=== PATIENT | female | born 1960 | race Two or more races ===

== ENCOUNTER 2022-06-08 13:08 | Inpatient (IN) | payer OTHER, SELFPAY ==
--- NOTE | 2022-06-08 | ECG_ITS ---
Test Reason : dyspenia Blood Pressure : / mmHG Vent. Rate : 079 BPM Atrial Rate : 079 BPM P-R Int : 144 ms QRS Dur : 074 ms QT Int : 404 ms P-R-T Axes : 034 009 037 degrees QTc Int : 463 ms Normal sinus rhythm Nonspecific ST and T wave abnormality Abnormal ECG When compared with ECG of 12-SEP-2019 09:20, Criteria for Septal infarct are no longer Present Referred By: Chava Leggett Electronically Signed By:CHAITANYA PORTILLO
--- NOTE | ~2022-06-08 | XR_ITS ---
EXAMINATION: XR CHEST CLINICAL INFORMATION: Cough, wheezing, rule out pneumonia COMPARISON: X-ray 09/12/2019 TECHNIQUE: Frontal view of the chest was obtained. FINDINGS: Cardiac and mediastinal silhouette is within normal limits. There is patchy opacities in the left lower lung,, concerning for infiltrate, new from previous. No effusion, edema or pneumothorax. XR/XR chest 1V IMPRESSION: Left basilar opacities raising concern for infiltrate/pneumonia. Findings new from previous. Recommendation is for a follow-up chest series to be obtained following treatment and/or resolution of symptoms to assure resolution of this appearance.
--- NOTE | ~2022-06-08 | CT_ITS ---
EXAMINATION: CT CHEST WITHOUT CONTRAST CLINICAL INFORMATION: Evaluate for pneumonia COMPARISON: Chest x-ray earlier this afternoon TECHNIQUE: Multidetector volumetric CT imaging of the chest was done. Axial MIP volume rendering provided. Sagittal and coronal reformatted images were obtained. This CT examination was performed using dose optimization techniques as appropriate, variously including the following: *Automated exposure control *Adjustment of mA and/or kV according to patient size (this includes techniques or standardized protocols for targeted exams where dose is matched to indication/reason for exam; i.e. extremities or head) *Use of iterative reconstruction technique DLP: 301 mGy-cm FINDINGS: The heart is normal in size. Coronary artery calcifications are present. There is no pericardial effusion. Normal caliber thoracic aorta. No gross mediastinal or hilar lymphadenopathy. No pathologically enlarged axillary lymph nodes. Central airways are patent. Lungs are well aerated. There is some mild lingular atelectasis. No lobar consolidation or pleural effusion. 2 mm pulmonary nodule of the left upper lobe (image 166/516, series 5). Small calcified granuloma of the right middle lobe. Visualized portions of the upper abdomen are grossly unremarkable. No acute osseous abnormality. CT/CT chest wo IV con IMPRESSION: -Well aerated lungs without lobar consolidation, pleural effusion or pneumothorax. -2 mm left upper lobe pulmonary nodule. According to the UPDATED 2017 Fleischner Society recommendations, the advised follow-up imaging for solid nodules < 6 mm is: LOW RISK PATIENT: No routine follow-up. HIGH RISK PATIENT: Optional CT at 12 months. Fleischner guidelines were followed.
[2022-06-08 14:29] VITALS: BP 195/102; PULSE 93; RESP 24; TEMP 36.2; O2SAT 94; BMI 31.1
--- NOTE | 2022-06-08 15:14 | ED_ITS ---
HPI - SOB/Dyspnea General Chief Complaint: Dyspnea Stated Complaint: diff breathing Time Seen by Provider: 06/08/22 15:01 Source: patient Mode of arrival: ambulatory Limitations: no limitations History of Present Illness HPI Narrative: 62-year-old female who presents emergency department evaluation of 3 days. Mery ent states that over the past 3 days she has had progressively worse shortness of breath. She states that the shortness of breath comes on at rest and is worse with exertion. States that she has also developed pleuritic chest she points to her left chest when asked to localize the. Pain is a sharp pain which is only present when she takes a deep breath in. The pain is 5/10 its worst. She states that last night her shortness of breath got worse and she got more short of breath this morning therefore she came to the emergency department for evaluation. She denied fever chills. She states she did have rhinorrhea and a sore throat of the past 2 days. States she has a cough which is nonproductive. She denied nausea or vomiting. She states that 1 week prior she did have diarrhea. She has noted urinary frequency she states whenever she coughs she urinates. She denied dysuria. The patient has not been vaccinated for COVID-19. She did take a home COVID 19 test which was negative. Patient states that her doctor was concerned that she might be developing COPD but she has never had a diagnosis of COPD. She had similar presentation approximately 2 year prior, she was hospitalized but does not remember how she was treated her or her diagnosis. MD elicited complaint: shortness of breath Pertinent past history: COPD (Suspected by her PCP) Onset (ago): day(s) (3) Timing: constant Severity: moderate Exacerbating factors: exertion, movement and coughing Relieving factors: nothing Known history of: COPD Associated symptoms: chest pain (Left-sided pleuritic pain, 5/10), pain with inspiration and cough (Nonproductive) Treatment prior to arrival: none Related Data Allergies Allergy/AdvReac Type Severity Reaction Status Date / Time bee pollen [BEE STINGS] Allergy Unknown SWELLING - Verified 10/06/20 07:48 BLOTCHES Review of Systems Review of Systems: Yes all other systems are reviewed and are negative PMFSH Past Medical History PMFSH Narrative: Past medical history: COPD suspected by her PCP but not diagnosed. Past surgical history: Bilateral tubal ligation. Social history: The patient smok es 09/27 pack of cigarettes per day times 35 years. She quit 1 month prior. She denies alcohol use. She states she does use intranasal heroin but has not used for 1 year. She is in a methadone clinic. Surgical History (Updated 10/06/20 @ 07:48 by LEX Norman) History of tubal ligation Family History Family History (Updated 10/06/20 @ 07:49 by LEX Norman) Father Stroke Hypertension Diabetes Heart problem Mother Diabetes Brother Diabetes Sister In good health Social History Social History Advance Directives: No Advance Directives Information Provided: No Physical Exam Vital Signs: Vital Signs: Last Vital Signs Temp 97.1 F 06/08/22 14:29 Pulse 81 06/08/22 16:27 Resp 18 06/08/22 16:27 BP 195/102 H 06/08/22 14:29 Pulse Ox 94 06/08/22 14:29 O2 Del Method 06/08/22 14:29 BMI result Body Mass Index 31.1 Const: Other: Awake, alert, female patient, she has audible wheezing, she is using accessory muscles to breathe, she answers all questions appropriately in full sentences. HEENT: Head: Yes normal to inspection, Yes normocephalic and Yes atraumatic Ears: external ears normal General nose exam: Normal external nose present Face and sinus: Yes normal facial exam Mouth: Normal oral and palatal mucosa present Throat: Yes posterior oropharynx normal Eyes: General: appearance normal, both eyes and all related structures Pupils: Equal, round and reactive pupils present Neck: Neck: Yes normal visual inspection, Yes no lymphadenopathy, Yes trachea midline and Yes supple Chest: Chest palpation & inspection: normal inspection of the chest and tenderness (Moderate left chest wall tenderness) Resp: Effort & Inspection: able to speak in complete sentences, audible wheezes and tachypneic Auscultation: rhonchi (Diffuse) and wheezes (Diffuse) Cardio: Rate: regular rate Rhythm: regular rhythm Heart sounds: S1 normal heart sound present, S2 normal heart sound present and no murmurs GI: Inspection: Yes normal to inspection Palpation (GI): Soft to palpation, nontender and no guarding Auscultation: normal bowel sounds : General: Yes no CVA tenderness Back/Spine/Pelvis: Back: no CVA tenderness Skin: General skin exam: no rashes or lesions noted Neuro: Cranial nerves: Yes CN's II-XII intact bilaterally and Yes Equal, round and reactive pupils present Cognition (Neuro): normal cognition Motor exam (neuro): 5/5 motor strength present throughout Extrem: General: Yes normal to inspection Psych: Appearance: grossly normal Speech and movement: Normal speech and movement present Affect: normal affect Attitude: cooperative Thought process: Normal thought process present Thought content: Normal thought content present Course Course Course Narrative: 62-year-old female who presents emergency department for evaluation of 3 days of shortness of breath, wheezing, nonproductive cough, sore throat, rhinorrhea and pleuritic chest pain. Patient is not vaccinated for COVID-19 but she did have a negative home COVID-19 test prior to coming to the emergency department. Vital signs revealed an elevated blood pressure of 195/102 and an elevated respiratory rate of 24. O2 saturation was 94% on room air. Physical examination did reveal left-sided chest wall tenderness which reproduces her pleuritic pain. She also has diffuse wheezing and rhonchi. I ordered CBC, CMP, lactate, troponin, PT/INR, PTT, D-dimer, blood cultures x2 and an EKG. Patient will be tested for COVID-19. Her wheezing and rhonchi will be treated with an albuterol inhaler, 6 puffs via spacer. 1619: Laboratory evaluation: CBC and CMP were unremarkable. COVID-19 was negative. High sensitive troponin I was below detectable limits. Patient only got minimal relief her shortness of breath but her chest pain did improve with the above treatment. Patient was ordered to get albuterol nebulizer 5 mg. 1655: Radiology evaluation: Radiologist reading is below:. IMPRESSION: Left basilar opacities raising concern for infiltrate/pneumonia. Findings new from previous. Recommendation is for a follow-up chest series to be obtained following treatment and/or resolution of symptoms to assure resolution of this appearance. Dictated By:Cody Brenner MD Patient was ordered to get ceftriaxone 1 g IV and azithromycin 5 mg IV. I will discuss admission with the covering hospitalist. MDM - SOB/Dyspnea Lab Data Result diagrams: 06/08/22 15:20 06/08/22 15:20 Labs: Lab Results 06/08/22 06/08/22 06/08/22 Range/Units 15:20 15:20 15:20 WBC 5.2 (4.8-10.8) X10*3/uL RBC 4.85 (4.20-5.50) X10*6/uL Hgb 14.6 (12.0-16.0) g/dl Hct 44.0 (37.0-47.0) % MCV 90.7 (80.0-98.0) fL MCH 30.1 (27.0-33.0) pg MCHC 33.2 (31.0-35.0) g/dl RDW 13.2 (11.0-16.0) % Plt Count 223 (160-400) X10*3/uL MPV 10.1 (9.4-12.3) fL Immature Gran % (Auto) 0.2 (0.0-0.4) % Neut % (Auto) 69.3 (45-73) % Lymph % (Auto) 19.7 L (20-40) % [place] % (Auto) 7.5 (2-11) % Eos % (Auto) 2.7 (0-4) % Baso % (Auto) 0.6 (0-2) % Lymph # (Auto) 1.0 L (1.2-4.9) X10*3/uL [place] # (Auto) 0.4 (0.1-1.2) X10*3/uL Eos # (Auto) 0.1 (0.0-0.4) X10*3/uL Baso # (Auto) 0.0 (0.0-0.2) X10*3/uL Abs Immat Gran (auto) 0.01 (0.00-0.03) X10*3/uL Absolute Neuts (auto) 3.6 (2.0-8.3) x10*3/uL Absolute Nucleated RBC 0.000 (0.0-0.012) X10*3/uL Nucleated RBC % (auto) 0.0 (0.0-0.2) /100WBC PT (10.0-13.1) SEC INR (0.9-1.1) APTT (26.0-36.4) SEC Sodium 139 (135-145) mmol/L Potassium 4.0 (3.3-5.1) mmol/L Chloride 101 (96-108) mmol/L Carbon Dioxide 28 (22-29) mmol/L Anion Gap 14 (12-20) BUN 14 (9-16) mg/dL Creatinine 0.75 (0.5-1.4) mg/dL Estim Creat Clear Calc 68.2 Estimated GFR > 60 Random Glucose 90 (60-115) mg/dL Lactic Acid (0.5-2.0) mmol/L Calcium 9.4 (8.4-10.2) mg/dL Total Bilirubin 0.3 (0.0-1.0) mg/dL AST 23 (5-31) U/L ALT 20 (0-31) U/L Alkaline Phosphatase 123 H (39-117) U/L Troponin I High Sens < 3.5 (<3.5-17.0) ng/L Total Protein 8.2 H (6.5-8.0) g/dL Albumin 4.6 (3.5-5.0) g/dL Lipase 4 L (8-78) U/L COVID-19 (PITA) (Negative) COVID-19 Clin Com 06/08/22 06/08/22 06/08/22 Range/Units 15:20 15:20 15:20 WBC (4.8-10.8) X10*3/uL RBC (4.20-5.50) X10*6/uL Hgb (12.0-16.0) g/dl Hct (37.0-47.0) % MCV (80.0-98.0) fL MCH (27.0-33.0) pg MCHC (31.0-35.0) g/dl RDW (11.0-16.0) % Plt Count (160-400) X10*3/uL MPV (9.4-12.3) fL Immature Gran % (Auto) (0.0-0.4) % Neut % (Auto) (45-73) % Lymph % (Auto) (20-40) % [place] % (Auto) (2-11) % Eos % (Auto) (0-4) % Baso % (Auto) (0-2) % Lymph # (Auto) (1.2-4.9) X10*3/uL [place] # (Auto) (0.1-1.2) X10*3/uL Eos # (Auto) (0.0-0.4) X10*3/uL Baso # (Auto) (0.0-0.2) X10*3/uL Abs Immat Gran (auto) (0.00-0.03) X10*3/uL Absolute Neuts (auto) (2.0-8.3) x10*3/uL Absolute Nucleated RBC (0.0-0.012) X10*3/uL Nucleated RBC % (auto) (0.0-0.2) /100WBC PT 11.3 (10.0-13.1) SEC INR 1.0 (0.9-1.1) APTT 28.2 (26.0-36.4) SEC Sodium (135-145) mmol/L Potassium (3.3-5.1) mmol/L Chloride (96-108) mmol/L Carbon Dioxide (22-29) mmol/L Anion Gap (12-20) BUN (9-16) mg/dL Creatinine (0.5-1.4) mg/dL Estim Creat Clear Calc Estimated GFR Random Glucose (60-115) mg/dL Lactic Acid 1.2 (0.5-2.0) mmol/L Calcium (8.4-10.2) mg/dL Total Bilirubin (0.0-1.0) mg/dL AST (5-31) U/L ALT (0-31) U/L Alkaline Phosphatase (39-117) U/L Troponin I High Sens (<3.5-17.0) ng/L Total Protein (6.5-8.0) g/dL Albumin (3.5-5.0) g/dL Lipase (8-78) U/L COVID-19 (PITA) Negative (Negative) COVID-19 Clin Com See Note ECG Data Attestation: I personally reviewed and interpreted this ECG as follows: Interpretation: Fourteen 50: Normal sinus rhythm rate of 79, normal [place] interval, QRS duration QTC interval, no ST segment elevation, no ST segment depression, no PACs, no PVCs, no significant T-wave abnormalities, there is artifact in the recording. Discharge Plan Discharge Clinical Impression: Acute exacerbation of chronic obstructive pulmonary disease Pneumonia Qualifiers: Pneumonia type: due to unspecified organism Laterality: left Lung location: lower lobe of lung Qualified Code(s): J18.9 - Pneumonia, unspecified organism
[2022-06-08 15:25] VITALS: PULSE 99; RESP 18; O2SAT 93
[2022-06-08 15:25] LABS: MANUAL DIFF FLAG NO
[2022-06-08] MEDS: Albuterol Sulfate 90 MCG 8 GM INHALER 6 PUFF INHALE (15:25)
[2022-06-08 15:27] LABS: Basophils Percent Auto 0.6 % (0-2); Eosinophils Absolute Auto 0.1 X10*3/uL (0.0-0.4); Eosinophils Percent Auto 2.7 % (0-4); Hemoglobin 14.6 g/dl (12.0-16.0); Imm Gran Abs Auto 0.01 X10*3/uL (0.00-0.03); Imm Gran Pct Auto 0.2 % (0.0-0.4); Lymphocytes Percent Auto 19.7 % (20-40); Mean Corpuscular HGB Conc 33.2 g/dl (31.0-35.0); Mean Corpuscular Hemoglobin 30.1 pg (27.0-33.0); Mean Corpuscular Volume 90.7 fL (80.0-98.0); Mean Platelet Volume 10.1 fL (9.4-12.3); Monocytes Absolute Auto 0.4 X10*3/uL (0.1-1.2); Monocytes Percent Auto 7.5 % (2-11); Neutrophils Absolute Auto 3.6 x10*3/uL (2.0-8.3); Neutrophils Percent Auto 69.3 % (45-73); Platelet Count 223 X10*3/uL (160-400); Red Blood Count 4.85 X10*6/uL (4.20-5.50); Red Cell Distribution Width 13.2 % (11.0-16.0); White Blood Count 5.2 X10*3/uL (4.8-10.8)
[2022-06-08] MEDS: methylPREDNISolone Sod Succ 125 MG/2 ML VIAL IVPUSH (15:28)
[2022-06-08] MEDS: Ketorolac Tromethamine 15 MG/ML VIAL IVPUSH (15:28)
[2022-06-08 15:33] LABS: Prothrombin Time 11.3 SEC (10.0-13.1)
[2022-06-08 15:35] LABS: Partial Thromboplastin Time 28.2 SEC (26.0-36.4)
[2022-06-08 15:42] LABS: COVID-19 Test Negative (Negative); IDNOW Serial# 16C4AD1C
[2022-06-08 15:47] LABS: Lactic Acid 1.2 mmol/L (0.5-2.0)
[2022-06-08 15:51] LABS: Alanine Aminotransferase 20 U/L (0-31); Albumin Level 4.6 g/dL (3.5-5.0); Alkaline Phosphatase 123 U/L (39-117); Anion Gap 14 (12-20); Aspartate Amino Transferase 23 U/L (5-31); Bilirubin Total 0.3 mg/dL (0.0-1.0); Blood Urea Nitrogen 14 mg/dL (9-16); Calcium 9.4 mg/dL (8.4-10.2); Carbon Dioxide 28 mmol/L (22-29); Chloride 101 mmol/L (96-108); Creatinine Clr Calc Pharmacy 68.2; Estimated Glomerular Filt Rate > 60; Glucose Random 90 mg/dL (60-115); Lipase 4 U/L (8-78); Sodium 139 mmol/L (135-145); Total Protein 8.2 g/dL (6.5-8.0)
[2022-06-08 15:54] LABS: Troponin-I High Sensitivity < 3.5 ng/L (<3.5-17.0)
[2022-06-08 16:27] VITALS: PULSE 81; RESP 18; O2SAT 95
[2022-06-08] MEDS: Albuterol Sulfate (0.083%) 2.5 MG/3 ML VIAL.NEB 5 MG INHALE (16:27)
[2022-06-08] MEDS: cefTRIAXone sodium 1 GM in 0.9 % Sodium Chloride 50 ML IV (17:05)
[2022-06-08] MEDS: Azithromycin 500 MG in 0.9 % Sodium Chloride 250 ML 125 MG IV (17:23)
--- NOTE | 2022-06-08 17:23 | P.HPHOSP_ITS ---
History of Present Illness Date of Service: 06/08/22 Attending physician on admission: Moise Milian Chief Complaint: Shortness of breath 62-year-old woman presented to the ER with complaints of 3 days of worsening shortness of breath at rest and worse with exertion. She also developed pleu ritic chest pain that is sharp in nature especially when taking in a deep breath. She denied fever, chills, nausea, vomiting, diarrhea. She did report recent cold-like symptoms including sore throat over the last 2 days with nonproductive cough. She is non vaccination status. Chest x-ray showing possible infiltrate, no sepsis, no fever leukocytosis noted. Patient given a dose of albuterol, Toradol, ceftriaxone, azithromycin, Solu-Medrol. She will be admitted for further management and treatment acute community-acquired pneumonia. Review of Systems Review of Systems: Denies any recent fever chills or decrease in appetite respiratory see HPI cardiovascular denies chest pain gastrointestinal denies any dysphagia abdominal pain nausea vomiting or diarrhea genitourinary denies any dysuria frequency or hematuria musculoskeletal denies any joint pain or swelling neuropsych denies any weakness or seizures all other systems reviewed are negative FORMERLY [facility], [facility] Family History (Updated 10/06/20 @ 07:49 by Fernanda Matthew Jose) Father Stroke Hypertension Diabetes Heart problem Mother Diabetes Brother Diabetes Sister In good health Surgical History History of tubal ligation Social History (Updated 06/08/22 @ 17:28 by Marielos Moreno NP) Alcohol intake: never Patient Tobacco Use Status: Former Tobacco user Tobacco use type: Cigarette Cigarette Packs Per Day: 10 Use of substances other than those prescribed or required for medical reasons: No Substance Use Type: Heroin Substance Use Type Other:: Last use intranasal heroin 1 year ago, on methadone Advance Directives: No Advance Directives Information Provided: No Meds Allergies Allergy/AdvReac Type Severity Reaction Status Date / Time bee pollen [BEE STINGS] Allergy Unknown SWELLING - Verified 10/06/20 07:48 BLOTCHES Active Medications: Current Medications Azithromycin 500 mg/ Sodium (Chloride) 250 mls @ 125 mls/hr IV ONCE STA Stop: 06/08/22 18:50 Home Medications Medication Instructions Recorded Confirmed Last Taken Type ibuprofen 600 mg tablet 600 mg PO Q6H PRN Pain 0906/08/22 06/08/22 History methadone 10 mg/5 mL oral solution 85 mg PO DAILY 06/08/22 06/08/22 06/08/22 History Physical Exam Vital Signs and Narrative: Vital Signs: Last Vital Signs Temp 97.1 F 06/08/22 14:29 Pulse 81 06/08/22 16:27 Resp 18 06/08/22 16:27 BP 195/102 H 06/08/22 14:29 Pulse Ox 94 06/08/22 14:29 O2 Del Method 06/08/22 14:29 BMI result Body Mass Index 31.1 Appearing in no acute distress head is normocephalic atraumatic eyes pupils are PERRLA sclera is anicteric mouth throat mucous membranes are intact and moist neck is supple no lymphadenopathy, no JVD noted lung sounds expiratory wheezing heart regular rate rhythm, clear S1, S2 positive bowel sounds, abdomen is soft, nontender neuro patient is alert x3, no focal deficits Results Labs CBC and Chem 7: 06/09/22 05:59 06/09/22 05:59 Labs: Laboratory Results - last 24 hr 06/08/22 06/08/22 06/08/22 15:20 15:20 15:20 MCV 90.7 MCH 30.1 MCHC 33.2 RDW 13.2 Plt Count 223 MPV 10.1 Immature Gran % (Auto) 0.2 Neut % (Auto) 69.3 Lymph % (Auto) 19.7 L [place] % (Auto) 7.5 Eos % (Auto) 2.7 Baso % (Auto) 0.6 Lymph # (Auto) 1.0 L [place] # (Auto) 0.4 Eos # (Auto) 0.1 Baso # (Auto) 0.0 Abs Immat Gran (auto) 0.01 Absolute Neuts (auto) 3.6 Absolute Nucleated RBC 0.000 Nucleated RBC % (auto) 0.0 PT INR APTT Anion Gap 14 Estim Creat Clear Calc 68.2 Estimated GFR > 60 Random Glucose 90 Lactic Acid 1.2 Calcium 9.4 Total Bilirubin 0.3 AST 23 ALT 20 Alkaline Phosphatase 123 H Total Protein 8.2 H Albumin 4.6 Lipase 4 L COVID-19 (PITA) COVID-19 Clin Com 06/08/22 06/08/22 15:20 15:20 MCV MCH MCHC RDW Plt Count MPV Immature Gran % (Auto) Neut % (Auto) Lymph % (Auto) [place] % (Auto) Eos % (Auto) Baso % (Auto) Lymph # (Auto) [place] # (Auto) Eos # (Auto) Baso # (Auto) Abs Immat Gran (auto) Absolute Neuts (auto) Absolute Nucleated RBC Nucleated RBC % (auto) PT 11.3 INR 1.0 APTT 28.2 Anion Gap Estim Creat Clear Calc Estimated GFR Random Glucose Lactic Acid Calcium Total Bilirubin AST ALT Alkaline Phosphatase Total Protein Albumin Lipase COVID-19 (PITA) Negative COVID-19 Clin Com See Note Imaging Radiologist's Impressions: Impressions Chest X-Ray 06/08/22 15:27 IMPRESSION: Left basilar opacities raising concern for infiltrate/pneumonia. Findings new from previous. Recommendation is for a follow-up chest series to be obtained following treatment and/or resolution of symptoms to assure resolution of this appearance. Assessment and Plan (1) Pneumonia: Qualifiers: Laterality: left Lung location: lower lobe of lung Pneumonia type: due to unspecified organism Qualified Code(s): J18.9 - Pneumonia, unspecified organism Status: Acute (2) Acute exacerbation of chronic obstructive pulmonary disease: Status: Acute Plan 62-year-old woman admitted with acute community-acquired pneumonia and possible COPD/bronchitis with no formal diagnosis Sepsis secondary to Acute community-acquired pneumonia unknown type Tachycardia, tachypnea, normal lactic acid IV fluids Continue Rocephin and azithromycin Supplemental oxygen as needed Check chest CT for better lung images Possible bronchitis/COPD Would be new diagnosis Consult pulmonology IV Solu-Medrol Schedule DuoNebs History of heroin abuse Denies use in over 1 year On methadone, needs to be verified to continue while patient is admitted DVT prophylaxis with Lovenox attending Dr. Milian Full code Patient likely requires 2 midnights for treatment of acute community-acquired pneumonia requiring IV antibiotics, supplemental oxygen and steroids. Quality Stroke Does the patient have a stroke diagnosis?: No VTE Prior VTE?: No VTE Risk Level:: Medical - moderate - high VTE Device Contraindication: Treatment Not Indicated VTE Drug Contraindication: N/A - Med Ordered
[2022-06-08 17:37] VITALS: BP 138/79; PULSE 105; RESP 22; O2SAT 96
--- NOTE | 2022-06-08 17:38 | PC.NURSE ---
Pt remains I/E wheezing s/p breathing tx and albuterol inhaler. Placed on 2lpm, RA sat 92%, sat on 2lpm up to 96%. Mild SOB with rest. Reports headache at this time. Abx infusing as ordered
--- NOTE | 2022-06-08 18:09 | PHA.MEDREC ---
Pharmacy Consult ? Medication Reconciliation Pharmacy has completed the medication reconciliation.
[2022-06-08] MEDS: 0.9 % Sodium Chloride 1,000 ML 100 ML IVCONT (19:04)
[2022-06-08] MEDS: methylPREDNISolone Sod Succ 40 MG/ML VIAL IVPUSH (19:08)
[2022-06-08] MEDS: Enoxaparin Sodium 40 MG/0.4 ML SYRINGE SUBCUT (19:08)
[2022-06-08 19:35] VITALS: PULSE 95; RESP 18; O2SAT 95
[2022-06-08] MEDS: Albuterol/Iprat 2.5/0.5MG 3 ML AMPUL.NEB INHALE (19:35)
[2022-06-08 20:14] VITALS: BP 121/71; PULSE 96; RESP 20; O2SAT 94
--- NOTE | 2022-06-08 21:23 | PC.NURSE ---
pt continues to have i/e wheezing, pt reports improvement w yamila, urine sample obtained, pt O2 sat @ 94 on 4L, previously on 2L but O2 dropping into high 80s while sleeping.
[2022-06-08 21:52] LABS: Appearance Urine Clear; Color Urine Dark Yellow; Glucose Urine UA 100 mg/dL (Negative); Leukocyte Esterase Urine Trace (Negative); Nitrite Urine Positive (Negative); PH 5.5 (5.0-9.0); Specific Gravity - Urine 1.025 (1.005-1.025); UMIC TRIGGER UACC YES; Urine Blood Negative (Negative); Urine Ketones 15 mg/dL (Negative); Urine Protein 30 (1+) mg/dL (Neg-Trace)
[2022-06-08 22:19] LABS: Bacteria Urine 3+ (None Seen); Hyaline Casts Urine 0-2 /LPF (0-2); RBC Urine 0-2 /HPF (0-2); UACC Culture Trigger YES; WBC Urine 0-5 /HPF (0-5)
--- NOTE | 2022-06-08 22:47 | PC.NURSE ---
Attempted to verify pt methadone dosage, unable to reach anyone at [facility], charge nurse notified and following up with staff at [facility]. Clinic on [address] [place] [address], phone number: .
[2022-06-08 23:58] LABS: D Dimer High Sensitivity < 150 NG/ML
[2022-06-09] VITALS (8 sets, daily range): BP systolic 125–157; BP diastolic 61–92; PULSE 71–87; RESP 15–18; TEMP 36.7; O2SAT 94–97
[2022-06-09] MEDS: methylPREDNISolone Sod Succ 40 MG/ML VIAL IVPUSH ×3 (03:00→18:12)
--- NOTE | 2022-06-09 04:52 | PC.NURSE ---
Assumed care of pt. at 2300. Pt. sleeping in bed on 4L O2. Audible wheezes can be heard intermittently. Pt. has IVF NS running at 100mL/hour. Administration will be delayed of next bag scheduled for 345 as the current bag is still infusing. O2 levels consistent throughout the night, tapered down to 2L O2. Good effect. O2 sats remain above 96.
[2022-06-09] MEDS: 0.9 % Sodium Chloride 1,000 ML 100 ML IVCONT (05:31)
--- NOTE | 2022-06-09 06:06 | PC.NURSE ---
Pt. awake, alert and oriented, requesting to use the commode. Pt. urinated in commode and back in bed. Increased wheezing noted with movement.
--- NOTE | 2022-06-09 06:18 | PC.NURSE ---
Pt. continues to have signicant bilateral wheezing on expiration. MD notified.
[2022-06-09 06:24] LABS: Hematocrit 38.9 % (37.0-47.0); Imm Gran Abs Auto 0.02 X10*3/uL (0.00-0.03); Imm Gran Pct Auto 0.4 % (0.0-0.4); Lymphocytes Absolute Auto 0.7 X10*3/uL (1.2-4.9); Lymphocytes Percent Auto 12.4 % (20-40); MANUAL DIFF FLAG SCAN; Mean Corpuscular HGB Conc 33.4 g/dl (31.0-35.0); Mean Corpuscular Hemoglobin 30.3 pg (27.0-33.0); Mean Corpuscular Volume 90.7 fL (80.0-98.0); Mean Platelet Volume 10.3 fL (9.4-12.3); Monocytes Absolute Auto 0.1 X10*3/uL (0.1-1.2); Monocytes Percent Auto 1.4 % (2-11); Neutrophils Absolute Auto 4.8 x10*3/uL (2.0-8.3); Neutrophils Percent Auto 85.8 % (45-73); Platelet Count 211 X10*3/uL (160-400); Red Blood Count 4.29 X10*6/uL (4.20-5.50); Red Cell Distribution Width 13.2 % (11.0-16.0); SCAN SMEAR FLAG 1; White Blood Count 5.6 X10*3/uL (4.8-10.8)
[2022-06-09 06:30] LABS: B Type Natriuretic Peptide 50 pg/mL (<100)
[2022-06-09 06:31] LABS: Anion Gap 14 (12-20); Blood Urea Nitrogen 18 mg/dL (9-16); Calcium 8.5 mg/dL (8.4-10.2); Carbon Dioxide 23 mmol/L (22-29); Chloride 105 mmol/L (96-108); Creatinine Clr Calc Pharmacy 78.6; Estimated Glomerular Filt Rate > 60; Glucose Random 136 mg/dL (60-115); Potassium 4.1 mmol/L (3.3-5.1); Sodium 138 mmol/L (135-145)
[2022-06-09] MEDS: Albuterol/Iprat 2.5/0.5MG 3 ML AMPUL.NEB INHALE (06:39)
[2022-06-09 07:22] LABS: SLIDE REVIEW VERIFIED
--- NOTE | 2022-06-09 08:09 | PHA.MEDREC ---
Pharmacy Consult ? Medication Reconciliation Pharmacy has completed the medication reconciliation.
--- NOTE | 2022-06-09 09:08 | P.PNIM_ITS ---
Subjective Subjective Date of Service: 06/09/22 Review of Systems Follow-up Community-acquired pneumonia/COPD exacerbation Still with some wheezing but feels better Denies chest pain, nausea, vomiting, diarrhea Physical Exam Vital Signs: Vital Signs: Last Vital Signs Temp 98.0 F 06/09/22 00:10 Pulse 86 06/09/22 07:07 Resp 17 06/09/22 07:07 BP 145/67 H 06/09/22 07:07 Pulse Ox 94 06/09/22 07:07 O2 Del Method 06/09/22 07:07 O2 Flow Rate 2 06/09/22 07:07 BMI result Body Mass Index 31.1 Appearing in no acute distress lung sounds expiratory wheezing heart regular rate rhythm, clear S1, S2 positive bowel sounds, abdomen is soft, nontender neuro patient is alert x3, no focal deficits Objective Data Active Medications Acetaminophen (Acetaminophen 325 Mg Tablet) 650 mg PO Q6H PRN PRN Reason: Pain, Mild (Pain Scale 1-3) Albuterol Sulfate (Albuterol Sulfate (0.083%) 2.5 Mg/3 Ml Vial.Neb) 2.5 mg INHALE RQ4H WHILE AWAKE [facility] Last Admin: 06/09/22 08:22 Dose: Not Given Documented By: ROMI Non-Admin Reason: Duplicate Order Albuterol/Ipratropium (Albuterol/Iprat 2.5/0.5mg 3 Ml Ampul.Neb) 3 ml INHALE RQ4H PRN PRN Reason: Shortness of Breath/Wheezing Last Admin: 06/09/22 06:39 Dose: 3 ml Documented By: ANNELIESE Enoxaparin Sodium (Enoxaparin Sodium 40 Mg/0.4 Ml Syringe) 40 mg SUBCUT Q24H [facility] Last Admin: 06/08/22 19:08 Dose: 40 mg Documented By: LETICIA Azithromycin 500 mg/ Sodium (Chloride) 250 mls @ 125 mls/hr IV Q24H [facility] Ceftriaxone Sodium 1 gm/ (Sodium Chloride) 50 mls @ 100 mls/hr IV Q24H [facility] Methylprednisolone Sodium Succinate (Methylprednisolone Sod Succ 40 Mg/Ml Vial) 40 mg IVPUSH Q8H [facility] Last Admin: 06/09/22 03:00 Dose: 40 mg Documented By: AUBREY Ondansetron HCl (Ondansetron Hcl 4 Mg/2 Ml Vial) 4 mg IVPUSH Q8H PRN PRN Reason: Nausea and Vomiting Pharmacy Consult (Consult Rx Perform Med Rec) 1 each MISCELLANE ONCE PRN PRN Reason: Consult order Sodium Chloride (0.9 % Sodium Chloride Flush 3 Ml Syringe) 3 ml IVFLUSH QSHIFT [facility] Last Admin: 06/09/22 07:50 Dose: Not Given Documented By: MAUDE Non-Admin Reason: IV Running Labs CBC & Chem 7: 06/09/22 05:59 06/09/22 05:59 Labs: Laboratory Results - last 24 hr 06/08/22 06/08/22 06/08/22 15:20 15:20 15:20 MCV 90.7 MCH 30.1 MCHC 33.2 RDW 13.2 Plt Count 223 MPV 10.1 Immature Gran % (Auto) 0.2 Neut % (Auto) 69.3 Lymph % (Auto) 19.7 L Harris % (Auto) 7.5 Eos % (Auto) 2.7 Baso % (Auto) 0.6 Lymph # (Auto) 1.0 L Harris # (Auto) 0.4 Eos # (Auto) 0.1 Baso # (Auto) 0.0 Abs Immat Gran (auto) 0.01 Absolute Neuts (auto) 3.6 Absolute Nucleated RBC 0.000 Nucleated RBC % (auto) 0.0 Smear Tech's Comments PT INR APTT D-Dimer High Sensitivty Anion Gap 14 Estim Creat Clear Calc 68.2 Estimated GFR > 60 Random Glucose 90 Lactic Acid 1.2 Calcium 9.4 Total Bilirubin 0.3 AST 23 ALT 20 Alkaline Phosphatase 123 H B-Natriuretic Peptide Total Protein 8.2 H Albumin 4.6 Lipase 4 L Urine Color Urine Appearance Urine pH Ur Specific Warren Urine Protein Urine Glucose (UA) Urine Ketones Urine Blood Urine Nitrite Ur Leukocyte Esterase Urine RBC Urine WBC Ur Squamous Epith Cells Urine Bacteria Hyaline Casts COVID-19 ([facility]ITA) COVID-19 Clin Com 06/08/22 06/08/22 06/08/22 15:20 15:20 21:22 MCV MCH MCHC RDW Plt Count MPV Immature Gran % (Auto) Neut % (Auto) Lymph % (Auto) Harris % (Auto) Eos % (Auto) Baso % (Auto) Lymph # (Auto) Harris # (Auto) Eos # (Auto) Baso # (Auto) Abs Immat Gran (auto) Absolute Neuts (auto) Absolute Nucleated RBC Nucleated RBC % (auto) Smear Tech's Comments PT 11.3 INR 1.0 APTT 28.2 D-Dimer High Sensitivty < 150 Anion Gap Estim Creat Clear Calc Estimated GFR Random Glucose Lactic Acid Calcium Total Bilirubin AST ALT Alkaline Phosphatase B-Natriuretic Peptide Total Protein Albumin Lipase Urine Color Dark Yellow Urine Appearance Clear Urine pH 5.5 Ur Specific Warren 1.025 Urine Protein 30 (1+) H Urine Glucose (UA) 100 H Urine Ketones 15 Urine Blood Negative Urine Nitrite Positive H Ur Leukocyte Esterase Trace H Urine RBC 0-2 Urine WBC 0-5 Ur Squamous Epith Cells 3-5 Urine Bacteria 3+ Hyaline Casts 0-2 COVID-19 (PITA) Negative COVID-19 Clin Com See Note 06/09/22 06/09/22 06/09/22 05:59 05:59 05:59 MCV 90.7 MCH 30.3 MCHC 33.4 RDW 13.2 Plt Count 211 MPV 10.3 Immature Gran % (Auto) 0.4 Neut % (Auto) 85.8 H Lymph % (Auto) 12.4 L Harris % (Auto) 1.4 L Eos % (Auto) 0.0 Baso % (Auto) 0.0 Lymph # (Auto) 0.7 L Harris # (Auto) 0.1 Eos # (Auto) 0.0 Baso # (Auto) 0.0 Abs Immat Gran (auto) 0.02 Absolute Neuts (auto) 4.8 Absolute Nucleated RBC 0.000 Nucleated RBC % (auto) 0.0 Smear Tech's Comments VERIFIED PT INR APTT D-Dimer High Sensitivty Anion Gap 14 Estim Creat Clear Calc 78.6 Estimated GFR > 60 Random Glucose 136 H Lactic Acid Calcium 8.5 D Total Bilirubin AST ALT Alkaline Phosphatase B-Natriuretic Peptide 50 Total Protein Albumin Lipase Urine Color Urine Appearance Urine pH Ur Specific Warren Urine Protein Urine Glucose (UA) Urine Ketones Urine Blood Urine Nitrite Ur Leukocyte Esterase Urine RBC Urine WBC Ur Squamous Epith Cells Urine Bacteria Hyaline Casts COVID-19 (PITA) COVID-19 Clin Com Assessment and Plan (1) Acute exacerbation of chronic obstructive pulmonary disease: Status: Acute Plan 62-year-old woman admitted with acute community-acquired pneumonia and possible COPD/bronchitis with no formal diagnosis Sepsis secondary to Acute community-acquired pneumonia unknown type. Sepsis resolved Tachycardia, tachypnea, normal lactic acid IV fluids stopped Continue Rocephin and azithromycin Supplemental oxygen as needed Check chest CT showing well aerated lungs without lobar consolidation, pleural effusion or pneumothorax Possible bronchitis/COPD Would be new diagnosis Pulmonology consultation pending Continue Solu-Medrol IV Schedule DuoNebs History of heroin abuse Denies use in over 1 year On methadone, needs to be verified to continue while patient is admitted DVT prophylaxis with Lovenox attending Dr. Dunbar Full code Patient requires continued hospitalization for treatment of acute community- acquired pneumonia requiring IV antibiotics, supplemental oxygen and steroids. Quality Stroke Does the patient have a stroke diagnosis?: No VTE Prior VTE?: No VTE Risk Level:: Medical - moderate - high VTE Device Contraindication: Treatment Not Indicated VTE Drug Contraindication: N/A - Med Ordered
--- NOTE | 2022-06-09 10:13 | MHC.CM.PN ---
PT ADMITTED WITH RSV CM ATTEMPTED TO CONTACT PT VIA T/C TO THE NUMBER ON FILE [phone] PTS NUMBER IS OUT OF SERVICE [employer]PER COMPLETED USING EMR PT LIVES WITH HER SISTER AND IS INDEPENDENT WITH CARE PT HAS NO DME OR HOME SERVICES AND WORKS PT DOES NOT HAVE A HCP ON FILE AND DECLINED TO COMPLETE ONE DURING HER LAST ADMISSION PCP: INNA SHAY CURRENT DC PLAN IS HOME WITH NO SERVICES PT WILL LIKELY NEED THE C SHUTTLE ARRANGED FOR TRANSPORT
[2022-06-09] MEDS: Albuterol Sulfate (0.083%) 2.5 MG/3 ML VIAL.NEB INHALE ×3 (10:41→20:01)
--- NOTE | 2022-06-09 10:41 | PC.NURSE ---
Called to susy methadone. Pharmacy made aware
--- NOTE | 2022-06-09 10:51 | HE.PHANOTE ---
Received verification form for methadone 85mg once daily
--- NOTE | 2022-06-09 11:03 | P.CONPL_ITS ---
History of Present Illness History of Present Illness Consult date: 06/09/22 Reason for consult: dyspnea, cough, COPD and hypoxemia Chief complaint: Sepsis secondary to community-acquired pneumonia Narrative: This patient was seen by me this morning for pulmonary consultation. 62-year-old woman presented to the ER with complaints of 3 days of worsening shortness of breath at rest and worse with exertion.? Also complains of mild chest discomfort on taking deep breath. ?She denies fever, chills, nausea, vomiting, diarrhea.? She reports recent cold- like symptoms including sore throat over the last 2 days with nonproductive cough.? She is non vaccination status.? She does not have leukocytosis and also no sepsis, Patient given a dose of albuterol, Toradol, ceftriaxone, azithromycin, Solu-Medrol.? COVID test is negative. Viral panel positive for RSV infection. Past medical history, not remarkable, for chronic lung disease. She is on methadone 85 mg daily probably for chronic opioid use disorder . Patient gives history of smoking 1 pack of cigarettes a day and quit about 2-3 months ago. Review of Systems Review of Systems: Yes all other systems are reviewed and are negative Constitutional: Constitutional: Reports no additional constitutional complaints Eyes: Eyes: Reports no additional eye complaints ENT: Reports system reviewed and no additional complaints, except as documented Cardiovascular: Cardiovascular: Reports no additional cardiovascular complaints Respiratory: Respiratory: Reports as per HPI Gastrointestinal: Gastrointestinal: Denies diarrhea, Denies nausea and Denies vomiting Genitourinary: Genitourinary: Reports no additional female genitourinary complaints Musculoskeletal: Musculoskeletal: Reports back pain and Reports myalgias Integumentary/Breasts: Skin/Breast: Reports system reviewed and no additional complaints, except as docu Neurologic: Reports system reviewed and no additional complaints, except as documented Psychiatric: Psychiatric: Reports no additional psychiatric complaints [facility] Past Medical History Medical History Bronchitis Family History Family History Father Stroke Hypertension Diabetes Heart problem Mother Diabetes Brother Diabetes Sister In good health Surgical History Surgical History History of tubal ligation Social History Social History Alcohol intake: never Patient Tobacco Use Status: Former Tobacco user Tobacco use type: Cigarette Cigarette Packs Per Day: 10 Use of substances other than those prescribed or required for medical reasons: No Substance Use Type: Heroin Substance Use Type Other:: Last use intranasal heroin 1 year ago, on methadone Advance Directives: No Advance Directives Information Provided: No service: No Current occupational status: employed Meds Allergies Allergy/AdvReac Type Severity Reaction Status Date / Time bee pollen [BEE STINGS] Allergy Unknown SWELLING - Verified 10/06/20 07:48 BLOTCHES Active Medications: Current Medications Acetaminophen (Acetaminophen 325 Mg Tablet) 650 mg PO Q6H PRN PRN Reason: Pain, Mild (Pain Scale 1-3) Albuterol Sulfate (Albuterol Sulfate (0.083%) 2.5 Mg/3 Ml Vial.Neb) 2.5 mg INHALE RQ4H WHILE AWAKE REPLACED [facility] Last Admin: 06/09/22 10:41 Dose: 2.5 mg Albuterol/Ipratropium (Albuterol/Iprat 2.5/0.5mg 3 Ml Ampul.Neb) 3 ml INHALE RQ 4H PRN PRN Reason: Shortness of Breath/Wheezing Last Admin: 06/09/22 06:39 Dose: 3 ml Enoxaparin Sodium (Enoxaparin Sodium 40 Mg/0.4 Ml Syringe) 40 mg SUBCUT Q24H REPLACED [facility] Last Admin: 06/08/22 19:08 Dose: 40 mg Azithromycin 500 mg/ Sodium (Chloride) 250 mls @ 125 mls/hr IV Q24H REPLACED BY [facility] Ceftriaxone Sodium 1 gm/ (Sodium Chloride) 50 mls @ 100 mls/hr IV Q24H REPLACED BY [facility] Methadone HCl (Methadone Hcl 20 Mg/2 Ml Oral.Conc) 85 mg PO DAILY REPLACED BY [facility] Methylprednisolone Sodium Succinate (Methylprednisolone Sod Succ 40 Mg/Ml Vial) 40 mg IVPUSH Q8H REPLACED BY [facility] Last Admin: 06/09/22 10:01 Dose: 40 mg Ondansetron HCl (Ondansetron Hcl 4 Mg/2 Ml Vial) 4 mg IVPUSH Q8H PRN PRN Reason: Nausea and Vomiting Pharmacy Consult (Consult Rx Perform Med Rec) 1 each MISCELLANE ONCE PRN PRN Reason: Consult order Sodium Chloride (0.9 % Sodium Chloride Flush 3 Ml Syringe) 3 ml IVFLUSH QSHIFT [facility] Last Admin: 06/09/22 07:50 Dose: Not Given Home Medications Medication Instructions Recorded Confirmed Last Taken Type ibuprofen 600 mg tablet 600 mg PO Q6H PRN Pain 06/08/22 06/08/22 06/08/22 History methadone 10 mg/5 mL oral solution 85 mg PO DAILY 06/08/22 06/08/22 06/08/22 History Physical Exam Vital Signs: Vital Signs: Last Vital Signs Temp 98.0 F 06/09/22 00:10 Pulse 87 06/09/22 10:44 Resp 18 06/09/22 10:44 BP 145/67 H 06/09/22 07:07 Pulse Ox 94 06/09/22 07:07 O2 Del Method 06/09/22 07:07 O2 Flow Rate 2 06/09/22 07:07 BMI result Body Mass Index 31.1 Const: General: comfortable, no acute distress, alert and awake Orientation/consciousness: patient oriented x3 HEENT: Head: Yes normal to inspection General nose exam: No nasal polyps present and No nasal discharge present Face and sinus: Yes sinuses nontender Mouth: oropharynx normal Throat: Yes posterior oropharynx normal Eyes: General: appearance normal, both eyes and all related structures Neck: Neck: Yes normal visual inspection, Yes no lymphadenopathy, Yes trachea midline and Yes no JVD Thyroid: Thyroid normal Chest: Chest palpation & inspection: normal inspection of the chest, normal palpation of entire chest wall and no tenderness Resp: Other: Percussion note resonant, she has equal breath sounds on both sides which are slightly diminished. She does have scattered rhonchi and faint wheezes on both sides. Cardio: Palpation: normal PMI Rate: regular rate Rhythm: regular rhythm Heart sounds: no gallops and no murmurs Peripheral pulses: Peripheral pulses 2+ throughout GI: Palpation (GI): Soft to palpation, nontender, No hepatosplenomegaly pr esent and no masses Auscultation: normal bowel sounds Back/Spine/Pelvis: Thoracic/Lumbar Spine: thoracic and lumbar spine normal to inspection Skin: General skin exam: no rashes or lesions noted Neuro: General: patient oriented x3 and no focal motor deficits Cranial nerves: Yes CN's II-XII intact bilaterally Extrem: General: Yes normal to inspection, Yes no clubbing, cyanosis or edema and Yes no calf tenderness Psych: Appearance: grossly normal Speech and movement: Normal speech and movement present Results Laboratory Findings CBC and BMP: 06/09/22 05:59 06/09/22 05:59 ABG, PT/INR, D-dimer: PT/INR, D-dimer PT 11.3 SEC (10.0-13.1) 06/08/22 15:20 INR 1.0 (0.9-1.1) 06/08/22 15:20 Abnormal lab findings: Abnormal Labs 06/08/22 06/08/22 06/08/22 15:20 15:20 21:22 Neut % (Auto) Lymph % (Auto) 19.7 L [place] % (Auto) Lymph # (Auto) 1.0 L BUN Random Glucose Alkaline Phosphatase 123 H Total Protein 8.2 H Lipase 4 L Urine Protein 30 (1+) H Urine Glucose (UA) 100 H Urine Nitrite Positive H Ur Leukocyte Esterase Trace H 06/09/22 06/09/22 05:59 05:59 Neut % (Auto) 85.8 H Lymph % (Auto) 12.4 L [place] % (Auto) 1.4 L Lymph # (Auto) 0.7 L BUN 18 H Random Glucose 136 H Alkaline Phosphatase Total Protein Lipase Urine Protein Urine Glucose (UA) Urine Nitrite Ur Leukocyte Esterase Diagnostic Findings Chest x-ray: report reviewed and image reviewed CT scan - chest: report reviewed and image reviewed Assessment and Plan (1) Acute exacerbation of chronic obstructive pulmonary disease: Status: Acute (2) Bronchitis: Status: Acute Plan This patient with the history of smoking in the past does have chronic obs tructive pulmonary disease, at least clinically. At present she has acute exacerbation of chronic obstructive pulmonary disease secondary to acute bronchitis. Acute viral bronchitis. Recc. She should be treated with a short course of steroids, IV Solu-Medrol 40 mg q.8 hours for 1 or 2 days until she is improved. Than prednisone 40 mg daily for 5 days. Treat with a course of Z-Arthur. Oxygen supplementation as needed to keep O2 sat above 90%. DuoNeb updrafts Q -6 hours while awake and p.r.n.. On discharge she should be evaluated for home oxygen usage. Also on discharge she will probably need a long-acting bronchodilator. She should be followed as outpatient by the Pulmonary office, and would need a pulmonary function test to establish the diagnosis of COPD, Procedures Date of Service Date of Service: 06/09/22
[2022-06-09] MEDS: methADONE HCl 20 MG/2 ML ORAL.CONC 85 MG PO (11:35)
[2022-06-09] MEDS: cefTRIAXone sodium 1 GM in 0.9 % Sodium Chloride 50 ML IV (17:03)
[2022-06-09] MEDS: 0.9 % Sodium Chloride Flush 3 ML SYRINGE IVFLUSH (17:06)
[2022-06-09] MEDS: Enoxaparin Sodium 40 MG/0.4 ML SYRINGE SUBCUT (18:11)
[2022-06-09] MEDS: Azithromycin 500 MG in 0.9 % Sodium Chloride 250 ML 125 MG IV (18:12)
[2022-06-10] VITALS (7 sets, daily range): BP systolic 136–167; BP diastolic 71–88; PULSE 66–83; RESP 14–20; TEMP 36.3–36.6; O2SAT 93–97
[2022-06-10] MEDS: 0.9 % Sodium Chloride Flush 3 ML SYRINGE IVFLUSH ×3 (01:03→16:49)
[2022-06-10] MEDS: methylPREDNISolone Sod Succ 40 MG/ML VIAL IVPUSH ×2 (01:03→10:32)
[2022-06-10] MEDS: Acetaminophen 325 MG TABLET 650 MG PO ×2 (01:04→18:19)
[2022-06-10] MEDS: Albuterol Sulfate (0.083%) 2.5 MG/3 ML VIAL.NEB INHALE (08:09)
[2022-06-10] MEDS: methADONE HCl 20 MG/2 ML ORAL.CONC 85 MG PO (08:47)
--- NOTE | 2022-06-10 09:11 | PC.NURSE ---
report given to ANCA Jon. Transporter notified. pt aware of plan.
--- NOTE | 2022-06-10 14:28 | P.PNIM_ITS ---
Subjective Subjective Date of Service: 06/10/22 Interval History: seen and examined this morning follow up for COPD exacerbation Having persistent dry cough, shortness of breath Review of Systems Review of Systems: Yes all other systems are reviewed and are negative Constitutional Constitutional: Denies chills and Denies fever(s) Cardiovascular Cardiovascular: Denies chest pain, Denies palpitations and Reports dyspnea Respiratory Respiratory: Reports cough and Reports dyspnea Gastrointestinal Gastrointestinal: Denies abdominal pain, Denies nausea and Denies vomiting Endocrine Endocrine: Denies palpitations Physical Exam Vital Signs: Vital Signs: Last Vital Signs Temp 97.7 F 06/10/22 10:48 Pulse 69 06/10/22 10:48 Resp 14 06/10/22 10:48 BP 144/77 H 06/10/22 10:48 Pulse Ox 94 06/10/22 10:48 O2 Del Method 06/10/22 10:48 O2 Flow Rate 2.0 06/10/22 10:48 BMI result Body Mass Index 31.1 Const: General: cooperative, alert and awake Nutritional Appearance: overweight Orientation/consciousness: patient oriented x3 Resp: Other: bilateral wheezing Effort & Inspection: normal respiratory effort and able to speak in complete sentences Cardio: Rate: regular rate Heart sounds: S1 normal heart sound present and S2 normal heart sound present GI: Inspection: No distended Palpation (GI): Soft to palpation and nontender Neuro: General: patient oriented x3 and CN's II-XI intact bilaterally Extrem: General: Yes no pedal edema Objective Data Active Medications Acetaminophen (Acetaminophen 325 Mg Tablet) 650 mg PO Q6H PRN PRN Reason: Pain, Mild (Pain Scale 1-3) Last Admin: 06/10/22 01:04 Dose: 650 mg Documented By: BAYRON Albuterol Sulfate (Albuterol Sulfate (0.083%) 2.5 Mg/3 Ml Vial.Neb) 2.5 mg INHALE RQ4H WHILE AWAKE [facility] Last Admin: 06/10/22 11:28 Dose: Not Given Documented By: ROMI Non-Admin Reason: pt unavail at this time Albuterol/Ipratropium (Albuterol/Iprat 2.5/0.5mg 3 Ml Ampul.Neb) 3 ml INHALE RQ4H PRN PRN Reason: Shortness of Breath/Wheezing Last Admin: 06/09/22 06:39 Dose: 3 ml Documented By: ANNELIESE Enoxaparin Sodium (Enoxaparin Sodium 40 Mg/0.4 Ml Syringe) 40 mg SUBCUT Q24H [facility] Last Admin: 06/09/22 18:11 Dose: 40 mg Documented By: MAUDE Azithromycin 500 mg/ Sodium (Chloride) 250 mls @ 125 mls/hr IV Q24H [facility] Last Infusion: 06/09/22 21:15 Dose: 0 mls/hr Documented By: BLAISE Ceftriaxone Sodium 1 gm/ (Sodium Chloride) 50 mls @ 100 mls/hr IV Q24H [facility] Last Infusion: 06/09/22 18:12 Dose: 0 mls/hr Documented By: MAUDE Methadone HCl (Methadone Hcl 20 Mg/2 Ml Oral.Conc) 85 mg PO DAILY [facility] Last Admin: 06/10/22 08:47 Dose: 85 mg Documented By: ANSON Methylprednisolone Sodium Succinate (Methylprednisolone Sod Succ 40 Mg/Ml Vial) 40 mg IVPUSH Q8H [facility] Last Admin: 06/10/22 10:32 Dose: 40 mg Documented By: RENA Ondansetron HCl (Ondansetron Hcl 4 Mg/2 Ml Vial) 4 mg IVPUSH Q8H PRN PRN Reason: Nausea and Vomiting Pharmacy Consult (Consult Rx Perform Med Rec) 1 each MISCELLANE ONCE PRN PRN Reason: Consult order Sodium Chloride (0.9 % Sodium Chloride Flush 3 Ml Syringe) 3 ml IVFLUSH QSHIFT [facility] Last Admin: 06/10/22 08:40 Dose: 3 ml Documented By: ANSON Labs CBC & Chem 7: 06/09/22 05:59 06/09/22 05:59 Microbiology Microbiology Results: Microbiology 06/08/22 Unknown Urine Culture - Final Urine clean catch - Urine tripathi top 06/08/22 15:20 Blood Culture - Preliminary Blood - Venous No growth after 24 hours. 06/08/22 15:33 Blood Culture - Preliminary Blood - Venous No growth after 24 hours. Assessment and Plan (1) Bronchitis: Status: Acute (2) Acute exacerbation of chronic obstructive pulmonary disease: Status: Acute Plan 62-year-old woman admitted with acute community-acquired pneumonia and possible COPD/bronchitis with no formal diagnosis Acute respiratory failure with hypoxia Documented to be in the mid 80s in the emergency department Currently in the low 90s on 2 L of supplemental oxygen Secondary to underlying bronchitis and probable undiagnosed COPD -wean oxygen as tolerated Sepsis secondary to acute bronchitis and COPD exacerbation. slow to respond, still with wheezing, and with hypoxia and dyspnea Tachycardia, tachypnea, normal lactic acid- tachycardia, tachypnea resolved no previous diagnosis of COPD Seen by pulmonology - agrees with probable diagnosis of COPD; recommend home O2 eval prior to discharge. Discharge with long-acting bronchodilator. Will need outpatient pulmonary follow-up and formal PFTs -continue IV Solu-Medrol -continue Scheduled & DuoNebs OUD continue home dose of methadone DVT prophylaxis with Lovenox attending Dr. Dunbar Full code Requires ongoing inpatient hospitalization secondary to need for IV antibiotics, IV steroids, scheduled breathing treatments and supplemental oxygen for ongoing hypoxia Quality Stroke Does the patient have a stroke diagnosis?: No VTE Prior VTE?: No VTE Risk Level:: Medical - moderate - high VTE Device Contraindication: Treatment Not Indicated VTE Drug Contraindication: N/A - Med Ordered
[2022-06-10] MEDS: Albuterol/Iprat 2.5/0.5MG 3 ML AMPUL.NEB INHALE ×2 (15:24→19:22)
[2022-06-10] MEDS: cefTRIAXone sodium 1 GM in 0.9 % Sodium Chloride 50 ML IV (16:49)
[2022-06-10] MEDS: Azithromycin 500 MG in 0.9 % Sodium Chloride 250 ML 125 MG IV (17:28)
[2022-06-10] MEDS: methylPREDNISolone Sod Succ 40 MG/ML VIAL 60 MG IVPUSH (17:28)
[2022-06-10] MEDS: Enoxaparin Sodium 40 MG/0.4 ML SYRINGE SUBCUT (17:28)
[2022-06-10] MEDS: Benzonatate 100 MG CAPSULE PO (21:32)
[2022-06-10] MEDS: Docusate Sodium 100 MG CAPSULE PO (21:32)
[2022-06-11] VITALS (10 sets, daily range): BP systolic 141–168; BP diastolic 70–88; PULSE 70–93; RESP 16–22; TEMP 36.2–37.1; O2SAT 93–96
[2022-06-11] MEDS: 0.9 % Sodium Chloride Flush 3 ML SYRINGE IVFLUSH ×4 (00:21→20:02)
[2022-06-11] MEDS: methylPREDNISolone Sod Succ 40 MG/ML VIAL 60 MG IVPUSH ×3 (02:17→17:15)
[2022-06-11] MEDS: Albuterol/Iprat 2.5/0.5MG 3 ML AMPUL.NEB INHALE ×4 (08:34→19:58)
[2022-06-11] MEDS: Docusate Sodium 100 MG CAPSULE PO ×2 (09:15→20:01)
[2022-06-11] MEDS: methADONE HCl 20 MG/2 ML ORAL.CONC 85 MG PO (09:16)
--- NOTE | 2022-06-11 09:58 | ECG_ITS ---
Test Reason : chest pain Blood Pressure : / mmHG Vent. Rate : 088 BPM Atrial Rate : 088 BPM P-R Int : 134 ms QRS Dur : 078 ms QT Int : 372 ms P-R-T Axes : 046 011 041 degrees QTc Int : 450 ms Normal sinus rhythm Low voltage QRS Borderline ECG When compared with ECG of 08-JUN-2022 14:50, Nonspecific ST and T wave abnormality is no longer Present Referred By: Jojo Ortega Electronically Signed By:CHAITANYA PORTILLO
--- NOTE | 2022-06-11 12:30 | MHC.CM.PN ---
PER MD ROUNDS, PT NOT YET MEDICALLY CLEARED TO DC DC PLAN REMAINS HOME WITH NO SERVICES PT REPORTS HER NIECE WILL TRANSPORT
--- NOTE | 2022-06-11 12:57 | P.PNIM_ITS ---
Subjective Subjective Date of Service: 06/11/22 Interval History: seen and examined this morning follow up for copd exacerbation/bronchitis still with persistent dyspnea, cough. No fever, no chills, no chest pain, no palpitations having left side chest pain with cough, reproducible on exam Review of Systems Review of Systems: Yes all other systems are reviewed and are negative Constitutional Constitutional: Denies chills and Denies fever(s) Cardiovascular Cardiovascular: Denies chest pain, Denies palpitations and Reports dyspnea Respiratory Respiratory: Reports cough, Reports pain with cough and Reports dyspnea Endocrine Endocrine: Denies palpitations Physical Exam Vital Signs: Vital Signs: Last Vital Signs Temp 98.0 F 06/11/22 11:35 Pulse 86 06/11/22 11:43 Resp 18 06/11/22 11:43 BP 168/79 H 06/11/22 11:35 Pulse Ox 93 06/11/22 11:35 O2 Del Method 06/11/22 11:35 O2 Flow Rate 2 06/11/22 11:35 BMI result Body Mass Index 31.1 Const: General: cooperative, alert and awake Nutritional Appearance: overweight Orientation/consciousness: patient oriented x3 Chest: Other: left side anterior chest wall tenderness to palpation Resp: Other: bilateral wheezing - improved aeration Effort & Inspection: normal respiratory effort, able to speak in complete sentences and no use of accessory muscles Cardio: Rate: regular rate Heart sounds: S1 normal heart sound present and S2 normal heart sound present GI: Inspection: No distended Palpation (GI): Soft to palpation and nontender Neuro: General: patient oriented x3 and CN's II-XI intact bilaterally Extrem: General: Yes no pedal edema Objective Data Active Medications Acetaminophen (Acetaminophen 325 Mg Tablet) 650 mg PO Q6H PRN PRN Reason: Pain, Mild (Pain Scale 1-3) Last Admin: 06/10/22 18:19 Dose: 650 mg Documented By: LOYDA Albuterol/Ipratropium (Albuterol/Iprat 2.5/0.5mg 3 Ml Ampul.Neb) 3 ml INHALE RQ4H PRN PRN Reason: Shortness of Breath/Wheezing Last Admin: 06/09/22 06:39 Dose: 3 ml Documented By: ANNELIESE Albuterol/Ipratropium (Albuterol/Iprat 2.5/0.5mg 3 Ml Ampul.Neb) 3 ml INHALE RQ4H WHILE AWAKE [facility] Last Admin: 06/11/22 11:42 Dose: 3 ml Documented By: BRESNE Benzonatate (Benzonatate 100 Mg Capsule) 100 mg PO TID PRN PRN Reason: Cough Last Admin: 06/10/22 21:32 Dose: 100 mg Documented By: FABRIZIO Docusate Sodium (Docusate Sodium 100 Mg Capsule) 100 mg PO BID [facility] Last Admin: 06/11/22 09:15 Dose: 100 mg Documented By: BOOKER Enoxaparin Sodium (Enoxaparin Sodium 40 Mg/0.4 Ml Syringe) 40 mg SUBCUT Q24H [facility] Last Admin: 06/10/22 17:28 Dose: 40 mg Documented By: LOYDA Azithromycin 500 mg/ Sodium (Chloride) 250 mls @ 125 mls/hr IV Q24H [facility] Last Infusion: 06/10/22 20:51 Dose: 0 mls/hr Documented By: FABRIZIO Ceftriaxone Sodium 1 gm/ (Sodium Chloride) 50 mls @ 100 mls/hr IV Q24H [facility] Last Infusion: 06/10/22 17:34 Dose: 0 mls/hr Documented By: LOYDA Methadone HCl (Methadone Hcl 20 Mg/2 Ml Oral.Conc) 85 mg PO DAILY [facility] Last Admin: 06/11/22 09:16 Dose: 85 mg Documented By: BOOKER Methylprednisolone Sodium Succinate (Methylprednisolone Sod Succ 40 Mg/Ml Vial) 60 mg IVPUSH Q8H [facility] Last Admin: 06/11/22 09:21 Dose: 60 mg Documented By: BOOKER Ondansetron HCl (Ondansetron Hcl 4 Mg/2 Ml Vial) 4 mg IVPUSH Q8H PRN PRN Reason: Nausea and Vomiting Pharmacy Consult (Consult Rx Perform Med Rec) 1 each MISCELLANE ONCE PRN PRN Reason: Consult order Sodium Chloride (0.9 % Sodium Chloride Flush 3 Ml Syringe) 3 ml IVFLUSH QSHIFT [facility] Last Admin: 06/11/22 09:16 Dose: 3 ml Documented By: BOOKER Labs CBC & Chem 7: 06/09/22 05:59 06/09/22 05:59 Microbiology Microbiology Results: Microbiology 06/08/22 15:20 Blood Culture - Preliminary Blood - Venous No growth after 48 hours. 06/08/22 15:33 Blood Culture - Preliminary Blood - Venous No growth after 48 hours. 06/08/22 Unknown Urine Culture - Final Urine clean catch - Urine tripathi top Assessment and Plan (1) Bronchitis: Status: Acute (2) Acute exacerbation of chronic obstructive pulmonary disease: Status: Acute Plan 62-year-old woman admitted with acute community-acquired pneumonia and possible COPD/bronchitis with no formal diagnosis Acute respiratory failure with hypoxia Documented to be in the mid 80s in the emergency department Currently in the low 90s on 2 L of supplemental oxygen Secondary to underlying bronchitis and probable undiagnosed COPD -wean oxygen as tolerated Sepsis secondary to acute bronchitis and COPD exacerbation. slow to respond, still with wheezing, and with hypoxia and dyspnea Tachycardia, tachypnea, normal lactic acid- tachycardia, tachypnea resolved Chest CT with no evidence of pneumonia no previous diagnosis of COPD Seen by pulmonology - agrees with probable diagnosis of COPD; recommend home O2 eval prior to discharge. Discharge with long-acting bronchodilator. Will need outpatient pulmonary follow-up and formal PFTs -continue IV Solu-Medrol -continue Scheduled & DuoNebs -small pulmonary nodule - outpatient follow up -RPP pending OUD continue home dose of methadone DVT prophylaxis with Lovenox attending Dr. Galvez Full code Requires ongoing inpatient hospitalization secondary to need for IV antibiotics, IV steroids, scheduled breathing treatments and supplemental oxygen for ongoing hypoxia Quality Stroke Does the patient have a stroke diagnosis?: No VTE Prior VTE?: No VTE Risk Level:: Medical - moderate - high VTE Device Contraindication: Treatment Not Indicated VTE Drug Contraindication: N/A - Med Ordered
[2022-06-11 14:44] LABS: Adenovirus PCR Not Detected (Not Detect.); Bordetella parapertussis PCR Not Detected (Not Detect.); Bordetella pertussis PCR Not Detected (Not Detect.); Chlamydia pneumoniae PCR Not Detected (Not Detect.); Coronavirus 229E PCR Not Detected (Not Detect.); Coronavirus HKU1 PCR Not Detected (Not Detect.); Coronavirus NL63 PCR Not Detected (Not Detect.); RSV PCR Not Detected (Not Detect.)
[2022-06-11 14:45] LABS: Coronavirus OC43 PCR Not Detected (Not Detect.); Human metapneumovirus PCR Not Detected (Not Detect.); Influenza A PCR Not Detected (Not Detect.); Influenza B PCR Not Detected (Not Detect.); Mycoplasma pneumoniae PCR Not Detected (Not Detect.); Parainfluenza 1 PCR Not Detected (Not Detect.); Parainfluenza 2 PCR Not Detected (Not Detect.); Parainfluenza 3 PCR Not Detected (Not Detect.); Parainfluenza 4 PCR Detected (Not Detect.); Rhino/Enterovirus PCR Not Detected (Not Detect.); SARS-CoV-2 PCR Not Detected (Not Detect.)
[2022-06-11] MEDS: Enoxaparin Sodium 40 MG/0.4 ML SYRINGE SUBCUT (17:13)
[2022-06-11] MEDS: cefTRIAXone sodium 1 GM in 0.9 % Sodium Chloride 50 ML IV (17:14)
[2022-06-11] MEDS: Azithromycin 500 MG in 0.9 % Sodium Chloride 250 ML 125 MG IV (17:55)
[2022-06-11] MEDS: Butalb/Acetamin/Caff 50/325/40 TABLET 1 TAB PO (17:55)
[2022-06-12] VITALS (9 sets, daily range): BP systolic 139–172; BP diastolic 68–84; PULSE 78–110; RESP 16–20; TEMP 36.4–37.2; O2SAT 92–98
[2022-06-12] MEDS: methylPREDNISolone Sod Succ 40 MG/ML VIAL 60 MG IVPUSH ×3 (01:02→18:13)
[2022-06-12] MEDS: methADONE HCl 20 MG/2 ML ORAL.CONC 85 MG PO (07:59)
[2022-06-12] MEDS: Docusate Sodium 100 MG CAPSULE PO ×2 (08:01→21:00)
[2022-06-12] MEDS: 0.9 % Sodium Chloride Flush 3 ML SYRINGE IVFLUSH ×3 (08:02→21:00)
[2022-06-12] MEDS: Albuterol/Iprat 2.5/0.5MG 3 ML AMPUL.NEB INHALE ×4 (08:06→20:28)
--- NOTE | 2022-06-12 11:01 | P.PNIM_ITS ---
Subjective Subjective Date of Service: 06/12/22 Interval History: follow up for copd exacerbation/bronchitis still with persistent dyspnea, cough. No fever, no chills, no chest pain, no pa lpitations having left side chest pain with cough, reproducible on exam Review of Systems Review of Systems: Yes all other systems are reviewed and are negative Constitutional Constitutional: Denies chills and Denies fever(s) Cardiovascular Cardiovascular: Denies chest pain, Denies palpitations and Reports dyspnea Respiratory Respiratory: Reports cough, Reports pain with cough and Reports dyspnea Endocrine Endocrine: Denies palpitations Physical Exam Vital Signs: Vital Signs: Last Vital Signs Temp 98.6 F 06/12/22 07:44 Pulse 98 06/12/22 08:08 Resp 20 06/12/22 08:08 BP 172/79 H 06/12/22 07:44 Pulse Ox 93 06/12/22 07:44 O2 Del Method 06/12/22 07:44 O2 Flow Rate 2 06/12/22 07:44 BMI result Body Mass Index 31.1 Appearing in no acute distress lung sounds exp wheezing heart regular rate rhythm, clear S1, S2 positive bowel sounds, abdomen is soft, nontender neuro patient is alert x3, no focal deficits Objective Data Active Medications Acetaminophen (Acetaminophen 325 Mg Tablet) 650 mg PO Q6H PRN PRN Reason: Pain, Mild (Pain Scale 1-3) Last Admin: 06/10/22 18:19 Dose: 650 mg Documented By: LOYDA Albuterol/Ipratropium (Albuterol/Iprat 2.5/0.5mg 3 Ml Ampul.Neb) 3 ml INHALE RQ4H PRN PRN Reason: Shortness of Breath/Wheezing Last Admin: 06/09/22 06:39 Dose: 3 ml Documented By: ANNELIESE Albuterol/Ipratropium (Albuterol/Iprat 2.5/0.5mg 3 Ml Ampul.Neb) 3 ml INHALE RQ4H WHILE AWAKE [facility] Last Admin: 06/12/22 08:06 Dose: 3 ml Documented By: BETTE Benzonatate (Benzonatate 100 Mg Capsule) 100 mg PO TID PRN PRN Reason: Cough Last Admin: 06/10/22 21:32 Dose: 100 mg Documented By: FABRIZIO Docusate Sodium (Docusate Sodium 100 Mg Capsule) 100 mg PO BID [facility] Last Admin: 06/12/22 08:01 Dose: 100 mg Documented By: STACI Enoxaparin Sodium (Enoxaparin Sodium 40 Mg/0.4 Ml Syringe) 40 mg SUBCUT Q24H [facility] Last Admin: 06/11/22 17:13 Dose: 40 mg Documented By: BOOKER Guaifenesin/Codeine Phosphate (Guaifen/Codeine Sf 200/20/10ml 10 Ml Liquid) 5 ml PO Q6H PRN PRN Reason: Cough Azithromycin 500 mg/ Sodium (Chloride) 250 mls @ 125 mls/hr IV Q24H [facility] Last Infusion: 06/11/22 20:05 Dose: 0 mls/hr Documented By: CAROLYN Ceftriaxone Sodium 1 gm/ (Sodium Chloride) 50 mls @ 100 mls/hr IV Q24H [facility] Last Infusion: 06/11/22 18:04 Dose: 0 mls/hr Documented By: BOOKER Methadone HCl (Methadone Hcl 20 Mg/2 Ml Oral.Conc) 85 mg PO DAILY [facility] Last Admin: 06/12/22 07:59 Dose: 85 mg Documented By: STACI Methylprednisolone Sodium Succinate (Methylprednisolone Sod Succ 40 Mg/Ml Vial) 60 mg IVPUSH Q8H [facility] Last Admin: 06/12/22 09:51 Dose: 60 mg Documented By: STACI Ondansetron HCl (Ondansetron Hcl 4 Mg/2 Ml Vial) 4 mg IVPUSH Q8H PRN PRN Reason: Nausea and Vomiting Pharmacy Consult (Consult Rx Perform Med Rec) 1 each MISCELLANE ONCE PRN PRN Reason: Consult order Sodium Chloride (0.9 % Sodium Chloride Flush 3 Ml Syringe) 3 ml IVFLUSH QSHIFT [facility] Last Admin: 06/12/22 08:02 Dose: 3 ml Documented By: STACI Labs CBC & Chem 7: 06/09/22 05:59 06/09/22 05:59 Labs: Laboratory Results - last 24 hr 06/11/22 12:53 Respiratory Panel Rawls See Note Adenovirus (Rapid PCR) Not Detected B.pert (TEM-PCR) Not Detected B.parapertussis DNA PCR Not Detected C. pneumoniae DNA (PCR) Not Detected Coronavirus OC43 (PCR) Not Detected Coronavirus HKU1 (PCR) Not Detected Coronavirus 229E (PCR) Not Detected Coronavirus NL63 (PCR) Not Detected Human Metapneumovir PCR Not Detected Influenza A (RT-PCR) Not Detected Influenza B (RT-PCR) Not Detected M. pneumoniae (PCR) Not Detected Parainfluenza 1 (PCR) Not Detected Parainfluenza 2 (PCR) Not Detected Parainfluenza 3 (PCR) Not Detected Parainfluenza 4 (PCR) Detected A RSV (PCR) Not Detected Entero/Rhino (PCR) Not Detected SARS-CoV-2 RNA (RT-PCR) Not Detected Assessment and Plan (1) Bronchitis: Status: Acute (2) Acute exacerbation of chronic obstructive pulmonary disease: Status: Acute Plan 62-year-old woman admitted with acute community-acquired pneumonia and possible COPD/bronchitis with no formal diagnosis Acute respiratory failure with hypoxia Currently in the low 90s on 2 L of supplemental oxygen Secondary to underlying bronchitis and probable COPD wean oxygen as tolerated Sepsis secondary to acute bronchitis and COPD exacerbation. slow to respond, still with wheezing, and with hypoxia and dyspnea Tachycardia, tachypnea, normal lactic acid- tachycardia, tachypnea resolved Chest CT with no evidence of pneumonia no previous diagnosis of COPD Seen by pulmonology - agrees with probable diagnosis of COPD; recommend home O2 eval prior to discharge. Discharge with long-acting bronchodilator. Will need outpatient pulmonary follow-up and formal PFTs continue IV Solu-Medrol continue Scheduled & DuoNebs small pulmonary nodule - outpatient follow up RPP with parainfluenza Hx of substance abuse continue home dose of methadone DVT prophylaxis with Lovenox attending Dr. Jack Full code Requires ongoing inpatient hospitalization secondary to need for IV antibiotics, IV steroids, scheduled breathing treatments and supplemental oxygen for ongoing hypoxia Quality Stroke Does the patient have a stroke diagnosis?: No VTE Prior VTE?: No VTE Risk Level:: Medical - moderate - high VTE Device Contraindication: Treatment Not Indicated VTE Drug Contraindication: N/A - Med Ordered
[2022-06-12] MEDS: cefTRIAXone sodium 1 GM in 0.9 % Sodium Chloride 50 ML IV (17:01)
[2022-06-12] MEDS: Azithromycin 500 MG in 0.9 % Sodium Chloride 250 ML 120 MG IV (17:28)
[2022-06-12] MEDS: Enoxaparin Sodium 40 MG/0.4 ML SYRINGE SUBCUT (18:13)
[2022-06-13] VITALS (11 sets, daily range): BP systolic 142–177; BP diastolic 70–88; PULSE 74–126; RESP 15–20; TEMP 36.1–37.1; O2SAT 94–100
[2022-06-13] MEDS: methylPREDNISolone Sod Succ 40 MG/ML VIAL 60 MG IVPUSH ×2 (01:49→09:02)
[2022-06-13 08:17] LABS: Anion Gap 15 (12-20); Blood Urea Nitrogen 27 mg/dL (9-16); Carbon Dioxide 28 mmol/L (22-29); Chloride 103 mmol/L (96-108); Estimated Glomerular Filt Rate > 60; Glucose Random 128 mg/dL (60-115); Potassium 4.8 mmol/L (3.3-5.1); Sodium 141 mmol/L (135-145)
[2022-06-13] MEDS: Albuterol/Iprat 2.5/0.5MG 3 ML AMPUL.NEB INHALE ×4 (08:17→20:54)
[2022-06-13] MEDS: 0.9 % Sodium Chloride Flush 3 ML SYRINGE IVFLUSH ×3 (09:01→22:13)
[2022-06-13] MEDS: Docusate Sodium 100 MG CAPSULE PO ×2 (09:01→22:13)
[2022-06-13] MEDS: guaiFENesin LA 600 MG TAB.ER.12H 1200 MG PO ×2 (09:02→22:12)
[2022-06-13] MEDS: methADONE HCl 20 MG/2 ML ORAL.CONC 85 MG PO (09:04)
--- NOTE | 2022-06-13 11:46 | HO.PM.IMPN ---
Subjective Subjective Date of Service: 06/13/22 Interval History: follow up for copd exacerbation/bronchitis still with dry cough. No fever, no chills, no chest pain, no palpitations feeling better Review of Systems Review of Systems: Yes all other systems are reviewed and are negative Constitutional Constitutional: Denies chills and Denies fever(s) Cardiovascular Cardiovascular: Denies chest pain, Denies palpitations and Reports dyspnea Respiratory Respiratory: Reports cough, Reports pain with cough and Reports dyspnea Endocrine Endocrine: Denies palpitations Physical Exam Vital Signs: Vital Signs: Last Vital Signs Temp 98.1 F 06/13/22 11:15 Pulse 126 H 06/13/22 11:35 Resp 20 06/13/22 11:35 BP 177/88 H 06/13/22 08:00 Pulse Ox 95 06/13/22 11:15 O2 Del Method 06/13/22 11:15 O2 Flow Rate 2 06/13/22 11:15 BMI result Body Mass Index 31.1 Appearing in no acute distress lung sounds mild exp wheezing heart regular rate rhythm, clear S1, S2 positive bowel sounds, abdomen is soft, nontender neuro patient is alert x3, no focal deficits Objective Data Active Medications Acetaminophen (Acetaminophen 325 Mg Tablet) 650 mg PO Q6H PRN PRN Reason: Pain, Mild (Pain Scale 1-3) Last Admin: 06/10/22 18:19 Dose: 650 mg Documented By: LOYDA Albuterol/Ipratropium (Albuterol/Iprat 2.5/0.5mg 3 Ml Ampul.Neb) 3 ml INHALE RQ4H PRN PRN Reason: Shortness of Breath/Wheezing Last Admin: 06/09/22 06:39 Dose: 3 ml Documented By: ANNELIESE Albuterol/Ipratropium (Albuterol/Iprat 2.5/0.5mg 3 Ml Ampul.Neb) 3 ml INHALE RQ4H WHILE AWAKE [facility] Last Admin: 06/13/22 11:34 Dose: 3 ml Documented By: BETTE Benzonatate (Benzonatate 100 Mg Capsule) 100 mg PO TID PRN PRN Reason: Cough Last Admin: 06/10/22 21:32 Dose: 100 mg Documented By: FABRIZIO Docusate Sodium (Docusate Sodium 100 Mg Capsule) 100 mg PO BID [facility] Last Admin: 06/13/22 09:01 Dose: 100 mg Documented By: STACI Enoxaparin Sodium (Enoxaparin Sodium 40 Mg/0.4 Ml Syringe) 40 mg SUBCUT Q24H [facility] Last Admin: 06/12/22 18:13 Dose: 40 mg Documented By: STACI Guaifenesin (Guaifenesin La 600 Mg Tab.Er.12h) 1,200 mg PO BID [facility] Last Admin: 06/13/22 09:02 Dose: 1,200 mg Documented By: STACI Guaifenesin/Codeine Phosphate (Guaifen/Codeine Sf 200/20/10ml 10 Ml Liquid) 5 ml PO Q6H PRN PRN Reason: Cough Azithromycin 500 mg/ Sodium (Chloride) 250 mls @ 125 mls/hr IV Q24H [facility] Last Infusion: 06/12/22 20:01 Dose: 0 mls/hr Documented By: CAROLYN Ceftriaxone Sodium 1 gm/ (Sodium Chloride) 50 mls @ 100 mls/hr IV Q24H [facility] Last Infusion: 06/12/22 17:33 Dose: 0 mls/hr Documented By: STACI Methadone HCl (Methadone Hcl 20 Mg/2 Ml Oral.Conc) 85 mg PO DAILY [facility] Last Admin: 06/13/22 09:04 Dose: 85 mg Documented By: STACI Methylprednisolone Sodium Succinate (Methylprednisolone Sod Succ 40 Mg/Ml Vial) 60 mg IVPUSH Q8H [facility] Last Admin: 06/13/22 09:02 Dose: 60 mg Documented By: STACI Ondansetron HCl (Ondansetron Hcl 4 Mg/2 Ml Vial) 4 mg IVPUSH Q8H PRN PRN Reason: Nausea and Vomiting Pharmacy Consult (Consult Rx Perform Med Rec) 1 each MISCELLANE ONCE PRN PRN Reason: Consult order Sodium Chloride (0.9 % Sodium Chloride Flush 3 Ml Syringe) 3 ml IVFLUSH QSHIFT [facility] Last Admin: 06/13/22 09:01 Dose: 3 ml Documented By: STACI Labs CBC & Chem 7: 06/09/22 05:59 06/13/22 06:10 Labs: Laboratory Results - last 24 hr 09/18/22 06:10 Anion Gap 15 Estim Creat Clear Calc 72.0 Estimated GFR > 60 Random Glucose 128 H Calcium 9.0 Assessment and Plan (1) Bronchitis: Status: Acute (2) Acute exacerbation of chronic obstructive pulmonary disease: Status: Acute Plan 62-year-old woman admitted with acute community-acquired pneumonia and possible COPD/bronchitis with no formal diagnosis Acute respiratory failure with hypoxia. Resolved Secondary to underlying bronchitis and probable COPD wean oxygen down Sepsis secondary to acute bronchitis and COPD exacerbation. slow to respond, still with wheezing but improved Chest CT with no evidence of pneumonia no previous diagnosis of COPD Seen by pulmonology - agrees with probable diagnosis of COPD; recommend home O2 eval prior to discharge. Discharge with long-acting bronchodilator. Will need outpatient pulmonary follow-up and formal PFTs continue IV Solu-Medrol, change to prednione tomorrow continue Scheduled & DuoNebs small pulmonary nodule - outpatient follow up RPP with parainfluenza Hx of substance abuse continue home dose of methadone DVT prophylaxis with Lovenox attending Dr. Jack Full code Requires ongoing inpatient hospitalization secondary to need for IV antibiotics, IV steroids, scheduled breathing treatments and supplemental oxygen for ongoing hypoxia Quality Stroke Does the patient have a stroke diagnosis?: No VTE Prior VTE?: No VTE Risk Level:: Medical - moderate - high VTE Device Contraindication: Treatment Not Indicated VTE Drug Contraindication: N/A - Med Ordered
--- NOTE | 2022-06-13 12:03 | MHC.CM.PN ---
PATIENT NOT MEDICALLY STABLE FOR DISCHARGE. PLAN WILL BE FOR HOME O2 EVAL PRIOR TO DISCHARGE
[2022-06-13] MEDS: cefTRIAXone sodium 1 GM in 0.9 % Sodium Chloride 50 ML IV (16:30)
[2022-06-13] MEDS: Azithromycin 500 MG in 0.9 % Sodium Chloride 250 ML 120 MG IV (16:52)
[2022-06-13] MEDS: Butalb/Acetamin/Caff 50/325/40 TABLET 1 TAB PO (17:50)
[2022-06-13] MEDS: Enoxaparin Sodium 40 MG/0.4 ML SYRINGE SUBCUT (17:51)
[2022-06-13] MEDS: Benzonatate 100 MG CAPSULE PO (22:12)
[2022-06-13] MEDS: methylPREDNISolone Sod Succ 40 MG/ML VIAL IVPUSH (22:13)
[2022-06-13] MEDS: Melatonin 3 MG TABLET PO (22:14)
[2022-06-13] MEDS: diphenhydrAMINE HCL 25 MG TABLET PO (23:57)
[2022-06-14 07:45] VITALS: PULSE 75; RESP 16; O2SAT 97
[2022-06-14] MEDS: Albuterol/Iprat 2.5/0.5MG 3 ML AMPUL.NEB INHALE ×2 (07:45→12:00)
[2022-06-14] MEDS: guaiFENesin LA 600 MG TAB.ER.12H 1200 MG PO (07:59)
[2022-06-14 08:00] VITALS: BP 156/89; PULSE 82; RESP 16; TEMP 36.4; O2SAT 96
[2022-06-14] MEDS: methADONE HCl 20 MG/2 ML ORAL.CONC 85 MG PO (08:00)
[2022-06-14] MEDS: Docusate Sodium 100 MG CAPSULE PO (08:00)
[2022-06-14] MEDS: predniSONE 20 MG TABLET 40 MG PO (08:00)
[2022-06-14] MEDS: 0.9 % Sodium Chloride Flush 3 ML SYRINGE IVFLUSH (08:07)
--- NOTE | 2022-06-14 09:19 | PM.DS ---
DS: Providers Provider Date of Service: 06/14/22 Date of admission: 06/08/22 17:39 Primary care physician: Vitor Cox MD Consults: 06/08/22 17:39 Consult to Pulmonology Routine Consulting Provider: Elver Arredondo Reason for consultation: ? COPD Has provider been notified: No Attending physician on discharge: Charly Dunbar Discharging clinician: Marielos Moreno DS: Diagnosis Discharge Diagnosis (1) Bronchitis: Status: Acute (2) Acute exacerbation of chronic obstructive pulmonary disease: Status: Acute DS: Summary Hospital Course Hospital Course: 62-year-old woman presented to the ER with complaints of 3 days of worsening shortness of breath at rest and worse with exertion.? She also developed pleuritic chest pain that is sharp in nature especially when taking in a deep breath.? She denied fever, chills, nausea, vomiting, diarrhea.? She did report recent cold-like symptoms including sore throat over the last 2 days with nonproductive cough.? She is non vaccination status.? Chest x-ray showing possible infiltrate, no sepsis, no fever leukocytosis noted.? Patient given a dose of albuterol, Toradol, ceftriaxone, azithromycin, Solu-Medrol.? She will be admitted for further management and treatment acute community-acquired pneumonia. Acute respiratory failure with hypoxia. Resolved Secondary to underlying bronchitis and probable COPD Oxygen wean down Sepsis secondary to acute bronchitis and COPD exacerbation. slow to respond with continuous wheezing but improved significantly Chest CT with no evidence of pneumonia no previous diagnosis of COPD Seen by pulmonology - agrees with probable diagnosis of COPD Will need outpatient pulmonary follow-up and formal PFTs Treated with IV Solu-Medrol and scheduled DuoNebs transition to prednisone taper small pulmonary nodule - outpatient follow up with outreach team member RPP with parainfluenza Hx of substance abuse continue methadone Time Spent with Patient Time attestation: Total time spent providing and/or coordinating discharge services: Discharge coordination time: Greater than 30 minutes Quality: Safe Use of Opioids Does Pt have an Active Cancer Diagnosis on the Problem List?: No Quality: Stroke Does the patient have a stroke diagnosis?: No Physical Exam Vital Signs: Vital Signs: Last Vital Signs Temp 97.5 F 06/14/22 08:00 Pulse 82 06/14/22 08:00 Resp 16 06/14/22 08:00 BP 156/89 H 06/14/22 08:00 Pulse Ox 96 06/14/22 08:00 O2 Del Method 06/14/22 08:00 O2 Flow Rate 2.0 06/14/22 08:00 BMI result Body Mass Index 31.1 Appearing in no acute distress head is normocephalic atraumatic eyes pupils are PERRLA sclera is anicteric mouth throat mucous membranes are intact and moist neck is supple no lymphadenopathy, no JVD noted lung sounds are clear to auscultation heart regular rate rhythm, clear S1, S2 positive bowel sounds, abdomen is soft, nontender neuro patient is alert x3, no focal deficits Discharge Plan Discharge Anticipated Discharge Date/Time: 06/14/22 09:12 Patient Disposition: Home, Self-Care Discharge Diagnosis: COPD exacerbation Bronchitis Parainfluenza Referrals: Vitor Cox MD [Primary Care Provider] - 1 Week Elver Arredondo MD [Physician] - 1 Week Discharge Medications: New guaifenesin [Mucinex] 600 mg Tablet Extended Release 12hr 1,200 mg PO BID Qty: 16 0RF prednisone 10 mg tablet See Taper PO DAILY Qty: 30 0RF Taper: Prednisone 40 mg daily for 3 Days and 0 Hour 30 mg daily for 3 Days and 0 Hour 20 mg daily for 3 Days and 0 Hour 10 mg daily for 3 Days and 0 Hour fluticasone propion-salmeterol [Advair Diskus] 100-50 mcg/dose blister with device 1 inh inhalation BID Qty: 60 0RF Continued methadone 10 mg/5 mL Solution 85 mg PO DAILY ibuprofen 600 mg Tablet 600 mg PO Q6H PRN (Reason: Pain) Discharge Orders: Discharge Order (Routine); Ordered 06/14/22 Ordered By: Marielos Moreno Diet: Advance to usual diet Activity on Discharge: As tolerated Stand Alone Forms: Patient Portal Discharge page Care Plan Goals: Complete resolution of symptoms Health Concerns: Follow-up with outreach team member Take all medications as prescribed you completed 6 days of antibiotics Take prednisone taper as prescribed Your been started on a long-acting bronchodilator for COPD, take as prescribed Plan of Treatment: COPD exacerbation Bronchitis Parainfluenza Assessment: See discharge summary
[2022-06-14 11:46] VITALS: BP 183/85; PULSE 79; RESP 17; TEMP 36.4; O2SAT 92
[2022-06-14 12:06] VITALS: PULSE 104; PULSE 93; O2SAT 94
[2022-06-14 12:08] VITALS: PULSE 93; RESP 18; O2SAT 94
--- NOTE | 2022-06-14 12:42 | MHC.CM.PN ---
PT TO DC HOME TODAY WITH NO SERVICES FAMILY TO TRANSPORT
== END 2022-06-14 14:45 | disposition home or self-care (01) | DRG 720 ==
LOC: HO.ED 16:57 → HO.EDOVER 17:44 → HO.S3 06-10 08:10
PROVIDERS: Emergency Medicine; Physician Assistant Medical; Admitting Provider Nurse Practitioner Acute Care; Emergency Provider Emergency Medicine Emergency Medical Services; PCP Internal Medicine; Visit Provider Nurse Practitioner Acute Care
DX: A41.89 Other specified sepsis (principal); J96.01 Acute respiratory failure with hypoxia; J44.0 Chronic obstructive pulmonary disease with (acute) lower respiratory infection; J44.1 Chronic obstructive pulmonary disease with (acute) exacerbation; F11.20 Opioid dependence, uncomplicated; J20.4 Acute bronchitis due to parainfluenza virus; Z20.822 Contact with and (suspected) exposure to COVID-19; Z28.310 Unvaccinated for COVID-19; Z98.51 Tubal ligation status; Z79.51 Long term (current) use of inhaled steroids; Z87.891 Personal history of nicotine dependence; Z91.030 Bee allergy status; Z79.899 Other long term (current) drug therapy
CPT/HCPCS: 36415; 71045; 71250; 80048; 80053; 81001; 81003; 83605; 83690; 83880; 84484; 85025; 85379; 85610; 85730; 87040; 87086; 87633; 87635; 93005; 94640; 96365; 96375; 99285; J0456; J0696; J1650; J1885; J2920; J2930; Q0163

== ENCOUNTER → 2022-06-30 14:19 | Outpatient (BNVA) | payer OTHER, SELFPAY | PROVIDERS: PCP Internal Medicine; Visit Provider Internal Medicine | DX: J44.9 Chronic obstructive pulmonary disease, unspecified (principal); F17.200 Nicotine dependence, unspecified, uncomplicated; Z71.6 Tobacco abuse counseling | CPT/HCPCS: 99212 ==

== ENCOUNTER → 2022-08-10 13:28 | Outpatient (BNVA) | payer OTHER, SELFPAY | PROVIDERS: PCP Internal Medicine; Visit Provider Internal Medicine | DX: J44.9 Chronic obstructive pulmonary disease, unspecified (principal); F17.210 Nicotine dependence, cigarettes, uncomplicated | CPT/HCPCS: 99212 ==

== ENCOUNTER 2022-08-30 14:49 | Outpatient (REF) | payer OTHER, SELFPAY ==
--- NOTE | 2022-08-30 17:30 | PFT_ITS ---
Forced vital capacity 79%, FEV1 81%, FEV1/FVC ratio is 80. [id number] 71% and MVV 92%. Post bronchodilator therapy, there is no significant change. Total lung capacity 93% and residual volume 103%. Diffusion capacity 90%. CONCLUSION: Normal pulmonary function test except for possible borderline small airway obstructive disorder. There is positive response to bronchodilator therapy. Clinical correlation is recommended. MD GENNA Alvarez/HARMEET / [id number]
== END 2022-08-30 14:50 | disposition home or self-care (01) ==
LOC: HO.RESP 14:49
PROVIDERS: PCP Internal Medicine; Visit Provider Internal Medicine
DX: J44.9 Chronic obstructive pulmonary disease, unspecified (principal); F17.200 Nicotine dependence, unspecified, uncomplicated
CPT/HCPCS: 94060; 94727; 94729

== ENCOUNTER 2022-09-08 13:54 | Outpatient (REF) | payer OTHER, SELFPAY ==
[2022-09-08 17:56] LABS: Urine Cytology See Pathology rpt
== END 2022-09-08 13:55 | disposition home or self-care (01) ==
LOC: HO.LAB 13:54
PROVIDERS: PCP Internal Medicine; Visit Provider Nurse Practitioner Family
DX: R31.29 Other microscopic hematuria (principal); R32 Unspecified urinary incontinence
CPT/HCPCS: 51798; 88112; 99202

== ENCOUNTER 2022-10-18 08:13 | Outpatient (REF) | payer OTHER, SELFPAY ==
--- NOTE | ~2022-10-18 | CT_ITS ---
EXAMINATION: CT ABDOMEN AND PELVIS WITHOUT AND WITH CONTRAST CLINICAL INFORMATION: Microscopic hematuria COMPARISON: CT chest 06/08/2022 TECHNIQUE: Multidetector volumetric imaging was performed of the abdomen and pelvis before and after the IV administration of 85 mL of Omnipaque 350 intravenous contrast. Sagittal and coronal reformatted images were obtained on the technologist's workstation. This CT examination was performed using dose optimization techniques as appropriate, variously including the following: *Automated exposure control *Adjustment of mA and/or kV according to patient size (this includes techniques or standardized protocols for targeted exams where dose is matched to indication/reason for exam; i.e. extremities or head) *Use of iterative reconstruction technique DLP: 866 mGy-cm FINDINGS: LUNG BASES: The visualized lung bases are unremarkable. Lingular and right middle lobe atelectasis is present. LIVER, GALLBLADDER, AND BILIARY TREE: The liver is normal in size, shape, and attenuation. Two benign simple 1 cm hepatic cysts are noted in the right lobe of the liver (9:95). Two other 3 mm densities seen, statistically cysts (9:81). No worrisome solid focal hepatic lesion or biliary ductal dilatation is present. The gallbladder is unremarkable with no evidence of radiopaque gallstones, gallbladder wall thickening, or obvious pericholecystic inflammatory changes. PANCREAS: Unremarkable SPLEEN: Unremarkable ADRENAL GLANDS: Unremarkable KIDNEYS AND URETERS: The kidneys are normal in size, shape, and attenuation. The right kidney measures 10.7 cm in length and the left 10.8 cm. No hydronephrosis, hydroureter, or calculi seen. No renal masses are seen. The collecting systems are exceptionally well seen and appear normal without opacification of the ureters throughout their course. No filling defects are seen in the pelvicalyceal systems. No perinephric stranding. BLADDER: Unremarkable GASTROINTESTINAL TRACT: The small and large bowel are unremarkable. The appendix is unremarkable. ABDOMINAL WALL: No significant hernia is appreciated. LYMPH NODES: No retroperitoneal lymphadenopathy. VASCULAR: Calcific atherosclerotic plaque present in the aorta and iliofemoral vessels without aneurysm. PELVIC VISCERA: Unremarkable OSSEOUS STRUCTURES: Mild degenerative changes are present in the lumbar spine with disc space narrowing. No bony destructive lesions. CT/CT abdomen pelvis wo/w IV con IMPRESSION: 1. A cause for the patient's hematuria has not been found. Please note that this study is is good as a high quality CT urogram and there is no need to obtain a CT urogram for workup of this patient's hematuria. 2. Incidental note made of benign hepatic cysts and mild degenerative changes in the spine. Fleischner guidelines were followed.
[2022-10-20 08:22] LABS: Creatinine POC 0.7 mg/dL (0.5-1.4); GFR POC > 60
== END 2022-10-18 08:14 | disposition home or self-care (01) ==
LOC: HO.CT 08:13
PROVIDERS: PCP Internal Medicine; Visit Provider Nurse Practitioner Family
DX: R31.29 Other microscopic hematuria (principal)
CPT/HCPCS: 74178; 82565

== ENCOUNTER 2022-10-29 07:59 | Outpatient (REF) | payer OTHER, SELFPAY ==
[2022-10-29 08:08] LABS: MANUAL DIFF FLAG NO
[2022-10-29 08:24] LABS: Basophils Absolute Auto 0.1 X10*3/uL (0.0-0.2); Basophils Percent Auto 0.8 % (0-2); Eosinophils Absolute Auto 0.2 X10*3/uL (0.0-0.4); Eosinophils Percent Auto 2.5 % (0-4); Hematocrit 42.3 % (37.0-47.0); Hemoglobin 13.9 g/dl (12.0-16.0); Imm Gran Abs Auto 0.03 X10*3/uL (0.00-0.03); Imm Gran Pct Auto 0.4 % (0.0-0.4); Lymphocytes Absolute Auto 1.6 X10*3/uL (1.2-4.9); Lymphocytes Percent Auto 22.6 % (20-40); Mean Corpuscular HGB Conc 32.9 g/dl (31.0-35.0); Mean Corpuscular Hemoglobin 29.6 pg (27.0-33.0); Mean Corpuscular Volume 90.2 fL (80.0-98.0); Mean Platelet Volume 10.2 fL (9.4-12.3); Monocytes Absolute Auto 0.5 X10*3/uL (0.1-1.2); Monocytes Percent Auto 7.3 % (2-11); Neutrophils Absolute Auto 4.7 x10*3/uL (2.0-8.3); Neutrophils Percent Auto 66.4 % (45-73); Platelet Count 310 X10*3/uL (160-400); Red Blood Count 4.69 X10*6/uL (4.20-5.50); Red Cell Distribution Width 13.1 % (11.0-16.0); White Blood Count 7.1 X10*3/uL (4.8-10.8)
[2022-10-29 08:56] LABS: Alanine Aminotransferase 12 U/L (0-31); Alkaline Phosphatase 96 U/L (39-117); Anion Gap 11 (12-20); Aspartate Amino Transferase 16 U/L (5-31); Bilirubin Total 0.3 mg/dL (0.0-1.0); Blood Urea Nitrogen 20 mg/dL (9-16); Calcium 9.2 mg/dL (8.4-10.2); Carbon Dioxide 26 mmol/L (22-29); Chloride 107 mmol/L (96-108); Cholesterol 165 mg/dL; Estimated Glomerular Filt Rate > 60; Glucose Fasting 97 mg/dL (60-99); HDL Cholesterol 24 mg/dL; LDL Cholesterol Calculated 103 mg/dl; Potassium 4.1 mmol/L (3.3-5.1); Sodium 140 mmol/L (135-145); Total Protein 7.2 g/dL (6.5-8.0); Triglycerides 193 mg/dL
[2022-10-29 09:11] LABS: Vitamin D 25-OH Total 5.2 ng/mL (>30)
[2022-10-29 09:34] LABS: Appearance Urine Cloudy; Color Urine Yellow; Glucose Urine UA Negative (Negative); Leukocyte Esterase Urine Large (3+) (Negative); Nitrite Urine Positive (Negative); PH 6.5 (5.0-9.0); Specific Gravity - Urine 1.015 (1.005-1.025); UMIC TRIGGER UACC YES; Urine Blood Trace (Negative); Urine Ketones Negative (Negative); Urine Protein Negative (Neg-Trace)
[2022-10-29 09:40] LABS: Bacteria Urine 4+ (None Seen); Hyaline Casts Urine 0-2 /LPF (0-2); RBC Urine 0-2 /HPF (0-2); UACC Culture Trigger YES; WBC Urine >50 /HPF (0-5)
== END 2022-10-29 08:00 | disposition home or self-care (01) ==
LOC: HO.LAB 07:59
PROVIDERS: PCP Internal Medicine; Visit Provider Internal Medicine
DX: Z00.00 Encounter for general adult medical examination without abnormal findings (principal); E78.00 Pure hypercholesterolemia, unspecified; E55.9 Vitamin D deficiency, unspecified; R30.0 Dysuria; I10 Essential (primary) hypertension
CPT/HCPCS: 36415; 80053; 80061; 81001; 82306; 84443; 85025; 87086; 87088; 87186

== ENCOUNTER → 2022-11-24 14:44 | Outpatient (BNVA) | payer OTHER, SELFPAY | PROVIDERS: PCP Internal Medicine; Visit Provider Internal Medicine | DX: J44.9 Chronic obstructive pulmonary disease, unspecified (principal); F17.210 Nicotine dependence, cigarettes, uncomplicated; Z80.1 Family history of malignant neoplasm of trachea, bronchus and lung; Z79.891 Long term (current) use of opiate analgesic; Z79.899 Other long term (current) drug therapy | CPT/HCPCS: 99212 ==

== ENCOUNTER 2022-12-03 09:58 | Outpatient (REF) | payer OTHER, SELFPAY ==
--- NOTE | ~2022-12-03 | MM_ITS ---
EXAMINATION: MM SCREENING DIGITAL BREAST TOMOSYNTHESIS, BILATERAL CLINICAL INFORMATION: Screening. Asymptomatic. Age 62. No known family history breast cancer. The lifetime risk of breast cancer based on the Tyrer-Cuzick Model is 6%. COMPARISON: None (current study represents new baseline exam). TECHNIQUE: Digital breast tomosynthesis is performed in both the craniocaudal and mediolateral oblique views along with computer-aided detection (CAD). Synthesized 2D images are generated from the tomosynthesis. Additional left MLO view is provided. FINDINGS: There are scattered areas of fibroglandular density (ACR BI-RADS breast composition Category b). There are no significant masses, abnormal calcifications, or other abnormalities. Breast tissue composition borders on predominantly fatty. The axilla and skin contours are unremarkable. MM/MM tomosynthesis screening BI IMPRESSION: No mammographic evidence of malignancy. ASSESSMENT: BI-RADS 1: Negative RECOMMENDATION: Routine annual mammography screening. This patient's information was entered into a reminder system with a target due date for their next mammogram.
--- NOTE | ~2022-12-03 | MM_ITS ---
EXAMINATION: BONE DENSITOMETRY CLINICAL INDICATION: Screening. COMPARISON: Baseline BD dated 03/16/2019. TECHNIQUE: Using a VHT DXA System (software version: 13.1) manufactured by [employer], dual-energy x-ray absorptiometry was performed of the lumbar spine and left hip. The images are of good technical quality. Summary results are attached. FINDINGS: AP SPINE L1-L3 (excluding L4): The data of L1-L4 has been changed to exclude the L4 vertebral body, because degenerative change at this level may cause overestimation of lumbar spine density. Current: BMD 0.997 g/cm2, Z-score -0.1, T-score -1.4, osteopenia, 7.7% decrease from baseline (<5% change is not significant). Baseline: BMD 1.080 g/cm2. LEFT FEMUR, NECK: Current: BMD 0.789 g/cm2, Z-score -0.5, T-score -1.8, osteopenia. Baseline: BMD 0.813 g/cm2. LEFT FEMUR, TOTAL: Current: BMD 0.885 g/cm2, Z-score 0.1, T-score -1.0, normal, 1.9% decrease from baseline (<5% change is not significant). Baseline: BMD 0.902 g/cm2. IDENTIFIED RISK FACTORS: Early menopause, secondary osteoporosis, tobacco use (current smoker). HISTORY OF FRACTURE: None listed. MEDICATIONS: Vitamin D. MM/XR DEXA axial skeleton IMPRESSION: 1. DIAGNOSIS: Osteopenia based on the lowest T-score value of -1.8 in the femoral neck applying World Health Organization criteria. 2. 10-YEAR FRACTURE RISK PREDICTION, FRAX: Major osteoporotic fracture (clinical spine, forearm, hip or shoulder) 5.5%. Hip fracture 1.1%. 3. Treatment Recommendations: NOF guidelines recommend consideration for treatment in postmenopausal women and men age 50 and older presenting with the following: -A hip or vertebral (clinical or morphometric) fracture. -T-score less than or equal to -2.5 at the femoral neck or spine after appropriate evaluation to exclude secondary causes. -Low bone mass at the hip or spine and a 10-year fracture probability by FRAX of greater than or equal to 3% for hip fracture or greater than or equal to 20% for major osteoporotic fracture based on the [place] adapted WHO algorithm. 4. Other Recommendations: All treatment decisions require clinical judgment and consideration of individual patient factors, including patient preferences, comorbidities, previous drug use, risk factors not captured in the FRAX model (e.g. frailty, falls, vitamin D deficiency, increased bone turnover, interval significant decline in bone density) and possible under or overestimation of fracture risk by FRAX. Additional medical evaluation for secondary cause of low bone mineral density may be appropriate. FUTURE SCAN RECOMMENDATION: People with diagnosed cases of osteoporosis or at high risk for fracture should have regular bone mineral density tests. For patients eligible for Medicare, routine testing is allowed once every 2 years. The testing frequency can be increased to one year for patients who have rapidly progressing disease, those who are receiving or discontinuing medical therapy to restore bone mass, or have additional risk factors.
== END 2022-12-03 09:59 | disposition home or self-care (01) ==
LOC: HO.MAMMO 09:58
PROVIDERS: PCP Internal Medicine; Visit Provider Internal Medicine
DX: Z12.31 Encounter for screening mammogram for malignant neoplasm of breast (principal); Z13.820 Encounter for screening for osteoporosis; M85.88 Other specified disorders of bone density and structure, other site; Z78.0 Asymptomatic menopausal state
CPT/HCPCS: 77063; 77067; 77080

== ENCOUNTER 2023-01-19 13:15 | Outpatient (REF) | payer OTHER, SELFPAY | END 2023-01-19 13:16 | disposition home or self-care (01) | LOC: HO.LAB 13:15 | PROVIDERS: PCP Internal Medicine; Visit Provider Urology | DX: R31.29 Other microscopic hematuria (principal); N32.81 Overactive bladder; N39.0 Urinary tract infection, site not specified; R32 Unspecified urinary incontinence | CPT/HCPCS: 87086; 99212 ==

== ENCOUNTER 2023-02-25 11:13 | Outpatient (AMB) | payer OTHER, SELFPAY ==
--- NOTE | 2023-02-25 11:23 | A.OFFVIS_ITS ---
Intake Intake Visit Reasons: cysto Allergies bee pollen [BEE STINGS] Allergy (Unknown, Verified 03/01/23 14:07) SWELLING - BLOTCHES macrobid Allergy (Intermediate, Uncoded 03/01/23 14:07) Vomiting Medication List - Last Reconciled 02/25/23 by Josselyn Mills MD cholecalciferol (vitamin D3) 50 mcg PO DAILY 90 days estradiol (Vagifem) 10 mcg vaginal 2XW fluticasone propion-salmeterol 115-21 mcg/actuation (Advair HFA) 2 puffs inhalation BID 30 days ibuprofen 600 mg PO Q6H PRN methadone 85 mg PO DAILY omeprazole 20 mg PO DAILY 90 days polyethylene glycol 3350 (Miralax) 17 grams PO DAILY PRN solifenacin (Vesicare) 10 mg PO DAILY HPI HPI Comments History of Present Illness Details Mayra is a 62-year-old female who presents to the office for cystoscopy procedure. She was last on 01/19/2023 and cystoscopy not done that day because she had nitrite positive urine and was treated with Macrobid 100 mg BID for 10 days. 02/25/23-- The patient is being evaluated for microscopic hematuria. Urinalysis today shows no infection. She took oxybutynin 10 mg QD for bladder symptoms and reports leaking episodes when off from the medication. The patient reports leaking while coughing. The patient adhered to Macrobid 100 mg BID therapy for 10 days. The patient is using estradiol cream. CTAP?10/18/22-- Kidneys: WNL, No renal calculi visualized. Urine cytology--09/08/22-- Negative for malignant cells. Evaluation today-- Blood: negative, leukocytes: negative. Cystoscopy findings-- no suspicious bladder lesions visualized. Mild cystitis. Plan: Continue using estradiol cream. Vesicare 10 mg QD was ordered. Urodynamic testing discussed to be scheduled. [facility] Medical History Bronchitis Constipation COPD (chronic obstructive pulmonary disease) GERD (gastroesophageal reflux disease) History of hepatitis C History of substance abuse Mixed incontinence urge and stress Obesity (BMI 30-39.9) Osteopenia Smoker Vitamin D deficiency Surgical History History of tubal ligation Family History Father Stroke Hypertension Diabetes Heart problem Mother Diabetes Brother Diabetes Sister In good health Social History Household Members: Family Household Members Other:: niece Housing: House Do you presently have visiting nurse or other home services: No Alcohol intake: former Patient Tobacco Use Status: Current everyday Tobacco user Tobacco use type: Cigarette Cigarettes Per Day: 6 e-Cigarette/Vaping Use: Never Used Substance Use Type: Heroin service: No Current occupational status: employed Cognitive needs: No Hearing needs: No Vision needs: Yes Office Procedures Cystoscopy Consent Discussed risk and benefit or proposed procedure with the patient. Information consent for procedure given to the patient. Discussed technical aspects, risks, benefits and alternatives in full. Addressed all of the patient's questions and concerns regarding the procedure. The patient demonstrated knowledge and understanding. They wish to proceed with this procedure. Preparation The patient was prepped in the usual manner. A word processing supervisor was present and in the room. Genitalia was prepped with betadine solution in a sterile manner. Lidocaine Jelly 2% was placed into the urethra and 16Fr flexible Olympus cystoscope was inserted into the meatus after adequate lubrication. Procedure Time out per protocol performed. Bladder Inspection Bladder Inspection: The bladder was inspected in its entirety with utilization retroflexion displaying: Tumor(s): none visualized Trabeculation: mild Mucosal Erthema: mild Orifices: normal shape and position Urethra: normal Cystoscopy findings: WNL, no suspicious bladder lesions visualized [id number] Procedure code (CPT) selection complete Office Meds lidocaine HCl Performing Provider: Josselyn Mills MD Administered by: Davina Rno RN on 02/25/23 11:27 Dose Route Admin Location Lot Number Expiration Date [employer] 10 mL intra-urethral naproxen Performing Provider: Josselyn Mills MD Administered by: Davina Ron RN on 02/25/23 11:27 Dose Route Admin Location Lot Number Expiration Date [employer] 500 mg PO ciprofloxacin HCl Performing Provider: Josselyn Mills MD Administered by: Davina Ron RN on 02/25/23 11:27 Dose Route Admin Location Lot Number Expiration Date [employer] 500 mg PO Results AMB Urinalysis, Automated UA Leukoctes 0 Alfonso/uL Last Edit by Gena Mars MA on 02/25/23 11:30 UA Nitrite Negative Last Edit by Gena Mars MA on 02/25/23 11:30 UA Urobilinogen 0.2 mg/dL Last Edit by Gena Mars MA on 02/25/23 11:30 UA Protein 15 mg/dL Last Edit by Gena Mars MA on 02/25/23 11:30 UA pH 7.0 Last Edit by Gena Mars MA on 02/25/23 11:30 UA Blood 0 Bob/uL Last Edit by Gena Mars MA on 02/25/23 11:30 UA Specific Strang 1.010 Last Edit by Gena Mars MA on 02/25/23 11:30 UA Ketone Negative Last Edit by Gena Mars MA on 02/25/23 11:30 UA Bilirubin 0 mg/dL Last Edit by Gena Mars MA on 02/25/23 11:30 UA Glucose 0 mg/dL Last Edit by Gena Mars MA on 02/25/23 11:30 Results Reviewed Results Reviewed: Laboratory Last Values Urine pH (Auto) 7.0 02/25/23 11:29 Specific Strang (Auto) 1.010 02/25/23 11:29 Urine Protein (Auto) 15 mg/dL 02/25/23 11:29 Glucose (UA)(Auto) 0 mg/dL 02/25/23 11:29 Urine Ketones (Auto) Negative 02/25/23 11:29 Urine Blood (Auto) 0 Bob/uL 02/25/23 11:29 Urine Nitrite (Auto) Negative 02/25/23 11:29 Urine Bilirubin (Auto) 0 mg/dL 02/25/23 11:29 Urine Urobilinogen (Auto) 0.2 mg/dL 02/25/23 11:29 Leukocyte Esterase (Auto) 0 Alfonso/uL 02/25/23 11:29 Date of Service: 10/18/22 EXAMINATION: CT ABDOMEN AND PELVIS WITHOUT AND WITH CONTRAST CLINICAL INFORMATION: Microscopic hematuria COMPARISON: CT chest 06/08/2022 TECHNIQUE: Multidetector volumetric imaging was performed of the abdomen and pelvis before and after the IV administration of 85 mL of Omnipaque 350 intravenous contrast. Sagittal and coronal reformatted images were obtained on the technologist's workstation. This CT examination was performed using dose optimization techniques as appropriate, variously including the following: *Automated exposure control *Adjustment of mA and/or kV according to patient size (this includes techniques or standardized protocols for targeted exams where dose is matched to indication/reason for exam; i.e. extremities or head) *Use of iterative reconstruction technique DLP: 866 mGy-cm FINDINGS: LUNG BASES: The visualized lung bases are unremarkable. Lingular and right middle lobe atelectasis is present. LIVER, GALLBLADDER, AND BILIARY TREE: The liver is normal in size, shape, and attenuation. Two benign simple 1 cm hepatic cysts are noted in the right lobe of the liver (9:95). Two other 3 mm densities seen, statistically cysts (9:81). No worrisome solid focal hepatic lesion or biliary ductal dilatation is present. The gallbladder is unremarkable with no evidence of radiopaque gallstones, gallbladder wall thickening, or obvious pericholecystic inflammatory changes. PANCREAS: Unremarkable SPLEEN: Unremarkable ADRENAL GLANDS: Unremarkable KIDNEYS AND URETERS: The kidneys are normal in size, shape, and attenuation. The right kidney measures 10.7 cm in length and the left 10.8 cm. No hydronephrosis, hydroureter, or calculi seen. No renal masses are seen. The collecting systems are exceptionally well seen and appear normal without opacification of the ureters throughout their course. No filling defects are seen in the pelvicalyceal systems. No perinephric stranding. BLADDER: Unremarkable GASTROINTESTINAL TRACT: The small and large bowel are unremarkable. The appendix is unremarkable. ABDOMINAL WALL: No significant hernia is appreciated. LYMPH NODES: No retroperitoneal lymphadenopathy. VASCULAR: Calcific atherosclerotic plaque present in the aorta and iliofemoral vessels without aneurysm. PELVIC VISCERA: Unremarkable OSSEOUS STRUCTURES: Mild degenerative changes are present in the lumbar spine with disc space narrowing. No bony destructive lesions. IMPRESSION: 1.? A cause for the patient's hematuria has not been found. Please note that this study is is good as a high quality CT urogram and there is no need to obtain a CT urogram for workup of this patient's hematuria. 2.? Incidental note made of benign hepatic cysts and mild degenerative changes in the spine. Collected: 09/08/22 Received: 09/08/22 Diagnosis Urine:? Negative for high-grade urothelial carcinoma. COMMENT: Examination of a monolayer preparation slides shows benign urothelial cells, benign squamous cells, scattered inflammatory cells, and few red blood cells. Clinical History Microscopic hematuria Material Received Urine Gross Description 35 cc slightly cloudy yellow fluid Assessment & Plan Assessment & Plan (1) OAB (overactive bladder): Code(s): N32.81 - Overactive bladder (2) Recurrent UTI: Code(s): N39.0 - Urinary tract infection, site not specified (3) Urinary, incontinence, stress female: Code(s): N39.3 - Stress incontinence (female) (male) (4) Cystitis: Code(s): N30.90 - Cystitis, unspecified without hematuria Plan Continue using estradiol cream. Vesicare 10 mg QD was ordered. Urodynamic testing discussed to be scheduled. Orders: Orders AMB Cystoscopy 02/25/23 N39.0 - Urinary tract infection, site not specified, N32.81 - Overactive bladder AMB Urinalysis Automated 02/25/23 Z13.9 - Encounter for screening, unspecified Medications: New solifenacin (Vesicare) 10 mg PO DAILY 90 tabs 0RF estradiol (Vagifem) use 2 times a week on Tue/ insert vaginally at bedtime 10 mcg vaginal 2XW 24 tabs 1RF Discontinued oxybutynin chloride ER Discontinued Reason: Doctor's Order 10 mg PO DAILY 30 days 30 tabs 2RF N32.81 - Overactive bladder, R39.15 - Urgency of urination Patient Instructions: The patient had an opportunity to ask questions regarding treatment plan. All questions were answered. Imaging, Laboratory studies and physical exam results were discussed and reviewed in detail. No major barriers to understanding were identified. The patient expressed understanding and agreement with the above treatment plan. The patient is aware they should contact our office by phone for worsening of their current condition or the appearance of new symptoms. Compliance is encouraged with any medications and followup testing that is ordered. It is a privilege to be allowed the opportunity to participate in the urologic care of your patient. If you have any questions or concerns regarding treatment for the above conditions please do not hesitate to contact me. The office telephone contact is [phone]. This note is constructed in part using voice recognition software. While every effort has been made to ensure accuracy entry level manager errors may have been included. Yours sincerely, Josselyn Mills MD Coding Level of Care Code Est Pt Level 3 (14351) Diagnoses OAB (overactive bladder) N32.81 Recurrent UTI N39.0 Urinary, incontinence, stress female N39.3 Cystitis N30.90 CPT Codes Cystoscopy - CPT: 61658-[id number] ([id number])
== END 2023-02-25 11:56 | disposition home or self-care (01) ==
LOC: HO.HUSH 11:13
PROVIDERS: PCP Internal Medicine; Visit Provider Urology
DX: N32.81 Overactive bladder (principal); N39.3 Stress incontinence (female) (male); N30.90 Cystitis, unspecified without hematuria; N39.0 Urinary tract infection, site not specified
CPT/HCPCS: 52000; 99213

== ENCOUNTER → 2023-02-25 11:13 | Outpatient (BNVA) | payer OTHER, SELFPAY | PROVIDERS: PCP Internal Medicine; Visit Provider Urology | DX: N32.81 Overactive bladder (principal); N39.0 Urinary tract infection, site not specified; N39.3 Stress incontinence (female) (male); N30.90 Cystitis, unspecified without hematuria | CPT/HCPCS: 52000; 99212 ==

== ENCOUNTER 2023-06-02 08:29 | Outpatient (REF) | payer OTHER, SELFPAY | END 2023-06-02 08:30 | disposition home or self-care (01) | LOC: HO.LAB 08:29 | PROVIDERS: PCP Internal Medicine; Visit Provider Urology | DX: N32.81 Overactive bladder (principal); N39.0 Urinary tract infection, site not specified; N39.3 Stress incontinence (female) (male) | CPT/HCPCS: 51798; 81003; 87086; 87088; 87186; 99212 ==

== ENCOUNTER 2023-06-02 08:29 | Outpatient (AMB) | payer OTHER, SELFPAY ==
--- NOTE | 2023-06-02 08:33 | A.OFFVIS_ITS ---
Intake Intake Visit Reasons: 3m follow up Intake Note: Patient presents today for a 3mo follow-up OAB: Meds- Estradiol Cream & Vesicare Allergies to Antibiotic- No Known Allergies Blood Thinner- None PVR- 0 ml Meat Puller Required: No Accompanied by: Self / Same As Patient Allergies bee pollen [BEE STINGS] Allergy (Unknown, Verified 06/02/23 08:33) SWELLING - BLOTCHES macrobid Allergy (Intermediate, Uncoded 06/02/23 08:33) Vomiting HPI HPI Comments History of Present Illness Details Mayra is a 63-year-old female who presents today to the office for a 3- month follow-up. 06/02/2023? Mayra is followed today with c/o's of lower back pain and urgency. She was last seen by me on 02/25/2023 for cystitis. The patient was advised to continue using estradiol cream at that time. Vesicare 10 mg QD was ordered, and urodynamic testing was discussed to be scheduled during that time. Patient states that she is wearing diaper at night. She states that she had developed vomiting secondary to taking Macrobid. c/o's of leakage with cough. Review of charts: Last visit: 02/25/23-- The patient is being evaluated for microscopic hematuria.? Urinalysis today shows no infection.? She took oxybutynin 10 mg QD for bladder symptoms and reports leaking episodes when off from the medication.? The patient reports leaking while coughing.? The patient adhered to Macrobid 100 mg BID therapy for 10 days.? The patient is using estradiol cream.? CTAP?10/18/22-- Kidneys: WNL, No renal calculi visualized. Urine cytology--09/08/22-- Negative for malignant cells. Evaluation today-- Blood: negative, leukocytes: negative.? Cystoscopy findings-- no suspicious bladder lesions visualized. Mild cystitis.? Plan:?Continue using estradiol cream.? Vesicare 10 mg QD was ordered.?Urodynamic testing discussed to be scheduled. 06/02/2023: Evaluation today?UA? leukocy pamela: 15 gerber/uL; nitrate positive; blood: negative. 06/02/2023: Plan: Prescribed Augmentin 500 mg bid for 7 days. Continue Estradiol cream. Continue Vesicare. Urodynamics was discussed to be scheduled. [facility] Medical History GERD (gastroesophageal reflux disease) Mixed incontinence urge and stress Obesity (BMI 30-39.9) History of substance abuse Constipation Osteopenia Vitamin D deficiency History of hepatitis C COPD (chronic obstructive pulmonary disease) Smoker Bronchitis Surgical History History of tubal ligation Family History Father Stroke Hypertension Diabetes Heart problem Mother Diabetes Brother Diabetes Sister In good health Social History Household Members: Family Household Members Other:: niece Housing: House Do you presently have visiting nurse or other home services: No Alcohol intake: former Patient Tobacco Use Status: Current everyday Tobacco user Tobacco use type: Cigarette Cigarettes Per Day: 6 e-Cigarette/Vaping Use: Never Used Substance Use Type: Heroin service: No Current occupational status: employed Cognitive needs: No Hearing needs: No Vision needs: Yes Review of Systems Const All systems reviewed & are unremarkable except as noted in HPI and below Reports no additional complaints Eyes Reports no additional complaints ENT Reports no additional complaints Card Denies dyspnea Resp Denies cough and Denies dyspnea GI Reports no additional complaints Reports no additional complaints Musc Reports no additional complaints Skin/Breast Denies rash and Denies unusual bruising Neuro Reports no additional complaints Psych Reports no additional complaints Endo Reports no additional complaints Constantino/Lymph Reports no additional complaints Aller/Immun Reports no additional complaints Physical Exam Const General: cooperative, healthy appearing and no acute distress Orientation/consciousness: patient oriented x3 HEENT Head: Yes normal to inspection, Yes normocephalic and Yes atraumatic Eyes Conjunctivae: conjunctivae normal Neck Neck: Yes normal visual inspection and Yes trachea midline Chest Chest palpation & inspection: normal inspection of the chest Resp Effort & Inspection: normal respiratory effort Cardio Rate: regular rate GI Inspection: Yes normal to inspection Skin General skin exam: no rashes or lesions noted Neuro General: patient oriented x3 Extrem General: No edema Psych Appearance: grossly normal Office Procedures Post Void Residual Post Residual Void Post Void Residual (PVR): 0 [id number] Void Residual by ultrasound Results AMB Urinalysis, Automated UA Leukoctes 15 Gerber/uL Last Edit by LEX Browning on 06/02/23 08:41 UA Nitrite Positive Last Edit by Angel Luis Donohue [facility] on 06/02/23 08:41 UA Urobilinogen 0.2 mg/dL Last Edit by Angel Luis Donohue Jose on 06/02/23 08:4 1 UA Protein 0 mg/dL Last Edit by Angel Luis Donohue [facility] on 06/02/23 08:41 UA pH 6.0 Last Edit by Angel Luis Donohue [facility] on 06/02/23 08:41 UA Blood 0 Bob/uL Last Edit by Angel Luis Donohue [facility] on 06/02/23 08:41 UA Specific [place] 1.020 Last Edit by Angel Luis Donohue [facility] on 06/02/23 08: 41 UA Ketone Negative Last Edit by Angel Luis Donohue Jose on 06/02/23 08:41 UA Bilirubin 1 mg/dL Last Edit by Angel Luis Donohue [facility] on 06/02/23 08:41 1+ Angel Luis Donohue 06/02/23 08:41 UA Glucose 0 mg/dL Last Edit by Angel Luis Donohue [facility] on 06/02/23 08:41 Results Reviewed Results Reviewed: Laboratory Last Values Urine pH (Auto) 6.0 06/02/23 08:34 Specific [place] (Auto) 1.020 06/02/23 08:34 Urine Protein (Auto) 0 mg/dL 06/02/23 08:34 Glucose (UA)(Auto) 0 mg/dL 06/02/23 08:34 Urine Ketones (Auto) Negative 06/02/23 08:34 Urine Blood (Auto) 0 Bob/uL 06/02/23 08:34 Urine Nitrite (Auto) Positive 06/02/23 08:34 Urine Bilirubin (Auto) 1 mg/dL 06/02/23 08:34 Urine Urobilinogen (Auto) 0.2 mg/dL 06/02/23 08:34 Leukocyte Esterase (Auto) 15 Gerber/uL 06/02/23 08:34 Assessment & Plan Assessment & Plan (1) OAB (overactive bladder): Code(s): N32.81 - Overactive bladder (2) Recurrent UTI: Code(s): N39.0 - Urinary tract infection, site not specified (3) Urinary, incontinence, stress female: Code(s): N39.3 - Stress incontinence (female) (male) (4) Cystitis: Code(s): N30.90 - Cystitis, unspecified without hematuria Plan Prescribed Augmentin 500 mg bid for 7 days. Continue Estradiol cream. Continue Vesicare. Urodynamics was discussed to be scheduled. Orders: Orders AMB Post Void Residual by ultrasound Today N39.8 - Other specified disorders of urinary system AMB Urinalysis Automated Today Z13.9 - Encounter for screening, unspecified Medications: New amoxicillin-pot clavulanate 500-125 mg (Augmentin) 1 tab PO BID 14 tabs 0RF Patient Instructions: The patient had an opportunity to ask questions regarding treatment plan. All questions were answered. Imaging, Laboratory studies and physical exam results were discussed and reviewed in detail. No major barriers to understanding were identified. The patient expressed understanding and agreement with the above treatment plan.? ? ? The patient is aware they should contact our office by phone for worsening of their current condition or the appearance of new symptoms. Compliance is encouraged with any medications and followup testing that is ordered.? ? ? It is a privilege to be allowed the opportunity to participate in the urologic care of your patient. If you have any questions or concerns regarding treatment for the above conditions please do not hesitate to contact me. The office telephone contact is [phone].? ? ? This note is constructed in part using voice recognition software. While every effort has been made to ensure accuracy produce team lead errors may have been included.? ? ? Yours sincerely,? ? ? Josselyn Mills MD? Coding Level of Care Code Est Pt Level 4 (16018) Diagnoses OAB (overactive bladder) N32.81 Recurrent UTI N39.0 Urinary, incontinence, stress female N39.3 Cystitis N30.90 CPT Codes Post Residual Void - PVR CPT Code: 77869-Grxm Void Residual by ultrasound ([id number])
== END 2023-06-02 09:18 | disposition home or self-care (01) ==
PROVIDERS: PCP Internal Medicine; Visit Provider Urology
DX: N32.81 Overactive bladder (principal); N39.3 Stress incontinence (female) (male); N30.90 Cystitis, unspecified without hematuria; Z13.9 Encounter for screening, unspecified
CPT/HCPCS: 99214

== ENCOUNTER 2023-07-20 14:42 | Outpatient (AMB) | payer OTHER, SELFPAY ==
[2023-07-20 14:47] VITALS: BP 124/80; PULSE 81; O2SAT 93; BMI 31.4
--- NOTE | 2023-07-20 14:47 | A.OFFVIS_ITS ---
Intake Vital Signs 07/20/23 14:47 Height 5 ft Weight 160 lb 14.999 oz BMI 31.4 BP 124/80 Pulse 81 Pulse Oximetry (%) 93 Intake Visit Reasons: COPD Intake Note: pt is here to follow up on cpod, she continues to use adviar and incruse inhaler. she is still smoking. Pt has been coughing up yellow phlegm all the time has not improved. she is short of breath and feels like she is going to pass out. Allergies bee pollen [BEE STINGS] Allergy (Unknown, Verified 07/20/23 15:13) SWELLING - BLOTCHES macrobid Allergy (Intermediate, Uncoded 07/20/23 15:13) Vomiting HPI COPD HPI Details 63 years old female is a case of chronic obstructive pulmonary disease, moderately severe. She is a smoker and still smoking about 6 cigarettes a day. Complains of intermittent cough, with yellowish. Phlegm but no fever or chills She feels okay as long as she is sitting and resting, Her main complaint today is that she gets short of breath when she goes up stairs . Sometime she feels lightheaded when she goes up stairs. She walks relatively fast. She has had no active respiratory infection. [facility] Medical History (Updated 07/20/23 @ 15:19 by Elver Arredondo MD) Dyspnea on exertion GERD (gastroesophageal reflux disease) Mixed incontinence urge and stress Obesity (BMI 30-39.9) History of substance abuse Constipation Osteopenia Vitamin D deficiency History of hepatitis C COPD (chronic obstructive pulmonary disease) Smoker Bronchitis Surgical History History of tubal ligation Family History Father Stroke Hypertension Diabetes Heart problem Mother Diabetes Brother Diabetes Sister In good health Social History Household Members: Family Household Members Other:: niece Housing: House Do you presently have visiting nurse or other home services: No Alcohol intake: former Patient Tobacco Use Status: Current everyday Tobacco user Tobacco use type: Cigarette Cigarettes Per Day: 6 e-Cigarette/Vaping Use: Never Used Substance Use Type: Heroin service: No Current occupational status: employed Cognitive needs: No Hearing needs: No Vision needs: Yes Review of Systems Const All systems reviewed & are unremarkable except as noted in HPI and below Eyes Reports no additional complaints ENT Reports no additional complaints Card Denies chest pain, Denies irregular heart rhythm and Denies leg edema Resp Reports as per HPI and Reports cough GI Reports no additional complaints Reports no additional complaints Musc Reports back pain Skin/Breast Reports system reviewed and no additional complaints, except as documented Neuro Reports no additional complaints Psych Reports no additional complaints Physical Exam Vital Signs: Last Vital Signs Pulse 81 07/20/23 14:47 BP 124/80 07/20/23 14:47 Pulse Ox 93 07/20/23 14:47 BMI result Body Mass Index 31.4 Const General: healthy appearing, comfortable, no acute distress, alert and awake Orientation/consciousness: patient oriented x3 HEENT Head: Yes normal to inspection General nose exam: No nasal polyps present and No nasal discharge present Face and sinus: Yes sinuses nontender Mouth: oropharynx normal Throat: Yes posterior oropharynx normal Eyes General: appearance normal, both eyes and all related structures Neck Neck: Yes normal visual inspection, Yes no lymphadenopathy, Yes trachea midline and Yes no JVD Thyroid: Thyroid normal Chest Chest palpation & inspection: normal inspection of the chest, normal palpation of entire chest wall and no tenderness Resp Other: Percussion note is resonant, breath sounds are moderately distant with prolonged expiratory phase. No wheezes or rhonchi are heard. Cardio Palpation: normal PMI Rate: regular rate Rhythm: regular rhythm Heart sounds: no gallops and no murmurs Peripheral pulses: Peripheral pulses 2+ throughout GI Palpation (GI): Soft to palpation, nontender, No hepatosplenomegaly present and no masses Auscultation: normal bowel sounds Back/Spine/Pelvis Thoracic/Lumbar Spine: thoracic and lumbar spine normal to inspection Skin General skin exam: no rashes or lesions noted Neuro General: patient oriented x3 and no focal motor deficits Cranial nerves: Yes CN's II-XII intact bilaterally Extrem General: Yes normal to inspection, Yes no clubbing, cyanosis or edema and Yes no calf tenderness Psych Appearance: grossly normal and well kempt Speech and movement: Normal speech and movement present Assessment & Plan Assessment & Plan (1) COPD (chronic obstructive pulmonary disease): Comment: Patient does have chronic obstructive pulmonary disease probably moderately severe. SEEMS TO BE DOING WELL AND HER COPD IS WELL CONTROLLED AT THIS TIME. TX : Continue Advair HFA 115-21 2 puffs b.i.d. Cont. Incruse Ellipta 1 inhalation daily. ProAir HFA 2 puffs Q 4-6 hours p.r.n. for acute wheezing.( prescription renewed) Code(s): J44.9 - Chronic obstructive pulmonary disease, unspecified Qualifiers: COPD type: unspecified COPD Qualified Code(s): J44.9 - Chronic obstructive pulmonary disease, unspecified (2) Smoker: Comment: History of smoking for many years. Quit smoking when she was discharged from the hospital, but again resumed smoking about 6 igarettes a day. I counseled her strongly to quit completely. At this time she is going to limit her cigarettes to 1- 2 per day. Risks of continued smoking explained. * she is aware of the tragic effect of smoking on her sister who has of lung cancer at age 52. Code(s): F17.200 - Nicotine dependence, unspecified, uncomplicated (3) Dyspnea on exertion: Comment: Dyspnea on exertion is mainly when she climbs stairs but not when walking on the level ground. She has a tendency to walk fast. I made her walk in the hallway for 5 minutes and O2 sat remained at 94% without any drop. So I reassured her that she does not have hypoxemia on exertion. Code(s): R06.09 - Other forms of dyspnea Medications: New albuterol sulfate 90 mcg/actuation 2 puffs inhalation Q4-6H PRN 8.5 grams 3RF shortness of breath or wheezing 30 days Coding Level of Care Code Est Pt Level 3 (52902) Diagnoses Chronic obstructive pulmonary disease, unspecified COPD type J44.9 COPD type: unspecified COPD Smoker F17.200 Dyspnea on exertion R06.09
== END 2023-07-20 15:12 | disposition home or self-care (01) ==
PROVIDERS: PCP Internal Medicine; Visit Provider Internal Medicine
DX: J44.9 Chronic obstructive pulmonary disease, unspecified (principal); F17.200 Nicotine dependence, unspecified, uncomplicated; R06.09 Other forms of dyspnea
CPT/HCPCS: 99213

== ENCOUNTER → 2023-07-20 14:42 | Outpatient (BNVA) | payer OTHER, SELFPAY | PROVIDERS: PCP Internal Medicine; Visit Provider Internal Medicine | DX: J44.9 Chronic obstructive pulmonary disease, unspecified (principal); R06.09 Other forms of dyspnea; F17.210 Nicotine dependence, cigarettes, uncomplicated | CPT/HCPCS: 99212 ==

== ENCOUNTER 2023-07-26 13:59 | Outpatient (AMB) | payer OTHER, SELFPAY ==
--- NOTE | 2023-07-26 14:02 | MHC.PC.OV ---
Vital Signs 07/26/23 14:03 Height 5 ft Weight 162 lb BMI 31.6 BP 132/70 Blood Pressure Location Lt brachial Position Sitting Pulse 100 Pulse Source Pulse Oximeter Pulse Oximetry (%) 96 Oxygen Delivery Method Room Air Intake Visit Reasons: COPD Intake Note: Patient is here to follow up on COPD. Biomedical Service Engineer Required: No Pharmacy General Manager: Not Required per policy Accompanied by: Self / Same As Patient Allergies bee pollen [BEE STINGS] Allergy (Unknown, Verified 07/28/23 07:14) SWELLING - BLOTCHES macrobid Allergy (Intermediate, Uncoded 07/26/23 14:03) Vomiting Medication List - Last Reconciled 07/28/23 by SOHAN Aguilar albuterol sulfate 90 mcg/actuation 2 puffs inhalation Q4-6H PRN 30 days cholecalciferol (vitamin D3) 50 mcg PO DAILY 90 days epinephrine (EpiPen 2-Arthur) 0.3 mg (0.3 mL) IM Q4H PRN estradiol (Vagifem) 10 mcg vaginal 2XW fluticasone propion-salmeterol 115-21 mcg/actuation (Advair HFA) 2 puffs PO BID methadone 85 mg PO DAILY nirmatrelvir-ritonavir 300 mg (150 mg x 2)-100 mg (Paxlovid) take TWO 150 mg tablets of nirmatrelvir with ONE 100 mg tablet of ritonavir twice daily for 5 days omeprazole 20 mg PO DAILY 90 days polyethylene glycol 3350 (Miralax) 17 grams PO DAILY PRN prednisone 40 mg (2 x 20 mg) PO DAILY solifenacin 10 mg PO DAILY umeclidinium 62.5 mcg/actuation (Incruse Ellipta) 1 inh inhalation DAILY 30 days Tobacco use date assessed: 07/26/23 Fall risk assessment: No Falls in past year Last assessed Fall Risk: 07/26/23 Dental Screening Dental Screen Date: 07/26/23 Did you have a dental visit in the last 12 months?: Yes Did you have a dental problem in the last 6 months where you did not have access to dental care?: No Was dental information given to patient?: Patient has dentist HPI HPI Comments History of Present Illness Details 63-year-old female past medical history significant for COPD, smoker, osteopenia, GERD and substance abuse. Patient Dr. Kenny patient presents today for follow-up visit review of the notes patient was seen by pulmonology recommended to continue on Incruse ellipta,patient did not show signs of emotional hypoxemia. Patient also continues to follow urology for history of recurrent UTIs, patient recommended to continue on estradiol and VESIcare. 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 Patient also requesting refill on omeprazole, Rx sent. [facility] Medical History (Updated 07/27/23 @ 01:09 by Suman Weber) Dyspnea on exertion GERD (gastroesophageal reflux disease) Mixed incontinence urge and stress Obesity (BMI 30-39.9) History of substance abuse Constipation Osteopenia Vitamin D deficiency History of hepatitis C COPD (chronic obstructive pulmonary disease) Smoker Bronchitis Surgical History History of tubal ligation Family History (Updated 07/26/23 @ 14:02 by LEX Jc) Father Stroke Hypertension Diabetes Heart problem Mother Diabetes Brother Diabetes Sister In good health Social History Household Members: Family Household Members Other:: niece Housing: House Do you presently have visiting nurse or other home services: No Alcohol intake: former Patient Tobacco Use Status: Current everyday Tobacco user Tobacco use type: Cigarette Cigarettes Per Day: 6 Smoked in Last 30 Days: Yes e-Cigarette/Vaping Use: Never Used Second Hand Smoke Exposure: Yes Use of substances other than those prescribed or required for medical reasons: Yes Substance Use Type: Marijuana Substance Use Frequency: Daily Last Used Substance: Hours (ago) Advance Directives: No Advance Directives Information Provided: No Patient : No service: No Current occupational status: employed Cognitive needs: No Hearing needs: No Vision needs: Yes Questionnaire Thrive Questionnaire Date Thrive assessed: 03/01/23 LEEANN-7 AMB Questionnaire LEEANN-7 Date LEEANN - 7 assessed: 03/01/23 Source: Developed by Drs. Marcus Jackson, Vannesa Gongora, Alex Chong and colleagues, with an educational miles from [employer]. Review of Systems Const Denies chills, Denies fatigue, Denies fever(s) and Denies poor appetite Eyes Denies no additional complaints ENT Reports Normal hearing present Card Denies chest pain, Denies syncope, Denies rapid heart rate and Denies dyspnea Resp Denies cough and Denies dyspnea GI Denies change in stool character, Denies constipation, Denies diarrhea, Denies nausea and Denies vomiting Denies urinary frequency, Denies dysuria and Denies urinary urgency Neuro Reports Normal hearing present, Denies confusion and Denies syncope Psych Denies confusion Endo Denies fatigue Physical exam (Primary Care) Vital Signs: Last Vital Signs Pulse 100 07/26/23 14:03 BP 132/70 07/26/23 14:03 Pulse Ox 96 07/26/23 14:03 Oxygen Delivery Method Room Air 07/26/23 14:03 BMI result Body Mass Index 31.6 Tobacco/Smoking Status: Tobacco use Status Tobacco use date assessed 07/26/23 07/26/23 14:09 Patient Tobacco Use Status Current everyday Tobacco 07/26/23 14:09 Tobacco use type Cigarette 07/26/23 14:09 e-Cigarette/Vaping Use Never Used 07/26/23 14:09 Thrive Assessment: Date of Thrive Assessment Date Thrive assessed 03/01/23 07/26/23 14:09 Const General: No confusion Orientation/consciousness: No confusion HENMT Head: Yes normocephalic and Yes atraumatic Eyes Conjunctivae: conjunctivae normal Chest Chest palpation & inspection: normal inspection of the chest Resp Effort & Inspection: normal respiratory effort Auscultation: clear to auscultation bilaterally, no crackles, no rhonchi and no wheezes Cardio Rate: regular rate Rhythm: regular rhythm Heart sounds: S1 normal heart sound present and S2 normal heart sound present Neuro General: No confusion Cranial nerves: Yes Normal hearing present Extrem General: No edema Assessment and Plan Assessment & Plan (1) COPD (chronic obstructive pulmonary disease): Comment: Patient does have chronic obstructive pulmonary disease probably moderately severe. SEEMS TO BE DOING WELL AND HER COPD IS WELL CONTROLLED AT THIS TIME. TX : Continue Advair HFA 115-21 2 puffs b.i.d. Cont. Incruse Ellipta 1 inhalation daily. ProAir HFA 2 puffs Q 4-6 hours p.r.n. for acute wheezing.( prescription renewed) Code(s): J44.9 - Chronic obstructive pulmonary disease, unspecified Qualifiers: COPD type: unspecified COPD Qualified Code(s): J44.9 - Chronic obstructive pulmonary disease, unspecified Plan: Continue on current inhalers. Continue to follow-up pulmonology. (2) GERD (gastroesophageal reflux disease): Code(s): K21.9 - Gastro-esophageal reflux disease without esophagitis Qualifiers: Esophagitis presence: without esophagitis Qualified Code(s): K21.9 - Gastro-esophageal reflux disease without esophagitis Plan: Continue on omeprazole 20 mg daily. Avoid the foods that cause that, usually spicy foods, tomato products, juices, coffee, soda and foods that you're sensitive to.? After eating do not lie down, allow 3-4 hours before lying down. And keep the head of the bed above 30 degrees to avoid the acid from going up. (3) Mixed dyslipidemia: Code(s): E78.2 - Mixed hyperlipidemia Plan: Avoid fried foods, chicken skin, eggs, butter,margarine, pastries and?? red meat. (4) Recurrent UTI: Code(s): N39.0 - Urinary tract infection, site not specified Plan: Continue to follow urology. Plan Keep scheduled with PCP or follow-up sooner if needed. Orders: Orders Comprehensive [place]. Panel Fast 07/26/23 Z13.1 - Encounter for screening for diabetes mellitus TSH reflex Free T4 07/26/23 Z13.29 - Encounter for screening for other suspected endocrine disorder UA CC w/rflx Micro + Cult 07/26/23 N39.0 - Urinary tract infection, site not specified Complete Blood Count Auto Diff 07/26/23 Z13.0 - Encounter for screening for diseases of the blood and blood-forming organs and certain disorders involving the immune mechanism Lipid Panel 07/26/23 Z13.220 - Encounter for screening for lipoid disorders Medications: New epinephrine (EpiPen 2-Arthur) 0.3 mg (0.3 mL) IM Q4H PRN 2 ea 0RF anaphylaxis Z91.030 - Bee allergy status Refilled omeprazole 20 mg PO DAILY 90 days 90 caps 1RF K21.9 - Gastro-esophageal reflux disease without esophagitis cholecalciferol (vitamin D3) 50 mcg PO DAILY 90 days 90 caps 3RF E55.9 - Vitamin D deficiency, unspecified Coding Level of Care Code Est Pt Level 4 (39439) Diagnoses Chronic obstructive pulmonary disease, unspecified COPD type J44.9 COPD type: unspecified COPD Gastroesophageal reflux disease without esophagitis K21.9 Esophagitis presence: without esophagitis Mixed dyslipidemia E78.2 Recurrent UTI N39.0
[2023-07-26 14:03] VITALS: BP 132/70; PULSE 100; O2SAT 96; BMI 31.6
== END 2023-07-26 14:24 | disposition home or self-care (01) ==
PROVIDERS: PCP Internal Medicine; Visit Provider Nurse Practitioner Family
DX: J44.9 Chronic obstructive pulmonary disease, unspecified (principal); K21.9 Gastro-esophageal reflux disease without esophagitis; E78.2 Mixed hyperlipidemia; N39.0 Urinary tract infection, site not specified
CPT/HCPCS: 99214

== ENCOUNTER 2023-07-26 22:14 | Emergency (ER) | payer OTHER, SELFPAY ==
--- NOTE | 2023-07-26 | ECG_ITS ---
Test Reason : SOB Blood Pressure : / mmHG Vent. Rate : 099 BPM Atrial Rate : 099 BPM P-R Int : 150 ms QRS Dur : 084 ms QT Int : 354 ms P-R-T Axes : 050 008 022 degrees QTc Int : 454 ms Normal sinus rhythm Nonspecific ST abnormality Abnormal ECG When compared with ECG of 11-JUN-2022 10:02, ST more depressed Anterolateral leads Referred By: Suman Weber Electronically Signed By:ALEKSANDRA KOENIG MD
--- NOTE | ~2023-07-26 | XR_ITS ---
EXAMINATION: XR CHEST CLINICAL INFORMATION: Cough and shortness of breath. COMPARISON: 06/08/2022. TECHNIQUE: 2 views of the chest were obtained. FINDINGS: The cardiomediastinal silhouette is normal. There is no focal lung consolidation or pleural effusion. The bony structures and soft tissues are unremarkable. XR/XR chest 2V IMPRESSION: No evidence for active cardiopulmonary disease.
[2023-07-26 22:31] VITALS: BP 177/90; PULSE 114; RESP 16; TEMP 37.9; O2SAT 93; BMI 33.0
--- NOTE | 2023-07-26 22:46 | ED.GENADULT ---
HPI - General Adult General Chief complaint: Dyspnea Stated complaint: Difficulty breathing Time Seen by Provider: 07/26/23 22:39 Source: patient and RN notes reviewed Mode of arrival: ambulatory Limitations: no limitations History of Present Illness HPI narrative: 63 year old female with PMH of COPD and hyperlipidemia presents to ED for shortness of breath. She reports going to her pcp earlier today feeling fine with no complaints. She states she developed feeling short of breath with a cough and feeling generally ill at around 5pm today. She reports subjective fevers. Her kids have tested positive for covid-19. She reports a negative at home test. Patient states she has been using her albuterol inhaler frequently since 5pm without relief. Related Data Home Medications Medication Instructions Recorded Confirmed methadone 10 mg/5 mL oral solution 85 mg PO DAILY 07/01/22 03/01/23 polyethylene glycol 3350 17 gram 17 g PO DAILY PRN 11/24/22 03/01/23 oral powder packet (Miralax) Previous Rx's Medication Instructions Recorded estradiol 10 mcg vaginal tablet 10 mcg vaginal 2XW #24 tabs 02/25/23 (Vagifem) umeclidinium 62.5 mcg/actuation 1 inh inhalation DAILY 30 days #30 03/01/23 blister powder for inhalation ea (Incruse Ellipta) solifenacin 10 mg tablet 10 mg PO DAILY #90 tabs 05/10/23 fluticasone propionate 115 2 puff PO BID #12 ea 07/07/23 mcg-salmeterol 21 mcg/actuation HFA inhaler (Advair HFA) albuterol sulfate 90 mcg/actuation 2 puff inhalation Q4-6H PRN 07/20/23 aerosol inhaler shortness of breath or wheezing 30 days #8.5 grams cholecalciferol (vitamin D3) 50 50 mcg PO DAILY 90 days #90 caps 07/26/23 mcg (2,000 unit) capsule epinephrine 0.3 mg/0.3 mL 0.3 mg (0.3 mL) IM Q4H PRN 07/26/23 injection, auto-injector (EpiPen anaphylaxis #2 ea 2-Arthur) omeprazole 20 mg capsule,delayed 20 mg PO DAILY 90 days #90 caps 07/26/23 release Allergies Allergy/AdvReac Type Severity Reaction Status Date / Time bee pollen [BEE STINGS] Allergy Unknown SWELLING - Verified 07/26/23 14:03 BLOTCHES macrobid Allergy Intermediate Vomiting Uncoded 07/26/23 14:03 Review of Systems Constitutional: Constitutional: Reports fatigue, Reports fever(s), Reports lethargy and Reports malaise Cardiovascular: Cardiovascular: Reports dyspnea Respiratory: Respiratory: Reports chest congestion, Reports cough, Reports dyspnea and Reports wheezing Gastrointestinal: Gastrointestinal: Denies diarrhea and Denies vomiting Genitourinary: Genitourinary: Denies dysuria and Denies urinary urgency Integumentary/Breasts: Skin/Breast: Denies rash Endocrine: Endocrine: Reports fatigue Allergic/Immunologic: Allergic/Immunologic: Reports wheezing PMFSH Past Medical History Medical History (Updated 07/27/23 @ 01:09 by Suman Weber) Dyspnea on exertion GERD (gastroesophageal reflux disease) Mixed incontinence urge and stress Obesity (BMI 30-39.9) History of substance abuse Constipation Osteopenia Vitamin D deficiency History of hepatitis C COPD (chronic obstructive pulmonary disease) Smoker Bronchitis Surgical History History of tubal ligation Family History Family History (Updated 07/26/23 @ 14:02 by LEX Jc) Father Stroke Hypertension Diabetes Heart problem Mother Diabetes Brother Diabetes Sister In good health Social History Social History Household Members: Family Household Members Other:: niece Housing: House Do you presently have visiting nurse or other home services: No Alcohol intake: former Patient Tobacco Use Status: Current everyday Tobacco user Tobacco use type: Cigarette Cigarettes Per Day: 6 Smoked in Last 30 Days: Yes e-Cigarette/Vaping Use: Never Used Second Hand Smoke Exposure: Yes Use of substances other than those prescribed or required for medical reasons: Yes Substance Use Type: Marijuana Substance Use Frequency: Daily Last Used Substance: Hours (ago) Advance Directives: No Advance Directives Information Provided: No Patient : No service: No Current occupational status: employed Cognitive needs: No Hearing needs: No Vision needs: Yes Physical Exam ED Vital Signs: Vital Signs - 24 hr 07/26/23 22:31 07/26/23 23:11 07/27/23 00:52 Temperature 100.2 F 100.1 F Pulse Rate 114 H 104 H 92 Respiratory Rate 16 20 18 Blood Pressure 177/90 H 185/90 H Pulse Oximetry 93 95 Oxygen Delivery Method Room Air Room Air BMI result Body Mass Index 33.0 Const General: healthy appearing, no acute distress, alert and awake Nutritional Appearance: well nourished Orientation/consciousness: patient oriented x3 HENMT Head: Yes normocephalic and Yes atraumatic Eyes Eyelids: Yes eyelids normal Conjunctivae: conjunctivae normal Sclerae: sclerae normal Corneas: corneas normal Pupils: Equal, round and reactive pupils present EOM: EOMs intact bilaterally Neck Neck: Yes full ROM Resp Effort & Inspection: normal respiratory effort, able to speak in complete sentences and not labored Auscultation: not clear to auscultation bilaterally (Diffuse expiratory wheeze throughout) Cardio Other: No significant pedal edema Skin General skin exam: elasticity normal Neuro General: patient oriented x3 Cranial nerves: Yes Equal, round and reactive pupils present and Yes Bilaterally intact EOM present Cognition (Neuro): normal cognition Extrem Other: Moving all extremities well without any obvious deformities Course Reevaluation(s) Reevaluation #1: Discussed workup with the patient. She is COVID positive. She has no evidence of hypoxia, heart failure, sepsis. She will be discharged with PACs [facility] and given the wheezing will give her a short course of. Patient was given strict return precautions Time: 01:05 Medications Administered Discontinued Medications Generic Name Dose Route Start Last Admin Trade Name Freq PRN Reason Stop Dose Admin Acetaminophen 975 mg 07/27/23 00:26 07/27/23 00:31 Acetaminophen 325 Mg Tablet PO 07/27/23 00:27 975 mg ONCE ONE Administration Albuterol/Ipratropium 3 ml 07/27/23 00:48 07/27/23 00:49 Albuterol/Iprat 2.5/0.5mg 3 Ml Ampul.Neb INHALE 07/27/23 00:49 3 ml ONCE ONE Administration Medical Decision Making Medical Decision Making MDM Narrative: 63-year-old female with history of COPD presents for evaluation of shortness of breath. She was wheezing on exam. No significant edema to suggest heart failure and she has no history of this. He denies sick contacts was positive COVID-19 at home she likely has a viral induced COPD exacerbation. Will start with bronchodilator protocol. All workup pending including labs, chest x-ray, viral swabs. Patient is stable on room air at this time Differential Diagnosis Differential Diagnoses: The differential diagnosis associated with the presentation includes COPD COVID-19 Pneumonia Bronchitis Upper respiratory infection Admission/Observation Consideration of admission/observation: Escalation of care including admission/observation considered Patient was COVID positive not vaccinated however has no respiratory distress, hypoxia Lab Data MDM Lab Attestation statement: I reviewed the patient's lab results. No leukocytosis, patient has a normal hemoglobin 12.5 by the hematocrit just below normal at 36.8. Normal platelet count. No significant electrolyte abnormalities. BNP is slightly elevated to 139. Troponins undetectable. 07/26/23 23:47 07/26/23 23:47 Labs: Lab Results 07/26/23 07/26/23 Range/Units 22:56 23:47 WBC 6.0 (4.8-10.8) X10*3/uL RBC 4.03 L (4.20-5.50) X10*6/uL Hgb 12.5 (12.0-16.0) g/dl Hct 36.8 L (37.0-47.0) % MCV 91.3 (80.0-98.0) fL MCH 31.0 (27.0-33.0) pg MCHC 34.0 (31.0-35.0) g/dl RDW 13.1 (11.0-16.0) % Plt Count 203 D (160-400) X10*3/uL MPV 10.6 (9.4-12.3) fL Absolute Nucleated RBC 0.000 (0.0-0.012) X10*3/uL Nucleated RBC % (auto) 0.0 (0.0-0.2) /100WBC Sodium 137 (135-145) mmol/L Potassium 4.1 (3.3-5.1) mmol/L Chloride 101 (96-108) mmol/L Carbon Dioxide 25 (22-29) mmol/L Anion Gap 15 (12-20) BUN 17 H (9-16) mg/dL Creatinine 0.89 (0.5-1.4) mg/dL Estim Creat Clear Calc 58.4 Estimated GFR > 60 Random Glucose 99 (60-115) mg/dL Lactic Acid 0.8 (0.5-2.0) mmol/L Calcium 9.6 (8.4-10.2) mg/dL Total Bilirubin 0.2 (0.0-1.0) mg/dL AST 24 (5-31) U/L ALT 17 (0-31) U/L Alkaline Phosphatase 100 (39-117) U/L Troponin I High Sens < 2.7 (<3.5-17.0) ng/L B-Natriuretic Peptide 139 H (<100) pg/mL Total Protein 7.2 (6.5-8.0) g/dL Albumin 4.0 (3.5-5.0) g/dL COVID-19 (IPTA) Positive A (Negative) COVID-19 Clin Com See Note Influenza Type A (ALBERTO) Negative (Negative) Influenza Type B (ALBERTO) Negative (Negative) Influenza A & B Note See Note Independent Interpretation I performed an independent interpretation of an: EKG (Normal sinus rhythm with rate of 99 beats per minute. No ST segment elevation MT) and Plain X-Ray (No infiltrates) Radiology Impression Discussion of test interpretation with radiology: I have reviewed the radiologist's reading. (No evidence for active cardiopulmonary disease) Discharge Plan Discharge Clinical Impression: COVID-19 Patient Disposition: Home, Self-Care Instructions: COVID-19 (Coronavirus Disease 2019) (ED) Additional Instructions: You tested positive for COVID-19 Your chest x-ray was clear and the oxygen status was adequate Take Paxlovid as prescribed Take prednisone 40 mg daily for the next 4 days starting tomorrow Return for new or worsening symptoms, especially as your having trouble breathing Use ibuprofen/Tylenol as needed for fevers, headaches, body aches Prescriptions: No Action solifenacin 10 mg tablet 10 mg PO DAILY Qty: 90 1RF Advair HFA 115-21 mcg/actuation HFA aerosol inhaler 2 puff PO BID Qty: 12 0RF Incruse Ellipta 62.5 mcg/actuation blister with device 1 inh inhalation DAILY 30 Days Qty: 30 3RF methadone 10 mg/5 mL solution 85 mg PO DAILY Patient Comments: Habit-OPCO omeprazole 20 mg capsule,delayed release(DR/EC) 20 mg PO DAILY 90 Days Qty: 90 1RF epinephrine [EpiPen 2-Arthur] 0.3 mg/0.3 mL auto-injector 0.3 mg IM Q4H PRN (Reason: anaphylaxis) Qty: 2 0RF cholecalciferol (vitamin D3) 50 mcg (2,000 unit) capsule 50 mcg PO DAILY 90 Days Qty: 90 3RF polyethylene glycol 3350 [Miralax] 17 gram powder in packet 17 g PO DAILY PRN estradiol [Vagifem] 10 mcg tablet 10 mcg vaginal 2XW Qty: 24 1RF Rx Instructions: use 2 times a week on Tue/ insert vaginally at bedtime albuterol sulfate 90 mcg/actuation HFA aerosol inhaler 2 puff inhalation Q4-6H PRN (Reason: shortness of breath or wheezing) 30 Days Qty: 8.5 3RF
[2023-07-26 23:11] VITALS: BP 185/90; PULSE 104; RESP 20; TEMP 37.8; O2SAT 95
[2023-07-26 23:19] LABS: IDNOW Serial# 08D9AD1C; Influenza A Negative (Negative); Influenza B2 Negative (Negative)
[2023-07-26 23:20] LABS: COVID-19 Test Positive (Negative); IDNOW Serial# BCCEAD1C
[2023-07-27 00:02] LABS: Hematocrit 36.8 % (37.0-47.0); Hemoglobin 12.5 g/dl (12.0-16.0); Mean Corpuscular Volume 91.3 fL (80.0-98.0); Mean Platelet Volume 10.6 fL (9.4-12.3); Platelet Count 203 X10*3/uL (160-400); Red Blood Count 4.03 X10*6/uL (4.20-5.50); Red Cell Distribution Width 13.1 % (11.0-16.0)
[2023-07-27 00:11] LABS: Lactic Acid 0.8 mmol/L (0.5-2.0)
[2023-07-27 00:15] LABS: Alanine Aminotransferase 17 U/L (0-31); Alkaline Phosphatase 100 U/L (39-117); Anion Gap 15 (12-20); Aspartate Amino Transferase 24 U/L (5-31); Bilirubin Total 0.2 mg/dL (0.0-1.0); Blood Urea Nitrogen 17 mg/dL (9-16); Calcium 9.6 mg/dL (8.4-10.2); Carbon Dioxide 25 mmol/L (22-29); Chloride 101 mmol/L (96-108); Creatinine Clr Calc Pharmacy 58.4; Estimated Glomerular Filt Rate > 60; Glucose Random 99 mg/dL (60-115); Potassium 4.1 mmol/L (3.3-5.1); Sodium 137 mmol/L (135-145); Total Protein 7.2 g/dL (6.5-8.0)
[2023-07-27 00:22] LABS: B Type Natriuretic Peptide 139 pg/mL (<100)
[2023-07-27 00:27] LABS: Troponin-I High Sensitivity < 2.7 ng/L (<3.5-17.0)
[2023-07-27] MEDS: Acetaminophen 325 MG TABLET 975 MG PO (00:31)
--- NOTE | 2023-07-27 00:44 | PC.NURSE ---
respiratory at bedside
[2023-07-27] MEDS: Albuterol/Iprat 2.5/0.5MG 3 ML AMPUL.NEB INHALE (00:49)
[2023-07-27 00:52] VITALS: PULSE 92; RESP 18; O2SAT 94
[2023-07-27 01:30] VITALS: BP 153/85; PULSE 95; RESP 18; TEMP 37.2; O2SAT 93
[2023-07-27] MEDS: predniSONE 20 MG TABLET 40 MG PO (01:32)
== END 2023-07-27 01:59 | disposition home or self-care (01) ==
PROVIDERS: Physician Assistant; Emergency Provider Internal Medicine; PCP Internal Medicine
DX: U07.1 COVID-19 (principal); R06.02 Shortness of breath; E78.5 Hyperlipidemia, unspecified; J44.9 Chronic obstructive pulmonary disease, unspecified; F17.210 Nicotine dependence, cigarettes, uncomplicated; F12.90 Cannabis use, unspecified, uncomplicated
CPT/HCPCS: 36415; 71046; 80053; 83605; 83880; 84484; 85027; 87040; 87502; 87635; 93005; 94640; 99284; 99285

== ENCOUNTER 2023-12-14 05:10 | Observation (INO) | payer OTHER, SELFPAY ==
[2023-12-14] VITALS (11 sets, daily range): BP systolic 117–200; BP diastolic 65–103; PULSE 81–116; RESP 18–22; TEMP 36.6–38.1; O2SAT 93–98; BMI 33.0
--- NOTE | ~2023-12-14 | XR_ITS ---
EXAMINATION: XR CHEST 6:14 AM CLINICAL INFORMATION: Shortness of breath COMPARISON: 07/26/2023 TECHNIQUE: Frontal view of the chest was obtained. FINDINGS: No significant abnormality is noted involving the heart, lungs, mediastinum, bony thorax or soft tissues. XR/XR chest 1V IMPRESSION: Unremarkable examination.
[2023-12-14 05:38] LABS: Basophils Absolute Auto 0.1 X10*3/uL (0.0-0.2); Basophils Percent Auto 0.5 % (0-2); Eosinophils Absolute Auto 0.1 X10*3/uL (0.0-0.4); Eosinophils Percent Auto 0.8 % (0-4); Hematocrit 39.8 % (37.0-47.0); Hemoglobin 13.8 g/dl (12.0-16.0); Imm Gran Abs Auto 0.03 X10*3/uL (0.00-0.03); Imm Gran Pct Auto 0.3 % (0.0-0.4); Lymphocytes Absolute Auto 0.9 X10*3/uL (1.2-4.9); Lymphocytes Percent Auto 8.3 % (20-40); MANUAL DIFF FLAG NO; Mean Corpuscular HGB Conc 34.7 g/dl (31.0-35.0); Mean Corpuscular Hemoglobin 30.3 pg (27.0-33.0); Mean Corpuscular Volume 87.3 fL (80.0-98.0); Mean Platelet Volume 9.9 fL (9.4-12.3); Monocytes Absolute Auto 0.6 X10*3/uL (0.1-1.2); Neutrophils Absolute Auto 8.8 x10*3/uL (2.0-8.3); Neutrophils Percent Auto 84.1 % (45-73); Platelet Count 239 X10*3/uL (160-400); Red Blood Count 4.56 X10*6/uL (4.20-5.50); Red Cell Distribution Width 12.8 % (11.0-16.0); White Blood Count 10.4 X10*3/uL (4.8-10.8)
[2023-12-14 05:47] LABS: Lactic Acid 0.5 mmol/L (0.5-2.0)
--- NOTE | 2023-12-14 05:47 | ED_ITS ---
HPI - SOB/Dyspnea General Chief Complaint: Dyspnea Stated Complaint: trouble breathing, headache Time Seen by Provider: 12/14/23 05:22 History of Present Illness HPI Narrative: Patient is a 63-year-old female with a history of COPD history of smoking. Not vaccinated for COVID flu. Presented today with having coughing fever generalized malaise aching that has been ongoing for the last 12-24 hours. No neck pain. No abdominal pain no nausea no vomiting no diarrhea positive history of COPD positive history of smoking. Patient from home. Related Data Home Medications Medication Instructions Recorded Confirmed methadone 10 mg/5 mL oral solution 85 mg PO DAILY 07/01/22 07/28/23 polyethylene glycol 3350 17 gram 17 g PO DAILY PRN 11/24/22 07/28/23 oral powder packet (Miralax) Previous Rx's Medication Instructions Recorded umeclidinium 62.5 mcg/actuation 1 inh inhalation DAILY 30 days #30 03/01/23 blister powder for inhalation ea (Incruse Ellipta) albuterol sulfate 90 mcg/actuation 2 puff inhalation Q4-6H PRN 07/20/23 aerosol inhaler shortness of breath or wheezing 30 days #8.5 grams cholecalciferol (vitamin D3) 50 50 mcg PO DAILY 90 days #90 caps 07/26/23 mcg (2,000 unit) capsule epinephrine 0.3 mg/0.3 mL 0.3 mg (0.3 mL) IM Q4H PRN 07/26/23 injection, auto-injector (EpiPen anaphylaxis #2 ea 2-Arthur) omeprazole 20 mg capsule,delayed 20 mg PO DAILY 90 days #90 caps 07/26/23 release nirmatrelvir 300 mg (150 mg See Rx Instructions PO .COMPLEX 07/27/23 x2)-ritonavir 100 mg tablet,dose #30 ea pack (Paxlovid) prednisone 20 mg tablet 40 mg (2 x 20 mg) PO DAILY #8 tabs 07/27/23 solifenacin 10 mg tablet 10 mg PO DAILY #90 tabs 11/12/23 fluticasone propionate 115 2 puff PO BID for wheezing #12 ea 11/28/23 mcg-salmeterol 21 mcg/actuation HFA inhaler (Advair HFA) estradiol 10 mcg vaginal tablet 10 mcg vaginal QWEEK #24 tabs 12/02/23 (Yuvafem) Allergies Allergy/AdvReac Type Severity Reaction Status Date / Time bee pollen [BEE STINGS] Allergy Unknown SWELLING - Verified 07/28/23 07:14 BLOTCHES macrobid Allergy Intermediate Vomiting Uncoded 07/26/23 14:03 Review of Systems 2 Review of Systems: Positive shortness of breath Yes all other systems are reviewed and are negative PMFSH Past Medical History Attestation statement: The following information was validated with the patient. Medical History Dyspnea on exertion GERD (gastroesophageal reflux disease) Mixed incontinence urge and stress Obesity (BMI 30-39.9) History of substance abuse Constipation Osteopenia Vitamin D deficiency History of hepatitis C COPD (chronic obstructive pulmonary disease) Smoker Bronchitis Surgical History History of tubal ligation Family History Family History Father Stroke Hypertension Diabetes Heart problem Mother Diabetes Brother Diabetes Sister In good health Social History Social History Household Members: Family Household Members Other:: niece Housing: House Do you presently have visiting nurse or other home services: No Alcohol intake: former Patient Tobacco Use Status: Current everyday Tobacco user Tobacco use type: Cigarette Cigarettes Per Day: 6 e-Cigarette/Vaping Use: Never Used Second Hand Smoke Exposure: Yes Substance Use Type: Marijuana Advance Directives: No Advance Directives Information Provided: No service: No Current occupational status: employed Cognitive needs: No Hearing needs: No Vision needs: Yes Physical Exam 2 Vital Signs: Vital Signs: Last Vital Signs Temp 100.6 F H 12/14/23 05:11 Pulse 101 H 12/14/23 06:03 Resp 18 12/14/23 06:03 BP 200/103 H 12/14/23 05:11 Pulse Ox 94 12/14/23 05:11 O2 Del Method Room Air 12/14/23 05:11 BMI result Body Mass Index 33.0 Appearance: Alert. Oriented X3. No acute distress. Eyes: Pupils equal, round and reactive to light. ENT: Pharynx normal. Neck: Normal inspection. Neck supple. No lymph nodes noted. No crepitus CVS: Normal heart rate and rhythm. Pulses normal. Normal S1 and S2 Respiratory: Slightly increased work of breathing positive wheezing bilaterally diminished breath sounds bilaterally Abdomen: Soft and nontender. No rigidity. No distention. good BS x4 Skin: Skin warm and dry. Normal skin color. Normal skin turgor. Extremities: No lower extremity edema. Neurovascular intact to all extremities. No Lacerations. No Rash Neuro: Oriented X 3. No motor deficit. No sensory deficit. Moving all extermities. No slurred speech Medications Administered Discontinued Medications Generic Name Dose Route Start Last Admin Trade Name Freq PRN Reason Stop Dose Admin Acetaminophen 975 mg 12/14/23 05:49 12/14/23 06:24 Acetaminophen 325 Mg Tablet PO 12/14/23 05:50 975 mg ONCE ONE Administration Azithromycin 500 mg 12/14/23 05:46 12/14/23 06:24 Azithromycin 500 Mg Tablet PO 12/14/23 05:47 500 mg ONCE ONE Administration Albuterol Sulfate 5 mg/ 0 mg 12/14/23 05:45 12/14/23 06:01 Albuterol/Ipratropium 3 ml INHALE 12/14/23 05:46 2.5 each ONCE ONE Administration Ceftriaxone Sodium 1 gm/ 50 mls @ 100 mls/hr 12/14/23 05:46 12/14/23 06:23 Sodium Chloride IV 12/14/23 06:15 100 mls/hr ONCE ONE Administration Methylprednisolone Sodium Succinate 125 mg 12/14/23 05:45 12/14/23 06:24 Methylprednisolone Sod Succ 125 Mg/2 Ml Vial IVPUSH 12/14/23 05:46 125 mg ONCE ONE Administration Medical Decision Making Medical Decision Making [facility] Narrative: Patient is 63-year-old female with a history of COPD baseline not on oxygen tried to use the inhaler to no relief have some fever have some generalized malaise weakness. Not vaccinated for COVID or flu. Patient chest x-ray showed no gross focal infiltrate I reviewed radiology's reading. Patient's lab showed a normal hemoglobin no evidence for anemia. Patient's electrolytes are normal. Flu RSV COVID were all negative. Given steroid and treatment with only moderate relief of symptoms. Still short of breath. Still very tight despite continuous neb will admit patient for further evaluation. Currently in stable condition. Patient's lactate was normal there is no evidence for severe sepsis. Nevertheless cultures are obtained. Antibiotics started as patient had a low- grade fever with cough. Differential Diagnosis Differential Diagnoses: The differential diagnosis associated with the presentation includes COPD, pneumonia, PE Consult Healthcare Provider Management of the patient was discussed with: Hospitalist Lab Data [facility] Lab Attestation statement: I reviewed the patient's lab results. 12/14/23 05:31 12/14/23 05:31 Labs: Lab Results 12/14/23 Range/Units 05:31 WBC 10.4 (4.8-10.8) X10*3/uL RBC 4.56 (4.20-5.50) X10*6/uL Hgb 13.8 (12.0-16.0) g/dl Hct 39.8 (37.0-47.0) % MCV 87.3 (80.0-98.0) fL MCH 30.3 (27.0-33.0) pg MCHC 34.7 (31.0-35.0) g/dl RDW 12.8 (11.0-16.0) % Plt Count 239 (160-400) X10*3/uL MPV 9.9 (9.4-12.3) fL Immature Gran % (Auto) 0.3 (0.0-0.4) % Neut % (Auto) 84.1 H (45-73) % Lymph % (Auto) 8.3 L (20-40) % Bond % (Auto) 6.0 (2-11) % Eos % (Auto) 0.8 (0-4) % Baso % (Auto) 0.5 (0-2) % Lymph # (Auto) 0.9 L (1.2-4.9) X10*3/uL Bond # (Auto) 0.6 (0.1-1.2) X10*3/uL Eos # (Auto) 0.1 (0.0-0.4) X10*3/uL Baso # (Auto) 0.1 (0.0-0.2) X10*3/uL Abs Immat Gran (auto) 0.03 (0.00-0.03) X10*3/uL Absolute Neuts (auto) 8.8 H (2.0-8.3) x10*3/uL Absolute Nucleated RBC 0.000 (0.0-0.012) X10*3/uL Nucleated RBC % (auto) 0.0 (0.0-0.2) /100WBC Sodium 134 L (135-145) mmol/L Potassium 4.2 (3.3-5.1) mmol/L Chloride 100 (96-108) mmol/L Carbon Dioxide 24 (22-29) mmol/L Anion Gap 14 (12-20) BUN 12 (9-16) mg/dL Creatinine 0.79 (0.5-1.4) mg/dL Estim Creat Clear Calc 65.8 Estimated GFR > 60 Random Glucose 102 (60-115) mg/dL Lactic Acid 0.5 (0.5-2.0) mmol/L Calcium 9.7 (8.4-10.2) mg/dL Total Bilirubin 0.5 (0.0-1.0) mg/dL AST 18 (5-31) U/L ALT 16 (0-31) U/L Alkaline Phosphatase 116 (39-117) U/L Total Protein 8.0 (6.5-8.0) g/dL Albumin 4.4 (3.5-5.0) g/dL Influenza Type A (PCR) NEGATIVE (Negative) Influenza Type B (PCR) NEGATIVE (Negative) RSV RNA Qual (PCR) NEGATIVE (Negative) SARS-CoV-2 RNA (RT-PCR) NEGATIVE (Negative) Independent Interpretation I performed an independent interpretation of an: EKG (Sinus heart rate is 100 WI QRS QTC within normal limits is no acute ST segment elevation) and Plain X-Ray (Negative for any acute evidence of pneumonia) Radiology Impression Discussion of test interpretation with radiology: I have reviewed the radiologist's reading. Independent Historian Clinical information obtained from an independent historian. History obtained from or confirmed by: EMS External Record Review External record reviewed: Inpatient record Critical Care Time Critical Care Time Critical Care Time: Yes Total Critical Care Time: 40 Attestation: I have personally provided 40 minutes of critical care time exclusive of time spent on separately billable procedures. ?Time includes review of lab data, radiology results, discussion with consultants, and monitoring for potential decompensation. ?Interventions were performed as documented above Discharge Plan Discharge Clinical Impression: COPD (chronic obstructive pulmonary disease) Patient Disposition: Admitted As Inpatient Prescriptions: No Action solifenacin 10 mg tablet 10 mg PO DAILY Qty: 90 3RF Advair HFA 115-21 mcg/actuation HFA aerosol inhaler 2 puff PO BID Qty: 12 0RF estradiol [Yuvafem] 10 mcg tablet 10 mcg vaginal QWEEK Qty: 24 1RF prednisone 20 mg tablet 40 mg PO DAILY Qty: 8 0RF Paxlovid 300 mg (150 mg x 2)-100 mg tablets,dose pack See Rx Instructions .ROUTE .COMPLEX Qty: 30 0RF Rx Instructions: take TWO 150 mg tablets of nirmatrelvir with ONE 100 mg tablet of ritonavir twice daily for 5 days Incruse Ellipta 62.5 mcg/actuation blister with device 1 inh inhalation DAILY 30 Days Qty: 30 3RF methadone 10 mg/5 mL solution 85 mg PO DAILY Patient Comments: Habit-OPCO omeprazole 20 mg capsule,delayed release(DR/EC) 20 mg PO DAILY 90 Days Qty: 90 1RF epinephrine [EpiPen 2-Arthur] 0.3 mg/0.3 mL auto-injector 0.3 mg IM Q4H PRN (Reason: anaphylaxis) Qty: 2 0RF cholecalciferol (vitamin D3) 50 mcg (2,000 unit) capsule 50 mcg PO DAILY 90 Days Qty: 90 3RF polyethylene glycol 3350 [Miralax] 17 gram powder in packet 17 g PO DAILY PRN albuterol sulfate 90 mcg/actuation HFA aerosol inhaler 2 puff inhalation Q4-6H PRN (Reason: shortness of breath or wheezing) 30 Days Qty: 8.5 3RF
--- NOTE | 2023-12-14 05:47 | ECG_ITS ---
Test Reason : CP Blood Pressure : / mmHG Vent. Rate : 099 BPM Atrial Rate : 099 BPM P-R Int : 150 ms QRS Dur : 080 ms QT Int : 354 ms P-R-T Axes : 053 020 045 degrees QTc Int : 454 ms Normal sinus rhythm Nonspecific ST abnormality Abnormal ECG When compared with ECG of 26-JUL-2023 23:26, No significant change was found Referred By: Franchesca Mendoza Electronically Signed By:JUAN MIGUEL ROSA
[2023-12-14 05:52] LABS: Alanine Aminotransferase 16 U/L (0-31); Albumin Level 4.4 g/dL (3.5-5.0); Alkaline Phosphatase 116 U/L (39-117); Anion Gap 14 (12-20); Aspartate Amino Transferase 18 U/L (5-31); Bilirubin Total 0.5 mg/dL (0.0-1.0); Blood Urea Nitrogen 12 mg/dL (9-16); Calcium 9.7 mg/dL (8.4-10.2); Carbon Dioxide 24 mmol/L (22-29); Chloride 100 mmol/L (96-108); Creatinine Clr Calc Pharmacy 65.8; Estimated Glomerular Filt Rate > 60; Glucose Random 102 mg/dL (60-115); Potassium 4.2 mmol/L (3.3-5.1); Sodium 134 mmol/L (135-145)
[2023-12-14] MEDS: Albuterol Sulfate 5 MG, Albuterol/Iprat 2.5/0.5MG 3 ML 3 ML INHALE (06:01)
[2023-12-14 06:15] LABS: Influenza A PCR NEGATIVE (Negative); Influenza B PCR NEGATIVE (Negative); Resp Syncy Virus RNA Qual PCR NEGATIVE (Negative); SARS COV2 PCR INHOUSE NEGATIVE (Negative)
[2023-12-14] MEDS: cefTRIAXone sodium 1 GM in 0.9 % Sodium Chloride 50 ML IV (06:23)
[2023-12-14] MEDS: Azithromycin 500 MG TABLET PO (06:24)
[2023-12-14] MEDS: methylPREDNISolone Sod Succ 125 MG/2 ML VIAL IVPUSH (06:24)
[2023-12-14] MEDS: Acetaminophen 325 MG TABLET 975 MG PO (06:24)
[2023-12-14 08:26] LABS: VBG Base Excess 1.6 mmol/L; VBG HCO3 25 mmol/L (22-26); VBG pCO2 35 mmHg; VBG pH 7.45 (7.32-7.43); VBG pO2 88 mmHg
[2023-12-14 08:26] LABS: Venous Blood Gas Refer to POC result
--- NOTE | 2023-12-14 08:36 | PM.IMHP ---
History of Present Illness Date of Service: 12/14/23 Attending physician on admission: Ulices Key Chief Complaint: Sob,myalgias 63-year-old female with a history of COPD history of smoking. Not vaccinated for COVID flu. Presented today with having coughing fever generalized malaise aching that has been ongoing for 1 day duration. Patient says she is having shortness of breath with minimal exertion, also has aggressive cough, and also having sinus pain. Had fever of 100.6*F, Denies any rhinorrhea or ear pain or throat pain. Denies any new complaint of chest pain or abdominal pain or fever or chills or nausea or vomiting Denies any weakness or numbness of blurred vision or dizziness. Last lab imaging reviewed: CBC seems fine, BMP: Sodium 134 otherwise normal. Chest x-ray:Unremarkable examination. In ED: Patient received nebs, steroids, antibiotics and requested admission for COPD exacerbation. Review of Systems Review of Systems: As above. Yes all other systems are reviewed and are negative [facility] Medical History Dyspnea on exertion GERD (gastroesophageal reflux disease) Mixed incontinence urge and stress Obesity (BMI 30-39.9) History of substance abuse Constipation Osteopenia Vitamin D deficiency History of hepatitis C COPD (chronic obstructive pulmonary disease) Smoker Bronchitis Family History Father Stroke Hypertension Diabetes Heart problem Mother Diabetes Brother Diabetes Sister In good health Surgical History History of tubal ligation Social History Household Members: Family Household Members Other:: niece Housing: House Do you presently have visiting nurse or other home services: No Alcohol intake: former Patient Tobacco Use Status: Current everyday Tobacco user Tobacco use type: Cigarette Cigarettes Per Day: 6 Smoked in Last 30 Days: No e-Cigarette/Vaping Use: Never Used Second Hand Smoke Exposure: Yes Use of substances other than those prescribed or required for medical reasons: No Substance Use Type: Former Substance User Advance Directives: No Advance Directives Information Provided: No Patient : No service: No Current occupational status: employed Cognitive needs: No Hearing needs: No Vision needs: Yes Meds Allergies Allergy/AdvReac Type Severity Reaction Status Date / Time bee pollen [BEE STINGS] Allergy Unknown SWELLING - Verified 07/28/23 07:14 BLOTCHES macrobid Allergy Intermediate Vomiting Uncoded 07/26/23 14:03 Active Medications: Current Medications Albuterol/Ipratropium (Albuterol/Iprat 2.5/0.5mg 3 Ml Ampul.Neb) 3 ml INHALE Q4H [facility] Guaifenesin (Guaifenesin 200 Mg/10 Ml 10 Ml Liquid) 10 ml PO Q4H [facility] Ceftriaxone Sodium 1 gm/ (Sodium Chloride) 50 mls @ 100 mls/hr IV Q24H [facility] Methylprednisolone Sodium Succinate (Methylprednisolone Sod Succ 40 Mg/Ml Vial) 40 mg IVPUSH BID ONE Stop: 12/14/23 08:31 Sodium Chloride (0.9 % Sodium Chloride Flush 3 Ml Syringe) 3 ml IVFLUSH QSHIFT [facility] Home Medications Medication Instructions Recorded Confirmed Last Taken Type methadone 10 mg/5 mL oral solution 90 mg PO DAILY 07/01/22 12/14/23 12/13/23 History polyethylene glycol 3350 17 gram 17 g PO DAILY PRN Constipation 11/24/22 12/14/23 12/13/23 History oral powder packet (Miralax) albuterol sulfate 90 mcg/actuation 2 puff inhalation Q4H PRN 12/14/23 12/14/23 12/13/23 History aerosol inhaler shortness of breath or wheezing fluticasone propionate 115 2 puff inhalation BID wheezing 12/14/23 12/14/23 12/13/23 History mcg-salmeterol 21 mcg/actuation HFA inhaler (Advair HFA) methadone 10 mg/5 mL oral solution 20 mg PO BEDTIME 12/14/23 12/14/23 12/13/23 History Physical Exam Vital Signs and Narrative: Vital Signs: Last Vital Signs Temp 98.5 F 12/14/23 07:22 Pulse 97 12/14/23 07:22 Resp 20 12/14/23 07:22 BP 140/82 H 12/14/23 07:22 Pulse Ox 96 12/14/23 07:22 O2 Del Method Room Air 12/14/23 07:22 BMI result Body Mass Index 33.0 Appearance: Alert.? Oriented X3.sob ,taking in broken sentences.? ENT: sinus pain, no nasal discharge. cvs: rrr, [id number] , no murmur res: air entry diminshed ,b/l exp wheezing abd: no rebound or guarding ,nt, bs present. ext pulses present , no cyanosis . neuro: axo3 , nonfocal. Results Labs 12/14/23 05:31 12/14/23 05:31 Labs: Laboratory Results - last 24 hr 12/14/23 12/14/23 05:31 08:20 MCV 87.3 MCH 30.3 MCHC 34.7 RDW 12.8 Plt Count 239 MPV 9.9 Immature Gran % (Auto) 0.3 Neut % (Auto) 84.1 H Lymph % (Auto) 8.3 L [place] % (Auto) 6.0 Eos % (Auto) 0.8 Baso % (Auto) 0.5 Lymph # (Auto) 0.9 L [place] # (Auto) 0.6 Eos # (Auto) 0.1 Baso # (Auto) 0.1 Abs Immat Gran (auto) 0.03 Absolute Neuts (auto) 8.8 H Absolute Nucleated RBC 0.000 Nucleated RBC % (auto) 0.0 VBG pH 7.45 H VBG pCO2 35 VBG pO2 88 VBG HCO3 25 VBG O2 Saturation 97.0 VBG Base Excess 1.6 Anion Gap 14 Estim Creat Clear Calc 65.8 Estimated GFR > 60 Random Glucose 102 Lactic Acid 0.5 Calcium 9.7 Total Bilirubin 0.5 AST 18 ALT 16 Alkaline Phosphatase 116 Total Protein 8.0 Albumin 4.4 Influenza Type A (PCR) NEGATIVE Influenza Type B (PCR) NEGATIVE RSV RNA Qual (PCR) NEGATIVE SARS-CoV-2 RNA (RT-PCR) NEGATIVE Imaging Radiologist's Impressions: Impressions Chest X-Ray 12/14/23 06:15 IMPRESSION: Unremarkable examination. Assessment and Plan (1) COPD (chronic obstructive pulmonary disease): Qualifiers: COPD type: COPD with acute exacerbation Qualified Code(s): J44.1 - Chronic obstructive pulmonary disease with (acute) exacerbation Status: Acute Plan COPD with acute exacerbation: Possible acute bronchitis versus sinusitis recieved nebs,steriods ,antibiotics in ed with minimum effect res panel and blood culture pending started nebs, steroids, antibiotics gerd: on omeprazole subsatnce use hx: continue methadone dvt prophylax: s/c lovenox Patient will benefit from observation stay-for COPD with acute exacerbation: recieved mnebs,steriods ,antibiotics in ed with minimum effect and still sob with minimum excersion-benefit from nebs, steroids and antibiotic, respiratory status monitoring. Quality Stroke Does the patient have a stroke diagnosis?: No VTE Prior VTE?: No VTE Risk Level:: Medical - moderate - high VTE Device Contraindication: N/A - Device Ordered VTE Drug Contraindication: N/A - Med Ordered
[2023-12-14] MEDS: Albuterol/Iprat 2.5/0.5MG 3 ML AMPUL.NEB INHALE ×3 (09:11→18:52)
[2023-12-14 10:05] LABS: Adenovirus PCR Not Detected (Not Detect.); Bordetella parapertussis PCR Not Detected (Not Detect.); Bordetella pertussis PCR Not Detected (Not Detect.); Chlamydia pneumoniae PCR Not Detected (Not Detect.); Coronavirus 229E PCR Not Detected (Not Detect.); Coronavirus HKU1 PCR Not Detected (Not Detect.); Coronavirus NL63 PCR Not Detected (Not Detect.); Coronavirus OC43 PCR Not Detected (Not Detect.); Human metapneumovirus PCR Not Detected (Not Detect.); Influenza A PCR Not Detected (Not Detect.); Influenza B PCR Not Detected (Not Detect.); Mycoplasma pneumoniae PCR Not Detected (Not Detect.); Parainfluenza 1 PCR Not Detected (Not Detect.); Parainfluenza 2 PCR Not Detected (Not Detect.); Parainfluenza 3 PCR Not Detected (Not Detect.); Parainfluenza 4 PCR Not Detected (Not Detect.); RSV PCR Not Detected (Not Detect.); Rhino/Enterovirus PCR Not Detected (Not Detect.)
[2023-12-14 10:14] LABS: SARS-CoV-2 PCR Not Detected (Not Detect.)
[2023-12-14] MEDS: guaiFENesin 200 MG/10 ML 10 ML LIQUID PO ×4 (11:13→22:42)
--- NOTE | 2023-12-14 12:05 | PHA.MEDREC ---
Pharmacy Consult ? Medication Reconciliation Pharmacy has completed the medication reconciliation.
[2023-12-14] MEDS: Acetaminophen 325 MG TABLET 650 MG PO (13:32)
--- NOTE | 2023-12-14 14:00 | PC.NURSE ---
PT IS A/O X 4 NO SOB/STACIE NOTED 02 SAT 93% ON R/A. SPEAKS IN FULL SENTENCES. LUNGS - EXP WHEEZING ALL LOBES.PT AWARE OF PLAN OF CARE. WILL CONTINUE TO MONITOR.
[2023-12-14] MEDS: Loratadine 10 MG TABLET PO (18:46)
[2023-12-14] MEDS: Enoxaparin Sodium 40 MG/0.4 ML SYRINGE SUBCUT (18:47)
[2023-12-14] MEDS: methylPREDNISolone Sod Succ 40 MG/ML VIAL IVPUSH (22:41)
[2023-12-14] MEDS: methADONE HCl 20 MG/2 ML ORAL.CONC PO (22:44)
[2023-12-15] VITALS (7 sets, daily range): BP systolic 100–147; BP diastolic 71–81; PULSE 71–105; RESP 14–20; TEMP 36.7–36.8; O2SAT 93–95
[2023-12-15] MEDS: Albuterol/Iprat 2.5/0.5MG 3 ML AMPUL.NEB INHALE ×3 (01:29→11:12)
[2023-12-15] MEDS: guaiFENesin 200 MG/10 ML 10 ML LIQUID PO ×3 (03:12→11:28)
[2023-12-15] MEDS: 0.9 % Sodium Chloride Flush 3 ML SYRINGE IVFLUSH ×2 (03:13→11:29)
[2023-12-15] MEDS: cefTRIAXone sodium 1 GM in 0.9 % Sodium Chloride 50 ML IV (06:21)
[2023-12-15] MEDS: Omeprazole 20 MG CAPSULE.DR PO (06:21)
--- NOTE | 2023-12-15 08:33 | HE.PHANOTE ---
methadone confirmation form patient takes 90 am and 20 pm from [facility]. last dose 12/12
[2023-12-15] MEDS: methADONE HCl 20 MG/2 ML ORAL.CONC 90 MG PO (08:53)
--- NOTE | 2023-12-15 09:27 | PM.DS ---
DS: Providers Provider Date of Service: 12/15/23 Date of admission: 12/14/23 08:29 Date of discharge: 12/15/23 Primary care physician: Vitor Cox MD Attending physician on discharge: Ulices Key Discharging clinician: Ulices Key DS: Diagnosis Discharge Diagnosis (1) COPD (chronic obstructive pulmonary disease): Status: Acute DS: Summary Hospital Course Hospital Course: 63-year-old female with a history of COPD history of smoking. Not vaccinated for COVID flu. Presented today with having coughing fever generalized malaise aching that has been ongoing for 1 day duration. Patient says she is having shortness of breath with minimal exertion, also has aggressive cough, and also having sinus pain. Had fever of 100.6*F, Denies any rhinorrhea or ear pain or throat pain. Denies any new complaint of chest pain or abdominal pain or fever or chills or nausea or vomiting Denies any weakness or numbness of blurred vision or dizziness. Last lab imaging reviewed: CBC seems fine, BMP: Sodium 134 otherwise normal. Chest x-ray:Unremarkable examination. In ED: Patient received nebs, steroids, antibiotics and requested admission for COPD exacerbation. Hospital course: Patient came to the hospital for sob-admitted for COPD with acute exacerbation,possible sinusitis and bronchitis : started on nebs,steriods , checked respiratory viral panel -negative . Patient seems improved significantly with above supportive care,not hypoxic . going home with prednisone 40 mg x4 days ,ceftin 500 mg po bid for 6 ore days. mild hyponatremia : please repeat bmp outpatient. further management outpatient with pcp. Above management discussed with the patient in detail length she understand and in agreement with the above plan, time spent 40minutes and 50% time spent on counseling. Time Attestation Total time managing care of this patient today: 40 mintues. Discharge Coordination Time (in mins): 40 min Quality: Safe Use of Opioids Does Pt have an Active Cancer Diagnosis on the Problem List?: No Quality: Stroke Does the patient have a stroke diagnosis?: No Physical Exam Vital Signs: Vital Signs: Last Vital Signs Temp 98.3 F 12/15/23 06:00 Pulse 71 12/15/23 08:16 Resp 15 12/15/23 08:16 BP 122/71 12/15/23 08:16 Pulse Ox 95 12/15/23 08:16 O2 Del Method Room Air 12/15/23 08:16 BMI result Body Mass Index 33.0 Appearance: Alert.? Oriented X3.? Ent : sinus pain seems improving no dischrage. cvs: rrr, [id number] , no murmur res: clear to auscultation ,no rhonchii or wheezing abd: no rebound or guarding ,nt, bs present. ext pulses present , no cyanosis . neuro: axo3 , nonfocal. DS: Data Data Completed and Pending Labs on day of discharge: Laboratory Results - last 24 hr 12/14/23 08:39 Respiratory Panel Rawls See Note Adenovirus (Rapid PCR) Not Detected B.pert (TEM-PCR) Not Detected B.parapertussis DNA PCR Not Detected C. pneumoniae DNA (PCR) Not Detected Coronavirus OC43 (PCR) Not Detected Coronavirus HKU1 (PCR) Not Detected Coronavirus 229E (PCR) Not Detected Coronavirus NL63 (PCR) Not Detected Human Metapneumovir PCR Not Detected Influenza A (RT-PCR) Not Detected Influenza B (RT-PCR) Not Detected M. pneumoniae (PCR) Not Detected Parainfluenza 1 (PCR) Not Detected Parainfluenza 2 (PCR) Not Detected Parainfluenza 3 (PCR) Not Detected Parainfluenza 4 (PCR) Not Detected RSV (PCR) Not Detected Entero/Rhino (PCR) Not Detected SARS-CoV-2 RNA (RT-PCR) Not Detected Preliminary micro results at discharge 12/14/23 05:53 Blood Culture - Preliminary Blood - Venous No growth after 24 hours. 12/14/23 05:31 Blood Culture - Preliminary Blood - Venous No growth after 24 hours. Blood Culture - Preliminary No growth after 24 hours. Imaging Chest x-ray: Radiologist's impression: ITS Impressions Chest X-Ray 12/14/23 06:15 IMPRESSION: Unremarkable examination. Discharge Plan Discharge Anticipated Discharge Date/Time: 12/15/23 09:16 Patient Disposition: Home, Self-Care Discharge Diagnosis: copd execerebation Referrals: Vitor Cox MD [Primary Care Provider] - 1 Week Discharge Medications: New loratadine 10 mg Tablet 10 mg PO DAILY Qty: 10 0RF cefuroxime axetil 500 mg tablet 500 mg PO BID Qty: 12 0RF prednisone 20 mg tablet 40 mg PO DAILY Qty: 8 0RF acetaminophen [Athenol] 325 mg tablet 650 mg PO Q6H PRN (Reason: headache) Qty: 10 0RF Continued methadone 10 mg/5 mL Solution 20 mg PO BEDTIME fluticasone propion-salmeterol [Advair HFA] 115-21 mcg/actuation HFA aerosol inhaler 2 puff INHALATION BID albuterol sulfate 90 mcg/actuation HFA aerosol inhaler 2 puff inhalation Q4H PRN (Reason: shortness of breath or wheezing) methadone 10 mg/5 mL solution 90 mg PO DAILY Patient Comments: Habit-OPCO omeprazole 20 mg capsule,delayed release(DR/EC) 20 mg PO DAILY 90 Days Qty: 90 1RF epinephrine [EpiPen 2-Arthur] 0.3 mg/0.3 mL auto-injector 0.3 mg IM Q4H PRN (Reason: anaphylaxis) Qty: 2 0RF cholecalciferol (vitamin D3) 50 mcg (2,000 unit) capsule 50 mcg PO DAILY 90 Days Qty: 90 3RF polyethylene glycol 3350 [Miralax] 17 gram powder in packet 17 g PO DAILY PRN (Reason: Constipation) Discharge Orders: Discharge Order (Routine); Ordered 12/15/23 Ordered By: Ulices Key Diet: Advance to usual diet Activity on Discharge: As tolerated Stand Alone Forms: Patient Portal Discharge page Other Ambulatory Orders: Basic Metabolic Panel (Routine) Timeframe: 1 Week Facility: [facility] - Location: Laboratory Ordered By: Ulices eKy Care Plan Goals: Patient came to the hospital for sob-admitted for COPD with acute exacerbation,possible sinusitis and bronchitis : started on nebs,steriods , checked respiratory viral panel -negative . Patient seems improved significantly with above supportive care,not hypoxic . going home with prednisone 40 mg x4 days ,ceftin 500 mg po bid for 6 ore days. mild hyponatremia : please repeat bmp outpatient. further management outpatient with pcp. Health Concerns: as above. Plan of Treatment: as above. Assessment: as above. Patient Instructions: Sinusitis (GEN), COPD (Chronic Obstructive Pulmonary Disease) (DC)
--- NOTE | 2023-12-15 10:05 | MHC.CM.PN ---
GEOVANY 12/15/2023, PT ADMITTED TO OBS W/COPD EXAC, CM MET W/PT WHO REPORTS SHE LIVES W/HER NIECE, IS FULLY INDEP W/ALL CARE, DENIES USE OF DME/SERVICES, PT REPORTS SHE IS READY FOR DC TODAY AND WILL CALL FAMILY FOR RIDE WHO ARE NEARBY ONCE NURSE REVIEW DC PAPERWORK. PT VERIFIES PCP ON FILE IS CORRECT, DENIES RECEIVING ANY COVID 19 VACCINES AND EDUCATED ON AND DECLINES TO COMPLETE A HCP PRIOR TO DC.
[2023-12-15] MEDS: Loratadine 10 MG TABLET PO (11:29)
[2023-12-15] MEDS: cefuroxime axetiL 500 MG TABLET PO (11:29)
[2023-12-15] MEDS: predniSONE 20 MG TABLET 40 MG PO (11:29)
--- NOTE | 2023-12-27 09:26 | MHC.CM.PN ---
CM met with Patient at bedside. Home/resume Methadone is the goal and CM has initiated and will follow for dc planning. 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 PCP is Dr. Vitor Cox and the HCP is /Angela @ [phone].
== END 2023-12-15 13:00 | disposition home or self-care (01) ==
LOC: HO.ED 06:41 → HO.EDOVER 08:47
PROVIDERS: Student in an Organized Health Care Education/Training Program; Admitting Provider Internal Medicine; Emergency Provider Emergency Medicine Emergency Medical Services; PCP Internal Medicine; Visit Provider Internal Medicine
DX: J44.1 Chronic obstructive pulmonary disease with (acute) exacerbation (principal); E87.1 Hypo-osmolality and hyponatremia; R06.00 Dyspnea, unspecified; R05.9 Cough, unspecified; K21.9 Gastro-esophageal reflux disease without esophagitis; F19.21 Other psychoactive substance dependence, in remission; Z11.52 Encounter for screening for COVID-19; Z20.828 Contact with and (suspected) exposure to other viral communicable diseases
CPT/HCPCS: 0241U; 71045; 80053; 82803; 83605; 85025; 87040; 87633; 93005; 94640; 96365; 96372; 96375; 96376; 99222; 99285; J0696; J1650; J2920; J2930

== ENCOUNTER → 2023-12-14 05:47 | Outpatient (BNV) | payer OTHER, SELFPAY | PROVIDERS: Admitting Provider Internal Medicine; Emergency Provider Emergency Medicine Emergency Medical Services; PCP Internal Medicine; Visit Provider Internal Medicine | DX: R94.31 Abnormal electrocardiogram [ECG] [EKG] (principal) | CPT/HCPCS: 93010 ==

== ENCOUNTER → 2023-12-14 08:29 | Outpatient (BNV) | payer OTHER, SELFPAY | PROVIDERS: Admitting Provider Internal Medicine; Emergency Provider Emergency Medicine Emergency Medical Services; PCP Internal Medicine; Visit Provider Internal Medicine | DX: J44.1 Chronic obstructive pulmonary disease with (acute) exacerbation (principal) | CPT/HCPCS: 99222; 99239 ==

== ENCOUNTER 2023-12-18 04:29 | Inpatient (IN) | payer OTHER, SELFPAY ==
[2023-12-18] VITALS (13 sets, daily range): BP systolic 161–195; BP diastolic 72–105; PULSE 86–128; RESP 18–118; TEMP 36.2–37.5; O2SAT 90–95; BMI 31.0; BMI 29.1
--- NOTE | 2023-12-18 | ECG_ITS ---
Test Reason : SHORTNESS OF BREATH Blood Pressure : / mmHG Vent. Rate : 126 BPM Atrial Rate : 126 BPM P-R Int : 126 ms QRS Dur : 070 ms QT Int : 336 ms P-R-T Axes : 116 023 038 degrees QTc Int : 486 ms Artifact in tracing Sinus tachycardia Nonspecific ST abnormality Abnormal ECG When compared with ECG of 14-DEC-2023 05:57, No significant change was found Referred By: Abhijit Lewis Electronically Signed By:JUAN MIGUEL ROSA
--- NOTE | ~2023-12-18 | XR_ITS ---
EXAMINATION: XR CHEST CLINICAL INFORMATION: Shortness of breath. COMPARISON: 12/14/2023. TECHNIQUE: Frontal view of the chest was obtained. FINDINGS: The cardiomediastinal silhouette is normal. There is no focal lung consolidation or pleural effusion. The bony structures and soft tissues are unremarkable. XR/XR chest 1V IMPRESSION: No acute cardiopulmonary process.
--- NOTE | 2023-12-18 04:53 | ED.GENADULT ---
HPI - General Adult General Chief complaint: Dyspnea Stated complaint: SoB Time Seen by Provider: 12/18/23 04:45 History of Present Illness HPI narrative: The patient is a 63-year-old woman with a history of COPD. She presented to the hospital 4 days ago on December 13 with shortness of breath and was briefly hospitalized for a COPD exacerbation. She was discharged on December 14 from the hospitalist service to complete a course of cefuroxime and prednisone. The patient says that during the night tonight she felt much worse. Her shortness of breath got worse and she developed chest pain. She has also had nausea and vomiting. Related Data Home Medications Medication Instructions Recorded Confirmed methadone 10 mg/5 mL oral solution 90 mg PO DAILY 07/01/22 12/14/23 polyethylene glycol 3350 17 gram 17 g PO DAILY PRN Constipation 11/24/22 12/18/23 oral powder packet (Miralax) albuterol sulfate 90 mcg/actuation 2 puff inhalation Q4H PRN 12/14/23 12/18/23 aerosol inhaler shortness of breath or wheezing fluticasone propionate 115 2 puff inhalation BID wheezing 12/14/23 12/18/23 mcg-salmeterol 21 mcg/actuation HFA inhaler (Advair HFA) methadone 10 mg/5 mL oral solution 20 mg PO BEDTIME 12/14/23 12/14/23 omeprazole 20 mg capsule,delayed 20 mg PO DAILY@0630 12/18/23 12/18/23 release Previous Rx's Medication Instructions Recorded cholecalciferol (vitamin D3) 50 50 mcg PO DAILY 90 days #90 caps 07/26/23 mcg (2,000 unit) capsule epinephrine 0.3 mg/0.3 mL 0.3 mg (0.3 mL) IM Q4H PRN 07/26/23 injection, auto-injector (EpiPen anaphylaxis #2 ea 2-Arthur) acetaminophen 325 mg tablet 650 mg (2 x 325 mg) PO Q6H PRN 12/15/23 (Athenol) headache #10 tabs cefuroxime axetil 500 mg tablet 500 mg PO BID #12 tabs 12/15/23 loratadine 10 mg tablet 10 mg PO DAILY #10 tabs 12/15/23 prednisone 20 mg tablet 40 mg (2 x 20 mg) PO DAILY #8 tabs 12/15/23 Allergies Allergy/AdvReac Type Severity Reaction Status Date / Time bee pollen [BEE STINGS] Allergy Unknown SWELLING - Verified 12/18/23 04:40 BLOTCHES macrobid Allergy Intermediate Vomiting Uncoded 12/18/23 04:40 Review of Systems Review of Systems: Yes all other systems are reviewed and are negative [facility] Past Medical History Medical History Dyspnea on exertion GERD (gastroesophageal reflux disease) Mixed incontinence urge and stress Obesity (BMI 30-39.9) History of substance abuse Constipation Osteopenia Vitamin D deficiency History of hepatitis C COPD (chronic obstructive pulmonary disease) Smoker Bronchitis Surgical History History of tubal ligation Family History Family History Father Stroke Hypertension Diabetes Heart problem Mother Diabetes Brother Diabetes Sister In good health Social History Social History Household Members: Family Household Members Other:: niece Housing: House Do you presently have visiting nurse or other home services: No Alcohol intake: former Patient Tobacco Use Status: Current everyday Tobacco user Tobacco use type: Cigarette Cigarettes Per Day: 6 Smoked in Last 30 Days: Yes e-Cigarette/Vaping Use: Never Used Second Hand Smoke Exposure: Yes Use of substances other than those prescribed or required for medical reasons: Yes Substance Use Type: Marijuana Substance Use Frequency: Chronic Longstanding Advance Directives: No Advance Directives Information Provided: No service: No Current occupational status: employed Cognitive needs: No Hearing needs: No Vision needs: Yes Physical Exam ED Vital Signs: Vital Signs - 24 hr 12/18/23 04:40 12/18/23 04:42 12/18/23 05:02 Temperature 99.5 F 99.2 F Pulse Rate 123 H 118 H 117 H Respiratory Rate 26 H 18 19 Blood Pressure 195/105 H 191/95 H Pulse Oximetry 94 92 Oxygen Delivery Method Room Air Room Air 12/18/23 05:34 12/18/23 07:11 12/18/23 07:49 Temperature 98.8 F Pulse Rate 125 H 122 H 128 H Respiratory Rate 28 H 26 H Blood Pressure 183/95 H Pulse Oximetry 93 90 L Oxygen Delivery Method Room Air Room Air 12/18/23 07:49 Temperature Pulse Rate 118 H Respiratory Rate Blood Pressure Pulse Oximetry 93 Oxygen Delivery Method Room Air BMI result Body Mass Index 31.0 Const Other: The patient is a somewhat chronically ill-appearing 63-year-old who looked quite unwell. She looked as if she was uncomfortable and somewhat short of breath. She was tachycardic. HENMT Other: Face is symmetrical. Mucous membranes moist. Eyes Other: Pupils are round equal, conjunctivae are clear Neck Other: No obvious JVD Resp Other: The patient has expiratory wheezes bilaterally. Mild increased work of breathing. Cardio Rate: tachycardic Rhythm: regular rhythm Heart sounds: S1 normal heart sound present and S2 normal heart sound present GI Other: The abdomen is soft and nontender. Skin Other: Skin is pale and dry Neuro Other: The patient is awake and alert. She seemed distracted by her respiratory difficulty but mental status seemed otherwise clear. She moves her extremities symmetrically. The patient is grossly neurologically intact. Extrem Other: No calf swelling or tenderness Medications Administered Discontinued Medications Generic Name Dose Route Start Last Admin Trade Name Freq PRN Reason Stop Dose Admin Acetaminophen 975 mg 12/18/23 07:33 12/18/23 07:40 Acetaminophen 325 Mg Tablet PO 12/18/23 07:34 975 mg ONCE ONE Administration Albuterol Sulfate 2.5 mg 12/18/23 05:29 12/18/23 05:34 Albuterol Sulfate (0.083%) 2.5 Mg/3 Ml Vial.Neb INHALE 12/18/23 05:30 2.5 mg ONCE ONE Administration Albuterol/Ipratropium 3 ml 12/18/23 05:01 12/18/23 05:02 Albuterol/Iprat 2.5/0.5mg 3 Ml Ampul.Neb INHALE 12/18/23 05:02 3 ml ONCE ONE Administration Droperidol 0.625 mg 12/18/23 04:57 12/18/23 05:01 Droperidol 5 Mg/2 Ml Vial IVPUSH 12/18/23 04:58 0.625 mg ONCE ONE Administration Sodium Chloride 1,000 mls @ 999 mls/hr 12/18/23 06:15 12/18/23 07:09 Ns IV 12/18/23 07:15 Infused .Q1H1M BRIAN Infusion Methylprednisolone Sodium Succinate 60 mg 12/18/23 05:10 12/18/23 05:14 Methylprednisolone Sod Succ 125 Mg/2 Ml Vial IVPUSH 12/18/23 05:11 60 mg ONCE ONE Administration Oseltamivir Phosphate 75 mg 12/18/23 05:54 12/18/23 06:04 Oseltamivir Phosphate 75 Mg Capsule PO 12/18/23 05:55 75 mg ONCE ONE Administration Medical Decision Making Medical Decision Making [facility] Narrative: The patient is a 63-year-old woman with a history of COPD. She still smokes cigarettes. She was recently discharged from the hospital on a course of cefuroxime and prednisone. She has not yet finished either of these courses. She says that she was feeling better until last night when she felt abruptly worse. Today she test positive for influenza A (she had tested positive negative when she was hospitalized 3 days ago) . She arrived by ambulance looking quite unwell, she was tachypneic, tachycardic, and wheezy. This seemed as though it was a case of a recurrence or worsening of a COPD exacerbation. She has tested positive for influenza however. Your chest x-ray is clear. Labs are otherwise fairly unremarkable. I do not think she is frankly septic. Prior to the results of the positive influenza a swab the patient had received bronchodilator treatment and IV steroids. Given the positive influenza result I think the patient is presentation is largely result of a new influenza infection rather than another process. She was started on oseltamivir because she seemed to feel quite unwell. Given that she has remained tachycardic and tachypneic and given her underlying COPD and persistent smoking I think hospitalization would be reasonable for this patient. Lab Data 12/18/23 04:55 12/18/23 04:55 Labs: Lab Results 12/18/23 Range/Units 04:55 WBC 7.5 (4.8-10.8) X10*3/uL RBC 4.81 (4.20-5.50) X10*6/uL Hgb 14.5 (12.0-16.0) g/dl Hct 42.9 (37.0-47.0) % MCV 89.2 (80.0-98.0) fL MCH 30.1 (27.0-33.0) pg MCHC 33.8 (31.0-35.0) g/dl RDW 13.1 (11.0-16.0) % Plt Count 282 (160-400) X10*3/uL MPV 9.6 (9.4-12.3) fL Immature Gran % (Auto) 0.5 H (0.0-0.4) % Neut % (Auto) 84.3 H (45-73) % Lymph % (Auto) 9.0 L (20-40) % [place] % (Auto) 5.4 (2-11) % Eos % (Auto) 0.7 (0-4) % Baso % (Auto) 0.1 (0-2) % Lymph # (Auto) 0.7 L (1.2-4.9) X10*3/uL [place] # (Auto) 0.4 (0.1-1.2) X10*3/uL Eos # (Auto) 0.1 (0.0-0.4) X10*3/uL Baso # (Auto) 0.0 (0.0-0.2) X10*3/uL Abs Immat Gran (auto) 0.04 H (0.00-0.03) X10*3/uL Absolute Neuts (auto) 6.3 (2.0-8.3) x10*3/uL Absolute Nucleated RBC 0.000 (0.0-0.012) X10*3/uL Nucleated RBC % (auto) 0.0 (0.0-0.2) /100WBC Sodium 141 (135-145) mmol/L Potassium 4.1 (3.3-5.1) mmol/L Chloride 104 (96-108) mmol/L Carbon Dioxide 26 (22-29) mmol/L Anion Gap 15 (12-20) BUN 19 H (9-16) mg/dL Creatinine 0.80 (0.5-1.4) mg/dL Estim Creat Clear Calc 62.9 Estimated GFR > 60 Random Glucose 72 (60-115) mg/dL Lactic Acid 1.4 (0.5-2.0) mmol/L Calcium 9.6 (8.4-10.2) mg/dL Total Bilirubin 0.3 (0.0-1.0) mg/dL AST 24 (5-31) U/L ALT 21 (0-31) U/L Alkaline Phosphatase 99 (39-117) U/L Troponin I High Sens < 2.7 (<3.5-17.0) ng/L C-Reactive Protein 2.27 H (< or = 0.50) mg/dL B-Natriuretic Peptide 31 (<100) pg/mL Total Protein 7.7 (6.5-8.0) g/dL Albumin 4.2 (3.5-5.0) g/dL Influenza Type A (PCR) POSITIVE A (Negative) Influenza Type B (PCR) NEGATIVE (Negative) RSV RNA Qual (PCR) NEGATIVE (Negative) SARS-CoV-2 RNA (RT-PCR) NEGATIVE (Negative) Independent Interpretation I performed an independent interpretation of an: EKG Interpretation: EKG at 0446 shows sinus tachycardia at 126 beats per minute. No definite acute ischemic changes. Discharge Plan Discharge Clinical Impression: Influenza A, COPD (chronic obstructive pulmonary disease), Tachycardia Patient Disposition: Admitted As Inpatient
[2023-12-18] MEDS: droPERidol 5 MG/2 ML VIAL 0.625 MG IVPUSH (05:01)
[2023-12-18 05:02] LABS: MANUAL DIFF FLAG NO
[2023-12-18] MEDS: Albuterol/Iprat 2.5/0.5MG 3 ML AMPUL.NEB INHALE ×4 (05:02→19:31)
[2023-12-18 05:03] LABS: Basophils Percent Auto 0.1 % (0-2); Eosinophils Absolute Auto 0.1 X10*3/uL (0.0-0.4); Eosinophils Percent Auto 0.7 % (0-4); Hematocrit 42.9 % (37.0-47.0); Hemoglobin 14.5 g/dl (12.0-16.0); Imm Gran Abs Auto 0.04 X10*3/uL (0.00-0.03); Imm Gran Pct Auto 0.5 % (0.0-0.4); Lymphocytes Absolute Auto 0.7 X10*3/uL (1.2-4.9); Mean Corpuscular HGB Conc 33.8 g/dl (31.0-35.0); Mean Corpuscular Hemoglobin 30.1 pg (27.0-33.0); Mean Corpuscular Volume 89.2 fL (80.0-98.0); Mean Platelet Volume 9.6 fL (9.4-12.3); Monocytes Absolute Auto 0.4 X10*3/uL (0.1-1.2); Monocytes Percent Auto 5.4 % (2-11); Neutrophils Absolute Auto 6.3 x10*3/uL (2.0-8.3); Neutrophils Percent Auto 84.3 % (45-73); Platelet Count 282 X10*3/uL (160-400); Red Blood Count 4.81 X10*6/uL (4.20-5.50); Red Cell Distribution Width 13.1 % (11.0-16.0); White Blood Count 7.5 X10*3/uL (4.8-10.8)
[2023-12-18] MEDS: methylPREDNISolone Sod Succ 125 MG/2 ML VIAL 60 MG IVPUSH (05:14)
[2023-12-18 05:15] LABS: Lactic Acid 1.4 mmol/L (0.5-2.0)
[2023-12-18 05:19] LABS: Alanine Aminotransferase 21 U/L (0-31); Albumin Level 4.2 g/dL (3.5-5.0); Alkaline Phosphatase 99 U/L (39-117); Anion Gap 15 (12-20); Aspartate Amino Transferase 24 U/L (5-31); Bilirubin Total 0.3 mg/dL (0.0-1.0); Blood Urea Nitrogen 19 mg/dL (9-16); C Reactive Protein 2.27 mg/dL (< or = 0.50); Calcium 9.6 mg/dL (8.4-10.2); Carbon Dioxide 26 mmol/L (22-29); Chloride 104 mmol/L (96-108); Creatinine Clr Calc Pharmacy 62.9; Estimated Glomerular Filt Rate > 60; Glucose Random 72 mg/dL (60-115); Potassium 4.1 mmol/L (3.3-5.1); Sodium 141 mmol/L (135-145); Total Protein 7.7 g/dL (6.5-8.0)
[2023-12-18 05:22] LABS: B Type Natriuretic Peptide 31 pg/mL (<100)
[2023-12-18 05:26] LABS: Troponin-I High Sensitivity < 2.7 ng/L (<3.5-17.0)
[2023-12-18] MEDS: Albuterol Sulfate (0.083%) 2.5 MG/3 ML VIAL.NEB INHALE (05:34)
[2023-12-18 05:40] LABS: Influenza A PCR POSITIVE (Negative); Influenza B PCR NEGATIVE (Negative); Resp Syncy Virus RNA Qual PCR NEGATIVE (Negative); SARS COV2 PCR INHOUSE NEGATIVE (Negative)
[2023-12-18] MEDS: Oseltamivir Phosphate 75 MG CAPSULE PO ×2 (06:04→20:47)
[2023-12-18] MEDS: 0.9 % Sodium Chloride 1,000 ML 999 ML IV (06:08)
[2023-12-18] MEDS: Acetaminophen 325 MG TABLET 975 MG PO ×4 (07:40→20:47)
--- NOTE | 2023-12-18 07:41 | PHA.MEDREC ---
Pharmacy Consult ? Medication Reconciliation Pharmacy has completed the medication reconciliation. Patient recently discharged on 12/15/23. Utilized discharge packet.
--- NOTE | 2023-12-18 07:50 | PC.NURSE ---
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 pt put back into bed where pts breathing normalized and O2 sat increased as well as HR decreased some. pt c/o headache- notified provider who ordered tylenol, this nurse medicated pt for 10/10 headache. pt awaiting hospitalist for admission- call pro within reach, will continue to monitor
--- NOTE | 2023-12-18 09:52 | PM.IMHP ---
History of Present Illness Date of Service: 12/18/23 Attending physician on admission: Ulices Key Chief Complaint: copd excerebation,influenza A 63-year-old female with a history of COPD history of smoking. Not vaccinated for COVID flu. She presented to the hospital 4 days ago on December 13 with shortness of breath and was briefly hospitalized for a COPD exacerbation. She was discharged on December 14 from the hospitalist service to complete a course of cefuroxime and prednisone.came with sob ,myalgia ,pleursy,fever,nonproductive cough. Denies any new complaint of chest pain or abdominal pain or fever or chills or nausea or vomiting Denies any weakness or numbness of blurred vision or dizziness. Last lab imaging reviewed: CBC seems fine, BMP: fine Chest x-ray:Unremarkable examination. ekg:nsr -sinus tachycaria tropx1 neg In ED: Patient received nebs, steroids, tamiflu and requested admission for COPD exacerbation insetting of influenza A.. Review of Systems Review of Systems: as above. Yes all other systems are reviewed and are negative [facility] Medical History Dyspnea on exertion GERD (gastroesophageal reflux disease) Mixed incontinence urge and stress Obesity (BMI 30-39.9) History of substance abuse Constipation Osteopenia Vitamin D deficiency History of hepatitis C COPD (chronic obstructive pulmonary disease) Smoker Bronchitis Family History Father Stroke Hypertension Diabetes Heart problem Mother Diabetes Brother Diabetes Sister In good health Surgical History History of tubal ligation Social History Household Members: Family Household Members Other:: niece Housing: House Do you presently have visiting nurse or other home services: No Alcohol intake: former Patient Tobacco Use Status: Current everyday Tobacco user Tobacco use type: Cigarette Cigarettes Per Day: 6 Smoked in Last 30 Days: Yes e-Cigarette/Vaping Use: Never Used Second Hand Smoke Exposure: Yes Use of substances other than those prescribed or required for medical reasons: Yes Substance Use Type: Marijuana Substance Use Frequency: Chronic Longstanding Advance Directives: No Advance Directives Information Provided: No service: No Current occupational status: employed Cognitive needs: No Hearing needs: No Vision needs: Yes Meds Allergies Allergy/AdvReac Type Severity Reaction Status Date / Time bee pollen [BEE STINGS] Allergy Unknown SWELLING - Verified 12/18/23 04:40 BLOTCHES macrobid Allergy Intermediate Vomiting Uncoded 12/18/23 04:40 Active Medications: Current Medications Acetaminophen (Acetaminophen 325 Mg Tablet) 975 mg PO QID [facility] Albuterol/Ipratropium (Albuterol/Iprat 2.5/0.5mg 3 Ml Ampul.Neb) 3 ml INHALE Q4H BRIAN Albuterol/Ipratropium (Albuterol/Iprat 2.5/0.5mg 3 Ml Ampul.Neb) 3 ml INHALE Q3H PRN PRN Reason: Shortness of Breath Cefuroxime Axetil (Cefuroxime Axetil 500 Mg Tablet) 500 mg PO BID [facility] Guaifenesin/Codeine Phosphate (Guaifen/Codeine Sf 200/20/10ml 10 Ml Liquid) 10 ml PO Q4H [facility] Lidocaine (Lidocaine 4 % Patch Adh..Patch) 1 patch TRANSDERMA DAILY [facility]; Protocol Loratadine (Loratadine 10 Mg Tablet) 10 mg PO DAILY [facility] Methylprednisolone Sodium Succinate (Methylprednisolone Sod Succ 40 Mg/Ml Vial) 40 mg IVPUSH TID [facility] Non-Formulary Medication (Epinephrine [Epipen 2-Arthur]) 0.3 mg IM Q4H PRN PRN Reason: anaphylaxis Omeprazole (Omeprazole 20 Mg Capsule.Dr) 20 mg PO DAILY@0630 [facility] Oseltamivir Phosphate (Oseltamivir Phosphate 75 Mg Capsule) 75 mg PO BID [facility] Polyethylene Glycol (Polyethylene Glycol 3350 17 Gm Powd.Pack) 17 gm PO DAILY PRN PRN Reason: Constipation Sodium Chloride (0.9 % Sodium Chloride Flush 3 Ml Syringe) 3 ml IVFLUSH QSHIFT [facility] Vitamin D (Cholecalciferol (Vitamin D3) 25 Mcg Tablet) 50 mcg PO DAILY [facility] Home Medications Medication Instructions Recorded Confirmed Last Taken Type methadone 10 mg/5 mL oral solution 90 mg PO DAILY 07/01/22 12/14/23 12/13/23 History polyethylene glycol 3350 17 gram 17 g PO DAILY PRN Constipation 11/24/22 12/18/23 12/13/23 History oral powder packet (Miralax) albuterol sulfate 90 mcg/actuation 2 puff inhalation Q4H PRN 12/14/23 12/18/23 12/13/23 History aerosol inhaler shortness of breath or wheezing fluticasone propionate 115 2 puff inhalation BID wheezing 12/14/23 12/18/23 12/13/23 History mcg-salmeterol 21 mcg/actuation HFA inhaler (Advair HFA) methadone 10 mg/5 mL oral solution 20 mg PO BEDTIME 12/14/23 12/14/23 12/13/23 History omeprazole 20 mg capsule,delayed 20 mg PO DAILY@0630 12/18/23 12/18/23 Unknown History release Physical Exam Vital Signs and Narrative: Vital Signs: Last Vital Signs Temp 98.8 F 12/18/23 07:11 Pulse 118 H 12/18/23 07:49 Resp 26 H 12/18/23 07:11 BP 183/95 H 12/18/23 07:11 Pulse Ox 93 12/18/23 07:49 O2 Del Method Room Air 12/18/23 07:49 BMI result Body Mass Index 31.0 Appearance: Alert.? Oriented X3.sob ,taking in broken sentences.? myalgia ENT: sinus pain, no nasal discharge. cvs: rrr, [id number] , no murmur res: air entry diminshed ,b/l exp wheezing abd: no rebound or guarding ,nt, bs present. ext pulses present , no cyanosis . neuro: axo3 , nonfocal. Results Labs 12/18/23 04:55 12/18/23 04:55 Labs: Laboratory Results - last 24 hr 12/18/23 04:55 MCV 89.2 MCH 30.1 MCHC 33.8 RDW 13.1 Plt Count 282 MPV 9.6 Immature Gran % (Auto) 0.5 H Neut % (Auto) 84.3 H Lymph % (Auto) 9.0 L [place] % (Auto) 5.4 Eos % (Auto) 0.7 Baso % (Auto) 0.1 Lymph # (Auto) 0.7 L [place] # (Auto) 0.4 Eos # (Auto) 0.1 Baso # (Auto) 0.0 Abs Immat Gran (auto) 0.04 H Absolute Neuts (auto) 6.3 Absolute Nucleated RBC 0.000 Nucleated RBC % (auto) 0.0 Anion Gap 15 Estim Creat Clear Calc 62.9 Estimated GFR > 60 Random Glucose 72 Lactic Acid 1.4 Calcium 9.6 Total Bilirubin 0.3 AST 24 ALT 21 Alkaline Phosphatase 99 Troponin I High Sens < 2.7 C-Reactive Protein 2.27 H B-Natriuretic Peptide 31 Total Protein 7.7 Albumin 4.2 Influenza Type A (PCR) POSITIVE A Influenza Type B (PCR) NEGATIVE RSV RNA Qual (PCR) NEGATIVE SARS-CoV-2 RNA (RT-PCR) NEGATIVE Imaging Radiologist's Impressions: Impressions Chest X-Ray 12/18/23 05:02 IMPRESSION: No acute cardiopulmonary process. Assessment and Plan (1) COPD (chronic obstructive pulmonary disease): Qualifiers: COPD type: COPD with acute exacerbation Qualified Code(s): J44.1 - Chronic obstructive pulmonary disease with (acute) exacerbation Status: Acute (2) Influenza A: Status: Acute (3) Tachycardia: Status: Acute Plan COPD with acute exacerbation sec to influenza A: spb with minimum excersion ,talking in broken sentences ,using accessary muscles. Possible acute bronchitis versus sinusitis recieved nebs,steriods in ed with minimum effect res panel and blood culture pending started nebs, steroids, antibiotics(ceftin),Tamiflu, respiratory status monitering gerd: on omeprazole subsatnce use hx: continue methadone dvt prophylax: s/c lovenox Patient will benefit inpatient stay for 24-48 hrs -for COPD with acute exacerbation in setting of influenza A and recieved mnebs,steriods in ed with minimum effect and still sob with minimum excersion/dyspnea/using accessary muscles-benefit from nebs, steroids and antibiotic,tamiflu, respiratory status monitoring. Above management discussed with the patient in detail length she understand and in agreement with the above plan, time spent 70 minute. Quality Stroke Does the patient have a stroke diagnosis?: No VTE Prior VTE?: No VTE Risk Level:: Medical - moderate - high VTE Device Contraindication: N/A - Device Ordered VTE Drug Contraindication: N/A - Med Ordered
[2023-12-18] MEDS: cefTRIAXone sodium 1 GM in 0.9 % Sodium Chloride 50 ML IV (10:41)
[2023-12-18 10:42] LABS: Venous Blood Gas Refer to POC result
[2023-12-18] MEDS: Heparin Sodium,Porcine 5,000 UNIT/ML VIAL 5000 UNIT SUBCUT ×2 (10:42→20:53)
[2023-12-18 10:44] LABS: VBG Base Excess 1.2 mmol/L; VBG HCO3 24 mmol/L (22-26); VBG pCO2 35 mmHg; VBG pH 7.45 (7.32-7.43); VBG pO2 106 mmHg
[2023-12-18] MEDS: Lidocaine 4 % Patch ADH..PATCH 1 PATCH TRANSDERMA (10:44)
[2023-12-18] MEDS: guaiFEN/Codeine SF 200/20/10ML 10 ML LIQUID PO ×4 (10:44→21:20)
[2023-12-18] MEDS: Loratadine 10 MG TABLET PO (10:44)
--- NOTE | 2023-12-18 12:17 | PC.NURSE ---
Pt reports she goes to [facility] clinic on [address] in [place] for her Methadone . clinic currently close will need to call on Tuesday to verify dose
[2023-12-18] MEDS: methylPREDNISolone Sod Succ 40 MG/ML VIAL IVPUSH ×2 (15:15→20:54)
[2023-12-18] MEDS: 0.9 % Sodium Chloride Flush 3 ML SYRINGE IVFLUSH ×2 (15:16→21:20)
[2023-12-18] MEDS: methADONE HCl 20 MG/2 ML ORAL.CONC PO (20:50)
[2023-12-19] VITALS (10 sets, daily range): BP systolic 129–179; BP diastolic 73–92; PULSE 78–92; RESP 18–20; TEMP 36.2–36.6; O2SAT 93–97
[2023-12-19] MEDS: guaiFEN/Codeine SF 200/20/10ML 10 ML LIQUID PO ×6 (01:20→21:59)
[2023-12-19] MEDS: Albuterol/Iprat 2.5/0.5MG 3 ML AMPUL.NEB INHALE ×5 (03:32→19:58)
[2023-12-19] MEDS: Ketorolac Tromethamine 30 MG/ML VIAL IVPUSH (04:14)
[2023-12-19] MEDS: Omeprazole 20 MG CAPSULE.DR PO (05:31)
--- NOTE | 2023-12-19 05:43 | PC.NURSE ---
md aware of elevated bps pt uncomfortable coughing new med ordered for pain toradol will reassess bp later
--- NOTE | 2023-12-19 07:22 | HE.PHANOTE ---
METHADONE CONFIRMATION PATIENT TAKES 90 AM AND 20 PM FROM [facility]. LAST DOSE 12/16
[2023-12-19] MEDS: 0.9 % Sodium Chloride Flush 3 ML SYRINGE IVFLUSH ×3 (08:28→22:06)
[2023-12-19] MEDS: methylPREDNISolone Sod Succ 40 MG/ML VIAL IVPUSH ×3 (08:28→22:01)
[2023-12-19] MEDS: methADONE HCl 20 MG/2 ML ORAL.CONC 90 MG PO (08:28)
[2023-12-19] MEDS: Heparin Sodium,Porcine 5,000 UNIT/ML VIAL 5000 UNIT SUBCUT ×2 (08:29→22:01)
[2023-12-19] MEDS: Cholecalciferol (Vitamin D3) 25 MCG TABLET 50 MCG PO (08:29)
[2023-12-19] MEDS: Loratadine 10 MG TABLET PO (08:29)
[2023-12-19] MEDS: Oseltamivir Phosphate 75 MG CAPSULE PO ×2 (08:29→21:59)
[2023-12-19] MEDS: Lidocaine 4 % Patch ADH..PATCH 1 PATCH TRANSDERMA (08:30)
[2023-12-19] MEDS: cefTRIAXone sodium 1 GM in 0.9 % Sodium Chloride 50 ML IV (10:31)
--- NOTE | 2023-12-19 11:40 | P.PNIM_ITS ---
Subjective Subjective Date of Service: 12/19/23 Interval History: COPD exacerbation, influenza Review of Systems Patient is short of breath with minimal exertion, generalized weak, talking in small sentences, Has aggressive cough. No fever or chills. Physical Exam 2 Vital Signs: Vital Signs: Last Vital Signs Temp 97.1 F 12/19/23 07:27 Pulse 80 12/19/23 11:35 Resp 18 12/19/23 11:35 BP 164/85 H 12/19/23 07:27 Pulse Ox 94 12/19/23 07:27 O2 Del Method Room Air 12/19/23 07:27 BMI result Body Mass Index 29.1 Appearance: Alert.? Oriented X3.sob cvs: rrr, [id number] , no murmur res: air entry diminshed ,has b/l exp wheezing abd: no rebound or guarding ,nt, bs present. ext pulses present , no cyanosis. neuro: axo3 , nonfocal. Objective Data Active Medications Acetaminophen (Acetaminophen 325 Mg Tablet) 975 mg PO QID [facility] Last Admin: 12/19/23 08:37 Dose: Not Given Documented By: GABE Non-Admin Reason: Patient Refused Albuterol/Ipratropium (Albuterol/Iprat 2.5/0.5mg 3 Ml Ampul.Neb) 3 ml INHALE Q3H PRN PRN Reason: Shortness of Breath Last Admin: 12/19/23 09:23 Dose: 3 ml Documented By: LYNNETTE Albuterol/Ipratropium (Albuterol/Iprat 2.5/0.5mg 3 Ml Ampul.Neb) 3 ml INHALE RQ4H [facility] Last Admin: 12/19/23 11:35 Dose: 3 ml Documented By: LYNENTTE Guaifenesin/Codeine Phosphate (Guaifen/Codeine Sf 200/20/10ml 10 Ml Liquid) 10 ml PO Q4H [facility] Last Admin: 12/19/23 10:31 Dose: 10 ml Documented By: GABE Heparin Sodium (Porcine) (Heparin Sodium,Porcine 5,000 Unit/Ml Vial) 5,000 unit SUBCUT BID [facility] Last Admin: 12/19/23 08:29 Dose: 5,000 unit Documented By: GABE Ceftriaxone Sodium 1 gm/ (Sodium Chloride) 50 mls @ 100 mls/hr IV Q24H [facility] Last Infusion: 12/19/23 11:10 Dose: Infused Documented By: GABE Lidocaine (Lidocaine 4 % Patch Adh..Patch) 1 patch TRANSDERMA DAILY [facility]; Protocol Last Admin: 12/19/23 08:30 Dose: 1 patch Documented By: GABE Loratadine (Loratadine 10 Mg Tablet) 10 mg PO DAILY [facility] Last Admin: 12/19/23 08:29 Dose: 10 mg Documented By: GABE Methadone HCl (Methadone Hcl 20 Mg/2 Ml Oral.Conc) 20 mg PO BEDTIME [facility] Methadone HCl (Methadone Hcl 20 Mg/2 Ml Oral.Conc) 90 mg PO DAILY [facility] Last Admin: 12/19/23 08:28 Dose: 90 mg Documented By: GABE Methylprednisolone Sodium Succinate (Methylprednisolone Sod Succ 40 Mg/Ml Vial) 40 mg IVPUSH TID [facility] Last Admin: 12/19/23 08:28 Dose: 40 mg Documented By: GABE Omeprazole (Omeprazole 20 Mg Capsule.Dr) 20 mg PO DAILY@0630 [facility] Last Admin: 12/19/23 05:31 Dose: 20 mg Documented By: CHASITY Ondansetron HCl (Ondansetron Hcl 4 Mg/2 Ml Vial) 4 mg IVPUSH Q6H PRN PRN Reason: Nausea and Vomiting Oseltamivir Phosphate (Oseltamivir Phosphate 75 Mg Capsule) 75 mg PO BID [facility] Last Admin: 12/19/23 08:29 Dose: 75 mg Documented By: GABE Polyethylene Glycol (Polyethylene Glycol 3350 17 Gm Powd.Pack) 17 gm PO DAILY PRN PRN Reason: Constipation Sodium Chloride (0.9 % Sodium Chloride Flush 3 Ml Syringe) 3 ml IVFLUSH QSHIFT [facility] Last Admin: 12/19/23 08:28 Dose: 3 ml Documented By: GABE Vitamin D (Cholecalciferol (Vitamin D3) 25 Mcg Tablet) 50 mcg PO DAILY [facility] Last Admin: 12/19/23 08:29 Dose: 50 mcg Documented By: GABE Labs 12/18/23 04:55 12/18/23 04:55 Microbiology Microbiology Results: Microbiology 12/18/23 04:55 Blood Culture - Preliminary Blood - Venous No growth after 24 hours. 12/18/23 04:55 Blood Culture - Preliminary Blood - Venous No growth after 24 hours. Assessment and Plan (1) COPD (chronic obstructive pulmonary disease): Status: Acute (2) Influenza A: Status: Acute Assessment and Plan: Patient admitted for COPD exacerbation and influenza A: COPD with acute exacerbation sec to influenza A: spb with minimum excersion ,talking in broken sentences. Possible acute bronchitis versus sinusitis recieved nebs,steriods in ed with minimum effect res panel and blood culture pending started nebs, steroids, antibiotics(ceftriaxone),Tamiflu, respiratory status monitering gerd: on omeprazole subsatnce use hx: continue methadone dvt prophylax: s/c lovenox ongoing inpatient stay for 48 hrs -for COPD with acute exacerbation in setting of influenza A and recieved mnebs,steriods in ed with minimum effect and still sob with minimum excersion/dyspnea/using accessary muscles-benefit from nebs, steroids and antibiotic,tamiflu, respiratory status monitoring. Quality Stroke Does the patient have a stroke diagnosis?: No VTE Prior VTE?: No VTE Risk Level:: Medical - moderate - high VTE Device Contraindication: N/A - Device Ordered VTE Drug Contraindication: N/A - Med Ordered
[2023-12-19] MEDS: Ibuprofen 200 MG TABLET PO (13:13)
--- NOTE | 2023-12-19 13:36 | MHC.CM.PN ---
pt lives with dgter had no servies is independent and working pt has her own ride home dc plan home no servies
[2023-12-19] MEDS: methADONE HCl 20 MG/2 ML ORAL.CONC PO (22:00)
[2023-12-19] MEDS: Acetaminophen 325 MG TABLET 975 MG PO (22:00)
[2023-12-20] VITALS (12 sets, daily range): BP systolic 150–189; BP diastolic 70–98; PULSE 72–108; RESP 18–19; TEMP 36–36.3; O2SAT 92–98
[2023-12-20] MEDS: Ibuprofen 200 MG TABLET PO ×2 (03:27→20:51)
[2023-12-20] MEDS: guaiFEN/Codeine SF 200/20/10ML 10 ML LIQUID PO ×6 (03:27→21:47)
[2023-12-20] MEDS: Albuterol/Iprat 2.5/0.5MG 3 ML AMPUL.NEB INHALE ×6 (03:55→23:16)
[2023-12-20] MEDS: Omeprazole 20 MG CAPSULE.DR PO (06:22)
--- NOTE | 2023-12-20 09:14 | P.PNIM_ITS ---
Subjective Subjective Date of Service: 12/20/23 Interval History: f/u on influenza as cause for copd exacerbation, she has diffuse body ache; she is maintaining oxygen saturation of 95 Physical Exam 2 Vital Signs: Vital Signs: Last Vital Signs Temp 96.8 F 12/20/23 07:18 Pulse 77 12/20/23 08:47 Resp 18 12/20/23 08:47 BP 150/87 H 12/20/23 07:18 Pulse Ox 95 12/20/23 07:18 O2 Del Method Nasal Cannula 12/20/23 07:18 O2 Flow Rate 2 12/20/23 07:18 BMI result Body Mass Index 29.1 General: AO X 3, no acute distress Resp: CTA bilateral, normal effort CVS: S1,S2,RRR GI: +BS, NT, no distention Skin: No rash Neuro: motor grossly intact Psych: appropriate affect Objective Data Active Medications Acetaminophen (Acetaminophen 325 Mg Tablet) 975 mg PO QID [facility] Last Admin: 12/19/23 22:00 Dose: 975 mg Documented By: CHASITY Albuterol/Ipratropium (Albuterol/Iprat 2.5/0.5mg 3 Ml Ampul.Neb) 3 ml INHALE Q3H PRN PRN Reason: Shortness of Breath Last Admin: 12/19/23 09:23 Dose: 3 ml Documented By: LYNNETTE Albuterol/Ipratropium (Albuterol/Iprat 2.5/0.5mg 3 Ml Ampul.Neb) 3 ml INHALE RQ4H [facility] Last Admin: 12/20/23 08:43 Dose: 3 ml Documented By: BETTE Guaifenesin/Codeine Phosphate (Guaifen/Codeine Sf 200/20/10ml 10 Ml Liquid) 10 ml PO Q4H [facility] Last Admin: 12/20/23 06:22 Dose: 10 ml Documented By: CHASITY Heparin Sodium (Porcine) (Heparin Sodium,Porcine 5,000 Unit/Ml Vial) 5,000 unit SUBCUT BID [facility] Last Admin: 12/19/23 22:01 Dose: 5,000 unit Documented By: CHASITY Ceftriaxone Sodium 1 gm/ (Sodium Chloride) 50 mls @ 100 mls/hr IV Q24H [facility] Last Infusion: 12/19/23 11:10 Dose: Infused Documented By: GABE Ibuprofen (Ibuprofen 200 Mg Tablet) 200 mg PO BID PRN PRN Reason: Headache Last Admin: 12/20/23 03:27 Dose: 200 mg Documented By: CHASITY Lidocaine (Lidocaine 4 % Patch Adh..Patch) 1 patch TRANSDERMA DAILY [facility]; Protocol Last Admin: 12/19/23 08:30 Dose: 1 patch Documented By: GABE Loratadine (Loratadine 10 Mg Tablet) 10 mg PO DAILY [facility] Last Admin: 12/19/23 08:29 Dose: 10 mg Documented By: GABE Methadone HCl (Methadone Hcl 20 Mg/2 Ml Oral.Conc) 20 mg PO BEDTIME [facility] Last Admin: 12/19/23 22:00 Dose: 20 mg Documented By: CHASITY Methadone HCl (Methadone Hcl 20 Mg/2 Ml Oral.Conc) 90 mg PO DAILY [facility] Last Admin: 12/19/23 08:28 Dose: 90 mg Documented By: GABE Methylprednisolone Sodium Succinate (Methylprednisolone Sod Succ 40 Mg/Ml Vial) 40 mg IVPUSH TID [facility] Last Admin: 12/19/23 22:01 Dose: 40 mg Documented By: CHASITY Omeprazole (Omeprazole 20 Mg Capsule.Dr) 20 mg PO DAILY@0630 [facility] Last Admin: 12/20/23 06:22 Dose: 20 mg Documented By: CHASITY Ondansetron HCl (Ondansetron Hcl 4 Mg/2 Ml Vial) 4 mg IVPUSH Q6H PRN PRN Reason: Nausea and Vomiting Oseltamivir Phosphate (Oseltamivir Phosphate 75 Mg Capsule) 75 mg PO BID [facility] Last Admin: 12/19/23 21:59 Dose: 75 mg Documented By: CHASITY Polyethylene Glycol (Polyethylene Glycol 3350 17 Gm Powd.Pack) 17 gm PO DAILY PRN PRN Reason: Constipation Sodium Chloride (0.9 % Sodium Chloride Flush 3 Ml Syringe) 3 ml IVFLUSH QSHIFT [facility] Last Admin: 12/19/23 22:06 Dose: 3 ml Documented By: CHASITY Vitamin D (Cholecalciferol (Vitamin D3) 25 Mcg Tablet) 50 mcg PO DAILY [facility] Last Admin: 12/19/23 08:29 Dose: 50 mcg Documented By: GABE Labs 12/18/23 04:55 12/18/23 04:55 Microbiology Microbiology Results: Microbiology 12/18/23 04:55 Blood Culture - Preliminary Blood - Venous No growth after 48 hours. 12/18/23 04:55 Blood Culture - Preliminary Blood - Venous No growth after 48 hours. Assessment and Plan (1) COPD (chronic obstructive pulmonary disease): Status: Acute (2) Influenza A: Status: Acute Assessment and Plan: 62/F with copd, opioid dependence here w/ influenza + acute exacerbation of copd copd exacerbation--improved change to po steroid bronchodilators by Neb ween off O2 WBC nl, cxr no PNA, no fever... stop Abx Influenza--symptomatic treatment, tamiflu for 5 days gerd: on omeprazole subsatnce use disorder continue methadone dvt prophylax: s/c lovenox need for inpatient: acute respiratory failure d/t influenza been treated for with iv steroid assess for discharge later today Quality Stroke Does the patient have a stroke diagnosis?: No VTE Prior VTE?: No VTE Risk Level:: Medical - moderate - high VTE Device Contraindication: N/A - Device Ordered VTE Drug Contraindication: N/A - Med Ordered
[2023-12-20] MEDS: Oseltamivir Phosphate 75 MG CAPSULE PO ×2 (09:30→20:51)
[2023-12-20] MEDS: Cholecalciferol (Vitamin D3) 25 MCG TABLET 50 MCG PO (09:30)
[2023-12-20] MEDS: Heparin Sodium,Porcine 5,000 UNIT/ML VIAL 5000 UNIT SUBCUT ×2 (09:30→20:50)
[2023-12-20] MEDS: Loratadine 10 MG TABLET PO (09:30)
[2023-12-20] MEDS: methADONE HCl 20 MG/2 ML ORAL.CONC 90 MG PO (09:31)
[2023-12-20] MEDS: Lidocaine 4 % Patch ADH..PATCH 1 PATCH TRANSDERMA (09:31)
[2023-12-20] MEDS: predniSONE 20 MG TABLET PO (09:39)
[2023-12-20] MEDS: 0.9 % Sodium Chloride Flush 3 ML SYRINGE IVFLUSH ×2 (09:39→20:51)
[2023-12-20] MEDS: methADONE HCl 20 MG/2 ML ORAL.CONC PO (20:50)
[2023-12-21] MEDS: guaiFEN/Codeine SF 200/20/10ML 10 ML LIQUID PO ×3 (01:59→10:15)
[2023-12-21 03:20] VITALS: BP 141/89; PULSE 82; RESP 17; TEMP 36.1; O2SAT 91
[2023-12-21 04:51] VITALS: PULSE 81; RESP 17; O2SAT 92
[2023-12-21] MEDS: Albuterol/Iprat 2.5/0.5MG 3 ML AMPUL.NEB INHALE ×3 (04:51→11:40)
[2023-12-21] MEDS: Omeprazole 20 MG CAPSULE.DR PO (05:55)
[2023-12-21 07:11] VITALS: BP 142/78; PULSE 84; RESP 20; TEMP 36.7; O2SAT 95
[2023-12-21] MEDS: methADONE HCl 20 MG/2 ML ORAL.CONC 90 MG PO (07:35)
[2023-12-21] MEDS: Oseltamivir Phosphate 75 MG CAPSULE PO (07:35)
[2023-12-21] MEDS: predniSONE 20 MG TABLET PO (07:35)
[2023-12-21] MEDS: Loratadine 10 MG TABLET PO (07:35)
[2023-12-21] MEDS: Cholecalciferol (Vitamin D3) 25 MCG TABLET 50 MCG PO (07:35)
[2023-12-21] MEDS: 0.9 % Sodium Chloride Flush 3 ML SYRINGE IVFLUSH (07:35)
[2023-12-21] MEDS: Ibuprofen 200 MG TABLET PO (07:50)
[2023-12-21] MEDS: Heparin Sodium,Porcine 5,000 UNIT/ML VIAL 5000 UNIT SUBCUT (07:54)
--- NOTE | 2023-12-21 08:19 | PM.DS ---
DS: Providers Provider Date of Service: 12/21/23 Date of admission: 12/18/23 09:43 Primary care physician: Vitor Cox MD DS: Summary Hospital Course Hospital Course: admission HPI Chief Complaint: copd excerebation,influenza A 63-year-old female with a history of COPD history of smoking. Not vaccinated for COVID flu. She presented to the hospital 4 days ago on December 13 with shortness of breath and was briefly hospitalized for a COPD exacerbation. She was discharged on December 14 from the hospitalist service to complete a course of cefuroxime and prednisone.came with sob ,myalgia ,pleursy,fever,nonproductive cough. Denies any new complaint of chest pain or abdominal pain or fever or chills or nausea or vomiting Denies any weakness or numbness of blurred vision or dizziness. Last lab imaging reviewed: CBC seems fine, BMP: fine Chest x-ray:Unremarkable examination. ekg:nsr -sinus tachycaria tropx1 neg In ED: Patient received nebs, steroids, tamiflu and requested admission for COPD exacerbation insetting of influenza A.. Hospital course: Patient presented with shortness of breath and acute respiratory distress and found to have acute copd exacerbation due to influenza A. Her management consisted of IV steroid, bronchodilators and Oxygen to treat COPD exacerbation. Her Influeza was treated symptomatically and Tamiflu given for lessen disease severity. She has made a good recovery; her oxygen has been weaned off and her breathing is comfortable on room air at 95 %.. IV steroid has been transitioned to oral steroid and will finish a course of 5 days of steroid. and To complete 5 days of Tamiflu. Final diagnosis: Acute hypoxic respiratory failure due to influenza and COPD exacerbation acute exacerbation of COPD influenza Time Attestation Discharge Coordination Time (in mins): 37 Quality: Safe Use of Opioids Does Pt have an Active Cancer Diagnosis on the Problem List?: No Quality: Stroke Does the patient have a stroke diagnosis?: No Physical Exam Vital Signs: Vital Signs: Last Vital Signs Temp 98.1 F 12/21/23 07:11 Pulse 84 12/21/23 07:11 Resp 20 12/21/23 07:11 BP 142/78 H 12/21/23 07:11 Pulse Ox 95 12/21/23 07:11 O2 Del Method Room Air 12/21/23 07:11 O2 Flow Rate 2 12/20/23 07:18 General: AO X 3, no acute distress Resp: CTA bilateral CVS: S1,S2,RRR GI: +BS, NT, no distention Skin: No rash Neuro: motor grossly intact Psych: appropriate affect DS: Data Data Completed and Pending Labs on day of discharge: Preliminary micro results at discharge 12/18/23 04:55 Blood Culture - Preliminary Blood - Venous No growth after 48 hours. 12/18/23 04:55 Blood Culture - Preliminary Blood - Venous No growth after 48 hours. Discharge Plan Discharge Anticipated Discharge Date/Time: 12/21/23 08:17 Patient Disposition: Home, Self-Care Discharge Diagnosis: acute hypoxic respiratory failure due to influenza and COPD exacerbation. Referrals: Vitor Cox MD [Primary Care Provider] - 1 Week Discharge Medications: Continued methadone 10 mg/5 mL Solution 20 mg PO BEDTIME acetaminophen [Athenol] 325 mg tablet 650 mg PO Q6H PRN (Reason: headache) Qty: 10 0RF omeprazole 20 mg capsule,delayed release(DR/EC) 20 mg PO DAILY@0630 methadone 10 mg/5 mL solution 90 mg PO DAILY Patient Comments: Habit-OPCO epinephrine [EpiPen 2-Arthur] 0.3 mg/0.3 mL auto-injector 0.3 mg IM Q4H PRN (Reason: anaphylaxis) Qty: 2 0RF cholecalciferol (vitamin D3) 50 mcg (2,000 unit) capsule 50 mcg PO DAILY 90 Days Qty: 90 3RF polyethylene glycol 3350 [Miralax] 17 gram powder in packet 17 g PO DAILY PRN (Reason: Constipation) Discontinued cefuroxime axetil 500 mg tablet 500 mg PO BID Qty: 12 0RF Rx Instructions: LAST DOSE TO TAKE: 12/21/23 21:00 No Action fluticasone propion-salmeterol [Advair HFA] 115-21 mcg/actuation HFA aerosol inhaler 2 puff INHALATION BID Qty: 12 0RF doxycycline monohydrate 100 mg Capsule 100 mg PO Q12H 20 Days Qty: 40 0RF amlodipine 10 mg Tablet 10 mg PO DAILY 90 Days Qty: 90 0RF Protocol: Hold for SBP< HOLD for SBP < : 90 albuterol sulfate 90 mcg/actuation HFA aerosol inhaler 2 puff inhalation Q4H PRN (Reason: shortness of breath or wheezing) Qty: 6.7 1RF (DME) NEBULIZER and all related supplies See Rx Instructions .Route .MEDSUPPLY Qty: 1 0RF Rx Instructions: As directed up to 4 times a day as needed albuterol sulfate 2.5 mg /3 mL (0.083 %) solution for nebulization 2.5 mg inhalation QID PRN (Reason: shortness of breath or wheezing) 30 Days Qty: 180 3RF senna 8.6 mg capsule 17.2 mg PO BEDTIME PRN (Reason: constipation) Qty: 60 3RF guaifenesin [Mucinex] 1,200 mg tablet extended release 12hr 1,200 mg PO BID Qty: 60 3RF Discharge Orders: Discharge Order (Routine); Ordered 12/21/23 Ordered By: Per Johns Diet: Advance to usual diet Activity on Discharge: As tolerated Stand Alone Forms: Patient Portal Discharge page Print Language: Sammarinese Care Plan Goals: Recovery from influenza and returned to baseline functioning. Health Concerns: COPD influenza Plan of Treatment: Take Prednisone (20 mg) once daily for 3 days and stop continue using inhalers as before follow up with your Doctor in a week, call for appointment Assessment: see above Discharge Date/Time: 12/21/23 13:33
[2023-12-21 08:29] VITALS: PULSE 92; RESP 18; O2SAT 92
--- NOTE | 2023-12-21 08:57 | MHC.CM.PN ---
EMR reviewed. Patient is medically cleared for dc home self care. Sister to provide transportation at 11am RN aware. IMM was delivered 12/18.
[2023-12-21 11:39] VITALS: PULSE 90; RESP 18; O2SAT 92
== END 2023-12-21 13:33 | disposition home or self-care (01) | DRG 140 ==
LOC: HO.ED 06:48 → HO.EDOVER 10:11 → HO.S3 11:10
PROVIDERS: Admitting Provider Internal Medicine; Emergency Provider Emergency Medicine; PCP Internal Medicine; Visit Provider Internal Medicine
DX: J44.1 Chronic obstructive pulmonary disease with (acute) exacerbation (principal); F11.20 Opioid dependence, uncomplicated; J44.0 Chronic obstructive pulmonary disease with (acute) lower respiratory infection; J10.1 Influenza due to other identified influenza virus with other respiratory manifestations; J20.9 Acute bronchitis, unspecified; F17.210 Nicotine dependence, cigarettes, uncomplicated; Z71.6 Tobacco abuse counseling; K21.9 Gastro-esophageal reflux disease without esophagitis; Z20.822 Contact with and (suspected) exposure to COVID-19; Z79.52 Long term (current) use of systemic steroids; Z79.899 Other long term (current) drug therapy
CPT/HCPCS: 0241U; 71045; 80053; 82803; 83605; 83880; 84484; 85025; 86140; 87040; 93005; 94640; 99285; J0696; J1644; J1790; J1885; J2920; J2930

== ENCOUNTER → 2023-12-18 04:46 | Outpatient (BNV) | payer OTHER, SELFPAY | PROVIDERS: Admitting Provider Internal Medicine; Emergency Provider Emergency Medicine; Visit Provider Internal Medicine | DX: R94.31 Abnormal electrocardiogram [ECG] [EKG] (principal) | CPT/HCPCS: 93010 ==

== ENCOUNTER → 2023-12-18 04:58 | Outpatient (BNV) | payer OTHER, SELFPAY | PROVIDERS: Emergency Provider Emergency Medicine; Visit Provider Internal Medicine | DX: J44.1 Chronic obstructive pulmonary disease with (acute) exacerbation (principal); J10.1 Influenza due to other identified influenza virus with other respiratory manifestations | CPT/HCPCS: 99222; 99232; 99239 ==

== ENCOUNTER 2023-12-26 16:59 | Inpatient (IN) | payer OTHER, SELFPAY ==
[2023-12-26] VITALS (8 sets, daily range): BP systolic 136–194; BP diastolic 78–92; PULSE 87–103; RESP 18–24; TEMP 36.4–36.8; O2SAT 90–98; BMI 30.1
--- NOTE | ~2023-12-26 | XR_ITS ---
EXAMINATION: XR CHEST CLINICAL INFORMATION: Chest pain COMPARISON: Previous chest x-ray November 2023 TECHNIQUE: Frontal view of the chest was obtained. FINDINGS: No significant abnormality is noted involving the heart, lungs, mediastinum, bony thorax or soft tissues. XR/XR chest 1V IMPRESSION: Unremarkable examination.
--- NOTE | ~2023-12-26 | CT_ITS ---
EXAMINATION: CT ANGIOGRAM OF THE CHEST WITH AND WITHOUT CONTRAST (CT PULMONARY ANGIOGRAM FOR PE) CLINICAL INFORMATION: Reason for Exam shortness of breath, eval for clot COMPARISON: None available. TECHNIQUE: Prior to contrast administration, noncontrast localization images were obtained. Subsequently, multidetector volumetric imaging was performed from the thoracic inlet to below the diaphragms following the administration of 80 mL Omnipaque 350 intravenous contrast. No contrast reaction reported Sagittal, coronal, and MIP oblique sagittal reformatted images were obtained on the CT workstation, uploaded to PACS, and reviewed. This CT examination was performed using dose optimization techniques as appropriate, variously including the following: *Automated exposure control *Adjustment of mA and/or kV according to patient size (this includes techniques or standardized protocols for targeted exams where dose is matched to indication/reason for exam; i.e. extremities or head) *Use of iterative reconstruction technique Total exam dose-length product 276 mGy-cm FINDINGS: QUALITY OF STUDY/CONTRAST BOLUS: Satisfactory. PULMONARY ARTERIES: No pulmonary emboli. THORACIC AORTA: No aneurysm. LUNG: The lungs are well-expanded with groundglass opacity seen in both upper lobes and some patchy opacity in the left upper lobe and subpleural both lower lobes. No mass or large consolidation seen. PLEURA: No pleural effusion or pneumothorax. MEDIASTINUM: The thyroid lobes are symmetric and normal. The central trachea and the bronchi widely patent. Heart size and the great vessels are normal caliber. There is mild coronary artery calcifications present. There is no pericardial effusion. No evidence of septal bowing or right heart strain. No abnormal size mediastinal or hilar lymph nodes seen. CORONARY ARTERY CALCIFICATION: Mild coronary artery calcifications present. CHEST WALL/AXILLA: No axillary or internal mammary lymphadenopathy. OSSEOUS STRUCTURES: No aggressive lytic or sclerotic process seen. UPPER ABDOMEN: There is a 1.2 cm hypodensity anterior segment right hepatic lobe. No additional lesions seen. There is no intrahepatic ductal dilatation. Gallbladder, spleen, pancreas and bilateral adrenal glands are unremarkable. No reflux of contrast into the hepatic veins to suggest elevated right heart pressures. CT/CT angio chest PE protocol 1. IMPRESSION: No evidence of PE. No evidence of aortic dissection or aneurysm. 2. No evidence of aortic aneurysm. 3. Groundglass opacities in both upper lobes and some patchy opacities in the left upper lobe and both lower lobes. Findings are suggestive of inflammatory or infectious etiology. VTE: negative.
--- NOTE | 2023-12-26 17:22 | ECG_ITS ---
Test Reason : DYSPNEA Blood Pressure : / mmHG Vent. Rate : 095 BPM Atrial Rate : 095 BPM P-R Int : 142 ms QRS Dur : 072 ms QT Int : 360 ms P-R-T Axes : 054 012 042 degrees QTc Int : 452 ms Normal sinus rhythm Nonspecific ST and T wave abnormality Abnormal ECG When compared with ECG of 18-DEC-2023 04:46, No significant change was found Referred By: Franchesca Mendoza Electronically Signed By:BROCK TAVAREZ MD
--- NOTE | 2023-12-26 17:28 | ED_ITS ---
HPI - SOB/Dyspnea General Chief Complaint: Dyspnea Stated Complaint: copd History of Present Illness HPI Narrative: Patient is a 63-year-old female with a history of COPD. Baseline not on oxygen. Been admitted for COPD twice in the last 30 days. Most recently discharged about a week ago. Patient tested positive for influenza about 2 weeks ago still feeling coughing congestion upper respiratory symptoms shortness of breath weakness came to the ED for help. No history of congestive heart failure. No history of cancer. Positive generalized malaise patient still smokes. Related Data Home Medications Medication Instructions Recorded Confirmed methadone 10 mg/5 mL oral solution 90 mg PO DAILY 07/01/22 12/19/23 polyethylene glycol 3350 17 gram 17 g PO DAILY PRN Constipation 11/24/22 12/18/23 oral powder packet (Miralax) albuterol sulfate 90 mcg/actuation 2 puff inhalation Q4H PRN 12/14/23 12/18/23 aerosol inhaler shortness of breath or wheezing fluticasone propionate 115 2 puff inhalation BID wheezing 12/14/23 12/18/23 mcg-salmeterol 21 mcg/actuation HFA inhaler (Advair HFA) methadone 10 mg/5 mL oral solution 20 mg PO BEDTIME 12/14/23 12/19/23 omeprazole 20 mg capsule,delayed 20 mg PO DAILY@0630 12/18/23 12/18/23 release Previous Rx's Medication Instructions Recorded cholecalciferol (vitamin D3) 50 50 mcg PO DAILY 90 days #90 caps 07/26/23 mcg (2,000 unit) capsule epinephrine 0.3 mg/0.3 mL 0.3 mg (0.3 mL) IM Q4H PRN 07/26/23 injection, auto-injector (EpiPen anaphylaxis #2 ea 2-Arthur) acetaminophen 325 mg tablet 650 mg (2 x 325 mg) PO Q6H PRN 12/15/23 (Athenol) headache #10 tabs loratadine 10 mg tablet 10 mg PO DAILY #10 tabs 12/15/23 prednisone 20 mg tablet 40 mg (2 x 20 mg) PO DAILY #8 tabs 12/15/23 Allergies Allergy/AdvReac Type Severity Reaction Status Date / Time bee pollen [BEE STINGS] Allergy Unknown SWELLING - Verified 12/18/23 04:40 BLOTCHES macrobid Allergy Intermediate Vomiting Uncoded 12/18/23 04:40 Review of Systems 2 Review of Systems: Positive coughing congestion upper respiratory symptoms Yes all other systems are reviewed and are negative [facility] Past Medical History Attestation statement: The following information was validated with the patient. Medical History COPD (chronic obstructive pulmonary disease) Dyspnea on exertion GERD (gastroesophageal reflux disease) Mixed incontinence urge and stress Obesity (BMI 30-39.9) History of substance abuse Constipation Osteopenia Vitamin D deficiency History of hepatitis C COPD (chronic obstructive pulmonary disease) Smoker Bronchitis Surgical History History of tubal ligation Family History Family History Father Stroke Hypertension Diabetes Heart problem Mother Diabetes Brother Diabetes Sister In good health Social History Social History Household Members: Family Household Members Other:: niece Housing: Alf Do you presently have visiting nurse or other home services: No Alcohol intake: former Patient Tobacco Use Status: Current everyday Tobacco user Tobacco use type: Cigarette Cigarettes Per Day: 6 Smoked in Last 30 Days: No e-Cigarette/Vaping Use: Never Used Second Hand Smoke Exposure: No Use of substances other than those prescribed or required for medical reasons: No Substance Use Type: Marijuana Advance Directives: No Advance Directives Information Provided: Yes service: No Current occupational status: employed Cognitive needs: No Hearing needs: No Vision needs: Yes Physical Exam 2 Vital Signs: Vital Signs: Last Vital Signs Temp 97.9 F 12/26/23 19:48 Pulse 100 12/26/23 19:48 Resp 19 12/26/23 19:48 BP 150/78 H 12/26/23 19:48 Pulse Ox 93 12/26/23 19:48 O2 Del Method Room Air 12/26/23 19:48 BMI result Body Mass Index 30.1 Appearance: Alert. Oriented X3. No acute distress. Eyes: Pupils equal, round and reactive to light. ENT: Pharynx normal. Neck: Normal inspection. Neck supple. No lymph nodes noted. No crepitus CVS: Normal heart rate and rhythm. Pulses normal. Normal S1 and S2 Respiratory: No respiratory distress. Positive bilateral expiratory wheezing noted. Abdomen: Soft and nontender. No rigidity. No distention. good BS x4 Skin: Skin warm and dry. Normal skin color. Normal skin turgor. Extremities: No lower extremity edema. Neurovascular intact to all extremities. No Lacerations. No Rash Neuro: Oriented X 3. No motor deficit. No sensory deficit. Moving all extermities. No slurred speech Medications Administered Discontinued Medications Generic Name Dose Route Start Last Admin Trade Name Sarah PRN Reason Stop Dose Admin Albuterol Sulfate 2.5 mg/ 5 mg 12/26/23 17:25 12/26/23 17:37 Albuterol Sulfate 2.5 mg INHALE 12/26/23 17:26 5 mg ONCE ONE Administration Albuterol/Ipratropium 3 ml 12/26/23 17:25 12/26/23 17:37 Albuterol/Iprat 2.5/0.5mg 3 Ml Ampul.Neb INHALE 12/26/23 17:26 3 ml ONCE ONE Administration Methylprednisolone Sodium Succinate 125 mg 12/26/23 17:24 12/26/23 18:21 Methylprednisolone Sod Succ 125 Mg/2 Ml Vial IVPUSH 12/26/23 17:25 125 mg ONCE ONE Administration Medical Decision Making Medical Decision Making [facility] Narrative: 63 years old long history of COPD baseline not on oxygen has been seen in the emergency department twice in the last month admitted both times came back at 3rd time with having increasing shortness of breath again coughing upper respiratory symptoms. My interpretation patient's chest x-ray is grossly negative. Patient was given neb treatment and steroids with moderate relief of symptoms O2 sat 90%. Case discussed with her will admit for further evaluation. Patient's O2 sat is 90% after treatments. No chest pain. COVID test was negative. Patient's flu was positive but it was positive last time she already finished a full course of Tamiflu. Currently in stable condition awaiting admission. Differential Diagnosis Differential Diagnoses: The differential diagnosis associated with the presentation includes COPD, pneumonia, congestive heart failure, COVID Admission/Observation Consideration of admission/observation: Escalation of care including admission/observation considered Will admit overnight as patient is hypoxic Consult Healthcare Provider Management of the patient was discussed with: Hospitalist Lab Data [facility] Lab Attestation statement: I reviewed the patient's lab results. 12/26/23 18:14 12/26/23 18:14 Labs: Lab Results 12/26/23 12/26/23 Range/Units 18:02 18:14 WBC 9.5 (4.8-10.8) X10*3/uL RBC 4.60 (4.20-5.50) X10*6/uL Hgb 13.9 (12.0-16.0) g/dl Hct 40.8 (37.0-47.0) % MCV 88.7 (80.0-98.0) fL MCH 30.2 (27.0-33.0) pg MCHC 34.1 (31.0-35.0) g/dl RDW 13.0 (11.0-16.0) % Plt Count 303 (160-400) X10*3/uL MPV 9.7 (9.4-12.3) fL Immature Gran % (Auto) 0.5 H (0.0-0.4) % Neut % (Auto) 75.0 H (45-73) % Lymph % (Auto) 17.5 L (20-40) % [place] % (Auto) 5.4 (2-11) % Eos % (Auto) 1.4 (0-4) % Baso % (Auto) 0.2 (0-2) % Lymph # (Auto) 1.7 (1.2-4.9) X10*3/uL [place] # (Auto) 0.5 (0.1-1.2) X10*3/uL Eos # (Auto) 0.1 (0.0-0.4) X10*3/uL Baso # (Auto) 0.0 (0.0-0.2) X10*3/uL Abs Immat Gran (auto) 0.05 H (0.00-0.03) X10*3/uL Absolute Neuts (auto) 7.1 (2.0-8.3) x10*3/uL Absolute Nucleated RBC 0.000 (0.0-0.012) X10*3/uL Nucleated RBC % (auto) 0.0 (0.0-0.2) /100WBC Sodium 139 (135-145) mmol/L Potassium 4.0 (3.3-5.1) mmol/L Chloride 103 (96-108) mmol/L Carbon Dioxide 28 (22-29) mmol/L Anion Gap 12 (12-20) BUN 10 (9-16) mg/dL Creatinine 0.74 (0.5-1.4) mg/dL Estim Creat Clear Calc 67.0 Estimated GFR > 60 Random Glucose 95 (60-115) mg/dL Lactic Acid 1.1 (0.5-2.0) mmol/L Calcium 9.7 (8.4-10.2) mg/dL Total Bilirubin 0.6 (0.0-1.0) mg/dL Direct Bilirubin 0.2 (0.0-0.5) mg/dL AST 23 (5-31) U/L ALT 31 (0-31) U/L Alkaline Phosphatase 89 (39-117) U/L Troponin I High Sens < 2.7 (<3.5-17.0) ng/L B-Natriuretic Peptide 20 (<100) pg/mL Total Protein 7.8 (6.5-8.0) g/dL Albumin 3.9 (3.5-5.0) g/dL Influenza Type A (PCR) POSITIVE A (Negative) Influenza Type B (PCR) NEGATIVE (Negative) RSV RNA Qual (PCR) NEGATIVE (Negative) SARS-CoV-2 RNA (RT-PCR) NEGATIVE (Negative) Independent Interpretation I performed an independent interpretation of an: EKG (Sinus heart rate is 100 UT QRS QTC within normal limits is no acute ST segment elevation) and Plain X-Ray (Chest x-ray negative for pneumonia) Radiology Impression Discussion of test interpretation with radiology: I have reviewed the radiologist's reading. External Record Review External record reviewed: Inpatient record and Office record Chronic Conditions Patient?s care impacted by: Hypertension Critical Care Time Critical Care Time Critical Care Time: Yes Total Critical Care Time: 40 Attestation: I have personally provided 40 minutes of critical care time exclusive of time spent on separately billable procedures. ?Time includes review of lab data, radiology results, discussion with consultants, and monitoring for potential decompensation. ?Interventions were performed as documented above Discharge Plan Discharge Clinical Impression: COPD (chronic obstructive pulmonary disease) Patient Disposition: Admitted As Inpatient Prescriptions: No Action methadone 10 mg/5 mL Solution 20 mg PO BEDTIME fluticasone propion-salmeterol [Advair HFA] 115-21 mcg/actuation HFA aerosol inhaler 2 puff INHALATION BID albuterol sulfate 90 mcg/actuation HFA aerosol inhaler 2 puff inhalation Q4H PRN (Reason: shortness of breath or wheezing) prednisone 20 mg tablet 40 mg PO DAILY Qty: 8 0RF Rx Instructions: LAST DOSE TO TAKE: 12/19/23 09:00 loratadine 10 mg Tablet 10 mg PO DAILY Qty: 10 0RF Rx Instructions: END DATE: 12/25/23 acetaminophen [Athenol] 325 mg tablet 650 mg PO Q6H PRN (Reason: headache) Qty: 10 0RF omeprazole 20 mg capsule,delayed release(DR/EC) 20 mg PO DAILY@0630 methadone 10 mg/5 mL solution 90 mg PO DAILY Patient Comments: Habit-OPCO epinephrine [EpiPen 2-Arthur] 0.3 mg/0.3 mL auto-injector 0.3 mg IM Q4H PRN (Reason: anaphylaxis) Qty: 2 0RF cholecalciferol (vitamin D3) 50 mcg (2,000 unit) capsule 50 mcg PO DAILY 90 Days Qty: 90 3RF polyethylene glycol 3350 [Miralax] 17 gram powder in packet 17 g PO DAILY PRN (Reason: Constipation)
[2023-12-26] MEDS: Albuterol/Iprat 2.5/0.5MG 3 ML AMPUL.NEB INHALE (17:37)
[2023-12-26] MEDS: Albuterol Sulfate 2.5 MG, Albuterol Sulfate (0.083%) 2.5 MG 5 MG INHALE (17:37)
--- NOTE | 2023-12-26 17:39 | PC.NURSE ---
andrew covingtonu made aware of vitals- pt was not tachycardic prior to neb treatment by ems, original hr 90. tachy after nebs. no sepsis alert being called by md brown.
[2023-12-26 18:21] LABS: MANUAL DIFF FLAG NO
[2023-12-26] MEDS: methylPREDNISolone Sod Succ 125 MG/2 ML VIAL IVPUSH (18:21)
[2023-12-26 18:24] LABS: Basophils Percent Auto 0.2 % (0-2); Eosinophils Absolute Auto 0.1 X10*3/uL (0.0-0.4); Eosinophils Percent Auto 1.4 % (0-4); Hematocrit 40.8 % (37.0-47.0); Hemoglobin 13.9 g/dl (12.0-16.0); Imm Gran Abs Auto 0.05 X10*3/uL (0.00-0.03); Imm Gran Pct Auto 0.5 % (0.0-0.4); Lymphocytes Absolute Auto 1.7 X10*3/uL (1.2-4.9); Lymphocytes Percent Auto 17.5 % (20-40); Mean Corpuscular HGB Conc 34.1 g/dl (31.0-35.0); Mean Corpuscular Hemoglobin 30.2 pg (27.0-33.0); Mean Corpuscular Volume 88.7 fL (80.0-98.0); Mean Platelet Volume 9.7 fL (9.4-12.3); Monocytes Absolute Auto 0.5 X10*3/uL (0.1-1.2); Monocytes Percent Auto 5.4 % (2-11); Neutrophils Absolute Auto 7.1 x10*3/uL (2.0-8.3); Platelet Count 303 X10*3/uL (160-400); White Blood Count 9.5 X10*3/uL (4.8-10.8)
[2023-12-26 18:39] LABS: Lactic Acid 1.1 mmol/L (0.5-2.0)
[2023-12-26 18:44] LABS: B Type Natriuretic Peptide 20 pg/mL (<100)
[2023-12-26 18:45] LABS: Alanine Aminotransferase 31 U/L (0-31); Albumin Level 3.9 g/dL (3.5-5.0); Alkaline Phosphatase 89 U/L (39-117); Anion Gap 12 (12-20); Aspartate Amino Transferase 23 U/L (5-31); Bilirubin Direct 0.2 mg/dL (0.0-0.5); Bilirubin Total 0.6 mg/dL (0.0-1.0); Blood Urea Nitrogen 10 mg/dL (9-16); Calcium 9.7 mg/dL (8.4-10.2); Carbon Dioxide 28 mmol/L (22-29); Chloride 103 mmol/L (96-108); Estimated Glomerular Filt Rate > 60; Glucose Random 95 mg/dL (60-115); Sodium 139 mmol/L (135-145); Total Protein 7.8 g/dL (6.5-8.0)
[2023-12-26 18:47] LABS: Troponin-I High Sensitivity < 2.7 ng/L (<3.5-17.0)
[2023-12-26 19:01] LABS: Influenza A PCR POSITIVE (Negative); Influenza B PCR NEGATIVE (Negative); Resp Syncy Virus RNA Qual PCR NEGATIVE (Negative); SARS COV2 PCR INHOUSE NEGATIVE (Negative)
--- NOTE | 2023-12-26 20:05 | PHA.MEDREC ---
Pharmacy Consult ? Medication Reconciliation Pharmacy has completed the medication reconciliation. Patient just discharge from [facility] on 12/21/23, utilized claim history and discharge summary for med rec. Steven AdanD
--- NOTE | 2023-12-26 21:19 | PM.IMHP ---
History of Present Illness Date of Service: 12/26/23 Attending physician on admission: Vera Warren Chief Complaint: Shortness of breath Mayra Moreno is a 63 years old woman with past medical history significant for COPD -not on home O2, substance abuse on methadone and GERD presents to the emergency department complaining of shortness on breath over the last 2 days associated with wheezing and cough. She was recently discharged from the hospital (December 20) after she was admitted with COPD exacerbation secondary to influenza a infection. She complained of associated chest tightness. She denied any headache, sore throat, fever, chills, palpitations or dizziness. She denied any acute gastrointestinal or genitourinary symptoms. She denies ongoing tobacco smoking (quit one month ago), call abuse or illicit drug use. In the ED, she was found to have stable vital signs. She is currently requiring supplemental oxygen. Blood workup showed no leukocytosis, anemia or lactic acidosis. There are no electrolyte imbalances. Troponin is negative. BNP is 20. LFTs normal. Review of Systems Review of Systems: All 12 systems were reviewed and normal except as noted in HPI. [facility] Medical History COPD (chronic obstructive pulmonary disease) Dyspnea on exertion GERD (gastroesophageal reflux disease) Mixed incontinence urge and stress Obesity (BMI 30-39.9) History of substance abuse Constipation Osteopenia Vitamin D deficiency History of hepatitis C COPD (chronic obstructive pulmonary disease) Smoker Bronchitis Family History Father Stroke Hypertension Diabetes Heart problem Mother Diabetes Brother Diabetes Sister In good health Surgical History History of tubal ligation Social History Household Members: Family Household Members Other:: niece Housing: [facility] Do you presently have visiting nurse or other home services: No Alcohol intake: former Patient Tobacco Use Status: Current everyday Tobacco user Tobacco use type: Cigarette Cigarettes Per Day: 6 Smoked in Last 30 Days: No e-Cigarette/Vaping Use: Never Used Second Hand Smoke Exposure: No Use of substances other than those prescribed or required for medical reasons: No Substance Use Type: Marijuana Advance Directives: No Advance Directives Information Provided: Yes service: No Current occupational status: employed Cognitive needs: No Hearing needs: No Vision needs: Yes Meds Allergies Allergy/AdvReac Type Severity Reaction Status Date / Time bee pollen [BEE STINGS] Allergy Unknown SWELLING - Verified 12/18/23 04:40 BLOTCHES macrobid Allergy Intermediate Vomiting Uncoded 12/18/23 04:40 Active Medications: Current Medications Acetaminophen (Acetaminophen 325 Mg Tablet) 650 mg PO Q6H PRN PRN Reason: Pain, Mild (Pain Scale 1-3) Albuterol Sulfate (Albuterol Sulfate 90 Mcg 8 Gm Inhaler) 4 puff INHALE Q3H PRN PRN Reason: Shortness of Breath/Wheezing Heparin Sodium (Porcine) (Heparin Sodium,Porcine 5,000 Unit/Ml Vial) 5,000 unit SUBCUT Q8H ON LICENSE OF [facility] Azithromycin 500 mg/ Sodium (Chloride) 250 mls @ 125 mls/hr IV Q24H ON LICENSE OF [facility] Loratadine (Loratadine 10 Mg Tablet) 10 mg PO DAILY ON LICENSE OF [facility] Methylprednisolone Sodium Succinate (Methylprednisolone Sod Succ 40 Mg/Ml Vial) 40 mg IVPUSH Q8H BRIAN Omeprazole (Omeprazole 20 Mg Capsule.Dr) 20 mg PO DAILY@0630 ON LICENSE OF [facility] Sodium Chloride (0.9 % Sodium Chloride Flush 3 Ml Syringe) 3 ml IVFLUSH QSHIFT ON LICENSE OF [facility] Home Medications Medication Instructions Recorded Confirmed Last Taken Type methadone 10 mg/5 mL oral solution 90 mg PO DAILY 07/01/22 12/19/23 12/17/23 History polyethylene glycol 3350 17 gram 17 g PO DAILY PRN Constipation 11/24/22 12/26/23 12/13/23 History oral powder packet (Miralax) albuterol sulfate 90 mcg/actuation 2 puff inhalation Q4H PRN 12/14/23 12/26/23 12/13/23 History aerosol inhaler shortness of breath or wheezing fluticasone propionate 115 2 puff inhalation BID wheezing 12/14/23 12/26/23 12/13/23 History mcg-salmeterol 21 mcg/actuation HFA inhaler (Advair HFA) methadone 10 mg/5 mL oral solution 20 mg PO BEDTIME 12/14/23 12/19/23 12/17/23 History omeprazole 20 mg capsule,delayed 20 mg PO DAILY@0630 12/18/23 12/26/23 Unknown History release Physical Exam Vital Signs and Narrative: Vital Signs: Last Vital Signs Temp 97.9 F 12/26/23 19:48 Pulse 100 12/26/23 19:48 Resp 19 12/26/23 19:48 BP 150/78 H 12/26/23 19:48 Pulse Ox 93 12/26/23 19:48 O2 Del Method Room Air 12/26/23 19:48 BMI result Body Mass Index 30.1 Constitutional - Awake and Alert, No apparent distress. HEENT - Pupils equally round. Normal sclerae. Moist oral mucosa. Heart - S1S2, RRR. Lungs - Normal lung expansion, Normal respiratory effort, No respiratory distress. Tachypneic. Bilateral inspiratory and end expiratory wheezing. Abdomen - NT / ND; +BS; No rebound or guarding Extremities - no calf tenderness bilaterally, no swelling Musculoskeletal - Normal inspection, normal ROM Skin - Warm/Dry Neurological - Alert & oriented x3. No focal weakness. Normal speech. Psychological - Appropriate affect Results Labs 12/26/23 18:14 12/26/23 18:14 Labs: Laboratory Results - last 24 hr 12/26/23 12/26/23 18:02 18:14 MCV 88.7 MCH 30.2 MCHC 34.1 RDW 13.0 Plt Count 303 MPV 9.7 Immature Gran % (Auto) 0.5 H Neut % (Auto) 75.0 H Lymph % (Auto) 17.5 L [place] % (Auto) 5.4 Eos % (Auto) 1.4 Baso % (Auto) 0.2 Lymph # (Auto) 1.7 [place] # (Auto) 0.5 Eos # (Auto) 0.1 Baso # (Auto) 0.0 Abs Immat Gran (auto) 0.05 H Absolute Neuts (auto) 7.1 Absolute Nucleated RBC 0.000 Nucleated RBC % (auto) 0.0 Anion Gap 12 Estim Creat Clear Calc 67.0 Estimated GFR > 60 Random Glucose 95 Lactic Acid 1.1 Calcium 9.7 Total Bilirubin 0.6 Direct Bilirubin 0.2 AST 23 ALT 31 Alkaline Phosphatase 89 Troponin I High Sens < 2.7 B-Natriuretic Peptide 20 Total Protein 7.8 Albumin 3.9 Influenza Type A (PCR) POSITIVE A Influenza Type B (PCR) NEGATIVE RSV RNA Qual (PCR) NEGATIVE SARS-CoV-2 RNA (RT-PCR) NEGATIVE Imaging Radiologist's Impressions: Impressions Chest X-Ray 12/26/23 17:15 IMPRESSION: Unremarkable examination. Assessment and Plan (1) Acute exacerbation of COPD with asthma: Status: Acute (2) GERD (gastroesophageal reflux disease): Qualifiers: Esophagitis presence: without esophagitis Qualified Code(s): K21.9 - Gastro-esophageal reflux disease without esophagitis Status: Acute (3) History of substance abuse: Status: Acute Plan Mayra Moreno is a 63 years old woman admitted with: Acute exacerbation of chronic obstructive pulmonary disease, patient not responding well to recent therapy given in the ED. Recent influenza a infection (completed course of Tamiflu). Admit to hospitalist service. Telemetry. Pulse oximetry. Supplemental oxygen as needed to keep O2 sats > 90%. Bronchodilator therapy and IV steroids. Start empiric IV antibiotic therapy with azithromycin. History of substance abuse disorder. Continue methadone (after dose confirmation by pharmacy). GERD. Continue omeprazole. DVT prophylaxis: Heparin subQ Code status: Full Patient will need hospitalization for at least 2 midnights for persistent acute exacerbation of COPD with supplemental oxygen as needed, bronchodilator therapy and IV steroids + antibiotics. Quality Stroke Does the patient have a stroke diagnosis?: No VTE Prior VTE?: No VTE Risk Level:: Medical - moderate - high VTE Device Contraindication: Treatment Not Indicated VTE Drug Contraindication: N/A - Med Ordered
[2023-12-26 21:36] LABS: Appearance Urine Clear; Color Urine Yellow; Glucose Urine UA Negative (Negative); Leukocyte Esterase Urine Negative (Negative); Nitrite Urine Negative (Negative); Specific Gravity - Urine <= 1.005 (1.005-1.025); Urine Blood Negative (Negative); Urine Ketones Trace mg/dL (Negative); Urine Protein Negative (Neg-Trace)
--- NOTE | 2023-12-26 21:36 | MHC.EDTECH ---
Pt ambulated w assist of 1, of a distance of 100 ft, to and from the bathroom. Pt was sob but managed to ambulate fine slowly. O2 was measured when pt went back into . O2 was at 90.
[2023-12-26 21:38] LABS: Bacteria Urine None Seen (None Seen); Hyaline Casts Urine 0-2 /LPF (0-2); RBC Urine 0-2 /HPF (0-2); Squamous Epithelial Cell Urine 0-2 /HPF (0-2); WBC Urine 0-5 /HPF (0-5)
[2023-12-26] MEDS: Azithromycin 500 MG in 0.9 % Sodium Chloride 250 ML 125 MG IV (22:26)
[2023-12-27 01:01] VITALS: BMI 29.2
[2023-12-27] MEDS: methylPREDNISolone Sod Succ 40 MG/ML VIAL IVPUSH ×3 (01:03→17:06)
[2023-12-27 04:07] VITALS: BP 147/77; PULSE 91; RESP 18; TEMP 36.2; O2SAT 94
[2023-12-27 05:39] LABS: Hematocrit 38.6 % (37.0-47.0); Hemoglobin 13.2 g/dl (12.0-16.0); Imm Gran Abs Auto 0.02 X10*3/uL (0.00-0.03); Imm Gran Pct Auto 0.3 % (0.0-0.4); Lymphocytes Absolute Auto 0.5 X10*3/uL (1.2-4.9); Lymphocytes Percent Auto 7.8 % (20-40); MANUAL DIFF FLAG SCAN; Mean Corpuscular HGB Conc 34.2 g/dl (31.0-35.0); Mean Corpuscular Hemoglobin 30.3 pg (27.0-33.0); Mean Corpuscular Volume 88.7 fL (80.0-98.0); Mean Platelet Volume 9.9 fL (9.4-12.3); Monocytes Percent Auto 0.7 % (2-11); Neutrophils Absolute Auto 5.4 x10*3/uL (2.0-8.3); Neutrophils Percent Auto 91.2 % (45-73); Platelet Count 297 X10*3/uL (160-400); Red Blood Count 4.35 X10*6/uL (4.20-5.50); Red Cell Distribution Width 12.7 % (11.0-16.0); SCAN SMEAR FLAG 1; White Blood Count 5.9 X10*3/uL (4.8-10.8)
[2023-12-27 05:53] LABS: Anion Gap 15 (12-20); Blood Urea Nitrogen 14 mg/dL (9-16); Calcium 9.5 mg/dL (8.4-10.2); Carbon Dioxide 25 mmol/L (22-29); Chloride 102 mmol/L (96-108); Creatinine Clr Calc Pharmacy 76.2; Estimated Glomerular Filt Rate > 60; Glucose Random 165 mg/dL (60-115); Sodium 138 mmol/L (135-145)
[2023-12-27 05:59] LABS: SLIDE REVIEW VERIFIED
[2023-12-27] MEDS: Omeprazole 20 MG CAPSULE.DR PO (06:00)
[2023-12-27 07:29] VITALS: BP 173/94; PULSE 91; RESP 20; TEMP 36.2; O2SAT 93
[2023-12-27] MEDS: 0.9 % Sodium Chloride Flush 3 ML SYRINGE IVFLUSH ×3 (09:00→21:04)
[2023-12-27] MEDS: Loratadine 10 MG TABLET PO (09:01)
[2023-12-27] MEDS: Heparin Sodium,Porcine 5,000 UNIT/ML VIAL 5000 UNIT SUBCUT ×2 (09:01→17:06)
--- NOTE | 2023-12-27 09:17 | HO.PM.IMPN ---
Subjective Subjective Date of Service: 12/27/23 Review of Systems Follow-up COPD exacerbation Still with dry cough No shortness a breath Physical Exam Vital Signs: Vital Signs: Last Vital Signs Temp 97.1 F 12/27/23 07:29 Pulse 91 12/27/23 07:29 Resp 20 12/27/23 07:29 BP 173/94 H 12/27/23 07:29 Pulse Ox 93 12/27/23 07:29 O2 Del Method Room Air 12/27/23 07:29 BMI result Body Mass Index 29.2 Appearing in no acute distress lung sounds expiratory wheezing heart regular rate rhythm, clear S1, S2 positive bowel sounds, abdomen is soft, nontender neuro patient is alert x3, no focal deficits Objective Data Active Medications Acetaminophen (Acetaminophen 325 Mg Tablet) 650 mg PO Q6H PRN PRN Reason: Pain, Mild (Pain Scale 1-3) Albuterol Sulfate (Albuterol Sulfate 90 Mcg 8 Gm Inhaler) 4 puff INHALE Q3H PRN PRN Reason: Shortness of Breath/Wheezing Heparin Sodium (Porcine) (Heparin Sodium,Porcine 5,000 Unit/Ml Vial) 5,000 unit SUBCUT Q8H [facility] Last Admin: 12/27/23 09:01 Dose: 5,000 unit Documented By: NELIA Azithromycin 500 mg/ Sodium (Chloride) 250 mls @ 125 mls/hr IV Q24H [facility] Last Infusion: 12/27/23 04:02 Dose: Infused Documented By: CHASE Loratadine (Loratadine 10 Mg Tablet) 10 mg PO DAILY [facility] Last Admin: 12/27/23 09:01 Dose: 10 mg Documented By: NELIA Methylprednisolone Sodium Succinate (Methylprednisolone Sod Succ 40 Mg/Ml Vial) 40 mg IVPUSH Q8H [facility] Last Admin: 12/27/23 09:01 Dose: 40 mg Documented By: NELIA Omeprazole (Omeprazole 20 Mg Capsule.) 20 mg PO DAILY@0630 [facility] Last Admin: 12/27/23 06:00 Dose: 20 mg Documented By: CHASE Sodium Chloride (0.9 % Sodium Chloride Flush 3 Ml Syringe) 3 ml IVFLUSH QSHIFT [facility] Last Admin: 12/27/23 09:00 Dose: 3 ml Documented By: NELIA Labs 12/27/23 05:09 12/27/23 05:09 Labs: Laboratory Results - last 24 hr 12/26/23 12/26/23 12/26/23 18:02 18:14 21:27 MCV 88.7 MCH 30.2 MCHC 34.1 RDW 13.0 Plt Count 303 MPV 9.7 Immature Gran % (Auto) 0.5 H Neut % (Auto) 75.0 H Lymph % (Auto) 17.5 L Pender % (Auto) 5.4 Eos % (Auto) 1.4 Baso % (Auto) 0.2 Lymph # (Auto) 1.7 Pender # (Auto) 0.5 Eos # (Auto) 0.1 Baso # (Auto) 0.0 Abs Immat Gran (auto) 0.05 H Absolute Neuts (auto) 7.1 Absolute Nucleated RBC 0.000 Nucleated RBC % (auto) 0.0 Smear Tech's Comments Anion Gap 12 Estim Creat Clear Calc 67.0 Estimated GFR > 60 Random Glucose 95 Lactic Acid 1.1 Calcium 9.7 Total Bilirubin 0.6 Direct Bilirubin 0.2 AST 23 ALT 31 Alkaline Phosphatase 89 Troponin I High Sens < 2.7 B-Natriuretic Peptide 20 Total Protein 7.8 Albumin 3.9 Urine Color Yellow Urine Appearance Clear Urine pH 8.0 Ur Specific [place] <= 1.005 Urine Protein Negative Urine Glucose (UA) Negative Urine Ketones Trace Urine Blood Negative Urine Nitrite Negative Ur Leukocyte Esterase Negative Urine RBC 0-2 Urine WBC 0-5 Ur Squamous Epith Cells 0-2 Urine Bacteria None Seen Hyaline Casts 0-2 Influenza Type A (PCR) POSITIVE A Influenza Type B (PCR) NEGATIVE RSV RNA Qual (PCR) NEGATIVE SARS-CoV-2 RNA (RT-PCR) NEGATIVE 12/27/23 05:09 MCV 88.7 MCH 30.3 MCHC 34.2 RDW 12.7 Plt Count 297 MPV 9.9 Immature Gran % (Auto) 0.3 Neut % (Auto) 91.2 H Lymph % (Auto) 7.8 L Pender % (Auto) 0.7 L Eos % (Auto) 0.0 Baso % (Auto) 0.0 Lymph # (Auto) 0.5 L Pender # (Auto) 0.0 L Eos # (Auto) 0.0 Baso # (Auto) 0.0 Abs Immat Gran (auto) 0.02 Absolute Neuts (auto) 5.4 Absolute Nucleated RBC 0.000 Nucleated RBC % (auto) 0.0 Smear Tech's Comments VERIFIED Anion Gap 15 Estim Creat Clear Calc 76.2 Estimated GFR > 60 Random Glucose 165 H Lactic Acid Calcium 9.5 Total Bilirubin Direct Bilirubin AST ALT Alkaline Phosphatase Troponin I High Sens B-Natriuretic Peptide Total Protein Albumin Urine Color Urine Appearance Urine pH Ur Specific [place] Urine Protein Urine Glucose (UA) Urine Ketones Urine Blood Urine Nitrite Ur Leukocyte Esterase Urine RBC Urine WBC Ur Squamous Epith Cells Urine Bacteria Hyaline Casts Influenza Type A (PCR) Influenza Type B (PCR) RSV RNA Qual (PCR) SARS-CoV-2 RNA (RT-PCR) Assessment and Plan (1) Acute exacerbation of COPD with asthma: Status: Acute Plan 63-year-old woman admitted with acute COPD exacerbation Acute COPD exacerbation IV Solu-Medrol DuoNebs every 4 hours while awake Supplemental oxygen as needed to keep oxygen saturation greater than 90% Empiric azithromycin History of substance abuse disorder Continue methadone, patient reports 90 mg in the morning and 20 mg at nighttime GERD Continue PPI DVT prophylaxis with heparin Attending Dr. Dunbar Full code Patient will require at least 48 hours for treatment of acute COPD exacerbation requiring IV steroids and scheduled DuoNebs that could not be done at a lesser acute setting due to risk for acute decompensation with history of COPD. Quality Stroke Does the patient have a stroke diagnosis?: No VTE Prior VTE?: No VTE Risk Level:: Medical - moderate - high VTE Device Contraindication: Treatment Not Indicated VTE Drug Contraindication: N/A - Med Ordered
--- NOTE | 2023-12-27 09:29 | MHC.CM.PN ---
CM met with Patient at bedside. Home/resume Methadone is the goal and CM has initiated and will follow for dc planning. 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 PCP is Dr. Vitor Cox and the HCP is /Angela @ [phone]. Initialized on 12/27/23 09:26 - END OF NOTE
[2023-12-27 10:55] VITALS: BP 154/76; PULSE 75; RESP 19; TEMP 36.3; O2SAT 90
--- NOTE | 2023-12-27 11:51 | HE.PHANOTE ---
RE: methadone [facility] confirmed last dose given 12/24/23; patient takes 90mg AM and 20mg PM. Given 5 take home bottles at last visit
[2023-12-27] MEDS: methADONE HCl 20 MG/2 ML ORAL.CONC 90 MG PO (12:38)
[2023-12-27 15:38] VITALS: BP 137/67; PULSE 66; RESP 20; TEMP 36.1; O2SAT 92
[2023-12-27 19:13] VITALS: BP 153/64; PULSE 67; RESP 18; TEMP 36.6; O2SAT 94
[2023-12-27] MEDS: methADONE HCl 20 MG/2 ML ORAL.CONC PO (21:00)
[2023-12-27] MEDS: Azithromycin 500 MG in 0.9 % Sodium Chloride 250 ML 125 MG IV (21:01)
[2023-12-27 23:11] VITALS: BP 152/67; PULSE 64; RESP 16; TEMP 36.6; O2SAT 95
[2023-12-27] MEDS: Albuterol Sulfate 90 MCG 8 GM INHALER 4 PUFF INHALE (23:21)
[2023-12-28] VITALS (7 sets, daily range): BP systolic 138–159; BP diastolic 71–88; PULSE 59–78; RESP 16–20; TEMP 36–36.9; O2SAT 90–95
[2023-12-28] MEDS: Heparin Sodium,Porcine 5,000 UNIT/ML VIAL 5000 UNIT SUBCUT ×3 (01:33→16:23)
[2023-12-28] MEDS: methylPREDNISolone Sod Succ 40 MG/ML VIAL IVPUSH ×3 (01:33→16:23)
[2023-12-28] MEDS: Omeprazole 20 MG CAPSULE.DR PO (05:35)
--- NOTE | 2023-12-28 09:42 | P.PNIM_ITS ---
Subjective Subjective Date of Service: 12/28/23 Review of Systems Follow-up COPD exacerbation Still with dry cough No shortness a breath Physical Exam 2 Vital Signs: Vital Signs: Last Vital Signs Temp 97.7 F 12/28/23 08:00 Pulse 78 12/28/23 08:00 Resp 18 12/28/23 08:00 BP 157/88 H 12/28/23 08:00 Pulse Ox 95 12/28/23 08:00 O2 Del Method Room Air 12/28/23 08:00 BMI result Body Mass Index 29.2 Appearing in no acute distress lung sounds are clear to auscultation heart regular rate rhythm, clear S1, S2 positive bowel sounds, abdomen is soft, nontender neuro patient is alert x3, no focal deficits Objective Data Active Medications Acetaminophen (Acetaminophen 325 Mg Tablet) 650 mg PO Q6H PRN PRN Reason: Pain, Mild (Pain Scale 1-3) Acetaminophen (Acetaminophen 325 Mg Tablet) 650 mg PO Q6H PRN PRN Reason: headache Albuterol Sulfate (Albuterol Sulfate 90 Mcg 8 Gm Inhaler) 4 puff INHALE Q3H PRN PRN Reason: Shortness of Breath/Wheezing Last Admin: 12/27/23 23:21 Dose: 4 puff Documented By: CELINE Heparin Sodium (Porcine) (Heparin Sodium,Porcine 5,000 Unit/Ml Vial) 5,000 unit SUBCUT Q8H [facility] Last Admin: 12/28/23 01:33 Dose: 5,000 unit Documented By: CELINE Azithromycin 500 mg/ Sodium (Chloride) 250 mls @ 125 mls/hr IV Q24H [facility] Last Infusion: 12/28/23 01:32 Dose: Infused Documented By: CELINE Loratadine (Loratadine 10 Mg Tablet) 10 mg PO DAILY [facility] Last Admin: 12/27/23 09:01 Dose: 10 mg Documented By: NELIA Methadone HCl (Methadone Hcl 20 Mg/2 Ml Oral.Conc) 20 mg PO BEDTIME [facility] Last Admin: 12/27/23 21:00 Dose: 20 mg Documented By: CELINE Methadone HCl (Methadone Hcl 20 Mg/2 Ml Oral.Conc) 90 mg PO DAILY [facility] Last Admin: 12/27/23 12:38 Dose: 90 mg Documented By: NELIA Methylprednisolone Sodium Succinate (Methylprednisolone Sod Succ 40 Mg/Ml Vial) 40 mg IVPUSH Q8H [facility] Last Admin: 12/28/23 01:33 Dose: 40 mg Documented By: CELINE Omeprazole (Omeprazole 20 Mg Capsule.) 20 mg PO DAILY@0630 [facility] Last Admin: 12/28/23 05:35 Dose: 20 mg Documented By: CELINE Polyethylene Glycol (Polyethylene Glycol 3350 17 Gm Powd.Pack) 17 gm PO DAILY PRN PRN Reason: Constipation Sodium Chloride (0.9 % Sodium Chloride Flush 3 Ml Syringe) 3 ml IVFLUSH QSHIFT [facility] Last Admin: 12/27/23 21:04 Dose: 3 ml Documented By: CELINE Vitamin D (Cholecalciferol (Vitamin D3) 25 Mcg Tablet) 50 mcg PO DAILY [facility] Labs 12/27/23 05:09 12/27/23 05:09 Microbiology Microbiology Results: Microbiology 12/26/23 18:14 Blood Culture - Preliminary Blood - Venous No growth after 24 hours. 12/26/23 18:02 Blood Culture - Preliminary Blood - Venous No growth after 24 hours. Assessment and Plan (1) Acute exacerbation of COPD with asthma: Status: Acute Plan 63-year-old woman admitted with acute COPD exacerbation Acute COPD exacerbation IV Solu-Medrol DuoNebs every 4 hours while awake Supplemental oxygen as needed to keep oxygen saturation greater than 90% Empiric azithromycin mucinex for dry cough History of substance abuse disorder Continue methadone, patient reports 90 mg in the morning and 20 mg at nighttime GERD Continue PPI DVT prophylaxis with heparin Attending Dr. Dunbar Full code continue hospital stay for treatment of acute COPD exacerbation requiring IV steroids and scheduled DuoNebs that could not be done at a lesser acute setting due to risk for acute decompensation with history of COPD. Quality Stroke Does the patient have a stroke diagnosis?: No VTE Prior VTE?: No VTE Risk Level:: Medical - moderate - high VTE Device Contraindication: Treatment Not Indicated VTE Drug Contraindication: N/A - Med Ordered
[2023-12-28] MEDS: Loratadine 10 MG TABLET PO (09:44)
[2023-12-28] MEDS: Cholecalciferol (Vitamin D3) 25 MCG TABLET 50 MCG PO (09:44)
[2023-12-28] MEDS: methADONE HCl 20 MG/2 ML ORAL.CONC 90 MG PO (09:46)
[2023-12-28] MEDS: 0.9 % Sodium Chloride Flush 3 ML SYRINGE IVFLUSH ×3 (09:48→22:07)
[2023-12-28] MEDS: guaiFENesin LA 600 MG TAB.ER.12H PO ×2 (09:54→22:07)
[2023-12-28] MEDS: polyethylene glycoL 3350 17 GM POWD.PACK PO (13:22)
[2023-12-28] MEDS: Albuterol Sulfate 90 MCG 8 GM INHALER 4 PUFF INHALE (22:05)
[2023-12-28] MEDS: methADONE HCl 20 MG/2 ML ORAL.CONC PO (22:07)
[2023-12-28] MEDS: Azithromycin 500 MG in 0.9 % Sodium Chloride 250 ML 125 MG IV (22:08)
[2023-12-29] VITALS (7 sets, daily range): BP systolic 148–171; BP diastolic 78–99; PULSE 60–74; RESP 16–20; TEMP 35.7–36.4; O2SAT 92–94
[2023-12-29] MEDS: Heparin Sodium,Porcine 5,000 UNIT/ML VIAL 5000 UNIT SUBCUT ×3 (01:08→17:38)
[2023-12-29] MEDS: methylPREDNISolone Sod Succ 40 MG/ML VIAL IVPUSH ×3 (01:08→17:39)
[2023-12-29] MEDS: Albuterol Sulfate 90 MCG 8 GM INHALER 4 PUFF INHALE ×4 (03:21→19:24)
[2023-12-29] MEDS: Omeprazole 20 MG CAPSULE.DR PO (06:47)
--- NOTE | 2023-12-29 07:00 | CA_ITS ---
Transthoracic Echocardiogram Patient (Last, First, Middle): Mayra Moreno I Gender: Female Date of : 1960 Age: 63 Procedure Date: 12/29/2023 Procedure Type: Transthoracic E[place] [facility] [place]: 152.4 cm Weight: 67.59 kg BSA: 1.65 m2 Heart Rate: 69 bpm BP: 171 / 89 mmHg Film Processor: IKE Referring MD: Jojo ABREU Government Affairs Researcher: Yuniel Myers MD Symptoms: sob ?CHF Study Quality: Technically Difficult ECG Rhythm: Sinus Conclusions: - 1. Technically difficult study despite use of contrast 80 2. Normal LV ejection fraction of 60 65% with normal diastolic filling pattern 3. Limited visualization of cardiac valve with normal cardiac valvular Doppler Findings Procedure Information Contrast agent, definity, is being given per protocol without apparent complications. Left Ventricle Normal left ventricular size, thickness, and systolic function. The visually estimated ejection fraction is between 65-70%. Spectral Doppler is indicative of a normal filling pattern. Right Ventricle The right ventricle was not well visualized. Atria The left atrium is normal in size. There is no evidence of interatrial shunt. The right atrium was not well visualized. Aortic Valve The aortic valve was not well visualized. There is no aortic valve stenosis. There is no aortic valve regurgitation. Mitral Valve The mitral valve was not well visualized. There is no mitral valve regurgitation. There is no mitral valve stenosis. Pulmonic Valve The pulmonic valve was not well visualized. Tricuspid Valve The tricuspid valve was not well visualized. Tricuspid regurgitation envelope is inadequate for calculation of right ventricular systolic pressure. Great Vessels The pulmonary artery was not well visualized. There is no dilatation of the ascending aorta measuring 2.70 cm. Venous The inferior vena cava is normal in size. Pericardium/Pleural The pericardium was not well visualized. Prior Study Comparison No prior study available for comparison. Measurements 2D Linear Measurements IVSd: 0.78 0.6-0.9/0.6-1.0 cm LVIDd: 4.76 3.9-5.3/4.2-5.9 cm LVIDd Index: 2.88 2.4-3.2/2.2-3.1 cm/m2 LVIDs: 3.19 2.0-3.6 cm LVPWd: 0.75 0.7-1.1 cm LA Diam: 3.20 2.7-3.8/3.0-4.0 cm LAIDs Index: 1.94 1.5-2.3 cm/m2 LV Mass: 146.77 67-162/88-224 g LV Mass Index: 88.95 43-95/49-115 g/m2 LVOT Diam: 2.00 3.0+(-)1.3 cm 2D Systolic Function EF 4C: 68.10 >55% EF 2C: 66.10 >55% EF BiP: 66.60 >55% Mitral Valve MV Pk E: 0.85 MV PK A: 0.81 MV Decel Time: 167.00 E/A: 1.10 E'Lateral: 9.79 E'Medial: 6.53 E/E' Med: 13.00 E/E' Lat: 8.70 PHT: 49.00 MVA PHT: 4.49 Decel [place]: 5.07 Aortic Valve AoV Pk Garcia: 1.33 AoV Pk Grad: 7.00 SUELLEN: 2.25 LVOT LVOT Pk Garcia: 0.95 LVOT Mn Garcia: 0.58 LVOT VTI: 0.18 LVOT Pk Grad: 4.00 LVOT Mn Grad: 2.00 LVOT Diam: 2.00 LVOT Area: 3.14 Diastolic Function MV Pk E: 0.85 MV Pk A: 0.81 E/A: 1.10 E'Medial: 6.53 E/E' Med: 13.00 E' Laterial: 9.79 E/E' Lat: 8.70 Right Ventricle TAPSE (mm): 23.00 TVS' Garcia: 10.10 Tricuspid Valve RA Press: 3.00 Great Vessels Aorta Sinus of Valsalva: 2.80 2.0-3.5 cm Ao Asc: 2.70 2.1-3.4 cm Updated in Other Vendor System with Status of Final Yuniel Myers MD electronically signed on 12/29/2023 2:59:52 PM with status of Final
[2023-12-29] MEDS: methADONE HCl 20 MG/2 ML ORAL.CONC 90 MG PO (09:05)
[2023-12-29] MEDS: Cholecalciferol (Vitamin D3) 25 MCG TABLET 50 MCG PO (09:06)
[2023-12-29] MEDS: Loratadine 10 MG TABLET PO (09:06)
[2023-12-29] MEDS: guaiFENesin LA 600 MG TAB.ER.12H PO ×2 (09:06→21:39)
[2023-12-29] MEDS: 0.9 % Sodium Chloride Flush 3 ML SYRINGE IVFLUSH ×3 (09:07→21:40)
[2023-12-29] MEDS: Benzonatate 100 MG CAPSULE PO ×3 (10:29→21:39)
--- NOTE | 2023-12-29 11:59 | P.PNIM_ITS ---
Subjective Subjective Date of Service: 12/29/23 Interval History: Seen and examined this morning Follow-up for COPD exacerbation Still reporting dyspnea with exertion and at rest., ongoing cough No fever or chills Review of Systems Review of Systems: Yes all other systems are reviewed and are negative Constitutional Constitutional: Denies chills and Denies fever(s) Cardiovascular Cardiovascular: Denies chest pain and Reports dyspnea on exertion Respiratory Respiratory: Reports cough and Reports dyspnea on exertion Physical Exam 2 Vital Signs: Vital Signs: Last Vital Signs Temp 97.2 F 12/29/23 07:45 Pulse 60 12/29/23 07:45 Resp 20 12/29/23 07:45 BP 171/81 H 12/29/23 07:45 Pulse Ox 92 12/29/23 07:45 O2 Del Method Room Air 12/29/23 07:45 BMI result Body Mass Index 29.2 Const: General: cooperative, comfortable, alert and awake Nutritional Appearance: average body habitus Orientation/consciousness: patient oriented x3 Resp: Other: basilar crackles Effort & Inspection: normal respiratory effort, able to speak in complete sentences, no respiratory distress and no use of accessory muscles Cardio: Rate: regular rate GI: Inspection: No distended Palpation (GI): Soft to palpation and nontender Neuro: General: patient oriented x3, moves all extremities and CN's II-XI intact bilaterally Extrem: General: Yes no pedal edema Objective Data Active Medications Acetaminophen (Acetaminophen 325 Mg Tablet) 650 mg PO Q6H PRN PRN Reason: Pain, Mild (Pain Scale 1-3) Acetaminophen (Acetaminophen 325 Mg Tablet) 650 mg PO Q6H PRN PRN Reason: headache Albuterol Sulfate (Albuterol Sulfate 90 Mcg 8 Gm Inhaler) 4 puff INHALE Q3H PRN PRN Reason: Shortness of Breath/Wheezing Last Admin: 12/29/23 09:12 Dose: 4 puff Documented By: ALANNAH Benzonatate (Benzonatate 100 Mg Capsule) 100 mg PO TID [facility] Last Admin: 12/29/23 10:29 Dose: 100 mg Documented By: ALANNAH Guaifenesin (Guaifenesin La 600 Mg Tab.Er.12h) 600 mg PO BID [facility] Last Admin: 12/29/23 09:06 Dose: 600 mg Documented By: ALANNAH Heparin Sodium (Porcine) (Heparin Sodium,Porcine 5,000 Unit/Ml Vial) 5,000 unit SUBCUT Q8H [facility] Last Admin: 12/29/23 09:05 Dose: 5,000 unit Documented By: ALANNAH Azithromycin 500 mg/ Sodium (Chloride) 250 mls @ 125 mls/hr IV Q24H [facility] Last Infusion: 12/29/23 00:25 Dose: Infused Documented By: CELINE Loratadine (Loratadine 10 Mg Tablet) 10 mg PO DAILY [facility] Last Admin: 12/29/23 09:06 Dose: 10 mg Documented By: ALANNAH Methadone HCl (Methadone Hcl 20 Mg/2 Ml Oral.Conc) 20 mg PO BEDTIME [facility] Last Admin: 12/28/23 22:07 Dose: 20 mg Documented By: CELINE Methadone HCl (Methadone Hcl 20 Mg/2 Ml Oral.Conc) 90 mg PO DAILY [facility] Last Admin: 12/29/23 09:05 Dose: 90 mg Documented By: ALANNAH Methylprednisolone Sodium Succinate (Methylprednisolone Sod Succ 40 Mg/Ml Vial) 40 mg IVPUSH Q8H [facility] Last Admin: 12/29/23 09:06 Dose: 40 mg Documented By: ALANNAH Omeprazole (Omeprazole 20 Mg Capsule.Dr) 20 mg PO DAILY@0630 [facility] Last Admin: 12/29/23 06:47 Dose: 20 mg Documented By: CELINE Polyethylene Glycol (Polyethylene Glycol 3350 17 Gm Powd.Pack) 17 gm PO DAILY PRN PRN Reason: Constipation Last Admin: 12/28/23 13:22 Dose: 17 gm Documented By: ENRRIQUE Sodium Chloride (0.9 % Sodium Chloride Flush 3 Ml Syringe) 3 ml IVFLUSH QSHIFT [facility] Last Admin: 12/29/23 09:07 Dose: 3 ml Documented By: ALANNAH Vitamin D (Cholecalciferol (Vitamin D3) 25 Mcg Tablet) 50 mcg PO DAILY [facility] Last Admin: 12/29/23 09:06 Dose: 50 mcg Documented By: ALANNAH Labs 12/27/23 05:09 12/27/23 05:09 Microbiology Microbiology Results: Microbiology 12/26/23 18:14 Blood Culture - Preliminary Blood - Venous No growth after 48 hours. 12/26/23 18:02 Blood Culture - Preliminary Blood - Venous No growth after 48 hours. Assessment and Plan (1) COPD (chronic obstructive pulmonary disease): Status: Acute Plan 63-year-old woman admitted with acute COPD exacerbation Acute COPD exacerbation continue IV Solu-Medrol, breathing treatments Not requiring supplemental oxygen continue Empiric azithromycin for possible bronchitis cxr negative for pneumonia This is 3rd admission in the past few weeks for dyspnea. Will check echocardiogram and CTA to rule out alternative causes of dyspnea History of substance abuse disorder Continue methadone, patient reports 90 mg in the morning and 20 mg at nighttime GERD Continue PPI DVT prophylaxis with heparin Attending Dr. Dunbar Full code continue hospital stay for treatment of acute COPD exacerbation requiring IV steroids and scheduled DuoNebs that could not be done at a lesser acute setting due to risk for acute decompensation with history of COPD. Quality Stroke Does the patient have a stroke diagnosis?: No VTE Prior VTE?: No VTE Risk Level:: Medical - moderate - high VTE Device Contraindication: Treatment Not Indicated VTE Drug Contraindication: N/A - Med Ordered
[2023-12-29] MEDS: iohexoL 350 MG/ML 100 ML INFUS..BTL IV (18:05)
[2023-12-29] MEDS: Azithromycin 500 MG in 0.9 % Sodium Chloride 250 ML 125 MG IV (21:39)
[2023-12-29] MEDS: methADONE HCl 20 MG/2 ML ORAL.CONC PO (21:39)
[2023-12-30] VITALS (7 sets, daily range): BP systolic 150–197; BP diastolic 68–89; PULSE 57–71; RESP 16–20; TEMP 36–37.1; O2SAT 93–95
[2023-12-30] MEDS: methylPREDNISolone Sod Succ 40 MG/ML VIAL IVPUSH ×3 (01:30→20:45)
[2023-12-30] MEDS: Heparin Sodium,Porcine 5,000 UNIT/ML VIAL 5000 UNIT SUBCUT ×3 (01:30→18:24)
[2023-12-30] MEDS: Acetaminophen 325 MG TABLET 650 MG PO (01:33)
[2023-12-30] MEDS: Omeprazole 20 MG CAPSULE.DR PO (05:33)
[2023-12-30] MEDS: 0.9 % Sodium Chloride Flush 3 ML SYRINGE IVFLUSH ×3 (09:12→21:01)
[2023-12-30] MEDS: Loratadine 10 MG TABLET PO (09:12)
[2023-12-30] MEDS: Albuterol Sulfate 90 MCG 8 GM INHALER 4 PUFF INHALE ×2 (09:12→20:47)
[2023-12-30] MEDS: guaiFENesin LA 600 MG TAB.ER.12H PO (09:12)
[2023-12-30] MEDS: Cholecalciferol (Vitamin D3) 25 MCG TABLET 50 MCG PO (09:12)
[2023-12-30] MEDS: methADONE HCl 20 MG/2 ML ORAL.CONC 90 MG PO (09:13)
[2023-12-30] MEDS: Benzonatate 100 MG CAPSULE PO ×3 (09:13→21:01)
--- NOTE | 2023-12-30 09:17 | P.CONPL_ITS ---
History of Present Illness History of Present Illness Consult date: 12/30/23 Chief complaint: acute copd exacerbation Narrative: This is an in patient pulmonary consultation. The patient is a 63 years old woman with past medical history significant for COPD -not on home O2, substance abuse on methadone and GERD presents to the emergency department complaining of shortness on breath over the last 2 days associated with wheezing and cough. She was recently discharged from the hospital (December 20) after she was admitted with COPD exacerbation secondary to influenza a infection. She complained of associated chest tightness. She denied any headache, sore throat, fever, chills, palpitations or dizziness. She denied any acute gastrointestinal or genitourinary symptoms. She did have a CT chest which I personally reviewed with GGO in the upper lung zones and mid and less in the lower lobes. Review of Systems 2 Review of Systems: Yes all other systems are reviewed and are negative Constitutional: Constitutional: Reports no additional constitutional complaints Eyes: Eyes: Reports no additional eye complaints ENT: Reports system reviewed and no additional complaints, except as documented Cardiovascular: Cardiovascular: Reports no additional cardiovascular complaints and Reports dyspnea Respiratory: Respiratory: Reports as per HPI, Reports cough, Reports dyspnea and Reports wheezing Gastrointestinal: Gastrointestinal: Denies diarrhea, Denies nausea and Denies vomiting Musculoskeletal: Musculoskeletal: Reports back pain and Reports myalgias Integumentary/Breasts: Skin/Breast: Reports system reviewed and no additional complaints, except as docu Neurologic: Reports system reviewed and no additional complaints, except as documented Psychiatric: Psychiatric: Reports no additional psychiatric complaints Endocrine: Endocrine: Reports no additional endocrine complaints Hematologic/Lymphatic: Hematologic/Lymphatic: Denies lymphadenopathy Allergic/Immunologic: Allergic/Immunologic: Reports wheezing PMFSH Past Medical History Medical History (Updated 12/30/23 @ 09:29 by Michael Moreno MD) Pneumonitis COPD (chronic obstructive pulmonary disease) Dyspnea on exertion GERD (gastroesophageal reflux disease) Mixed incontinence urge and stress Obesity (BMI 30-39.9) History of substance abuse Constipation Osteopenia Vitamin D deficiency History of hepatitis C COPD (chronic obstructive pulmonary disease) Smoker Bronchitis Family History Family History Father Stroke Hypertension Diabetes Heart problem Mother Diabetes Brother Diabetes Sister In good health Surgical History Surgical History History of tubal ligation Social History Social History Household Members: Family Household Members Other:: niece Housing: House Do you presently have visiting nurse or other home services: No Alcohol intake: former Patient Tobacco Use Status: Former Tobacco user Tobacco use type: Cigarette Cigarettes Per Day: 6 e-Cigarette/Vaping Use: Never Used Second Hand Smoke Exposure: No Substance Use Type: Marijuana service: No Current occupational status: employed Cognitive needs: No Hearing needs: No Vision needs: Yes Meds Allergies Allergy/AdvReac Type Severity Reaction Status Date / Time bee pollen [BEE STINGS] Allergy Unknown SWELLING - Verified 12/18/23 04:40 BLOTCHES macrobid Allergy Intermediate Vomiting Uncoded 12/18/23 04:40 Active Medications: Current Medications Acetaminophen (Acetaminophen 325 Mg Tablet) 650 mg PO Q6H PRN PRN Reason: Pain, Mild (Pain Scale 1-3) Last Admin: 12/30/23 01:33 Dose: 650 mg Acetaminophen (Acetaminophen 325 Mg Tablet) 650 mg PO Q6H PRN PRN Reason: headache Albuterol Sulfate (Albuterol Sulfate 90 Mcg 8 Gm Inhaler) 4 puff INHALE Q3H PRN PRN Reason: Shortness of Breath/Wheezing Last Admin: 12/30/23 09:12 Dose: 4 puff Amlodipine Besylate (Amlodipine Besylate 5 Mg Tablet) 5 mg PO DAILY [facility]; Protocol Benzonatate (Benzonatate 100 Mg Capsule) 100 mg PO TID [facility] Last Admin: 12/30/23 09:13 Dose: 100 mg Guaifenesin (Guaifenesin La 600 Mg Tab.Er.12h) 600 mg PO BID [facility] Last Admin: 12/30/23 09:12 Dose: 600 mg Heparin Sodium (Porcine) (Heparin Sodium,Porcine 5,000 Unit/Ml Vial) 5,000 unit SUBCUT Q8H [facility] Last Admin: 12/30/23 09:12 Dose: 5,000 unit Azithromycin 500 mg/ Sodium (Chloride) 250 mls @ 125 mls/hr IV Q24H [facility] Last Infusion: 12/30/23 01:40 Dose: Infused Loratadine (Loratadine 10 Mg Tablet) 10 mg PO DAILY [facility] Last Admin: 12/30/23 09:12 Dose: 10 mg Methadone HCl (Methadone Hcl 20 Mg/2 Ml Oral.Conc) 20 mg PO BEDTIME [facility] Last Admin: 12/29/23 21:39 Dose: 20 mg Methadone HCl (Methadone Hcl 20 Mg/2 Ml Oral.Conc) 90 mg PO DAILY [facility] Last Admin: 12/30/23 09:13 Dose: 90 mg Methylprednisolone Sodium Succinate (Methylprednisolone Sod Succ 40 Mg/Ml Vial) 40 mg IVPUSH Q8H [facility] Last Admin: 12/30/23 09:12 Dose: 40 mg Omeprazole (Omeprazole 20 Mg Capsule.Dr) 20 mg PO DAILY@06 [facility] Last Admin: 12/30/23 05:33 Dose: 20 mg Polyethylene Glycol (Polyethylene Glycol 3350 17 Gm Powd.Pack) 17 gm PO DAILY PRN PRN Reason: Constipation Last Admin: 12/28/23 13:22 Dose: 17 gm Sodium Chloride (0.9 % Sodium Chloride Flush 3 Ml Syringe) 3 ml IVFLUSH QSHIFT [facility] Last Admin: 12/30/23 09:12 Dose: 3 ml Vitamin D (Cholecalciferol (Vitamin D3) 25 Mcg Tablet) 50 mcg PO DAILY [facility] Last Admin: 12/30/23 09:12 Dose: 50 mcg Home Medications ?Medication ?Instructions ?Recorded ?Confirmed ?Last Taken ?Type methadone 10 mg/5 mL oral solution 90 mg PO DAILY 07/01/22 12/27/23 12/24/23 History polyethylene glycol 3350 17 gram 17 g PO DAILY PRN Constipation 11/24/22 12/26/23 12/13/23 History oral powder packet (Miralax) albuterol sulfate 90 mcg/actuation 2 puff inhalation Q4H PRN 12/14/23 12/26/23 12/13/23 History aerosol inhaler shortness of breath or wheezing fluticasone propionate 115 2 puff inhalation BID wheezing 12/14/23 12/26/23 12/13/23 History mcg-salmeterol 21 mcg/actuation HFA inhaler (Advair HFA) methadone 10 mg/5 mL oral solution 20 mg PO BEDTIME 12/14/23 12/27/23 12/24/23 History omeprazole 20 mg capsule,delayed 20 mg PO DAILY@0630 12/18/23 12/26/23 Unknown History release Physical Exam 2 Vital Signs: Vital Signs: Last Vital Signs Temp 97.2 F 12/30/23 07:33 Pulse 57 12/30/23 07:33 Resp 20 12/30/23 07:33 BP 197/86 H 12/30/23 07:33 Pulse Ox 95 12/30/23 07:33 O2 Del Method Room Air 12/30/23 07:33 BMI result Body Mass Index 29.2 Const: General: cooperative, comfortable, alert and awake O rientation/consciousness: patient oriented x3 HEENT: Head: Yes normocephalic Neck: Neck: Yes supple Chest: Chest palpation & inspection: normal inspection of the chest Resp: Other: basilar crackles Effort & Inspection: normal respiratory effort Auscultation: rhonchi, wheezes and diminished lung sounds Cardio: Rate: regular rate Heart sounds: S1 normal heart sound present and S2 normal heart sound present GI: Palpation (GI): Soft to palpation Skin: General skin exam: no rashes or lesions noted Neuro: General: patient oriented x3, moves all extremities and CN's II-XI intact bilaterally Extrem: General: Yes no clubbing, cyanosis or edema Results Laboratory Findings 12/27/23 05:09 12/27/23 05:09 Abnormal lab findings: Abnormal Labs 12/26/23 12/26/23 12/27/23 18:02 18:14 05:09 Immature Gran % (Auto) 0.5 H Neut % (Auto) 75.0 H 91.2 H Lymph % (Auto) 17.5 L 7.8 L [place] % (Auto) 0.7 L Lymph # (Auto) 0.5 L [place] # (Auto) 0.0 L Abs Immat Gran (auto) 0.05 H Random Glucose 165 H Influenza Type A (PCR) POSITIVE A Microbiology: Microbiology 12/26/23 18:14 Blood - Venous Blood Culture - Preliminary No growth after 48 hours. 12/26/23 18:02 Blood - Venous Blood Culture - Preliminary No growth after 48 hours. Assessment and Plan (1) Acute exacerbation of COPD with asthma: Status: Acute (2) Influenza A: Status: Acute (3) Pneumonitis: Status: Acute Plan Solumedrol, then switch to po prednisone for a slow taper by 10mg every 3 days doxycycline x 21 days to treat for post viral staph lower respiratory infections nebs provided an aerobika for CPT Add mucinex bloodwork requested Procedures Date of Service Date of Service: 12/30/23
[2023-12-30 11:22] LABS: Erythrocyte Sedimentation Rate 29 MM/HR (0-20)
[2023-12-30] MEDS: guaiFENesin DM 600/30 1 TAB TAB.ER.12H 2 TAB PO ×2 (11:35→21:01)
[2023-12-30] MEDS: Doxycycline Monohydrate 100 MG CAPSULE PO ×2 (11:35→21:01)
[2023-12-30 12:02] LABS: Amphetamine Screen Urine Not Detected (Not Detect); Barbiturates, Urine Not Detected (Not Detect); Benzodiazepines Screen Urine Not Detected (Not Detect); Cannabinoid Screen Urine POSITIVE (Not Detect); Cocaine Screen Urine Not Detected (Not Detect); Fentanyl, urine POSITIVE (Not Detect); Opiate Screen Urine Not Detected (Not Detect); Phencyclidine Screen Urine Not Detected (Not Detect)
--- NOTE | 2023-12-30 12:19 | MHC.CM.PN ---
Patient is not yet medically cleared for dc (IV Solu Medrol);home is the goal and CM will continue to follow.
[2023-12-30] MEDS: amLODIPine Besylate 5 MG TABLET PO (13:20)
--- NOTE | 2023-12-30 15:28 | P.PNIM_ITS ---
Subjective Subjective Date of Service: 12/30/23 Interval History: seen and examined this morning follow up for copd exacerbation, HTN feeling better today Review of Systems Review of Systems: Yes all other systems are reviewed and are negative Constitutional Constitutional: Denies chills and Denies fever(s) Cardiovascular Cardiovascular: Denies chest pain, Denies palpitations and Denies dyspnea Respiratory Respiratory: Reports cough and Denies dyspnea Endocrine Endocrine: Denies palpitations Physical Exam 2 Vital Signs: Vital Signs: Last Vital Signs Temp 97.2 F 12/30/23 07:33 Pulse 57 12/30/23 07:33 Resp 20 12/30/23 07:33 BP 186/86 H 12/30/23 10:18 Pulse Ox 95 12/30/23 07:33 O2 Del Method Room Air 12/30/23 07:33 BMI result Body Mass Index 29.2 Const: General: cooperative, comfortable, alert and awake Nutritional Appearance: average body habitus Orientation/consciousness: patient oriented x3 Resp: Other: dim, right base dry crackles; rhonchi Effort & Inspection: normal respiratory effort, able to speak in complete sentences, no respiratory distress and no use of accessory muscles Cardio: Rate: regular rate GI: Inspection: No distended Palpation (GI): Soft to palpation and nontender Neuro: General: patient oriented x3, moves all extremities and CN's II-XI intact bilaterally Extrem: General: Yes no pedal edema Objective Data Active Medications Acetaminophen (Acetaminophen 325 Mg Tablet) 650 mg PO Q6H PRN PRN Reason: Pain, Mild (Pain Scale 1-3) Last Admin: 12/30/23 01:33 Dose: 650 mg Documented By: CELINE Acetaminophen (Acetaminophen 325 Mg Tablet) 650 mg PO Q6H PRN PRN Reason: headache Albuterol Sulfate (Albuterol Sulfate 90 Mcg 8 Gm Inhaler) 4 puff INHALE Q3H PRN PRN Reason: Shortness of Breath/Wheezing Last Admin: 12/30/23 09:12 Dose: 4 puff Documented By: ALANNAH Amlodipine Besylate (Amlodipine Besylate 10 Mg Tablet) 10 mg PO DAILY [facility]; Protocol Benzonatate (Benzonatate 100 Mg Capsule) 100 mg PO TID [facility] Last Admin: 12/30/23 13:20 Dose: 100 mg Documented By: ALANNAH Doxycycline Monohydrate (Doxycycline Monohydrate 100 Mg Capsule) 100 mg PO Q12H [facility] Last Admin: 12/30/23 11:35 Dose: 100 mg Documented By: ALANNAH Guaifenesin/Dextromethorphan (Guaifenesin Dm 600/30 1 Tab Tab.Er.12h) 2 tab PO BID [facility] Last Admin: 12/30/23 11:35 Dose: 2 tab Documented By: ALANNAH Heparin Sodium (Porcine) (Heparin Sodium,Porcine 5,000 Unit/Ml Vial) 5,000 unit SUBCUT Q8H [facility] Last Admin: 12/30/23 09:12 Dose: 5,000 unit Documented By: ALANNAH Loratadine (Loratadine 10 Mg Tablet) 10 mg PO DAILY [facility] Last Admin: 12/30/23 09:12 Dose: 10 mg Documented By: ALANNAH Methadone HCl (Methadone Hcl 20 Mg/2 Ml Oral.Conc) 20 mg PO BEDTIME [facility] Last Admin: 12/29/23 21:39 Dose: 20 mg Documented By: CELINE Methadone HCl (Methadone Hcl 20 Mg/2 Ml Oral.Conc) 90 mg PO DAILY [facility] Last Admin: 12/30/23 09:13 Dose: 90 mg Documented By: ALANNAH Methylprednisolone Sodium Succinate (Methylprednisolone Sod Succ 40 Mg/Ml Vial) 40 mg IVPUSH Q12H [facility] Omeprazole (Omeprazole 20 Mg Capsule.Dr) 20 mg PO DAILY@0630 [facility] Last Admin: 12/30/23 05:33 Dose: 20 mg Documented By: CELINE Polyethylene Glycol (Polyethylene Glycol 3350 17 Gm Powd.Pack) 17 gm PO DAILY PRN PRN Reason: Constipation Last Admin: 12/28/23 13:22 Dose: 17 gm Documented By: RIOSCHOLLY Sodium Chloride (0.9 % Sodium Chloride Flush 3 Ml Syringe) 3 ml IVFLUSH QSHIFT [facility] Last Admin: 12/30/23 09:12 Dose: 3 ml Documented By: ALANNAH Vitamin D (Cholecalciferol (Vitamin D3) 25 Mcg Tablet) 50 mcg PO DAILY [facility] Last Admin: 12/30/23 09:12 Dose: 50 mcg Documented By: ALANNAH Labs 12/27/23 05:09 12/27/23 05:09 Labs: Laboratory Results - last 24 hr 12/30/23 12/30/23 12/30/23 09:59 10:30 11:05 ESR 29 H Hold Purple Top SEE NOTE Hold Yellow Top See Note Urine Opiates Screen Urine Fentanyl Screen Ur Barbiturates Screen Ur Phencyclidine Scrn Ur Amphetamines Screen U Benzodiazepines Scrn Urine Cocaine Screen U Marijuana (THC) Screen 12/30/23 11:40 ESR Hold Purple Top Hold Yellow Top Urine Opiates Screen Not Detected Urine Fentanyl Screen POSITIVE H Ur Barbiturates Screen Not Detected Ur Phencyclidine Scrn Not Detected Ur Amphetamines Screen Not Detected U Benzodiazepines Scrn Not Detected Urine Cocaine Screen Not Detected U Marijuana (THC) Screen POSITIVE H Assessment and Plan (1) Pneumonitis: Status: Acute (2) COPD (chronic obstructive pulmonary disease): Status: Acute Plan This is a 63-year-old woman admitted with acute COPD exacerbation Acute COPD exacerbation continue IV Solu-Medrol, breathing treatments Not requiring supplemental oxygen continue Empiric azithromycin for possible bronchitis cxr negative for pneumonia This is 3rd admission in the past few weeks for dyspnea. echo ok, no evidence of chf cta showing groundglass opacities in both upper lobes and some patchy opacities in the left upper lobe and both lower lobes seen by pulm - rec change to doxy and treat 21 days for possible post viral staph pneumonia History of substance abuse disorder Continue methadone, patient reports 90 mg in the morning and 20 mg at nighttime HTN bp has been trending up not on bp meds at baseline given norvasc 10 mg and bp starting to improve GERD Continue PPI DVT prophylaxis with heparin Attending Dr. Dunbar Full code continue hospital stay for treatment of acute COPD exacerbation requiring IV steroids and scheduled DuoNebs that could not be done at a lesser acute setting due to risk for acute decompensation with history of COPD. Quality Stroke Does the patient have a stroke diagnosis?: No VTE Prior VTE?: No VTE Risk Level:: Medical - moderate - high VTE Device Contraindication: Treatment Not Indicated VTE Drug Contraindication: N/A - Med Ordered
[2023-12-30] MEDS: methADONE HCl 20 MG/2 ML ORAL.CONC PO (21:52)
[2023-12-31] MEDS: Acetaminophen 325 MG TABLET 650 MG PO (01:44)
[2023-12-31] MEDS: Heparin Sodium,Porcine 5,000 UNIT/ML VIAL 5000 UNIT SUBCUT ×2 (01:45→08:29)
[2023-12-31 03:43] VITALS: BP 172/61; PULSE 57; RESP 16; TEMP 36.8; O2SAT 93
[2023-12-31] MEDS: Omeprazole 20 MG CAPSULE.DR PO (04:56)
[2023-12-31 07:32] VITALS: BP 172/92; PULSE 57; RESP 20; TEMP 36.1; O2SAT 95
[2023-12-31] MEDS: Cholecalciferol (Vitamin D3) 25 MCG TABLET 50 MCG PO (08:28)
[2023-12-31] MEDS: methADONE HCl 20 MG/2 ML ORAL.CONC 90 MG PO (08:29)
[2023-12-31] MEDS: Benzonatate 100 MG CAPSULE PO (08:29)
[2023-12-31] MEDS: guaiFENesin DM 600/30 1 TAB TAB.ER.12H 2 TAB PO (08:29)
[2023-12-31] MEDS: Loratadine 10 MG TABLET PO (08:29)
[2023-12-31] MEDS: amLODIPine Besylate 10 MG TABLET PO (08:29)
[2023-12-31] MEDS: Doxycycline Monohydrate 100 MG CAPSULE PO (08:29)
[2023-12-31] MEDS: 0.9 % Sodium Chloride Flush 3 ML SYRINGE IVFLUSH (08:30)
[2023-12-31 10:14] LABS: HIV AB/AG Nonreactive (Nonreactive); HIV Num 1 0.11 S/CO (0.00-0.99)
[2023-12-31 11:28] VITALS: BP 152/88; PULSE 68; RESP 15; O2SAT 93
--- NOTE | 2023-12-31 12:12 | P.DS_ITS ---
DS: Providers Provider Date of Service: 12/31/23 Date of admission: 12/26/23 20:21 Date of discharge: 12/31/23 Primary care physician: Vitor Cox MD Consults: 12/30/23 07:36 Consult to Pulmonology Routine Consulting Provider: [facility] Reason for consultation: recent flu, COPD, abnormal CT Has provider been notified: No Attending physician on discharge: Ulices Key Discharging clinician: Jojo Ortega DS: Diagnosis Discharge Diagnosis (1) Pneumonitis: Status: Acute (2) COPD (chronic obstructive pulmonary disease): Status: Acute DS: Summary Hospital Course Hospital Course: From H&P on the day of admission Mayra Moreno is a 63 years old woman with past medical history significant for COPD -not on home O2, substance abuse on methadone and GERD presents to the emergency department complaining of shortness on breath over the last 2 days associated with wheezing and cough. She was recently discharged from the hospital (December 20) after she was admitted with COPD exacerbation secondary to influenza a infection. She complained of associated chest tightness. She denied any headache, sore throat, fever, chills, palpitations or dizziness. She denied any acute gastrointestinal or genitourinary symptoms. She denies ongoing tobacco smoking (quit one month ago), call abuse or illicit drug use. In the ED, she was found to have stable vital signs. She is currently requiring supplemental oxygen. Blood workup showed no leukocytosis, anemia or lactic acidosis. There are no electrolyte imbalances. Troponin is negative. BNP is 20. LFTs normal. admitted for Acute COPD exacerbation She was treated with IV systemic steroids and scheduled breathing treatments. Not requiring supplemental oxygen. Initially treated with Empiric azithromycin for possible bronchitis. cxr negative for pneumonia This is 3rd admission in the past few weeks for dyspnea and therefor echo and CTA were obtained to evaluate for alternative explanations to dyspnea. Echocardiogram shows no evidence of chf. cta showing groundglass opacities in both upper lobes and some patchy opacities in the left upper lobe and both lower lobes seen by pulmonology - recommended to change antibiotics to doxy and treat 21 days for possible post viral staph pneumonia Her breathing has improved as well as her cough, she is ambulating without shortness of breath. Blood cultures have remained negative and she is afebrile. 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 Further workup regarding her abnormal lung imaging is pending at the time of discharge. HTN bp has been trending up not on bp meds at baseline. Started on Norvasc 10 mg daily Time Attestation Discharge Coordination Time (in mins): 35 Quality: Safe Use of Opioids Does Pt have an Active Cancer Diagnosis on the Problem List?: No Quality: Stroke Does the patient have a stroke diagnosis?: No Physical Exam Vital Signs: Vital Signs: Last Vital Signs Temp 96.9 F 12/31/23 07:32 Pulse 68 12/31/23 11:28 Resp 15 12/31/23 11:28 BP 152/88 H 12/31/23 11:28 Pulse Ox 93 12/31/23 11:28 O2 Del Method Room Air 12/31/23 11:28 BMI result Body Mass Index 29.2 Const: General: cooperative, comfortable, alert and awake Nutritional Appearance: average body habitus Orientation/consciousness: patient oriented x3 Resp: Effort & Inspection: normal respiratory effort, able to speak in complete sentences, no respiratory distress and no use of accessory muscles Cardio: Rate: regular rate GI: Inspection: No distended Palpation (GI): Soft to palpation and nontender Neuro: General: patient oriented x3, moves all extremities and CN's II-XI intact bilaterally Extrem: General: Yes no pedal edema DS: Data Data Completed and Pending Labs on day of discharge: Laboratory Results - last 24 hr 12/30/23 14:04 HIV 1&2 Ab/P24 Ag 4thGn Nonreactive Preliminary micro results at discharge 12/26/23 18:14 Blood Culture - Preliminary Blood - Venous No growth after 48 hours. 12/26/23 18:02 Blood Culture - Preliminary Blood - Venous No growth after 48 hours. Discharge Plan Discharge Anticipated Discharge Date/Time: 12/31/23 12:17 Patient Disposition: Home, Self-Care Discharge Diagnosis: COPD pneumonitis HTN Referrals: Vitor Cox MD [Primary Care Provider] - 01/24/24 1:30 pm (You have an appointment schedule. If you can not make this appointment call the office to reschedule. ) Elver Arredondo MD [Physician] - 1 Week Discharge Medications: New doxycycline monohydrate 100 mg Capsule 100 mg PO Q12H 20 Days Qty: 40 0RF amlodipine 10 mg Tablet 10 mg PO DAILY 90 Days Qty: 90 0RF Protocol: Hold for SBP< HOLD for SBP < : 90 Mucus DM 30-600 mg Tablet Extended Release 12 Hr 2 tab PO BID Qty: 20 0RF prednisone 10 mg tablet See Taper PO DIRECTED Qty: 30 0RF Taper: Prednisone 40 mg daily for 3 Days and 0 Hour 30 mg daily for 3 Days and 0 Hour 20 mg daily for 3 Days and 0 Hour 10 mg daily for 3 Days and 0 Hour Rx Instructions: see taper instructions Continued methadone 10 mg/5 mL Solution 20 mg PO BEDTIME fluticasone propion-salmeterol [Advair HFA] 115-21 mcg/actuation HFA aerosol inhaler 2 puff INHALATION BID loratadine 10 mg Tablet 10 mg PO DAILY Qty: 10 0RF Rx Instructions: END DATE: 12/25/23 acetaminophen [Athenol] 325 mg tablet 650 mg PO Q6H PRN (Reason: headache) Qty: 10 0RF omeprazole 20 mg capsule,delayed release(DR/EC) 20 mg PO DAILY@0630 albuterol sulfate 90 mcg/actuation HFA aerosol inhaler 2 puff inhalation Q4H PRN (Reason: shortness of breath or wheezing) Qty: 6.7 1RF methadone 10 mg/5 mL solution 90 mg PO DAILY Patient Comments: Habit-OPCO epinephrine [EpiPen 2-Arthur] 0.3 mg/0.3 mL auto-injector 0.3 mg IM Q4H PRN (Reason: anaphylaxis) Qty: 2 0RF cholecalciferol (vitamin D3) 50 mcg (2,000 unit) capsule 50 mcg PO DAILY 90 Days Qty: 90 3RF polyethylene glycol 3350 [Miralax] 17 gram powder in packet 17 g PO DAILY PRN (Reason: Constipation) Discharge Orders: Discharge Order (Routine); Ordered 12/31/23 Ordered By: Jojo Ortega Activity on Discharge: As tolerated Stand Alone Forms: Patient Portal Discharge page Print Language: Korean Care Plan Goals: see below Health Concerns: COPD exacerbation Post influenza lower respiratory infection Pneumonitis Hypertension Plan of Treatment: Please complete course of antibiotics and steroids as prescribed. 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
--- NOTE | 2023-12-31 12:29 | MHC.CM.PN ---
PT TO DC HOME TODAY WITH RESUMPTION OF MMTP PT TO ARRANGE TRANSPORT
[2024-01-01 18:33] LABS: Immunoglobulin E 1370 kU/L (<OR=114)
[2024-01-02 11:43] LABS: Anti Nuclear Antibody Screen NEGATIVE (NEGATIVE)
[2024-01-02 21:03] LABS: Myeloperoxidase Antibody <1.0 AI; Proteinase 3 PR3 Antibodies <1.0 AI
[2024-01-03 16:54] LABS: Strep Pneumo Ag urine Not Detected (Not Detected)
[2024-01-04 03:44] LABS: Legionella Ag Urine Not Detected (Not Detected)
[2024-01-05 13:33] LABS: Asperg fumigatus Precip Abs NEGATIVE (NEGATIVE); Micropoly faeni Abs NEGATIVE (NEGATIVE); Pigeon serum Abs NEGATIVE (NEGATIVE); Saccharo pora viridis Abs NEGATIVE (NEGATIVE); Thermo candidus Abs NEGATIVE (NEGATIVE); Thermoa vulgaris #1 NEGATIVE (NEGATIVE)
== END 2023-12-31 14:08 | disposition home or self-care (01) | DRG 140 ==
LOC: HO.ED 19:54 → HO.EDOVER 20:27 → HO.IMC 20:33
PROVIDERS: Hospitalist; Admitting Provider Internal Medicine; Emergency Provider Emergency Medicine Emergency Medical Services; PCP Internal Medicine; Visit Provider Physician Assistant Medical
DX: J44.1 Chronic obstructive pulmonary disease with (acute) exacerbation (principal); J15.20 Pneumonia due to staphylococcus, unspecified; I10 Essential (primary) hypertension; J44.0 Chronic obstructive pulmonary disease with (acute) lower respiratory infection; F11.20 Opioid dependence, uncomplicated; K21.9 Gastro-esophageal reflux disease without esophagitis; Z20.822 Contact with and (suspected) exposure to COVID-19; Z87.891 Personal history of nicotine dependence; Z79.899 Other long term (current) drug therapy
CPT/HCPCS: 0241U; 36415; 71045; 71275; 80048; 80076; 80307; 81001; 82785; 83605; 83880; 84484; 85025; 85652; 86021; 86038; 86331; 86606; 86609; 87040; 87389; 87449; 87899; 93005; 93306; 94640; 99222; 99285; J0456; J1644; J2919; J2920; J2930; Q9957; Q9967

== ENCOUNTER → 2023-12-26 17:22 | Outpatient (BNV) | payer OTHER, SELFPAY | PROVIDERS: Admitting Provider Internal Medicine; Emergency Provider Emergency Medicine Emergency Medical Services; Visit Provider Internal Medicine Cardiovascular Disease | DX: R94.31 Abnormal electrocardiogram [ECG] [EKG] (principal) | CPT/HCPCS: 93010 ==

== ENCOUNTER 2023-12-26 20:21 | Outpatient (BNV) | payer OTHER, SELFPAY | END 2023-12-29 07:00 | PROVIDERS: Admitting Provider Internal Medicine; Emergency Provider Emergency Medicine Emergency Medical Services; PCP Internal Medicine; Visit Provider Internal Medicine Cardiovascular Disease | DX: R06.02 Shortness of breath (principal) | CPT/HCPCS: 93306 ==

== ENCOUNTER → 2023-12-26 20:21 | Outpatient (BNV) | payer OTHER, SELFPAY | PROVIDERS: Admitting Provider Internal Medicine; Emergency Provider Emergency Medicine Emergency Medical Services; PCP Internal Medicine; Visit Provider Hospitalist | DX: J44.1 Chronic obstructive pulmonary disease with (acute) exacerbation (principal); J45.901 Unspecified asthma with (acute) exacerbation; J10.1 Influenza due to other identified influenza virus with other respiratory manifestations; J98.4 Other disorders of lung | CPT/HCPCS: 99223 ==

== ENCOUNTER → 2023-12-26 20:21 | Outpatient (BNV) | payer OTHER, SELFPAY | PROVIDERS: Admitting Provider Internal Medicine; Emergency Provider Emergency Medicine Emergency Medical Services; Visit Provider Internal Medicine | DX: J44.9 Chronic obstructive pulmonary disease, unspecified (principal); J98.4 Other disorders of lung | CPT/HCPCS: 99223; 99232; 99239 ==

== ENCOUNTER 2024-01-11 15:24 | Outpatient (AMB) | payer OTHER, SELFPAY ==
--- NOTE | 2024-01-11 15:27 | MHC.PC.OV ---
Vital Signs 01/11/24 15:29 Height 5 ft Weight 148 lb 0.2 oz BMI 28.9 BP 144/86 H Blood Pressure Location Lt brachial Position Sitting Pulse 80 Pulse Source Pulse Oximeter Pulse Oximetry (%) 93 Oxygen Delivery Method Room Air Intake Visit Reasons: discharge 12/31/23 Intake Note: Patient is here for hospital discharge follow up. Patient was discharged from [facility] on 12/31/2023 Executive Associate Required: No Allergies bee pollen [BEE STINGS] Allergy (Unknown, Verified 01/12/24 03:31) SWELLING - BLOTCHES nitrofurantoin [From Macrobid] Adverse Reaction (Intermediate, Verified 01/12/24 03:32) Vomiting Medication List - Last Reconciled 01/12/24 by Vitor Cox MD acetaminophen (Athenol) 650 mg (2 x 325 mg) PO Q6H PRN albuterol sulfate 90 mcg/actuation 2 puffs inhalation Q4H PRN albuterol sulfate 2.5 mg (3 mL) inhalation QID PRN 30 days amlodipine 10 mg See Protocol PO DAILY 90 days cholecalciferol (vitamin D3) 50 mcg PO DAILY 90 days dextromethorphan-guaifenesin 30-600 mg (Mucus DM) 2 tabs PO BID doxycycline monohydrate 100 mg PO Q12H 20 days epinephrine (EpiPen 2-Arthru) 0.3 mg (0.3 mL) IM Q4H PRN fluticasone propion-salmeterol 115-21 mcg/actuation (Advair HFA) 2 puffs inhalation BID guaifenesin ER (Mucinex) 1,200 mg PO BID loratadine 10 mg PO DAILY methadone 20 mg PO BEDTIME methadone 90 mg PO DAILY [NEBULIZER and all related supplies As directed up to 4 times a day as needed] omeprazole 20 mg PO DAILY@0630 polyethylene glycol 3350 (Miralax) 17 grams PO DAILY PRN prednisone See Taper mg PO DIRECTED sennosides (senna) 17.2 mg (2 x 8.6 mg) PO BEDTIME PRN Tobacco use date assessed: 01/11/24 Fall risk assessment: No Falls in past year Last assessed Fall Risk: 01/11/24 Dental Screening Dental Screen Date: 01/11/24 Did you have a dental visit in the last 12 months?: No Did you have a dental problem in the last 6 months where you did not have access to dental care?: No Was dental information given to patient?: Patient has dentist HPI discharge 12/31/23 HPI Details Patient comes in today for her HDF follow up visit Patient was admitted to the hospital a couple of times over the past month for COPD exacerbation - from 12/18/2023 to 12/21/2023 and then from 12/26/2023 to 12/30/2023 She is currently still finishing up her prescribed Doxycycline and oral prednisone taper States that she is currently still experiencing frequent chest congestion and recurrent cough although she finds it difficult to cough any phlegm She still reports feeling short of breath often, especially with exertion She denies any chest pains Denies any fever or sore throat No nausea/vomiting, no abdominal pain although states that her stomach feels bloated often as she has been constipated lately Would like to get some Rx to help with her constipation [facility] Medical History (Updated 01/12/24 @ 03:53 by Vitor Cox MD) Overweight (BMI 25.0-29.9) COPD (chronic obstructive pulmonary disease) Influenza A Pneumonitis COPD (chronic obstructive pulmonary disease) Dyspnea on exertion GERD (gastroesophageal reflux disease) Mixed incontinence urge and stress Obesity (BMI 30-39.9) History of substance abuse Constipation Osteopenia Vitamin D deficiency History of hepatitis C COPD (chronic obstructive pulmonary disease) Smoker Bronchitis Surgical History History of tubal ligation Family History Father Stroke Hypertension Diabetes Heart problem Mother Diabetes Brother Diabetes Sister In good health Social History Household Members: Family Household Members Other:: niece Housing: House Do you presently have visiting nurse or other home services: No Alcohol intake: former Patient Tobacco Use Status: Former Tobacco user Tobacco use type: Cigarette Cigarettes Per Day: 6 e-Cigarette/Vaping Use: Never Used Second Hand Smoke Exposure: No Substance Use Type: Marijuana service: No Current occupational status: employed Cognitive needs: No Hearing needs: No Vision needs: Yes Questionnaire PHQ-9 Over the last 2 weeks, how often have you been bothered by any of the following problems? 1. Little interest or pleasure in doing things: not at all 2. Feeling down, depressed, or hopeless: not at all 3. Trouble falling or staying asleep, or sleeping too much: not at all 4. Feeling tired or having little energy: not at all 5. Poor appetite or overeating: not at all 6. Feeling bad about yourself - or that you are a failure or have let yourself or your family down: not at all 7. Trouble concentrating on things, such as reading the newspaper or watching television: not at all 8. Moving or speaking so slowly that other people could have noticed. Or the opposite - being so fidgety or restless that you have been moving around a lot more than usual: not at all 9. Thoughts that you would be better off or of hurting yourself in some way: not at all Total score: 0 Depression Screening Interpretation: Negative Depression Screening Done: Yes 29628 - PHQ-9 Billing: Yes Source: Developed by Drs. Marcus Jackson, Vannesa Gongora, Alex Chong and colleagues, with an educational miles from [employer]. Thrive Questionnaire Date Thrive assessed: 01/11/24 I am a: Patient What is your living situation today?: I have a steady place to live Within the past 12 months, did the food you bought not last and you didn't have the money to get more?: Never true Within the past 12 months, did you worry whether your food would run out before you got money to buy more?: Never true Do you have trouble paying for medicines?: No Do you have trouble getting transportation to medical appointments?: No Do you have trouble paying your heating and electricity bill?: No Do you have trouble taking care of your child, family member or friend?: No Do you have trouble with day-to-day activities such as bathing, preparing meals, shopping, managing finances, etc.?: No Are you currently unemployed and looking for a job?: No Are you interested in more education?: No Currently or been in a relationship where the following occur: no concerns reported THRIVE Score: 0 AUDIT C Alcohol Use Questionnaire (AUDIT-C) 1. How often do you have a drink containing alcohol?: Never 3. How often do you have six or more drinks on one occasion?: Never Total Score: 0 Score Reviewed/Action Taken: Yes LEEANN-7 AMB Questionnaire LEEANN-7 Date LEEANN - 7 assessed: 03/01/23 Source: Developed by Drs. Marcus Jackson, Vannesa Gongora, Alex Chong and colleagues, with an educational miles from [employer]. Review of Systems Const Denies chills, Reports fatigue, Denies fever(s) and Denies headache(s) ENT Denies dysphagia, Denies dizziness, Reports dry mouth (due to Rx), Denies otalgia, Denies headache(s), Denies odynophagia and Denies sore throat Card Denies chest pain, Denies rapid heart rate, Denies irregular heart rhythm, Denies palpitations and Reports dyspnea on exertion Resp Reports chest congestion (chest still feels tight at times), Reports cough (recurrent; unable to cough up any phlegm), Denies hemoptysis, Reports dyspnea on exertion and Reports wheezing (at times) GI Denies abdominal pain, Reports bloating, Reports constipation (chronic - increased lately), Denies dysphagia, Denies heartburn, Denies diarrhea, Denies nausea, Denies odynophagia and Denies vomiting Denies urinary frequency and Denies dysuria Musc Denies back pain and Denies arthralgias Skin/Breast Denies rash Neuro Denies dizziness and Denies headache(s) Endo Reports fatigue and Denies palpitations Aller/Immun Reports wheezing (at times) Physical exam (Primary Care) Vital Signs: Last Vital Signs Pulse 80 01/11/24 15:29 BP 144/86 H 01/11/24 15:29 Pulse Ox 93 01/11/24 15:29 Oxygen Delivery Method Room Air 01/11/24 15:29 BMI result Body Mass Index 28.9 Tobacco/Smoking Status: Tobacco use Status Tobacco use date assessed 01/11/24 01/11/24 15:33 Patient Tobacco Use Status Former Tobacco user 01/11/24 15:27 Tobacco use type Cigarette 01/11/24 15:27 e-Cigarette/Vaping Use Never Used 01/11/24 15:27 Depression Screening Interpretation: Negative Thrive Assessment: Date of Thrive Assessment Date Thrive assessed 12/27/23 01/11/24 15:27 Currently or been in a relationship where the following occur: no concerns reported Const General: no acute distress and alert HENMT Ears: TM's normal bilaterally and EAC's normal Throat: Yes posterior oropharynx normal and Yes tonsils normal (no TP congestion) Neck Neck: Yes no lymphadenopathy and Yes supple Thyroid: Thyroid normal Resp Auscultation: no rales, rhonchi (scattered bilaterally), wheezes (occasional) expiratory wheezes and diminished lung sounds bilateral Cardio Rate: regular rate Rhythm: regular rhythm Heart sounds: no murmurs GI Palpation (GI): Soft to palpation and nontender Auscultation: normal bowel sounds General: Yes no CVA tenderness Back/Spine/Pelvis Back: no CVA tenderness Skin Rashes: no rashes Extrem General: Yes no clubbing, cyanosis or edema Assessment and Plan Assessment & Plan (1) COPD exacerbation: Code(s): J44.1 - Chronic obstructive pulmonary disease with (acute) exacerbation Plan: Patient is currently still finishing up her oral Doxycycline and Prednisone taper Will start her additionally on Mucinex ER 1200 mg BID PRN to help her cough up her phlegm better Continue Advair HFA 115-21 mcg 2 inhalations BID and ProAir HFA 2 inhalations Q 6 to 8 hours as needed Will try to help her obtain a nebulizer unit for home use - Rx for Albuterol nebulizer solution sent in to pharmacy ahead of time Follow up with pulmonary as scheduled (2) Mixed dyslipidemia: Code(s): E78.2 - Mixed hyperlipidemia Plan: Reinforced low cholesterol diet (3) GERD (gastroesophageal reflux disease): Code(s): K21.9 - Gastro-esophageal reflux disease without esophagitis Qualifiers: Esophagitis presence: without esophagitis Qualified Code(s): K21.9 - Gastro-esophageal reflux disease without esophagitis Plan: Symptoms appear better controlled lately; may have been triggered by/related to her Oxybutynin ER previously Reinforced dietary restrictions in GERD Continue Omeprazole 20 mg QD (4) History of hepatitis C: Code(s): Z86.19 - Personal history of other infectious and parasitic diseases Plan: Patient recalls being treated for hepatitis C many years ago Patient requested to have this retested couple of years ago after the methadone clinic noticed a positive hepatitis-C antibody test in early 2019 but she was not able to complete this after it was ordered Her LFTs are completely normal on her recent labs Will look into this again and have this checked when she is sent for repeat labs later this year (5) Vitamin D deficiency: Code(s): E55.9 - Vitamin D deficiency, unspecified Plan: Continue Vitamin D3 2000 units QD (6) Osteopenia: Code(s): M85.80 - Other specified disorders of bone density and structure, unspecified site Qualifiers: Osteopenia location: unspecified Qualified Code(s): M85.80 - Other specified disorders of bone density and structure, unspecified site Plan: Repeat BMD done in November 2022 revealed (+) osteopenia based on the lowest T-score value of -1.8 in the femoral neck BMD has declined by 7.7% in the AP spine from her previous BMD done on 03/16/2019; no significant decline was noted in the femoral neck Patient is advised to continue to stay active and exercise regularly and also to take her daily calcium and vitamin-D supplements (7) Constipation: Code(s): K59.00 - Constipation, unspecified Qualifiers: Constipation type: drug induced constipation Qualified Code(s): K59.03 - Drug induced constipation Plan: Is mostly related to her Methadone Continue MiraLax powder 17 gm QD or Senna 8.6 mg QD PRN - states that Rx helps but she can only take 1 or the other and not both (had diarrhea in the past when she took both MiraLax and Senna together); Rx for Senna sent in to pharmacy per request She is again encouraged to increase her oral fluids and dietary fiber intake (8) Mixed incontinence urge and stress: Code(s): N39.46 - Mixed incontinence Plan: Continue Oxybutynin ER 10 mg QD Follow up with urology as scheduled Was sent for abdominal and pelvic CT recently to look into potential causes of her microscopic hematuria - scan came out negative (9) History of substance abuse: Code(s): F19.11 - Other psychoactive substance abuse, in remission Plan: Continue Methadone 85 mg QD Follow up with the [facility] ([facility]) as scheduled (10) Smoker: Comment: History of smoking for many years. Quit smoking when she was discharged from the hospital, but again resumed smoking about 6 igarettes a day. I counseled her strongly to quit completely. At this time she is going to limit her cigarettes to 1- 2 per day. Risks of continued smoking explained. * she is aware of the tragic effect of smoking on her sister who has of lung cancer at age 52. Code(s): F17.200 - Nicotine dependence, unspecified, uncomplicated Plan: Counseled again on smoking cessation (11) Overweight (BMI 25.0-29.9): Code(s): E66.3 - Overweight Plan: Reinforced diet/exercise as tolerated/lose weight Plan Follow up in 6 weeks - will have her reschedule her original appointment at the end of December 2023 to late next month Medications: New albuterol sulfate 2.5 mg (3 mL) inhalation QID 30 days PRN 180 mL 3RF shortness of breath or wheezing J44.9 - Chronic obstructive pulmonary disease, unspecified sennosides (senna) 17.2 mg (2 x 8.6 mg) PO BEDTIME PRN 60 caps 3RF constipation guaifenesin ER (Mucinex) 1,200 mg PO BID 60 tabs 3RF J44.1 - Chronic obstructive pulmonary disease with (acute) exacerbation [NEBULIZER and all related supplies] As directed up to 4 times a day as needed 1 ea 0RF shortness of breath or wheezing Coding Level of Care Code Est Pt Level 4 (87297) Diagnoses COPD exacerbation J44.1 Mixed dyslipidemia E78.2 Gastroesophageal reflux disease without esophagitis K21.9 Esophagitis presence: without esophagitis History of hepatitis C Z86.19 Vitamin D deficiency E55.9 Osteopenia, unspecified location M85.80 Osteopenia location: unspecified Drug-induced constipation K59.03 Constipation type: drug induced constipation Mixed incontinence urge and stress N39.46 History of substance abuse F19.11 Smoker F17.200 Overweight (BMI 25.0-29.9) E66.3
[2024-01-11 15:29] VITALS: BP 144/86; PULSE 80; O2SAT 93; BMI 28.9
== END 2024-01-11 16:28 | disposition home or self-care (01) ==
PROVIDERS: PCP Internal Medicine; Visit Provider Internal Medicine
DX: J44.1 Chronic obstructive pulmonary disease with (acute) exacerbation (principal); F19.11 Other psychoactive substance abuse, in remission; E78.2 Mixed hyperlipidemia; K21.9 Gastro-esophageal reflux disease without esophagitis; Z86.19 Personal history of other infectious and parasitic diseases; E55.9 Vitamin D deficiency, unspecified; M85.80 Other specified disorders of bone density and structure, unspecified site; K59.03 Drug induced constipation; N39.46 Mixed incontinence; F17.200 Nicotine dependence, unspecified, uncomplicated; E66.3 Overweight
CPT/HCPCS: 99214

== ENCOUNTER 2024-01-19 15:41 | Outpatient (AMB) | payer OTHER, SELFPAY ==
--- NOTE | 2024-01-19 15:52 | A.OFFVIS_ITS ---
Vital Signs 01/19/24 15:53 Height 5 ft Weight 151 lb 0.266 oz BMI 29.5 BP 102/64 Blood Pressure Location Lt brachial Position Sitting Pulse 91 Pulse Source Pulse Oximeter Pulse Oximetry (%) 91 L Oxygen Delivery Method Room Air Intake Visit Reasons: COPD Intake Note: pt is here for follow up and states she is very tight, coughing, nothing coming up, only very little, still fatigued and not back to baseline, stairs are difficult with shortness of breath. 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 Required: No Allergies bee pollen [BEE STINGS] Allergy (Unknown, Verified 01/19/24 16:22) SWELLING - BLOTCHES nitrofurantoin [From Macrobid] Adverse Reaction (Intermediate, Verified 01/19/24 16:22) Vomiting Medication List - Last Reconciled 01/19/24 by Elver Arredondo MD acetaminophen (Athenol) 650 mg (2 x 325 mg) PO Q6H PRN albuterol sulfate 90 mcg/actuation 2 puffs inhalation Q4H PRN albuterol sulfate 2.5 mg (3 mL) inhalation QID PRN 30 days amlodipine 10 mg See Protocol PO DAILY 90 days cholecalciferol (vitamin D3) 50 mcg PO DAILY 90 days doxycycline monohydrate 100 mg PO Q12H 20 days epinephrine (EpiPen 2-Arthur) 0.3 mg (0.3 mL) IM Q4H PRN fluticasone propion-salmeterol 115-21 mcg/actuation (Advair HFA) 2 puffs inhalation BID guaifenesin ER (Mucinex) 1,200 mg PO BID methadone 20 mg PO BEDTIME methadone 90 mg PO DAILY [NEBULIZER and all related supplies As directed up to 4 times a day as needed] omeprazole 20 mg PO DAILY@0630 polyethylene glycol 3350 (Miralax) 17 grams PO DAILY PRN sennosides (senna) 17.2 mg (2 x 8.6 mg) PO BEDTIME PRN Do you need a note to return to daycare/school/sports/work: No HPI HPI COPD: Details: THIS 63 YEARS OLD FEMALE COMES FOR POST HOSPITAL FOLLOW UP. Recently she has been admitted about 3 times in the hospital for acute exacerbation. Last discharge was on 12/31/23 . She has completed the tapering dose of prednisone. And still on doxycycline which she will complete in the next few days. Still feels congested and urge to clear lot of mucus. She was prescribed Mucinex but was not able to afford to buy it. She was also prescribed a nebulizer which she has not gotten so far. She is using Ventolin more than 4 to 5 times a day. She thinks that she has not completely overcome the acute exacerbation. * UNFORTUNATELY STILL SMOKING ABOUT 6 CIGARETTES A DAY. [facility] Medical History (Updated 01/19/24 @ 16:33 by Elver Arredondo MD) Overweight (BMI 25.0-29.9) COPD (chronic obstructive pulmonary disease) Influenza A Pneumonitis COPD (chronic obstructive pulmonary disease) Dyspnea on exertion GERD (gastroesophageal reflux disease) Mixed incontinence urge and stress Obesity (BMI 30-39.9) History of substance abuse Constipation Osteopenia Vitamin D deficiency History of hepatitis C COPD (chronic obstructive pulmonary disease) Smoker Bronchitis Surgical History History of tubal ligation Family History Father Stroke Hypertension Diabetes Heart problem Mother Diabetes Brother Diabetes Sister In good health Social History Household Members: Family Household Members Other:: niece Housing: House Do you presently have visiting nurse or other home services: No Alcohol intake: former Patient Tobacco Use Status: Former Tobacco user Tobacco use type: Cigarette Cigarettes Per Day: 6 e-Cigarette/Vaping Use: Never Used Second Hand Smoke Exposure: No Substance Use Type: Marijuana service: No Current occupational status: employed Cognitive needs: No Hearing needs: No Vision needs: Yes Review of Systems Const All systems reviewed & are unremarkable except as noted in HPI and below Eyes Reports no additional complaints ENT Reports no additional complaints Card Denies chest pain, Denies irregular heart rhythm and Denies leg edema Resp Reports as per HPI and Reports cough GI Reports no additional complaints Reports no additional complaints Musc Reports back pain Skin/Breast Reports system reviewed and no additional complaints, except as documented Neuro Reports no additional complaints Psych Reports no additional complaints Physical Exam Vital Signs: Last Vital Signs Pulse 91 01/19/24 15:53 BP 102/64 01/19/24 15:53 Pulse Ox 91 L 01/19/24 15:53 Oxygen Delivery Method Room Air 01/19/24 15:53 BMI result Body Mass Index 29.5 Const General: comfortable, no acute distress, alert and awake Orientation/consciousness: patient oriented x3 HEENT Head: Yes normal to inspection General nose exam: No nasal polyps present and No nasal discharge present Face and sinus: Yes sinuses nontender Mouth: oropharynx normal Throat: Yes posterior oropharynx normal Eyes General: appearance normal, both eyes and all related structures Neck Neck: Yes normal visual inspection, Yes no lymphadenopathy, Yes trachea midline and Yes no JVD Thyroid: Thyroid normal Chest Chest palpation & inspection: normal inspection of the chest, normal palpation of entire chest wall and no tenderness Resp Other: Percussion note is resonant, breath sounds are moderately distant with prolonged expiratory phase. No wheezes or rhonchi are heard. Cardio Palpation: normal PMI Rate: regular rate Rhythm: regular rhythm Heart sounds: no gallops and no murmurs Peripheral pulses: Peripheral pulses 2+ throughout GI Palpation (GI): Soft to palpation, nontender, No hepatosplenomegaly present and no masses Auscultation: normal bowel sounds Back/Spine/Pelvis Thoracic/Lumbar Spine: thoracic and lumbar spine normal to inspection Skin General skin exam: no rashes or lesions noted Neuro General: patient oriented x3 and no focal motor deficits Cranial nerves: Yes CN's II-XII intact bilaterally Extrem General: Yes normal to inspection, Yes no clubbing, cyanosis or edema and Yes no calf tenderness Psych Appearance: grossly normal and well kempt Speech and movement: Normal speech and movement present Assessment & Plan Assessment & Plan (1) COPD exacerbation: Comment: She does have chronic obstructive pulmonary disease and she is an ongoing smoke r. I do not think there is any active infection at this time. Code(s): J44.1 - Chronic obstructive pulmonary disease with (acute) exacerbation Category: Medical Plan: Advised to continue using Advair HFA 115-212 puffs b.i.d.. She would be helped by using nebulizer. We have provided her a nebulizer unit from the office. She does have the solution of ipratropium albuterol to be used Q 6 hours while awake. Limit the use of Ventolin only when. Outdoors and having acute symptoms (2) Smoker: Comment: History of smoking for many years. Quit smoking when she was discharged from the hospital, but again resumed smoking about 6 igarettes a day. Code(s): F17.200 - Nicotine dependence, unspecified, uncomplicated Category: Social Hx Plan: She is counseled strongly to quit smoking. Continued respiratory symptoms are secondary to ongoing smoking. She is smoking 6 cigarettes a day and should try to cut down to 4 and then 2 Coding Level of Care Code Est Pt Level 4 (03619) Diagnoses COPD exacerbation J44.1 Smoker F17.200
[2024-01-19 15:53] VITALS: BP 102/64; PULSE 91; O2SAT 91; BMI 29.5
== END 2024-01-19 16:22 | disposition home or self-care (01) ==
PROVIDERS: PCP Internal Medicine; Visit Provider Internal Medicine
DX: J44.1 Chronic obstructive pulmonary disease with (acute) exacerbation (principal); F17.200 Nicotine dependence, unspecified, uncomplicated
CPT/HCPCS: 99214

== ENCOUNTER → 2024-01-19 15:41 | Outpatient (BNVA) | payer OTHER, SELFPAY | PROVIDERS: PCP Internal Medicine; Visit Provider Internal Medicine | DX: J44.1 Chronic obstructive pulmonary disease with (acute) exacerbation (principal); F17.210 Nicotine dependence, cigarettes, uncomplicated | CPT/HCPCS: 99212 ==

== ENCOUNTER 2024-02-16 15:17 | Outpatient (AMB) | payer OTHER, SELFPAY ==
--- NOTE | 2024-02-16 15:26 | A.OFFVIS_ITS ---
Vital Signs 02/16/24 15:27 Height 5 ft Weight 143 lb 4.807 oz BMI 28.0 BP 120/80 Blood Pressure Location Lt brachial Position Sitting Pulse 71 Pulse Source Pulse Oximeter Pulse Oximetry (%) 93 Oxygen Delivery Method Room Air Intake Visit Reasons: COPD Intake Note: pt is here for follow up and states she does have shortness of breath with exertion, stairs, and whenlying down, she will have to get up and perform a treatment and than she is able to fall asleep. please refill albuterol for nebulizer to have on hand. Director Clinical Research Required: No Allergies bee pollen [BEE STINGS] Allergy (Unknown, Verified 02/16/24 15:52) SWELLING - BLOTCHES nitrofurantoin [From Macrobid] Adverse Reaction (Intermediate, Verified 02/16/24 15:52) Vomiting Medication List - Last Reconciled 02/16/24 by Elver Arredondo MD acetaminophen (Athenol) 650 mg (2 x 325 mg) PO Q6H PRN albuterol sulfate 90 mcg/actuation 2 puffs inhalation Q4H PRN albuterol sulfate 2.5 mg (3 mL) inhalation QID PRN 30 days amlodipine 10 mg See Protocol PO DAILY 90 days cholecalciferol (vitamin D3) 50 mcg PO DAILY 90 days epinephrine (EpiPen 2-Arthur) 0.3 mg (0.3 mL) IM Q4H PRN fluticasone propion-salmeterol 115-21 mcg/actuation (Advair HFA) 2 puffs inhalation BID methadone 20 mg PO BEDTIME methadone 90 mg PO DAILY [NEBULIZER and all related supplies As directed up to 4 times a day as needed] omeprazole 20 mg PO DAILY@0630 polyethylene glycol 3350 (Miralax) 17 grams PO DAILY PRN sennosides (senna) 17.2 mg (2 x 8.6 mg) PO BEDTIME PRN Do you need a note to return to daycare/school/sports/work: No HPI HPI COPD: Details: THIS 63 YEARS OLD FEMALE IS HERE FOR SHORT-TERM FOLLOW-UP. SHE CLAIMS THAT SHE IS FEELING FINE EXCEPT FOR THE FACT THAT SHE STILL GETS SHORT OF BREATH ON MINIMAL EXERTION LIKE CLIMBING STAIRS HOUSE. HE HAS MILD INTERMITTENT COUGH. SHE CONTINUES TO USE ADVAIR HFA TWICE A DAY, AND USING ALBUTEROL IN THE NEBULIZER 2 OR 3 TIMES A DAY HELPS. BUT SHE IS OUT OF THE SUPPLY SINCE HOSPITALIZATION SHE HAS NOT GONE BACK TO SMOKING, EVEN THOUGH SOMETIME SHE HAS A STRONG URGE TO SMOKE. [facility] Medical History (Updated 02/16/24 @ 15:58 by Elver Arredondo MD) Ex-smoker Overweight (BMI 25.0-29.9) COPD (chronic obstructive pulmonary disease) Influenza A Pneumonitis COPD (chronic obstructive pulmonary disease) Dyspnea on exertion GERD (gastroesophageal reflux disease) Mixed incontinence urge and stress Obesity (BMI 30-39.9) History of substance abuse Constipation Osteopenia Vitamin D deficiency History of hepatitis C COPD (chronic obstructive pulmonary disease) Smoker Bronchitis Surgical History History of tubal ligation Family History Father Stroke Hypertension Diabetes Heart problem Mother Diabetes Brother Diabetes Sister In good health Social History Household Members: Family Household Members Other:: niece Housing: House Do you presently have visiting nurse or other home services: No Alcohol intake: former Patient Tobacco Use Status: Former Tobacco user Tobacco use type: Cigarette Cigarettes Per Day: 6 e-Cigarette/Vaping Use: Never Used Second Hand Smoke Exposure: No Substance Use Type: Marijuana service: No Current occupational status: employed Cognitive needs: No Hearing needs: No Vision needs: Yes Review of Systems Const All systems reviewed & are unremarkable except as noted in HPI and below Eyes Reports no additional complaints ENT Reports no additional complaints Card Denies chest pain, Denies irregular heart rhythm and Denies leg edema Resp Reports as per HPI and Reports cough GI Reports no additional complaints Reports no additional complaints Musc Reports back pain Skin/Breast Reports system reviewed and no additional complaints, except as documented Neuro Reports no additional complaints Psych Reports no additional complaints Physical Exam Vital Signs: Last Vital Signs Pulse 71 02/16/24 15:27 BP 120/80 02/16/24 15:27 Pulse Ox 93 02/16/24 15:27 Oxygen Delivery Method Room Air 02/16/24 15:27 BMI result Body Mass Index 28.0 Const General: comfortable, no acute distress, alert and awake Orientation/consciousness: patient oriented x3 HEENT Head: Yes normal to inspection General nose exam: No nasal polyps present and No nasal discharge present Face and sinus: Yes sinuses nontender Mouth: oropharynx normal Throat: Yes posterior oropharynx normal Eyes General: appearance normal, both eyes and all related structures Neck Neck: Yes normal visual inspection, Yes no lymphadenopathy, Yes trachea midline and Yes no JVD Thyroid: Thyroid normal Chest Chest palpation & inspection: normal inspection of the chest, normal palpation of entire chest wall and no tenderness Resp Other: Percussion note is resonant, breath sounds are moderately distant with prolonged expiratory phase. No wheezes or rhonchi are heard. Cardio Palpation: normal PMI Rate: regular rate Rhythm: regular rhythm Heart sounds: no gallops and no murmurs Peripheral pulses: Peripheral pulses 2+ throughout GI Palpation (GI): Soft to palpation, nontender, No hepatosplenomegaly present and no masses Auscultation: normal bowel sounds Back/Spine/Pelvis Thoracic/Lumbar Spine: thoracic and lumbar spine normal to inspection Skin General skin exam: no rashes or lesions noted Neuro General: patient oriented x3 and no focal motor deficits Cranial nerves: Yes CN's II-XII intact bilaterally Extrem General: Yes normal to inspection, Yes no clubbing, cyanosis or edema and Yes no calf tenderness Psych Appearance: grossly normal and well kempt Speech and movement: Normal speech and movement present Assessment & Plan Assessment & Plan (1) COPD (chronic obstructive pulmonary disease): Comment: Patient does have chronic obstructive pulmonary disease probably moderately severe. SEEMS TO BE DOING WELL AND HER COPD IS WELL CONTROLLED AT THIS TIME. Code(s): J44.9 - Chronic obstructive pulmonary disease, unspecified Category: Medical Qualifiers: COPD type: COPD with acute exacerbation Qualified Code(s): J44.1 - ronic obstructive pulmonary disease with (acute) exacerbation Plan: [place] : Continue Advair HFA 115-21 2 puffs b.i.d. Cont. Incruse Ellipta 1 inhalation daily. ProAir HFA 2 puffs Q 4-6 hours p.r.n. for acute wheezing.( prescription renewed) when outdoors Albuterol inhalation solution, 2.5 mg, in the nebulizer Q 6 hours p.r.n. (2) Dyspnea on exertion: Comment: Dyspnea on exertion is mainly when she climbs stairs but not when walking on the level ground. She has a tendency to walk fast. Code(s): R06.09 - Other forms of dyspnea Category: Medical Plan: Explained about the reason for getting short of breath. Reassured that it should get better slowly as she recovers from her past smoking. (3) Ex-smoker: Comment: Patient does have longstanding history of smoking but quit recently, . After her hospitalization Code(s): Z87.891 - Personal history of nicotine dependence Category: Social Hx Plan: Commended for not smoking. She does not need any nicotine lozenges patch at this time. Coding Level of Care Code Est Pt Level 3 (49703) Diagnoses Chronic obstructive pulmonary disease with acute exacerbation J44.1 COPD type: COPD with acute exacerbation Dyspnea on exertion R06.09 Ex-smoker Z87.891
[2024-02-16 15:27] VITALS: BP 120/80; PULSE 71; O2SAT 93; BMI 28.0
== END 2024-02-16 15:43 | disposition home or self-care (01) ==
PROVIDERS: PCP Internal Medicine; Visit Provider Internal Medicine
DX: J44.1 Chronic obstructive pulmonary disease with (acute) exacerbation (principal); R06.09 Other forms of dyspnea; Z87.891 Personal history of nicotine dependence
CPT/HCPCS: 99213

== ENCOUNTER → 2024-02-16 15:17 | Outpatient (BNVA) | payer OTHER, SELFPAY | PROVIDERS: PCP Internal Medicine; Visit Provider Internal Medicine | DX: J44.1 Chronic obstructive pulmonary disease with (acute) exacerbation (principal); R06.09 Other forms of dyspnea; Z87.891 Personal history of nicotine dependence | CPT/HCPCS: 99212 ==

== ENCOUNTER 2024-02-23 13:14 | Outpatient (AMB) | payer OTHER, SELFPAY ==
[2024-02-23 13:23] VITALS: BP 126/74; PULSE 70; O2SAT 96; BMI 28.7
--- NOTE | 2024-02-23 13:23 | MHC.PC.OV ---
Vital Signs 02/23/24 13:23 Height 5 ft Weight 147 lb BMI 28.7 BP 126/74 Blood Pressure Location Lt brachial Position Sitting Pulse 70 Pulse Source Pulse Oximeter Pulse Oximetry (%) 96 Oxygen Delivery Method Room Air Intake Visit Reasons: COPD Sewing Supervisor Required: No Interlibrary Loan Services Librarian: Not Required per policy Accompanied by: Self / Same As Patient Allergies bee pollen [BEE STINGS] Allergy (Unknown, Verified 02/23/24 13:55) SWELLING - BLOTCHES nitrofurantoin [From Macrobid] Adverse Reaction (Intermediate, Verified 02/23/24 13:55) Vomiting Medication List - Last Reconciled 02/23/24 by Vitor Cox MD acetaminophen (Athenol) 650 mg (2 x 325 mg) PO Q6H PRN albuterol sulfate 90 mcg/actuation 2 puffs inhalation Q4H PRN albuterol sulfate 2.5 mg (3 mL) inhalation QID PRN 30 days amlodipine 10 mg See Protocol PO DAILY 90 days cholecalciferol (vitamin D3) 50 mcg PO DAILY 90 days epinephrine (EpiPen 2-Arthur) 0.3 mg (0.3 mL) IM Q4H PRN fluticasone propion-salmeterol 115-21 mcg/actuation (Advair HFA) 2 puffs inhalation BID methadone 20 mg PO BEDTIME methadone 90 mg PO DAILY [NEBULIZER and all related supplies As directed up to 4 times a day as needed] omeprazole 20 mg PO DAILY@0630 polyethylene glycol 3350 (Miralax) 17 grams PO DAILY PRN sennosides (senna) 17.2 mg (2 x 8.6 mg) PO BEDTIME PRN Tobacco use date assessed: 01/11/24 Fall risk assessment: No Falls in past year Last assessed Fall Risk: 02/23/24 Dental Screening Dental Screen Date: 01/11/24 HPI COPD HPI Details Patient comes in today for her follow up visit States that she presently feels okay She denies any headaches or dizziness Denies any chest pains, no increased SOB - states that her breathing (and coughing) has improved a lot from last month She was just seen by pulmonary last week and was advised to continue on her current inhalers No nausea/vomiting, no abdominal pain No change in bowel habits noted Needs a few of her Rx refilled PFSH Medical History Ex-smoker Overweight (BMI 25.0-29.9) COPD (chronic obstructive pulmonary disease) Influenza A Pneumonitis COPD (chronic obstructive pulmonary disease) Dyspnea on exertion GERD (gastroesophageal reflux disease) Mixed incontinence urge and stress Obesity (BMI 30-39.9) History of substance abuse Constipation Osteopenia Vitamin D deficiency History of hepatitis C COPD (chronic obstructive pulmonary disease) Smoker Bronchitis Surgical History History of tubal ligation Family History Father Stroke Hypertension Diabetes Heart problem Mother Diabetes Brother Diabetes Sister In good health Social History Household Members: Family Household Members Other:: niece Housing: House Do you presently have visiting nurse or other home services: No Alcohol intake: former Patient Tobacco Use Status: Former Tobacco user Tobacco use type: Cigarette Cigarettes Per Day: 6 e-Cigarette/Vaping Use: Never Used Second Hand Smoke Exposure: No Substance Use Type: Marijuana service: No Current occupational status: employed Cognitive needs: No Hearing needs: No Vision needs: Yes Questionnaire Thrive Questionnaire Date Thrive assessed: 01/11/24 LEEANN-7 AMB Questionnaire LEEANN-7 Date LEEANN - 7 assessed: 02/23/24 Feeling nervous, anxious, or on edge: 0 = Not at all Not being able to stop or control worryin = Not at all Worrying too much about different things: 0 = Not at all Trouble relaxin = Not at all Being so restless that it is hard to sit still: 0 = Not at all Becoming easily annoyed or irritable: 0 = Not at all Feeling afraid as if something awful might happen: 0 = Not at all Total LEEANN-7 score (0-4 normal; 5-9 mild; 10-14 moderate; 15-21 severe): 0 Source: Developed by Drs. Marcus Jackson, Vannesa Gongora, Alex Chong and colleagues, with an educational miles from [employer]. Review of Systems Const Denies chills, Denies fatigue, Denies fever(s) and Denies headache(s) ENT Denies dysphagia, Denies dizziness, Denies otalgia, Denies headache(s), Denies neck pain, Denies odynophagia and Denies sore throat Card Denies chest pain, Denies rapid heart rate, Denies irregular heart rhythm, Denies palpitations and Reports dyspnea on exertion (mild) Resp Denies chest congestion, Reports cough (on and off), Denies hemoptysis, Reports dyspnea on exertion (mild) and Denies wheezing GI Denies abdominal pain, Reports constipation (chronic), Denies dysphagia, Denies heartburn, Denies diarrhea, Denies nausea, Denies odynophagia and Denies vomiting Denies urinary frequency, Denies dysuria and Denies urinary urgency Musc Denies back pain, Denies arthralgias and Denies neck pain Skin/Breast Denies rash Neuro Denies dizziness and Denies headache(s) Endo Denies fatigue and Denies palpitations Aller/Immun Denies wheezing Physical exam (Primary Care) Vital Signs: Last Vital Signs Pulse 70 02/23/24 13:23 BP 126/74 02/23/24 13:23 Pulse Ox 96 02/23/24 13:23 Oxygen Delivery Method Room Air 02/23/24 13:23 BMI result Body Mass Index 28.7 Tobacco/Smoking Status: Tobacco use Status Tobacco use date assessed 01/11/24 02/23/24 13:24 Patient Tobacco Use Status Former Tobacco user 02/23/24 13:24 Tobacco use type Cigarette 02/23/24 13:24 e-Cigarette/Vaping Use Never Used 02/23/24 13:24 Thrive Assessment: Date of Thrive Assessment Date Thrive assessed 01/11/24 02/23/24 13:24 Const General: no acute distress and alert HENMT Ears: TM's normal bilaterally and EAC's normal Throat: Yes posterior oropharynx normal and Yes tonsils normal (no TP congestion) Neck Neck: Yes no lymphadenopathy and Yes supple Thyroid: Thyroid normal Resp Auscultation: no rales, rhonchi (scattered bilaterally), no wheezes and diminished lung sounds bilateral Cardio Rate: regular rate Rhythm: regular rhythm Heart sounds: no murmurs GI Palpation (GI): Soft to palpation and nontender Auscultation: normal bowel sounds General: Yes no CVA tenderness Back/Spine/Pelvis Back: no CVA tenderness Skin Rashes: no rashes Extrem General: Yes no clubbing, cyanosis or edema Assessment and Plan Assessment & Plan (1) COPD (chronic obstructive pulmonary disease): Comment: Patient does have chronic obstructive pulmonary disease probably moderately severe. SEEMS TO BE DOING WELL AND HER COPD IS WELL CONTROLLED AT THIS TIME. Code(s): J44.9 - Chronic obstructive pulmonary disease, unspecified Qualifiers: COPD type: COPD with acute exacerbation Qualified Code(s): J44.1 - Chronic obstructive pulmonary disease with (acute) exacerbation Plan: Stable/controlled currently Was just seen by pulmonary for follow up last week and advised to continue on her current inhalers including Advair HFA 115-21 mcg 1 inhalation BID and Incruse Ellipta 62.5 mcg 1 inhalation QD Continue Albuterol HFA 1 to 2 inhalations Q 6 hours PRN Follow up with pulmonary as scheduled (2) Mixed dyslipidemia: Code(s): E78.2 - Mixed hyperlipidemia Plan: Reinforced low cholesterol diet Will have patient recheck her labs and fasting lipids in 4 months for follow up (3) GERD (gastroesophageal reflux disease): Code(s): K21.9 - Gastro-esophageal reflux disease without esophagitis Qualifiers: Esophagitis presence: without esophagitis Qualified Code(s): K21.9 - Gastro-esophageal reflux disease without esophagitis Plan: Symptoms appear better controlled lately Reinforced dietary restrictions in GERD Continue Omeprazole 20 mg QD (4) History of hepatitis C: Code(s): Z86.19 - Personal history of other infectious and parasitic diseases Plan: Patient recalls being treated for hepatitis C many years ago Patient requested to have this retested couple of years ago after the methadone clinic noticed a positive hepatitis-C antibody test in early 2019 but she was not able to complete this after it was ordered Her LFTs are completely normal on her recent labs Will look into this again and have this checked when she is sent for repeat labs later this year (5) Vitamin D deficiency: Code(s): E55.9 - Vitamin D deficiency, unspecified Plan: Continue Vitamin D3 2000 units QD (6) Osteopenia: Code(s): M85.80 - Other specified disorders of bone density and structure, unspecified site Qualifiers: Osteopenia location: unspecified Qualified Code(s): M85.80 - Other specified disorders of bone density and structure, unspecified site Plan: Repeat BMD done in November 2022 revealed (+) osteopenia based on the lowest T-score value of -1.8 in the femoral neck BMD has declined by 7.7% in the AP spine from her previous BMD done on 03/16/2019; no significant decline was noted in the femoral neck Patient is advised to continue to stay active and exercise regularly and also to take her daily calcium and vitamin-D supplements (7) Constipation: Code(s): K59.00 - Constipation, unspecified Qualifiers: Constipation type: drug induced constipation Qualified Code(s): K59.03 - Drug induced constipation Plan: Is mostly related to her Methadone Continue MiraLax powder 17 gm QD or Senna 8.6 mg QD PRN - states that Rx helps but she can only take 1 or the other and not both (had diarrhea in the past when she took both MiraLax and Senna together); Rx for Senna sent in to pharmacy per request She is again encouraged to increase her oral fluids and dietary fiber intake (8) Mixed incontinence urge and stress: Code(s): N39.46 - Mixed incontinence Plan: Continue Oxybutynin ER 10 mg QD Follow up with urology as scheduled Abdominal and pelvic CT done a few months ago came out negative (9) History of substance abuse: Code(s): F19.11 - Other psychoactive substance abuse, in remission Plan: Continue Methadone 85 mg QD Follow up with the [facility] Clinic ([facility]) as scheduled (10) Smoker: Comment: History of smoking for many years. Quit smoking when she was discharged from the hospital, but again resumed smoking about 6 igarettes a day. Code(s): F17.200 - Nicotine dependence, unspecified, uncomplicated Plan: Counseled again on smoking cessation (11) Overweight (BMI 25.0-29.9): Code(s): E66.3 - Overweight Plan: Reinforced diet/exercise as tolerated/lose weight Plan Follow up in 4 months Orders: Orders Comprehensive [place]. Panel Fast 4 Months E78.00 - Pure hypercholesterolemia, unspecified TSH reflex Free T4 4 Months E78.00 - Pure hypercholesterolemia, unspecified UA CC w/rflx Micro + Cult 4 Months R30.0 - Dysuria Vitamin D 25-OH Total 4 Months E55.9 - Vitamin D deficiency, unspecified Hepatitis C Viral Load 4 Months Z86.19 - Personal history of other infectious and parasitic diseases Complete Blood Count Auto Diff 4 Months D64.9 - Anemia, unspecified Lipid Panel 4 Months E78.00 - Pure hypercholesterolemia, unspecified Hepatitis C Antibody Reflex 4 Months Z86.19 - Personal history of other infectious and parasitic diseases Medications: New umeclidinium 62.5 mcg/actuation (Incruse Ellipta) 1 inh inhalation DAILY 30 days 30 ea 5RF Changed From omeprazole 20 mg PO DAILY@0630 To omeprazole 20 mg PO DAILY@0630 90 days 90 caps 1RF From albuterol sulfate 90 mcg/actuation 2 puffs inhalation Q4H PRN 6.7 grams 1RF shortness of breath or wheezing To albuterol sulfate 90 mcg/actuation 2 puffs inhalation Q4-6H 30 days PRN 8.5 grams 3RF shortness of breath or wheezing Refilled fluticasone propion-salmeterol 115-21 mcg/actuation (Advair HFA) 2 puffs inhalation BID 12 grams 0RF wheezing albuterol sulfate 2.5 mg (3 mL) inhalation QID 30 days PRN 180 mL 3RF shortness of breath or wheezing J44.9 - Chronic obstructive pulmonary disease, unspecified Coding Level of Care Code Est Pt Level 4 (01168) Diagnoses Chronic obstructive pulmonary disease with acute exacerbation J44.1 COPD type: COPD with acute exacerbation Mixed dyslipidemia E78.2 Gastroesophageal reflux disease without esophagitis K21.9 Esophagitis presence: without esophagitis History of hepatitis C Z86.19 Vitamin D deficiency E55.9 Osteopenia, unspecified location M85.80 Osteopenia location: unspecified Drug-induced constipation K59.03 Constipation type: drug induced constipation Mixed incontinence urge and stress N39.46 History of substance abuse F19.11 Smoker F17.200 Overweight (BMI 25.0-29.9) E66.3
== END 2024-02-23 14:10 | disposition home or self-care (01) ==
PROVIDERS: PCP Internal Medicine; Visit Provider Internal Medicine
DX: J44.1 Chronic obstructive pulmonary disease with (acute) exacerbation (principal); F19.11 Other psychoactive substance abuse, in remission; E78.2 Mixed hyperlipidemia; K21.9 Gastro-esophageal reflux disease without esophagitis; Z86.19 Personal history of other infectious and parasitic diseases; E55.9 Vitamin D deficiency, unspecified; M85.80 Other specified disorders of bone density and structure, unspecified site; K59.03 Drug induced constipation; N39.46 Mixed incontinence; F17.200 Nicotine dependence, unspecified, uncomplicated; E66.3 Overweight
CPT/HCPCS: 99214

== ENCOUNTER 2024-05-23 13:46 | Outpatient (AMB) | payer MEDICARE, MEDICAID, SELFPAY ==
--- NOTE | 2024-05-23 13:49 | MHC.OFFVIS ---
Vital Signs 05/23/24 13:50 Height 5 ft Weight 147 lb 11.355 oz BMI 28.8 BP 132/78 Blood Pressure Location Lt brachial Position Sitting Pulse 79 Pulse Source Pulse Oximeter Pulse Oximetry (%) 95 Oxygen Delivery Method Room Air Intake Visit Reasons: copd Intake Note: pt is here for follow up and states she is feeling pretty good, some moments with extreme exertion, needs refill on albuterol Senior Procurement Specialist Required: No Allergies bee pollen [BEE STINGS] Allergy (Unknown, Verified 05/23/24 14:26) SWELLING - BLOTCHES nitrofurantoin [From Macrobid] Adverse Reaction (Intermediate, Verified 05/23/24 14:26) Vomiting Medication List - Last Reconciled 05/23/24 by Elver Arredondo MD acetaminophen (Athenol) 650 mg (2 x 325 mg) PO Q6H PRN albuterol sulfate 90 mcg/actuation 2 puffs inhalation Q4-6H PRN 30 days albuterol sulfate 2.5 mg (3 mL) inhalation QID PRN 30 days amlodipine 10 mg See Protocol PO DAILY 90 days cholecalciferol (vitamin D3) 50 mcg PO DAILY 90 days epinephrine (EpiPen 2-Arthur) 0.3 mg (0.3 mL) IM Q4H PRN fluticasone propion-salmeterol 115-21 mcg/actuation (Advair HFA) 2 puffs inhalation BID methadone 20 mg PO BEDTIME methadone 90 mg PO DAILY [NEBULIZER and all related supplies As directed up to 4 times a day as needed] omeprazole 20 mg PO DAILY@0630 90 days polyethylene glycol 3350 (Miralax) 17 grams PO DAILY PRN sennosides (senna) 17.2 mg (2 x 8.6 mg) PO BEDTIME PRN umeclidinium 62.5 mcg/actuation (Incruse Ellipta) 1 inh inhalation DAILY 30 days Do you need a note to return to daycare/school/sports/work: No HPI HPI copd: Details: THIS 64 YEARS OLD FEMALE IS HERE FOR FOLLOW-UP FOR HER COPD. CLAIMS THAT SHE IS DOING WELL AN.D HAS BEEN STABLE LATELY SHE IS USING ADVAIR AND ALSO INCRUSE ELLIPTA ONCE A DAY. IN ADDITION SHE USES VENTOLIN SHORTNESS OF BREATH ABOUT 2 OR 3 TIMES A. DAY HOWEVER SHE DOES NOT USE VENTOLIN EVERY DAY. SHE ALSO HAS NEBULIZER AND USES ALBUTEROL P.R.N. WHICH IS NOT THAT FREQUENT. [facility] Medical History Ex-smoker Overweight (BMI 25.0-29.9) COPD (chronic obstructive pulmonary disease) Influenza A Pneumonitis COPD (chronic obstructive pulmonary disease) Dyspnea on exertion GERD (gastroesophageal reflux disease) Mixed incontinence urge and stress Obesity (BMI 30-39.9) History of substance abuse Constipation Osteopenia Vitamin D deficiency History of hepatitis C COPD (chronic obstructive pulmonary disease) Smoker Bronchitis Surgical History History of tubal ligation Family History Father Stroke Hypertension Diabetes Heart problem Mother Diabetes Brother Diabetes Sister In good health Social History Household Members: Family Household Members Other:: niece Housing: House Do you presently have visiting nurse or other home services: No Alcohol intake: former Patient Tobacco Use Status: Former Tobacco user Tobacco use type: Cigarette Cigarettes Per Day: 6 e-Cigarette/Vaping Use: Never Used Second Hand Smoke Exposure: No Substance Use Type: Marijuana service: No Current occupational status: employed Cognitive needs: No Hearing needs: No Vision needs: Yes Review of Systems Const All systems reviewed & are unremarkable except as noted in HPI and below Eyes Reports no additional complaints ENT Reports no additional complaints Card Denies chest pain, Denies irregular heart rhythm and Denies leg edema Resp Reports as per HPI and Reports cough GI Reports no additional complaints Reports no additional complaints Musc Reports back pain Skin/Breast Reports system reviewed and no additional complaints, except as documented Neuro Reports no additional complaints Psych Reports no additional complaints Physical Exam Vital Signs: Last Vital Signs Pulse 79 05/23/24 13:50 BP 132/78 05/23/24 13:50 Pulse Ox 95 05/23/24 13:50 Oxygen Delivery Method Room Air 05/23/24 13:50 BMI result Body Mass Index 28.8 Const General: comfortable, no acute distress, alert and awake Orientation/consciousness: patient oriented x3 HEENT Head: Yes normal to inspection General nose exam: No nasal polyps present and No nasal discharge present Face and sinus: Yes sinuses nontender Mouth: oropharynx normal Throat: Yes posterior oropharynx normal Eyes General: appearance normal, both eyes and all related structures Neck Neck: Yes normal visual inspection, Yes no lymphadenopathy, Yes trachea midline and Yes no JVD Thyroid: Thyroid normal Chest Chest palpation & inspection: normal inspection of the chest, normal palpation of entire chest wall and no tenderness Resp Other: Percussion note is resonant, breath sounds are moderately distant with prolonged expiratory phase. No wheezes or rhonchi are heard. Cardio Palpation: normal PMI Rate: regular rate Rhythm: regular rhythm Heart sounds: no gallops and no murmurs Peripheral pulses: Peripheral pulses 2+ throughout GI Palpation (GI): Soft to palpation, nontender, No hepatosplenomegaly present and no masses Auscultation: normal bowel sounds Back/Spine/Pelvis Thoracic/Lumbar Spine: thoracic and lumbar spine normal to inspection Skin General skin exam: no rashes or lesions noted Neuro General: patient oriented x3 and no focal motor deficits Cranial nerves: Yes CN's II-XII intact bilaterally Extrem General: Yes normal to inspection, Yes no clubbing, cyanosis or edema and Yes no calf tenderness Psych Appearance: grossly normal and well kempt Speech and movement: Normal speech and movement present Assessment & Plan Assessment & Plan (1) Ex-smoker: Comment: Patient does have longstanding history of smoking but quit early this year . After her hospitalization. Code(s): Z87.891 - Personal history of nicotine dependence Category: Social Hx Plan: commended for not smoking, (2) COPD (chronic obstructive pulmonary disease): Comment: Patient does have chronic obstructive pulmonary disease probably moderately severe. SEEMS TO BE DOING WELL AND HER COPD IS WELL CONTROLLED AT THIS TIME. Code(s): J44.9 - Chronic obstructive pulmonary disease, unspecified Category: Medical Qualifiers: COPD type: COPD with acute exacerbation Qualified Code(s): J44.1 - Chronic obstructive pulmonary disease with (acute) exacerbation Plan: continue fluticasone- salmeterol 115-21 2 puffs b.i.d. , Incruse Ellipt a 1 in halation daily , albuterol HFA 2 puffs Q 6 hours p.r.n. ( no more than 2 o r 3 times a day) alternatively may use albuterol solution in the nebulizer q.6 hours p.r.n. Medications: Refilled albuterol sulfate 90 mcg/actuation 2 puffs inhalation Q4-6H 30 days PRN 8.5 grams 3RF shortness of breath or wheezing J44.1 - Chronic obstructive pulmonary disease with (acute) exacerbation Coding Level of Care Code Est Pt Level 3 (74171) Diagnoses Ex-smoker Z87.891 Chronic obstructive pulmonary disease with acute exacerbation J44.1 COPD type: COPD with acute exacerbation
[2024-05-23 13:50] VITALS: BP 132/78; PULSE 79; O2SAT 95; BMI 28.8
== END 2024-05-23 14:26 | disposition home or self-care (01) ==
PROVIDERS: PCP Internal Medicine; Visit Provider Internal Medicine
DX: Z87.891 Personal history of nicotine dependence (principal); J44.1 Chronic obstructive pulmonary disease with (acute) exacerbation
CPT/HCPCS: 99213

== ENCOUNTER → 2024-05-23 13:46 | Outpatient (BNVA) | payer MEDICARE, MEDICAID, SELFPAY | PROVIDERS: PCP Internal Medicine; Visit Provider Internal Medicine | DX: J44.1 Chronic obstructive pulmonary disease with (acute) exacerbation (principal); Z87.891 Personal history of nicotine dependence | CPT/HCPCS: 99212 ==

== ENCOUNTER 2024-06-18 14:12 | Outpatient (AMB) | payer MEDICARE, SELFPAY ==
--- NOTE | 2024-06-18 14:15 | MHC.OFFVIS ---
Intake Visit Reasons: Bladder Issues/PVR Intake Note: Patient is present for bladder issues/pvr Urology Medication:none Antibiotic Allergy:none Blood Thinner:none today's pvr: 0ml's Payroll Officer Required: No Allergies bee pollen [BEE STINGS] Allergy (Unknown, Verified 06/18/24 14:16) SWELLING - BLOTCHES nitrofurantoin [From Macrobid] Adverse Reaction (Intermediate, Verified 06/18/24 14:16) Vomiting HPI Comments Details: 06/18/2024--Leslie was last seen a year ago. She has had lower urinary tract symptoms urgency and mixed urinary incontinence. The patient has history of nicotine use, she was evaluated for microscopic hematuria, which included office cystoscopy, findings at that time no suspicious lesions, mild cystitis. The patient states that her urinary leakage is worsening she is wearing a pad and it is wet all the time. Urinalysis is negative. She denies recent UTI. She states the VESIcare did not help and she is not using that right now. Will schedule urodynamics. Review of charts: Mayra is a 63-year-old female who presents today to the office for a 3-month follow-up. 06/02/2023? Mayra is followed today with c/o's of lower back pain and urgency. She was last seen by me on 02/25/2023 for cystitis. The patient was advised to continue using estradiol cream at that time. Vesicare 10 mg QD was ordered, and urodynamic testing was discussed to be scheduled during that time. Patient states that she is wearing diaper at night. She states that she had developed vomiting secondary to taking Macrobid. c/o's of leakage with cough. 02/25/23--The patient is being evaluated for microscopic hematuria.? Urinalysis today shows no infection.? She took oxybutynin 10 mg QD for bladder symptoms and reports leaking episodes when off from the medication.? The patient reports leaking while coughing.? The patient adhered to Macrobid 100 mg BID therapy for 10 days.? The patient is using estradiol cream.? CTAP?10/18/22-- Kidneys: WNL, No renal calculi visualized. Urine cytology--09/08/22-- Negative for malignant cells. Evaluation today-- Blood: negative, leukocytes: negative.? Cystoscopy findings-- no suspicious bladder lesions visualized. Mild cystitis.? Plan:?Continue using estradiol cream.? Vesicare 10 mg QD was ordered.?Urodynamic testing discussed to be scheduled. [facility] Medical History Ex-smoker Overweight (BMI 25.0-29.9) COPD (chronic obstructive pulmonary disease) Influenza A Pneumonitis COPD (chronic obstructive pulmonary disease) Dyspnea on exertion GERD (gastroesophageal reflux disease) Mixed incontinence urge and stress Obesity (BMI 30-39.9) History of substance abuse Constipation Osteopenia Vitamin D deficiency History of hepatitis C COPD (chronic obstructive pulmonary disease) Smoker Bronchitis Surgical History History of tubal ligation Family History Father Stroke Hypertension Diabetes Heart problem Mother Diabetes Brother Diabetes Sister In good health Social History Household Members: Family Household Members Other:: niece Housing: House Do you presently have visiting nurse or other home services: No Alcohol intake: former Patient Tobacco Use Status: Former Tobacco user Tobacco use type: Cigarette Cigarettes Per Day: 6 e-Cigarette/Vaping Use: Never Used Second Hand Smoke Exposure: No Substance Use Type: Marijuana service: No Current occupational status: employed Cognitive needs: No Hearing needs: No Vision needs: Yes Review of Systems Const All systems reviewed & are unremarkable except as noted in HPI and below Reports no additional complaints Eyes Reports no additional complaints ENT Reports no additional complaints Card Reports no additional complaints Resp Reports no additional complaints GI Reports no additional complaints Reports as per HPI Musc Reports no additional complaints Skin/Breast Reports system reviewed and no additional complaints, except as documented Neuro Reports no additional complaints Psych Reports no additional complaints Endo Reports no additional complaints Constantino/Lymph Reports no additional complaints Aller/Immun Reports no additional complaints Office Procedures Post Void Residual Post Residual Void Post Void Residual (PVR): 0 [id number] Void Residual by ultrasound Results AMB Urinalysis, Automated UA Leukoctes 0 Alfonso/uL Last Edit by MARINA Mercer on 06/18/24 14:32 UA Nitrite Negative Last Edit by MARINA Mercer on 06/18/24 14:32 UA Urobilinogen 0.2 mg/dL Last Edit by Gabriel Reece [facility] on 06/18/24 14:32 UA Protein 0 mg/dL Last Edit by Gabriel Reece [facility] on 06/18/24 14:32 UA pH 7.5 Last Edit by Gabriel Reece [facility] on 06/18/24 14:32 UA Blood 0 Bob/uL Last Edit by Gabriel Reece [facility] on 06/18/24 14:32 UA Specific [place] 1.015 Last Edit by Gabriel Reece [facility] on 06/18/24 14:32 UA Ketone Negative Last Edit by aGbriel Reece [facility] on 06/18/24 14:32 UA Bilirubin 0 mg/dL Last Edit by Gabriel Reece [facility] on 06/18/24 14:32 UA Glucose 0 mg/dL Last Edit by Gabriel Reece [facility] on 06/18/24 14:32 Results Reviewed Results Reviewed: Laboratory Last Values Urine pH (Auto) 7.5 06/18/24 14:31 Specific [place] (Auto) 1.015 06/18/24 14:31 Urine Protein (Auto) 0 mg/dL 06/18/24 14:31 Glucose (UA)(Auto) 0 mg/dL 06/18/24 14:31 Urine Ketones (Auto) Negative 06/18/24 14:31 Urine Blood (Auto) 0 Bob/uL 06/18/24 14:31 Urine Nitrite (Auto) Negative 06/18/24 14:31 Urine Bilirubin (Auto) 0 mg/dL 06/18/24 14:31 Urine Urobilinogen (Auto) 0.2 mg/dL 06/18/24 14:31 Leukocyte Esterase (Auto) 0 Alfonso/uL 06/18/24 14:31 Assessment & Plan Assessment & Plan (1) OAB (overactive bladder): Code(s): N32.81 - Overactive bladder Category: Medical (2) Recurrent UTI: Code(s): N39.0 - Urinary tract infection, site not specified Category: Medical (3) Urinary, incontinence, stress female: Code(s): N39.3 - Stress incontinence (female) (male) Category: Medical (4) Cystitis: Code(s): N30.90 - Cystitis, unspecified without hematuria Category: Medical (5) History of nicotine use: Code(s): Z87.891 - Personal history of nicotine dependence Category: Medical Plan Schedule urodynamics. Orders: Orders AMB Urinalysis Automated Today Z13.9 - Encounter for screening, unspecified Patient Instructions: The patient had an opportunity to ask questions regarding treatment plan. The patient expressed understanding and agreement with the above treatment plan. The patient is aware they should contact our office by phone for worsening of their current condition or the appearance of new symptoms. Compliance is encouraged with any medications and followup testing that is ordered. It is a privilege to be allowed the opportunity to participate in the urologic care of your patient. If you have any questions or concerns regarding treatment for the above conditions please do not hesitate to contact me. The office telephone contact is [phone]. This note is constructed in part using voice recognition software. While every effort has been made to ensure accuracy judo instructor errors may have been included. Yours sincerely, Josselyn Mills MD Coding Level of Care Code Est Pt Level 4 (70938) Diagnoses OAB (overactive bladder) N32.81 Recurrent UTI N39.0 Urinary, incontinence, stress female N39.3 Cystitis N30.90 History of nicotine use Z87.891 CPT Codes Post Residual Void - PVR CPT Code: 14122-Eafu Void Residual by ultrasound ([id number])
== END 2024-06-18 15:04 | disposition home or self-care (01) ==
PROVIDERS: PCP Internal Medicine; Visit Provider Urology
DX: N32.81 Overactive bladder (principal); N39.0 Urinary tract infection, site not specified; N39.3 Stress incontinence (female) (male); N30.90 Cystitis, unspecified without hematuria; Z87.891 Personal history of nicotine dependence; Z13.9 Encounter for screening, unspecified
CPT/HCPCS: 99214

== ENCOUNTER → 2024-06-18 14:12 | Outpatient (BNVA) | payer MEDICARE, SELFPAY | PROVIDERS: PCP Internal Medicine; Visit Provider Urology | DX: N32.81 Overactive bladder (principal); N30.90 Cystitis, unspecified without hematuria; N39.3 Stress incontinence (female) (male); Z87.891 Personal history of nicotine dependence | CPT/HCPCS: 51798; 81003; 99212 ==

== ENCOUNTER 2024-06-21 06:18 | Outpatient (REF) | payer MEDICARE, SELFPAY ==
[2024-06-21 06:31] LABS: MANUAL DIFF FLAG NO
[2024-06-21 07:04] LABS: Alanine Aminotransferase 13 U/L (0-31); Albumin Level 4.1 g/dL (3.5-5.0); Alkaline Phosphatase 97 U/L (39-117); Anion Gap 12 (12-20); Aspartate Amino Transferase 17 U/L (5-31); Basophils Percent Auto 0.6 % (0-2); Bilirubin Total 0.2 mg/dL (0.0-1.0); Blood Urea Nitrogen 15 mg/dL (9-16); Calcium 9.6 mg/dL (8.4-10.2); Carbon Dioxide 28 mmol/L (22-29); Chloride 104 mmol/L (96-108); Cholesterol 195 mg/dL (<200); Eosinophils Absolute Auto 0.2 X10*3/uL (0.0-0.4); Eosinophils Percent Auto 2.9 % (0-4); Estimated Glomerular Filt Rate > 60; Glucose Fasting 94 mg/dL (60-99); HDL Cholesterol 46 mg/dL (>40); Hematocrit 39.1 % (37.0-47.0); Imm Gran Abs Auto 0.02 X10*3/uL (0.00-0.03); Imm Gran Pct Auto 0.3 % (0.0-0.4); LDL Cholesterol Calculated 117 mg/dL (<100); Lymphocytes Absolute Auto 2.5 X10*3/uL (1.2-4.9); Lymphocytes Percent Auto 36.1 % (20-40); Mean Corpuscular HGB Conc 33.2 g/dl (31.0-35.0); Mean Corpuscular Hemoglobin 29.3 pg (27.0-33.0); Mean Corpuscular Volume 88.3 fL (80.0-98.0); Mean Platelet Volume 10.3 fL (9.4-12.3); Monocytes Absolute Auto 0.5 X10*3/uL (0.1-1.2); Monocytes Percent Auto 6.9 % (2-11); Neutrophils Absolute Auto 3.7 x10*3/uL (2.0-8.3); Neutrophils Percent Auto 53.2 % (45-73); Platelet Count 270 X10*3/uL (160-400); Potassium 4.3 mmol/L (3.3-5.1); Red Blood Count 4.43 X10*6/uL (4.20-5.50); Red Cell Distribution Width 13.5 % (11.0-16.0); Sodium 140 mmol/L (135-145); Total Protein 7.4 g/dL (6.5-8.0); Triglycerides 163 mg/dL (<150)
[2024-06-21 07:21] LABS: ~HepC Num1 5.34 S/CO (0.00-0.79); ~Hepatitis C Antibody Reactive (Nonreactive)
[2024-06-21 07:22] LABS: TSH reflex Free T4 2.12 uIU/mL (0.32-4.0); Vitamin D 25-OH Total 23.5 ng/mL (>30)
[2024-06-21 07:48] LABS: Appearance Urine Clear; Color Urine Yellow; Glucose Urine UA Negative (Negative); Leukocyte Esterase Urine Trace (Negative); Nitrite Urine Negative (Negative); Specific Gravity - Urine 1.015 (1.005-1.025); UMIC TRIGGER UACC YES; Urine Blood Negative (Negative); Urine Ketones Negative (Negative); Urine Protein Negative (Neg-Trace)
[2024-06-21 07:54] LABS: Bacteria Urine None Seen (None Seen); Hyaline Casts Urine 0-2 /LPF (0-2); RBC Urine 0-2 /HPF (0-2); Squamous Epithelial Cell Urine 0-2 /HPF (0-2); WBC Urine 0-5 /HPF (0-5)
[2024-06-22 14:48] LABS: HCV Log PCR <1.18 NOT DETECTED Log IU/mL (NOT DETECTED); HepC Viral Load <15 NOT DETECTED IU/mL (NOT DETECTED)
== END 2024-06-21 06:19 | disposition home or self-care (01) ==
LOC: HO.LAB 06:18
PROVIDERS: PCP Internal Medicine; Visit Provider Internal Medicine
DX: D64.9 Anemia, unspecified (principal); E55.9 Vitamin D deficiency, unspecified; E78.00 Pure hypercholesterolemia, unspecified; Z86.19 Personal history of other infectious and parasitic diseases
CPT/HCPCS: 36415; 80053; 80061; 81001; 82306; 84443; 85025; 86803; 87522

== ENCOUNTER 2024-06-27 13:19 | Outpatient (AMB) | payer MEDICARE, MEDICAID, SELFPAY ==
[2024-06-27 13:21] VITALS: BP 132/84; PULSE 93; O2SAT 93; BMI 28.6
--- NOTE | 2024-06-27 13:21 | MHC.PC.OV ---
Vital Signs 06/27/24 13:21 Height 5 ft Weight 146 lb 7 oz BMI 28.6 BP 132/84 Blood Pressure Location Lt brachial Position Sitting Pulse 93 Pulse Source Pulse Oximeter Pulse Oximetry (%) 93 Oxygen Delivery Method Room Air Intake Visit Reasons: COPD, GERD Recordings Librarian Required: No Accompanied by: Self / Same As Patient Allergies bee pollen [BEE STINGS] Allergy (Unknown, Verified 06/27/24 14:08) SWELLING - BLOTCHES nitrofurantoin [From Macrobid] Adverse Reaction (Intermediate, Verified 06/27/24 14:08) Vomiting Medication List - Last Reconciled 06/27/24 by Vitor Cox MD acetaminophen (Athenol) 650 mg (2 x 325 mg) PO Q6H PRN albuterol sulfate 2.5 mg (3 mL) inhalation QID PRN 30 days albuterol sulfate 90 mcg/actuation 2 puffs inhalation Q4-6H PRN 30 days amlodipine 10 mg See Protocol PO DAILY 90 days cholecalciferol (vitamin D3) 50 mcg PO DAILY 90 days epinephrine (EpiPen 2-Arthur) 0.3 mg (0.3 mL) IM Q4H PRN estradiol (Yuvafem) 10 mcg vaginal QWEEK fluticasone propion-salmeterol 115-21 mcg/actuation (Advair HFA) 2 puffs inhalation BID methadone 20 mg PO BEDTIME methadone 90 mg PO DAILY [NEBULIZER and all related supplies As directed up to 4 times a day as needed] omeprazole 20 mg PO DAILY@0630 90 days polyethylene glycol 3350 (Miralax) 17 grams PO DAILY PRN sennosides (senna) 17.2 mg (2 x 8.6 mg) PO BEDTIME PRN umeclidinium 62.5 mcg/actuation (Incruse Ellipta) 1 inh inhalation DAILY 30 days Tobacco use date assessed: 06/27/24 Fall risk assessment: No Falls in past year Last assessed Fall Risk: 06/27/24 Dental Screening Dental Screen Date: 06/27/24 Did you have a dental visit in the last 12 months?: No Did you have a dental problem in the last 6 months where you did not have access to dental care?: No Was dental information given to patient?: No HPI COPD, GERD HPI Details Patient comes in today for her follow up visit States that she feels okay but relates that she sometimes gets brief dizzy spells all of a sudden She does not really know why she gets these episodes but has noticed that these seem to occur more often when she overexerts herself like carrying bags of groceries up and down the stairs States that she would feel short of breath often with exertion and has to end up using her Albuterol inhaler to get some relief She does see Dr. Arredondo every few months for pulmonary follow up She denies any headaches Denies any exertional chest pains No nausea/vomiting, no abdominal pain No change in bowel habits noted She had her follow up labs done last week - to discuss her results Adds that she has been trying to get in to see an eye doctor for a couple of years now (she has problems with her eyesight and is hoping that she just need new Rx glasses) but all of the local practitioners that she has reached out to here are supposedly not taking new patients at this time and she is wondering if there are any other places that she can go to to help address her eye issues [facility] Medical History GERD (gastroesophageal reflux disease) History of substance abuse Ex-smoker Overweight (BMI 25.0-29.9) COPD (chronic obstructive pulmonary disease) Influenza A Pneumonitis COPD (chronic obstructive pulmonary disease) Dyspnea on exertion Mixed incontinence urge and stress Obesity (BMI 30-39.9) Constipation Osteopenia Vitamin D deficiency History of hepatitis C COPD (chronic obstructive pulmonary disease) Smoker Bronchitis Surgical History History of tubal ligation Family History Father Stroke Hypertension Diabetes Heart problem Mother Diabetes Brother Diabetes Sister In good health Social History Household Members: Family Household Members Other:: niece Housing: House Do you presently have visiting nurse or other home services: No Alcohol intake: former Patient Tobacco Use Status: Former Tobacco user Tobacco use type: Cigarette Cigarettes Per Day: 6 e-Cigarette/Vaping Use: Never Used Second Hand Smoke Exposure: No Substance Use Type: Marijuana service: No Current occupational status: employed Cognitive needs: No Hearing needs: No Vision needs: Yes Questionnaire PHQ-9 Over the last 2 weeks, how often have you been bothered by any of the following problems? 1. Little interest or pleasure in doing things: not at all 2. Feeling down, depressed, or hopeless: not at all 3. Trouble falling or staying asleep, or sleeping too much: not at all 4. Feeling tired or having little energy: not at all 5. Poor appetite or overeating: not at all 6. Feeling bad about yourself - or that you are a failure or have let yourself or your family down: not at all 7. Trouble concentrating on things, such as reading the newspaper or watching television: not at all 8. Moving or speaking so slowly that other people could have noticed. Or the opposite - being so fidgety or restless that you have been moving around a lot more than usual: not at all 9. Thoughts that you would be better off or of hurting yourself in some way: not at all Total score: 0 Depression Screening Interpretation: Negative Depression Screening Done: Yes 31135 - PHQ-9 Billing: Yes Source: Developed by Drs. Marcus Jackson, Vannesa Gongora, Alex Chong and colleagues, with an educational miles from [employer]. Thrive Questionnaire Date Thrive assessed: 06/27/24 I am a: Patient What is your living situation today?: I have a steady place to live Within the past 12 months, did the food you bought not last and you didn't have the money to get more?: Never true Within the past 12 months, did you worry whether your food would run out before you got money to buy more?: Never true Do you have trouble paying for medicines?: No Do you have trouble getting transportation to medical appointments?: No Do you have trouble paying your heating and electricity bill?: No Do you have trouble taking care of your child, family member or friend?: No Do you have trouble with day-to-day activities such as bathing, preparing meals, shopping, managing finances, etc.?: No Are you currently unemployed and looking for a job?: I choose not to answer this question Are you interested in more education?: No Please select the resources that you would like help with: None Currently or been in a relationship where the following occur: No concerns reported THRIVE Score: 0 AUDIT C Alcohol Use Questionnaire (AUDIT-C) 1. How often do you have a drink containing alcohol?: Never 3. How often do you have six or more drinks on one occasion?: Never Total Score: 0 Score Reviewed/Action Taken: Yes LEEANN-7 AMB Questionnaire LEEANN-7 Date LEEANN - 7 assessed: 06/27/24 Feeling nervous, anxious, or on edge: 0 = Not at all Not being able to stop or control worryin = Not at all Worrying too much about different things: 0 = Not at all Trouble relaxin = Not at all Being so restless that it is hard to sit still: 0 = Not at all Becoming easily annoyed or irritable: 0 = Not at all Feeling afraid as if something awful might happen: 0 = Not at all Total LEEANN-7 score (0-4 normal; 5-9 mild; 10-14 moderate; 15-21 severe): 0 Source: Developed by Drs. Marcus Jackson, Vannesa Gongora, Alex Chong and colleagues, with an educational miles from [employer]. Review of Systems Const Denies chills, Reports difficulty sleeping (chronic), Reports fatigue, Denies fever(s) and Denies headache(s) Eyes Reports blurry vision ENT Denies dysphagia, Reports dizziness (on and off - see HPI), Denies otalgia, Denies headache(s), Denies neck pain, Denies odynophagia and Denies sore throat Card Denies chest pain, Denies rapid heart rate, Denies irregular heart rhythm, Denies palpitations and Reports dyspnea on exertion (chronic) Resp Denies chest congestion, Reports cough (on and off), Denies hemoptysis, Reports dyspnea on exertion (chronic) and Denies wheezing GI Denies abdominal pain, Reports constipation (chronic), Denies dysphagia, Denies heartburn, Denies diarrhea, Denies nausea, Denies odynophagia and Denies vomiting Denies urinary frequency, Denies dysuria and Denies urinary urgency Musc Denies back pain, Denies arthralgias and Denies neck pain Skin/Breast Denies rash Neuro Reports dizziness (on and off - see HPI) and Denies headache(s) Endo Reports fatigue and Denies palpitations Aller/Immun Denies wheezing Physical exam (Primary Care) Vital Signs: Last Vital Signs Pulse 93 06/27/24 13:21 BP 132/84 06/27/24 13:21 Pulse Ox 93 06/27/24 13:21 Oxygen Delivery Method Room Air 06/27/24 13:21 BMI result Body Mass Index 28.6 Tobacco/Smoking Status: Tobacco use Status Tobacco use date assessed 06/27/24 06/27/24 13:24 Patient Tobacco Use Status Former Tobacco user 06/27/24 13:24 Tobacco use type Cigarette 06/27/24 13:24 e-Cigarette/Vaping Use Never Used 06/27/24 13:24 PHQ-9: PHQ-9 Score PHQ-9: Total score 0 06/27/24 16:39 Depression Screening Interpretation: Negative Thrive Assessment: Date of Thrive Assessment Date Thrive assessed 06/27/24 06/27/24 13:24 Currently or been in a relationship where the following occur: No concerns reported Const General: no acute distress and alert HENMT Ears: TM's normal bilaterally and EAC's normal Throat: Yes posterior oropharynx normal and Yes tonsils normal (no TP congestion) Neck Neck: Yes no lymphadenopathy and Yes supple Thyroid: Thyroid normal Resp Auscultation: no rales, rhonchi (scattered bilaterally), no wheezes and diminished lung sounds bilateral Cardio Rate: regular rate Rhythm: regular rhythm Heart sounds: no murmurs GI Palpation (GI): Soft to palpation and nontender Auscultation: normal bowel sounds General: Yes no CVA tenderness Back/Spine/Pelvis Back: no CVA tenderness Thoracic/Lumbar Spine: No lumbar spinal tenderness Skin Rashes: no rashes Extrem General: Yes no clubbing, cyanosis or edema Office Procedures Flu Questionnaire Does the patient have a severe egg allergy?: No Immunizations Fluarix Triv [id number] (PF) 45 mcg (15 mcg x 3)/0.5 mL IM syringe Performing Provider: Vitor Cox MD [facility] Documented (not given) by: LEX Lizarraga on 06/27/24 13:25 Reason Not Given: Patient Refused Results Reviewed Results Reviewed: Laboratory Tests 06/21/24 06/21/24 06:21 06:29 WBC 7.0 Hgb 13.0 Hct 39.1 Plt Count 270 Sodium 140 Potassium 4.3 Creatinine 0.82 Estimated GFR > 60 Fasting Glucose 94 AST 17 ALT 13 Triglycerides 163 H Cholesterol 195 LDL Cholesterol, Calc 117 H HDL Cholesterol 46 25-OH Vitamin D Total 23.5 L TSH 2.12 Ur Specific [place] 1.015 Urine Protein Negative Urine Glucose (UA) Negative Urine Blood Negative Urine Nitrite Negative Ur Leukocyte Esterase Trace H Laboratory Tests 06/21/24 06:29 Hepatitis C Ab (EIA) Reactive H Hep C Viral Load <15 NOT DETECTED Hep C Viral Load Log <1.18 NOT DETECTED Coding Level of Care Code Est Pt Level 4 (46756) Diagnoses Chronic obstructive pulmonary disease with acute exacerbation J44.1 COPD type: COPD with acute exacerbation Mixed dyslipidemia E78.2 Gastroesophageal reflux disease without esophagitis K21.9 Esophagitis presence: without esophagitis History of hepatitis C Z86.19 Vitamin D deficiency E55.9 Osteopenia, unspecified location M85.80 Osteopenia location: unspecified Drug-induced constipation K59.03 Constipation type: drug induced constipation Impaired vision in both eyes H54.3 Mixed incontinence urge and stress N39.46 History of substance abuse F19.11 Overweight (BMI 25.0-29.9) E66.3 Assessment & Plan Assessment & Plan (1) COPD (chronic obstructive pulmonary disease): Comment: Patient does have chronic obstructive pulmonary disease probably moderately severe. SEEMS TO BE DOING WELL AND HER COPD IS WELL CONTROLLED AT THIS TIME. Code(s): J44.9 - Chronic obstructive pulmonary disease, unspecified Category: Medical Qualifiers: COPD type: COPD with acute exacerbation Qualified Code(s): J44.1 - Chronic obstructive pulmonary disease with (acute) exacerbation Plan: Her COPD appears to be reasonably controlled at present although patient continues to struggle with significant REYES Continue Advair HFA 115-21 mcg 1 inhalation BID, Incruse Ellipta 62.5 mcg 1 inhalation QD and Albuterol HFA 1 to 2 inhalations Q 6 hours PRN Follow up with pulmonary as scheduled She is reminded to get her flu shot and COVID booster as soon as possible before the onset of the flu season - she declines to get her flu shot here today (2) Mixed dyslipidemia: Code(s): E78.2 - Mixed hyperlipidemia Category: Medical Plan: Results of her labs done last week reviewed and discussed with patient - she is cautioned that her total and LDL cholesterol levels have increased from previous Reinforced low cholesterol diet Will have patient recheck her labs and fasting lipids in 4 months for follow up (3) GERD (gastroesophageal reflux disease): Code(s): K21.9 - Gastro-esophageal reflux disease without esophagitis Category: Medical Qualifiers: Esophagitis presence: without esophagitis Qualified Code(s): K21.9 - Gastro-esophageal reflux disease without esophagitis Plan: Reinforced dietary restrictions in GERD Continue Omeprazole 20 mg QD (4) History of hepatitis C: Code(s): Z86.19 - Personal history of other infectious and parasitic diseases Category: Medical Plan: Patient recalls being treated for hepatitis C many years ago Patient requested to have this retested couple of years ago after the methadone clinic noticed a positive hepatitis-C antibody test in early 2019 but she was not able to complete this after it was ordered Her LFTs are completely normal on her recent labs We had her recheck these with her recent labs and her viral load remains undetectable at present (5) Vitamin D deficiency: Code(s): E55.9 - Vitamin D deficiency, unspecified Category: Medical Plan: Continue Vitamin D3 2000 units QD (6) Osteopenia: Code(s): M85.80 - Other specified disorders of bone density and structure, unspecified site Category: Medical Qualifiers: Osteopenia location: unspecified Qualified Code(s): M85.80 - Other specified disorders of bone density and structure, unspecified site Plan: Her repeat BMD done in November 2022 revealed (+) osteopenia based on the lowest T-score value of -1.8 in the femoral neck Her BMD has declined by 7.7% in the AP spine from her previous BMD done on 03/16/2019; no significant decline was noted in the femoral neck Patient is advised to continue to stay active and exercise regularly and also to take her daily calcium and vitamin-D supplements (7) Constipation: Code(s): K59.00 - Constipation, unspecified Category: Medical Qualifiers: Constipation type: drug induced constipation Qualified Code(s): K59.03 - Drug induced constipation Plan: This is mostly related to her Methadone Continue MiraLax powder 17 gm QD or Senna 8.6 mg QD PRN - states that the Rx helps but she can only take 1 or the other and not both (had diarrhea in the past when she took both MiraLax and Senna together); Rx for Senna was sent in to pharmacy previously per her request She is again encouraged to continue to increase her oral fluids and dietary fiber intake (8) Impaired vision in both eyes: Code(s): H54.3 - Unqualified visual loss, both eyes Category: Medical Plan: [facility] of her eye issues (9) Mixed incontinence urge and stress: Code(s): N39.46 - Mixed incontinence Category: Medical Plan: Abdominal and pelvic CT done a few months ago came out negative Continue Oxybutynin ER 10 mg QD Follow up with urology as scheduled (10) History of substance abuse: Code(s): F19.11 - Other psychoactive substance abuse, in remission Category: Medical Plan: Continue Methadone 90 mg QD Follow up with the [facility] ([facility]) as scheduled (11) Overweight (BMI 25.0-29.9): Code(s): E66.3 - Overweight Category: Medical Plan: Reinforced diet/exercise as tolerated/lose weight Plan Follow up in 4 months Orders: Orders Influenza [id number] Immunization Today Z23 - Encounter for immunization Comprehensive [place]. Panel Fast 4 Months E78.00 - Pure hypercholesterolemia, unspecified Lipid Panel 4 Months E78.00 - Pure hypercholesterolemia, unspecified Referrals Ophthalmology Referral H54.3 - Unqualified visual loss, both eyes
== END 2024-06-27 13:59 | disposition home or self-care (01) ==
PROVIDERS: PCP Internal Medicine; Visit Provider Internal Medicine
DX: J44.1 Chronic obstructive pulmonary disease with (acute) exacerbation (principal); F19.11 Other psychoactive substance abuse, in remission; E66.3 Overweight; Z68.28 Body mass index [BMI] 28.0-28.9, adult; E78.2 Mixed hyperlipidemia; K21.9 Gastro-esophageal reflux disease without esophagitis; Z86.19 Personal history of other infectious and parasitic diseases; E55.9 Vitamin D deficiency, unspecified; M85.80 Other specified disorders of bone density and structure, unspecified site; K59.03 Drug induced constipation; H54.3 Unqualified visual loss, both eyes; N39.46 Mixed incontinence

== ENCOUNTER → 2024-06-27 13:19 | Outpatient (BNVA) | payer MEDICARE, MEDICAID, SELFPAY | PROVIDERS: PCP Internal Medicine; Visit Provider Internal Medicine | DX: J44.1 Chronic obstructive pulmonary disease with (acute) exacerbation (principal); E78.2 Mixed hyperlipidemia; K21.9 Gastro-esophageal reflux disease without esophagitis; E55.9 Vitamin D deficiency, unspecified; M85.80 Other specified disorders of bone density and structure, unspecified site; K59.03 Drug induced constipation; H54.3 Unqualified visual loss, both eyes; N39.46 Mixed incontinence; E66.3 Overweight; F19.11 Other psychoactive substance abuse, in remission | CPT/HCPCS: 90471; 96127; 99212 ==

== ENCOUNTER 2024-08-21 13:45 | Outpatient (AMB) | payer MEDICARE, MEDICAID, SELFPAY | END 2024-08-21 13:54 | disposition home or self-care (01) | LOC: HO.HUSH 13:46 | PROVIDERS: PCP Internal Medicine; Visit Provider Urology | DX: N39.0 Urinary tract infection, site not specified (principal); N32.81 Overactive bladder; N39.46 Mixed incontinence ==

== ENCOUNTER 2024-08-21 13:45 | Outpatient (REF) | payer MEDICARE, MEDICAID, SELFPAY | END 2024-08-21 13:46 | disposition home or self-care (01) | LOC: HO.LNP 13:45 | PROVIDERS: PCP Internal Medicine; Visit Provider Urology | DX: N39.0 Urinary tract infection, site not specified (principal); N32.81 Overactive bladder; N39.46 Mixed incontinence | CPT/HCPCS: 81003; 87086 ==

== ENCOUNTER 2024-09-10 14:12 | Outpatient (AMB) | payer MEDICARE, MEDICAID, SELFPAY ==
[2024-09-10 14:26] VITALS: BP 122/72; PULSE 73; O2SAT 95; BMI 31.4
--- NOTE | 2024-09-10 14:26 | MHC.OFFVIS ---
Vital Signs 09/10/24 14:26 Height 5 ft Weight 160 lb 14.999 oz BMI 31.4 BP 122/72 Blood Pressure Location Lt brachial Position Sitting Pulse 73 Pulse Source Pulse Oximeter Pulse Oximetry (%) 95 Oxygen Delivery Method Room Air Intake Visit Reasons: COPD Intake Note: pt is here for follow up and she states she coughs a lot and wheezing at times., pt does not like incruse the powder gets stuck in her throat,Also says she is not getting Advair HFA . Supply Chain Consultant Required: No Allergies bee pollen [BEE STINGS] Allergy (Unknown, Verified 09/10/24 14:40) SWELLING - BLOTCHES nitrofurantoin [From Macrobid] Adverse Reaction (Intermediate, Verified 09/10/24 14:40) Vomiting Medication List - Last Reconciled 09/10/24 by Elver Arredondo MD acetaminophen (Athenol) 650 mg (2 x 325 mg) PO Q6H PRN albuterol sulfate 2.5 mg (3 mL) inhalation QID PRN 30 days albuterol sulfate 90 mcg/actuation 2 puffs inhalation Q4-6H PRN 30 days amlodipine 10 mg See Protocol PO DAILY 90 days cholecalciferol (vitamin D3) 50 mcg PO DAILY 90 days epinephrine (EpiPen 2-Arthur) 0.3 mg (0.3 mL) IM Q4H PRN estradiol (Yuvafem) 10 mcg vaginal QWEEK fluticasone propion-salmeterol 115-21 mcg/actuation (Advair HFA) 2 puffs inhalation BID methadone 20 mg PO BEDTIME methadone 90 mg PO DAILY [NEBULIZER and all related supplies As directed up to 4 times a day as needed] omeprazole 20 mg PO DAILY@0630 90 days polyethylene glycol 3350 (Miralax) 17 grams PO DAILY PRN sennosides (senna) 17.2 mg (2 x 8.6 mg) PO BEDTIME PRN umeclidinium 62.5 mcg/actuation (Incruse Ellipta) 1 inh inhalation DAILY 30 days Do you need a note to return to daycare/school/sports/work: No HPI HPI COPD: Details: 64 years old female is here for her routine follow-up. COPD she is on Incruse Ellipta 1 inhalation daily, and she is also supposed to be on Advair HFA 115-21 2 puffs b.i.d. She complains of some irritation when she uses Incruse Ellipta but still continues to use it. She gets short of breath very easily when she walks around, and has more cough since she is out of Advair. Still smokes about 1 or 2 cigarettes a day. [facility] Medical History GERD (gastroesophageal reflux disease) History of substance abuse Ex-smoker Overweight (BMI 25.0-29.9) COPD (chronic obstructive pulmonary disease) Influenza A Pneumonitis COPD (chronic obstructive pulmonary disease) Dyspnea on exertion Mixed incontinence urge and stress Obesity (BMI 30-39.9) Constipation Osteopenia Vitamin D deficiency History of hepatitis C COPD (chronic obstructive pulmonary disease) Smoker Bronchitis Surgical History History of tubal ligation Family History Father Stroke Hypertension Diabetes Heart problem Mother Diabetes Brother Diabetes Sister In good health Social History Household Members: Family Household Members Other:: niece Housing: House Do you presently have visiting nurse or other home services: No Alcohol intake: former Patient Tobacco Use Status: Former Tobacco user Tobacco use type: Cigarette Cigarettes Per Day: 6 e-Cigarette/Vaping Use: Never Used Second Hand Smoke Exposure: No Substance Use Type: Marijuana service: No Current occupational status: employed Cognitive needs: No Hearing needs: No Vision needs: Yes Review of Systems Const All systems reviewed & are unremarkable except as noted in HPI and below Eyes Reports no additional complaints ENT Reports no additional complaints Card Denies chest pain, Denies irregular heart rhythm and Denies leg edema Resp Reports as per HPI and Reports cough GI Reports no additional complaints Reports no additional complaints Musc Reports back pain Skin/Breast Reports system reviewed and no additional complaints, except as documented Neuro Reports no additional complaints Psych Reports no additional complaints Physical Exam Vital Signs: Last Vital Signs Pulse 73 09/10/24 14:26 BP 122/72 09/10/24 14:26 Pulse Ox 95 09/10/24 14:26 Oxygen Delivery Method Room Air 12/16/24 14:26 BMI result Body Mass Index 31.4 Const General: comfortable, no acute distress, alert and awake Orientation/consciousness: patient oriented x3 HEENT Head: Yes normal to inspection General nose exam: No nasal polyps present and No nasal discharge present Face and sinus: Yes sinuses nontender Mouth: oropharynx normal Throat: Yes posterior oropharynx normal Eyes General: appearance normal, both eyes and all related structures Neck Neck: Yes normal visual inspection, Yes no lymphadenopathy, Yes trachea midline and Yes no JVD Thyroid: Thyroid normal Chest Chest palpation & inspection: normal inspection of the chest, normal palpation of entire chest wall and no tenderness Resp Other: Percussion note is resonant, breath sounds are moderately distant with prolonged expiratory phase. No wheezes or rhonchi are heard. Cardio Palpation: normal PMI Rate: regular rate Rhythm: regular rhythm Heart sounds: no gallops and no murmurs Peripheral pulses: Peripheral pulses 2+ throughout GI Palpation (GI): Soft to palpation, nontender, No hepatosplenomegaly present and no masses Auscultation: normal bowel sounds Back/Spine/Pelvis Thoracic/Lumbar Spine: thoracic and lumbar spine normal to inspection Skin General skin exam: no rashes or lesions noted Neuro General: patient oriented x3 and no focal motor deficits Cranial nerves: Yes CN's II-XII intact bilaterally Extrem General: Yes normal to inspection, Yes no clubbing, cyanosis or edema and Yes no calf tenderness Psych Appearance: grossly normal and well kempt Speech and movement: Normal speech and movement present Assessment & Plan Assessment & Plan (1) COPD (chronic obstructive pulmonary disease): Comment: Patient does have chronic obstructive pulmonary disease probably moderately severe. SEEMS TO BE DOING WELL AND HER COPD IS WELL CONTROLLED AT THIS TIME. However because of her ongoing smoking she still has some cough , especially in the morning hours and at night. Code(s): J44.9 - Chronic obstructive pulmonary disease, unspecified Category: Medical Qualifiers: COPD type: COPD with acute exacerbation Qualified Code(s): J44.1 - Chronic obstructive pulmonary disease with (acute) exacerbation Plan: Incruse Ellipta 1 inhalation daily in the morning, after using this inhaler try to gargle the throat to take away the irritation. Also use Advair HFA 115-212 puffs b.i.d. Albuterol HFA 2 puffs. Q 4-6 hours p.r.n. when outdoors Albuterol solution in the nebulizer and use Q 4-6 hours p.r.n. at home. (2) Smoker: Comment: History of smoking for many years. Quit smoking when she was discharged from the hospital, but again resumed smoking , and claims that she is smoking only 1 or 2 cigarettes a day. Code(s): F17.200 - Nicotine dependence, unspecified, uncomplicated Category: Social Hx Plan: Explained to her that as long as she smokes 1 or 2 cigarettes a day she will still keep on having cough. She must quit smoking completely. Medications: New fluticasone propion-salmeterol 115-21 mcg/actuation (Advair HFA) 2 puffs inhalation BID 30 days 12 grams 5RF copd Refilled albuterol sulfate 2.5 mg (3 mL) inhalation QID 30 days PRN 180 mL 3RF shortness of breath or wheezing J44.9 - Chronic obstructive pulmonary disease, unspecified Coding Level of Care Code Est Pt Level 3 (20055) Diagnoses Chronic obstructive pulmonary disease with acute exacerbation J44.1 COPD type: COPD with acute exacerbation Smoker F17.200
== END 2024-09-10 14:42 | disposition home or self-care (01) ==
PROVIDERS: PCP Internal Medicine; Visit Provider Internal Medicine
DX: J44.1 Chronic obstructive pulmonary disease with (acute) exacerbation (principal); F17.200 Nicotine dependence, unspecified, uncomplicated
CPT/HCPCS: 99213

== ENCOUNTER → 2024-09-10 14:12 | Outpatient (BNVA) | payer MEDICARE, MEDICAID, SELFPAY | PROVIDERS: PCP Internal Medicine; Visit Provider Internal Medicine | DX: J44.1 Chronic obstructive pulmonary disease with (acute) exacerbation (principal); F17.210 Nicotine dependence, cigarettes, uncomplicated; Z79.899 Other long term (current) drug therapy | CPT/HCPCS: 99212 ==

== ENCOUNTER 2024-10-30 14:01 | Outpatient (AMB) | payer MEDICARE, MEDICAID, SELFPAY ==
--- NOTE | 2024-10-30 14:22 | MHC.PC.OV ---
Vital Signs 10/30/24 14:23 Height 5 ft Weight 166 lb 6 oz BMI 32.5 BP 138/86 Blood Pressure Location Lt brachial Position Sitting Pulse 76 Pulse Source Pulse Oximeter Pulse Oximetry (%) 94 Oxygen Delivery Method Room Air Intake Visit Reasons: 4 Months f/u Ground Wirer Required: No Accompanied by: Self / Same As Patient Allergies bee pollen [BEE STINGS] Allergy (Unknown, Verified 10/30/24 14:46) SWELLING - BLOTCHES nitrofurantoin [From Macrobid] Adverse Reaction (Intermediate, Verified 10/30/24 14:46) Vomiting Medication List - Last Reconciled 10/30/24 by Vitor Cox MD acetaminophen (Athenol) 650 mg (2 x 325 mg) PO Q6H PRN albuterol sulfate 2.5 mg (3 mL) inhalation QID PRN 30 days albuterol sulfate 90 mcg/actuation 2 puffs inhalation Q4-6H PRN 30 days amlodipine 10 mg See Protocol PO DAILY 90 days cholecalciferol (vitamin D3) 50 mcg PO DAILY 90 days epinephrine (EpiPen 2-Arthur) 0.3 mg (0.3 mL) IM Q4H PRN estradiol (Yuvafem) 10 mcg vaginal QWEEK fluticasone propion-salmeterol 115-21 mcg/actuation (Advair HFA) 2 puffs inhalation BID 30 days fluticasone propion-salmeterol 250-50 mcg/dose (Wixela Inhub) 1 inh inhalation BID methadone 20 mg PO BEDTIME methadone 90 mg PO DAILY [NEBULIZER and all related supplies As directed up to 4 times a day as needed] omeprazole 20 mg PO DAILY@0630 90 days polyethylene glycol 3350 (Miralax) 17 grams PO DAILY PRN sennosides (senna) 17.2 mg (2 x 8.6 mg) PO BEDTIME PRN umeclidinium 62.5 mcg/actuation (Incruse Ellipta) 1 inh inhalation DAILY 30 days Tobacco use date assessed: 10/30/24 Fall risk assessment: 1 Fall in past year Last assessed Fall Risk: 10/30/24 Dental Screening Dental Screen Date: 10/30/24 Did you have a dental visit in the last 12 months?: Yes Did you have a dental problem in the last 6 months where you did not have access to dental care?: No Was dental information given to patient?: Patient has dentist HPI 4 Months f/u HPI Details Patient comes in today for her follow up visit States that she has been experiencing increased pain over her the medial epicondylar area of her left elbow since she accidentally hit her elbow on the corner of her nightstand about 2 weeks ago Adds that she has also been experiencing recurrent coughing and on and off wheezing and chest tightness over the past month (she has COPD) She denies any fever or sore throat; denies any headaches or dizziness Denies any chest pains No nausea/vomiting, no abdominal pain No change in bowel habits noted She was not able to get her follow up labs done prior to her appointment today [facility] Medical History GERD (gastroesophageal reflux disease) History of substance abuse Ex-smoker Overweight (BMI 25.0-29.9) COPD (chronic obstructive pulmonary disease) Influenza A Pneumonitis COPD (chronic obstructive pulmonary disease) Dyspnea on exertion Mixed incontinence urge and stress Obesity (BMI 30-39.9) Constipation Osteopenia Vitamin D deficiency History of hepatitis C COPD (chronic obstructive pulmonary disease) Smoker Bronchitis Surgical History History of tubal ligation Family History Father Stroke Hypertension Diabetes Heart problem Mother Diabetes Brother Diabetes Sister In good health Social History Household Members: Family Household Members Other:: niece Housing: House Do you presently have visiting nurse or other home services: No Alcohol intake: former Patient Tobacco Use Status: Former Tobacco user Tobacco use type: Cigarette Cigarettes Per Day: 6 e-Cigarette/Vaping Use: Never Used Second Hand Smoke Exposure: No Substance Use Type: Marijuana service: No Current occupational status: employed Cognitive needs: No Hearing needs: No Vision needs: Yes Questionnaire PHQ-9 Over the last 2 weeks, how often have you been bothered by any of the following problems? 1. Little interest or pleasure in doing things: not at all 2. Feeling down, depressed, or hopeless: not at all 3. Trouble falling or staying asleep, or sleeping too much: not at all 4. Feeling tired or having little energy: not at all 5. Poor appetite or overeating: not at all 6. Feeling bad about yourself - or that you are a failure or have let yourself or your family down: not at all 7. Trouble concentrating on things, such as reading the newspaper or watching television: not at all 8. Moving or speaking so slowly that other people could have noticed. Or the opposite - being so fidgety or restless that you have been moving around a lot more than usual: not at all 9. Thoughts that you would be better off or of hurting yourself in some way: not at all Total score: 0 Depression Screening Interpretation: Negative Depression Screening Done: Yes 25058 - PHQ-9 Billing: Yes Source: Developed by Drs. Marcus Jackson, Vannesa Gongora, Alex Chong and colleagues, with an educational miles from [employer]. Thrive Questionnaire Date Thrive assessed: 10/30/24 I am a: Patient What is your living situation today?: I have a steady place to live Within the past 12 months, did the food you bought not last and you didn't have the money to get more?: Never true Within the past 12 months, did you worry whether your food would run out before you got money to buy more?: Never true Do you have trouble paying for medicines?: No Do you have trouble getting transportation to medical appointments?: No Do you have trouble paying your heating and electricity bill?: No Do you have trouble taking care of your child, family member or friend?: No Do you have trouble with day-to-day activities such as bathing, preparing meals, shopping, managing finances, etc.?: No Are you currently unemployed and looking for a job?: I choose not to answer this question Are you interested in more education?: No Please select the resources that you would like help with: None Currently or been in a relationship where the following occur: No concerns reported THRIVE Score: 0 AUDIT C Alcohol Use Questionnaire (AUDIT-C) 1. How often do you have a drink containing alcohol?: Never 3. How often do you have six or more drinks on one occasion?: Never Total Score: 0 Score Reviewed/Action Taken: Yes LEEANN-7 AMB Questionnaire LEEANN-7 Date LEEANN - 7 assessed: 10/30/24 Feeling nervous, anxious, or on edge: 0 = Not at all Not being able to stop or control worryin = Not at all Worrying too much about different things: 0 = Not at all Trouble relaxin = Not at all Being so restless that it is hard to sit still: 0 = Not at all Becoming easily annoyed or irritable: 0 = Not at all Feeling afraid as if something awful might happen: 0 = Not at all Total LEEANN-7 score (0-4 normal; 5-9 mild; 10-14 moderate; 15-21 severe): 0 Source: Developed by Drs. Marcus Jackson, Vannesa Gongora, Alex Chong and colleagues, with an educational miles from [employer]. Review of Systems Const Denies chills, Reports difficulty sleeping (chronic), Reports fatigue, Denies fever(s) and Denies headache(s) Eyes Reports blurry vision ENT Denies dysphagia, Reports dizziness (on and off - see HPI), Denies otalgia, Denies headache(s), Reports nasal congestion, Denies neck pain, Denies odynophagia and Denies sore throat Card Denies chest pain, Denies rapid heart rate, Denies irregular heart rhythm, Denies palpitations and Reports dyspnea on exertion (chronic) Resp Reports chest congestion (chest feels tight at times), Reports cough (on and off), Denies hemoptysis, Reports dyspnea on exertion (chronic) and Reports wheezing (occasionally) GI Denies abdominal pain, Reports constipation (chronic), Denies dysphagia, Denies heartburn, Denies diarrhea, Denies nausea, Denies odynophagia and Denies vomiting Denies urinary frequency, Denies dysuria and Denies urinary urgency Musc Denies back pain, Reports arthralgias (left elbow - over the medial epicondyle - see HPI) and Denies neck pain Skin/Breast Denies rash Neuro Reports dizziness (on and off - see HPI) and Denies headache(s) Endo Reports fatigue and Denies palpitations Aller/Immun Reports wheezing (occasionally) Physical exam (Primary Care) Vital Signs: Last Vital Signs Pulse 76 10/30/24 14:23 BP 138/86 10/30/24 14:23 Pulse Ox 94 10/30/24 14:23 Oxygen Delivery Method Room Air 10/30/24 14:23 BMI result Body Mass Index 32.5 Tobacco/Smoking Status: Tobacco use Status Tobacco use date assessed 10/30/24 10/30/24 14:28 Patient Tobacco Use Status Former Tobacco user 10/30/24 14:28 Tobacco use type Cigarette 10/30/24 14:28 e-Cigarette/Vaping Use Never Used 10/30/24 14:28 PHQ-9: PHQ-9 Score PHQ-9: Total score 0 10/30/24 14:48 Depression Screening Interpretation: Negative Thrive Assessment: Date of Thrive Assessment Date Thrive assessed 10/30/24 10/30/24 14:28 Currently or been in a relationship where the following occur: No concerns reported Const General: no acute distress and alert HENMT Ears: TM's normal bilaterally and EAC's normal Throat: Yes posterior oropharynx normal and Yes tonsils normal (no TP congestion) Neck Neck: Yes supple and No lymphadenopathy Thyroid: Thyroid normal Resp Auscultation: no crackles, no rales, rhonchi (scattered bilaterally), wheezes expiratory wheezes and diminished lung sounds bilateral Cardio Rate: regular rate Rhythm: regular rhythm Heart sounds: no murmurs GI Palpation (GI): Soft to palpation and nontender Auscultation: normal bowel sounds General: Yes no CVA tenderness Back/Spine/Pelvis Back: no CVA tenderness Thoracic/Lumbar Spine: No lumbar spinal tenderness Skin Rashes: no rashes Extrem General: Yes no clubbing, cyanosis or edema Left upper extremity: elbow/forearm Details: tenderness Location: of the medial epicondyle; no swelling Coding Level of Care Code Est Pt Level 4 (55327) Diagnoses COPD exacerbation J44.1 Mixed dyslipidemia E78.2 Gastroesophageal reflux disease without esophagitis K21.9 Esophagitis presence: without esophagitis History of hepatitis C Z86.19 Vitamin D deficiency E55.9 Osteopenia, unspecified location M85.80 Osteopenia location: unspecified Drug-induced constipation K59.03 Constipation type: drug induced constipation Mixed incontinence urge and stress N39.46 Left elbow pain M25.522 History of substance abuse F19.11 Overweight (BMI 25.0-29.9) E66.3 Additional Codes PHQ-9 - 33691 - PHQ-9 Billing: Yes ([id number]) Assessment & Plan Assessment & Plan (1) COPD exacerbation: Comment: She does have chronic obstructive pulmonary disease and she is an ongoing smoker. Code(s): J44.1 - Chronic obstructive pulmonary disease with (acute) exacerbation Category: Medical Plan: Will start patient empirically on Azithromycin QD x 5 days Continue Advair HFA 115-21 mcg 1 inhalation BID, Incruse Ellipta 62.5 mcg 1 inhalation QD and Albuterol HFA 1 to 2 inhalations Q 6 hours PRN Per request, will also send in Rx for Albuterol nebulizer solution to use with her [employer] machine when needed Follow up with pulmonary as scheduled (2) Mixed dyslipidemia: Code(s): E78.2 - Mixed hyperlipidemia Category: Medical Plan: She was not able to get her follow up labs done prior to her appointment today Reinforced low cholesterol diet Will have patient recheck her labs and fasting lipids in 4 months for follow up - will just have patient use her current orders (updated) for her next lab draw (3) GERD (gastroesophageal reflux disease): Code(s): K21.9 - Gastro-esophageal reflux disease without esophagitis Category: Medical Qualifiers: Esophagitis presence: without esophagitis Qualified Code(s): K21.9 - Gastro-esophageal reflux disease without esophagitis Plan: Reinforced dietary restrictions in GERD Continue Omeprazole 20 mg QD (4) History of hepatitis C: Code(s): Z86.19 - Personal history of other infectious and parasitic diseases Category: Medical Plan: Patient recalls being treated for hepatitis C many years ago Patient requested to have this retested couple of years ago after the methadone clinic noticed a positive hepatitis-C antibody test in early 2019 but she was not able to complete this after it was ordered Her LFTs are completely normal on her recent labs We had her recheck these with her other labs recently and her viral load has remained undetectable (5) Vitamin D deficiency: Code(s): E55.9 - Vitamin D deficiency, unspecified Category: Medical Plan: Continue Vitamin D3 2000 units QD (6) Osteopenia: Code(s): M85.80 - Other specified disorders of bone density and structure, unspecified site Category: Medical Qualifiers: Osteopenia location: unspecified Qualified Code(s): M85.80 - Other specified disorders of bone density and structure, unspecified site Plan: Her repeat BMD done in November 2022 revealed (+) osteopenia based on the lowest T-score value of -1.8 in the femoral neck Her BMD has declined by 7.7% in the AP spine from her previous BMD done on 03/16/2019; no significant decline was noted in the femoral neck Patient is advised to continue to stay active and exercise regularly and also to take her daily calcium and vitamin-D supplements (7) Constipation: Code(s): K59.00 - Constipation, unspecified Category: Medical Qualifiers: Constipation type: drug induced constipation Qualified Code(s): K59.03 - Drug induced constipation Plan: This is mostly related to her Methadone Continue MiraLax powder 17 gm QD or Senna 8.6 mg QD PRN - states that the Rx helps but she can only take 1 or the other and not both (had diarrhea in the past when she took both MiraLax and Senna together); Rx for Senna was sent in to pharmacy previously per her request She is again encouraged to continue to increase her oral fluids and dietary fiber intake (8) Mixed incontinence urge and stress: Code(s): N39.46 - Mixed incontinence Category: Medical Plan: Abdominal and pelvic CT done last year came out negative Continue Oxybutynin ER 10 mg QD Follow up with urology as scheduled (9) Left elbow pain: Code(s): M25.522 - Pain in left elbow Category: Medical Plan: Will send patient for x-rays of the left elbow for further evaluation (10) History of substance abuse: Code(s): F19.11 - Other psychoactive substance abuse, in remission Category: Medical Plan: Continue Methadone 90 mg QD Follow up with the [facility] ([facility]) as scheduled (11) Overweight (BMI 25.0-29.9): Code(s): E66.3 - Overweight Category: Medical Plan: Reinforced diet/exercise as tolerated/lose weight Plan Follow up in 4 months Orders: Orders XR elbow LT min 3V 10/30/24 M25.522 - Pain in left elbow Medications: New azithromycin take 500 mg today (day 1), then 250 mg for 4 days (days 2-5) PO 6 tabs 0RF Changed From albuterol sulfate 2.5 mg (3 mL) inhalation QID 30 days PRN 180 mL 3RF shortness of breath or wheezing J44.9 - Chronic obstructive pulmonary disease, unspecified To albuterol sulfate 2.5 mg (3 mL) continuous nebulization QID 30 days PRN 180 mL 3RF shortness of breath or wheezing J44.9 - Chronic obstructive pulmonary disease, unspecified
[2024-10-30 14:23] VITALS: BP 138/86; PULSE 76; O2SAT 94; BMI 32.5
== END 2024-10-30 15:03 | disposition home or self-care (01) ==
PROVIDERS: PCP Internal Medicine; Visit Provider Internal Medicine
DX: J44.1 Chronic obstructive pulmonary disease with (acute) exacerbation (principal); F19.11 Other psychoactive substance abuse, in remission; E78.2 Mixed hyperlipidemia; K21.9 Gastro-esophageal reflux disease without esophagitis; Z86.19 Personal history of other infectious and parasitic diseases; E55.9 Vitamin D deficiency, unspecified; M85.80 Other specified disorders of bone density and structure, unspecified site; K59.03 Drug induced constipation; N39.46 Mixed incontinence; M25.522 Pain in left elbow; E66.3 Overweight

== ENCOUNTER → 2024-10-30 14:01 | Outpatient (BNVA) | payer MEDICARE, MEDICAID, SELFPAY | PROVIDERS: PCP Internal Medicine; Visit Provider Internal Medicine | DX: J44.1 Chronic obstructive pulmonary disease with (acute) exacerbation (principal); E78.2 Mixed hyperlipidemia; K21.9 Gastro-esophageal reflux disease without esophagitis; E55.9 Vitamin D deficiency, unspecified; M85.80 Other specified disorders of bone density and structure, unspecified site; K59.03 Drug induced constipation; N39.46 Mixed incontinence; M25.522 Pain in left elbow; F19.11 Other psychoactive substance abuse, in remission; E66.3 Overweight; Z68.32 Body mass index [BMI] 32.0-32.9, adult; Z71.3 Dietary counseling and surveillance | CPT/HCPCS: 96127; 99212 ==

== ENCOUNTER 2024-12-09 13:05 | Inpatient (IN) | payer MEDICARE, MEDICAID, SELFPAY ==
--- NOTE | ~2024-12-09 | CT_ITS ---
CLINICAL HISTORY: LUQ tenderness CT ABDOMEN AND PELVIS WITH CONTRAST Comparison: CT/SR - CT ABDOMEN PELVIS WO/W IV CON - 10/18/22 08:28 EST Findings: No basilar consolidation or pleural effusion. Stable mild scarring in the right middle lobe and lingula. Mild right basilar atelectasis. There are no acute abnormalities in the solid organs. There is mild fatty infiltration of the liver. There is a small liver cyst. There is diffuse parenchymal atrophy in the pancreas with no significant pancreatic ductal dilatation. No peripancreatic edema. Spleen, adrenal glands and kidneys unremarkable. No large calcified gallstone. No urolithiasis. Atherosclerotic changes in the aorta. No AAA. No bowel obstruction, pneumoperitoneum, or pneumatosis. No ascites. No significant mesenteric or paracolic edema. There is a large amount of stool throughout the colon. The appendix is identified. No acute appendicitis. CT appearance of the uterus and ovaries unremarkable. Urinary bladder unremarkable. The bones are intact. Mild lumbar levoscoliosis. IMPRESSION: 1. No obstructive or acute inflammatory changes in the gastrointestinal and genitourinary tracts. 2. No urolithiasis. 3. Large colonic stool burden. This document has been electronically signed by: Clara Reece DO on 12/09/2024 15:15:44
--- NOTE | ~2024-12-09 | XR_ITS ---
CLINICAL HISTORY: chest pain, sob, cough 2 view chest x-ray Comparison: CR/SR - XR CHEST 1V - 12/26/23 18:51 EDT Findings: Prominent right epicardial fat pad. Adjacent increased markings. No pleural effusion or pneumothorax. Normal size heart. No acute fracture. IMPRESSION: Increased markings in the right lower lobe suggesting atelectasis versus small infiltrate. This document has been electronically signed by: Clara Reece DO on 12/09/2024 13:57:31
[2024-12-09 13:08] VITALS: BP 211/83; PULSE 90; RESP 20; TEMP 36.6; O2SAT 94; BMI 30.6
--- NOTE | 2024-12-09 13:09 | ED.SOB ---
HPI - SOB/Dyspnea General Chief Complaint: Dyspnea Stated Complaint: sob, abd pain Time Seen by Provider: 12/09/24 13:52 Source: patient, RN notes reviewed and old records reviewed Mode of arrival: ambulatory Limitations: no limitations History of Present Illness ED Provider: Apollo MISTRY Narrative: Patient is a 64-year-old female with history of COPD, smoking, GERD presenting to the emergency department with complaint of shortness of breath and wheezing since last night. Reports she has been using her inhalers and nebulizer at home every 4-6 hours with little relief. Denies fevers. Complains productive cough. Also complaining of left upper abdominal pain. Denies nausea vomiting, diarrhea. MD elicited complaint: shortness of breath Pertinent past history: COPD Onset (ago): hour(s) Related Data Home Medications ?Medication ?Instructions ?Recorded ?Confirmed methadone 10 mg/5 mL oral solution 90 mg PO DAILY 07/01/22 10/30/24 polyethylene glycol 3350 17 gram 17 g PO DAILY PRN Constipation 11/24/22 10/30/24 oral powder packet (Miralax) methadone 10 mg/5 mL oral solution 20 mg PO BEDTIME 12/14/23 10/30/24 Previous Rx's ?Medication ?Instructions ?Recorded epinephrine 0.3 mg/0.3 mL 0.3 mg (0.3 mL) IM Q4H PRN 07/26/23 injection, auto-injector (EpiPen anaphylaxis #2 ea 2-Arthur) acetaminophen 325 mg tablet 650 mg (2 x 325 mg) PO Q6H PRN 12/15/23 (Athenol) headache #10 tabs amlodipine 10 mg tablet 10 mg PO DAILY 90 days #90 tabs 12/31/23 NEBULIZER and all related supplies #1 ea 01/11/24 umeclidinium 62.5 mcg/actuation 1 inh inhalation DAILY 30 days #30 02/23/24 blister powder for inhalation ea (Incruse Ellipta) estradiol 10 mcg vaginal tablet 10 mcg vaginal QWEEK #24 tabs 05/24/24 (Yuvafem) cholecalciferol (vitamin D3) 50 50 mcg PO DAILY 90 days #90 caps 08/21/24 mcg (2,000 unit) capsule fluticasone propionate 115 2 puff inhalation BID copd 30 days 09/10/24 mcg-salmeterol 21 mcg/actuation #12 grams HFA inhaler (Advair HFA) fluticasone 250 mcg-salmeterol 50 1 inh inhalation BID copd #60 ea 09/11/24 mcg/dose blistr powdr for inhalation (Wixela Inhub) albuterol sulfate 90 mcg/actuation 2 puff inhalation Q4-6H PRN 09/25/24 aerosol inhaler shortness of breath or wheezing 30 days #8.5 grams omeprazole 20 mg capsule,delayed 20 mg PO DAILY@0630 90 days #90 10/06/24 release caps albuterol sulfate 2.5 mg/3 mL 2.5 mg (3 mL) continuous 10/30/24 (0.083 %) solution for nebulization nebulization QID PRN shortness of breath or wheezing 30 days #180 mL azithromycin 250 mg tablet See Rx Instructions PO .COMPLEX #6 10/30/24 tabs sennosides 8.6 mg tablet (senna) 17.2 mg (2 x 8.6 mg) PO BEDTIME 12/01/24 PRN for constipation #180 tabs Allergies Allergy/AdvReac Type Severity Reaction Status Date / Time bee pollen [BEE STINGS] Allergy Unknown SWELLING - Verified 12/09/24 13:11 BLOTCHES nitrofurantoin AdvReac Intermediate Vomiting Verified 12/09/24 13:11 [From Macrobid] Review of Systems Review of Systems: As per HPI Yes all other systems are reviewed and are negative Constitutional: Constitutional: Reports as per HPI [facility] Past Medical History Medical History GERD (gastroesophageal reflux disease) History of substance abuse Ex-smoker Overweight (BMI 25.0-29.9) COPD (chronic obstructive pulmonary disease) Influenza A Pneumonitis COPD (chronic obstructive pulmonary disease) Dyspnea on exertion Mixed incontinence urge and stress Obesity (BMI 30-39.9) Constipation Osteopenia Vitamin D deficiency History of hepatitis C COPD (chronic obstructive pulmonary disease) Smoker Bronchitis Surgical History History of tubal ligation Family History Family History Father Stroke Hypertension Diabetes Heart problem Mother Diabetes Brother Diabetes Sister In good health Social History Social History Household Members: Family Household Members Other:: niece Housing: House Do you presently have visiting nurse or other home services: No Alcohol intake: former Patient Tobacco Use Status: Former Tobacco user Tobacco use type: Cigarette Cigarettes Per Day: 6 Smoked in Last 30 Days: No e-Cigarette/Vaping Use: Never Used Second Hand Smoke Exposure: No Use of substances other than those prescribed or required for medical reasons: No Substance Use Type: Marijuana Advance Directives: No Advance Directives Information Provided: No service: No Current occupational status: employed Cognitive needs: No Hearing needs: No Vision needs: Yes Physical Exam Vital Signs: Vital Signs: Last Vital Signs Temp 97.9 F 12/09/24 13:08 Pulse 73 12/09/24 16:23 Resp 25 H 12/09/24 16:23 BP 211/83 H 12/09/24 13:08 Pulse Ox 94 12/09/24 13:08 O2 Del Method Room Air 12/09/24 13:08 BMI result Body Mass Index 30.6 Vital signs have been reviewed and appear to be correct. Blood pressure elevated. Heart rate normal. Respiratory rate normal. Temperature normal. Oxygen saturation normal. Const: General: cooperative, healthy appearing and no acute distress Orientation/consciousness: oriented to person, oriented to place, oriented to time and patient oriented x3 Limitations: no limitations HEENT: Head: Yes normocephalic and Yes atraumatic Ears: external ears normal General nose exam: Normal external nose present Face and sinus: Yes face symmetric Mouth: oropharynx normal and moist mucous membranes Throat: Yes uvula midline Eyes: Pupils: Equal, round and reactive pupils present Neck: Neck: Yes normal visual inspection and Yes supple Resp: Effort & Inspection: normal respiratory effort and able to speak in complete sentences Auscultation: wheezes expiratory wheezes, inspiratory wheezes and throughout Cardio: Rate: regular rate Rhythm: regular rhythm Heart sounds: S1 normal heart sound present and S2 normal heart sound present GI: Palpation (GI): Soft to palpation, Tenderness to palpation present (GI) in the LUQ (mild tenderness), no guarding and No Rebound tenderness present Auscultation: normoactive bowel sounds : General: Yes no CVA tenderness Back/Spine/Pelvis: Back: no CVA tenderness Skin: General skin exam: elasticity normal and turgor normal Neuro: General: oriented to person, oriented to place, oriented to time, patient oriented x3, moves all extremities, no focal motor deficits and CN's II-XI intact bilaterally Cranial nerves: Yes Equal, round and reactive pupils present Cognition (Neuro): normal cognition Extrem: General: Yes full ROM, Yes no pedal edema and Yes no calf tenderness Psych: Mental Status: mental status grossly normal Affect: normal affect Thought process: Normal thought process present Course Course Course Narrative: This is a Rapid Medical Examination (RME) performed by Kaiden Olmos PA-C in triage. Full HPI, ROS, assessment and treatment plan per primary provider in the Main ED. 64 yo female with history of COPD, former smoker, GERD, HLD, HCV who presents to the ER for evaluation SOB and wheezing that started last night. No relief with inhalers and nebs overnight. No fevers. Reports chest pain with deep breaths. Audible wheezing in triage, mild distress, SPO2 94%. Plan: CXR, EKG, labs, viral swab, ED bronch protocol ordered Medications Administered Discontinued Medications Generic Name Dose Route Start Last Admin Trade Name Freq PRN Reason Stop Dose Admin Albuterol Sulfate 5 mg/ 7.5 mg 12/09/24 16:22 12/09/24 16:26 Albuterol Sulfate 2.5 mg INHALE 12/09/24 16:23 7.5 mg ONCE ONE Administration Ceftriaxone Sodium 1 gm 12/09/24 14:06 12/09/24 14:57 Ceftriaxone Sodium 1 Gm Vial IVPUSH 12/09/24 14:07 1 gm ONCE ONE Administration Albuterol Sulfate 5 mg/ 0 mg 12/09/24 13:35 12/09/24 13:42 Albuterol/Ipratropium 3 ml INHALE 12/09/24 13:36 7.5 each ONCE ONE Administration Magnesium Sulfate 2 gm in 50 mls @ 25 mls/hr 12/09/24 14:04 12/09/24 14:57 Magnesium Sulfate/H2o IV 12/09/24 16:03 Infused ONCE ONE Infusion Iohexol 100 ml 12/09/24 14:49 12/09/24 14:50 Iohexol 350 Mg/Ml 100 Ml Infus..Btl IV 12/09/24 14:50 85 ml ONCE ONE Administration Methylprednisolone Sodium Succinate 60 mg 12/09/24 14:04 12/09/24 14:08 Methylprednisolone Sod Succ 125 Mg/2 Ml Vial IVPUSH 12/09/24 14:05 60 mg ONCE ONE Administration Medical Decision Making Medical Decision Making [facility] Narrative: Patient is a 64-year-old female with history of COPD, smoking, GERD presenting to the emergency department with complaint of shortness of breath and wheezing since last night. On exam patient is awake, A+Ox3, VS WNL, afebrile, normal neurological exam without focal deficits, physical exam findings as above. Given reported symptoms and physical exam findings, initial differential includes but is not limited to COPD exacerbation, viral illness, covid, flu, bronchitis, pneumonia, costochondritits, pancreatitis. Labs notable for no leukocytosis, mildly elevated alk phos, no electrolyte abnormalities, negative troponin. EKG shows NSR, slightly prolonged QTc. X-ray notable for possible RLL infiltrate. CT A/P is without evidence of pancreatitis or other acute abnormality. My interpretation is in agreement with the radiologist's interpretation. Patient updated on results and all questions answered. Patient noted to be 93% on room air. Ambulatory O2 sat obtained and patient dropped to 90%. Case discussed with Dr. Jack who accepts admission to medicine. Differential Diagnosis Differential Diagnoses: The differential diagnosis associated with the presentation includes As per [facility] Admission/Observation Consideration of admission/observation: Escalation of care including admission/observation considered Consult Healthcare Provider Management of the patient was discussed with: Hospitalist Lab Data [facility] Lab Attestation statement: I reviewed the patient's lab results. as per [facility] 12/09/24 13:31 12/09/24 13:31 Labs: Lab Results 12/09/24 Range/Units 13:31 WBC 8.7 (4.8-10.8) X10*3/uL RBC 4.62 (4.20-5.50) X10*6/uL Hgb 13.7 (12.0-16.0) g/dl Hct 40.4 (37.0-47.0) % MCV 87.4 (80.0-98.0) fL MCH 29.7 (27.0-33.0) pg MCHC 33.9 (31.0-35.0) g/dl RDW 13.3 (11.0-16.0) % Plt Count 283 (160-400) X10*3/uL MPV 10.2 (9.4-12.3) fL Immature Gran % (Auto) 0.3 (0.0-0.4) % Neut % (Auto) 78.5 H (45-73) % Lymph % (Auto) 15.3 L (20-40) % [place] % (Auto) 4.4 (2-11) % Eos % (Auto) 0.9 (0-4) % Baso % (Auto) 0.6 (0-2) % Lymph # (Auto) 1.3 (1.2-4.9) X10*3/uL [place] # (Auto) 0.4 (0.1-1.2) X10*3/uL Eos # (Auto) 0.1 (0.0-0.4) X10*3/uL Baso # (Auto) 0.1 (0.0-0.2) X10*3/uL Abs Immat Gran (auto) 0.03 (0.00-0.03) X10*3/uL Absolute Neuts (auto) 6.8 (2.0-8.3) x10*3/uL Absolute Nucleated RBC 0.000 (0.0-0.012) X10*3/uL Nucleated RBC % (auto) 0.0 (0.0-0.2) /100WBC Sodium 138 (135-145) mmol/L Potassium 4.3 (3.3-5.1) mmol/L Chloride 102 (96-108) mmol/L Carbon Dioxide 26 (22-29) mmol/L Anion Gap 14 (12-20) BUN 15 (9-16) mg/dL Creatinine 0.77 (0.5-1.4) mg/dL Estim Creat Clear Calc 64.0 Estimated GFR > 60 Random Glucose 102 (60-115) mg/dL Calcium 9.7 (8.4-10.2) mg/dL Magnesium 1.8 (1.6-2.6) mg/dL Total Bilirubin 0.4 (0.0-1.0) mg/dL Direct Bilirubin 0.1 (0.0-0.5) mg/dL AST 27 (5-31) U/L ALT 19 (0-31) U/L Alkaline Phosphatase 133 H (39-117) U/L Troponin I High Sens < 2.7 (<3.5-17.0) ng/L B-Natriuretic Peptide 89 (<100) pg/mL Total Protein 8.6 H (6.5-8.0) g/dL Albumin 4.5 (3.5-5.0) g/dL Influenza Type A (PCR) NEGATIVE (Negative) Influenza Type B (PCR) NEGATIVE (Negative) RSV RNA Qual (PCR) NEGATIVE (Negative) SARS-CoV-2 RNA (RT-PCR) NEGATIVE (Negative) Independent Interpretation I performed an independent interpretation of an: EKG (normal sinus rhythm, rate 71bpm, normal LA interval, slightly prolonged QTc) and Plain X-Ray Interpretation: CXR shows RLL infiltrate. CT A/P without evidence of pancreatitis. Radiology Impression Discussion of test interpretation with radiology: I have reviewed the radiologist's reading. Radiologist Impression: IMPRESSION: 1. No obstructive or acute inflammatory changes in the gastrointestinal and genitourinary tracts. 2. No urolithiasis. 3. Large colonic stool burden. IMPRESSION: Increased markings in the right lower lobe suggesting atelectasis versus small infiltrate. External Record Review External record reviewed: Inpatient record, Office record and Outpatient record Prescription Management I considered prescription management with: Antibiotic and Other Discharge Plan Discharge Patient Disposition: Admitted As Inpatient Prescriptions: No Action estradiol [Yuvafem] 10 mcg tablet 10 mcg vaginal QWEEK Qty: 24 1RF cholecalciferol (vitamin D3) 50 mcg (2,000 unit) capsule 50 mcg PO DAILY 90 Days Qty: 90 3RF fluticasone propion-salmeterol [Wixela Inhub] 250-50 mcg/dose blister with device 1 inh inhalation BID Qty: 60 4RF albuterol sulfate 90 mcg/actuation HFA aerosol inhaler 2 puff inhalation Q4-6H PRN (Reason: shortness of breath or wheezing) 30 Days Qty: 8.5 3RF omeprazole 20 mg capsule,delayed release(DR/EC) 20 mg PO DAILY@0630 90 Days Qty: 90 1RF sennosides [senna] 8.6 mg tablet 17.2 mg PO BEDTIME PRN (Reason: for constipation) Qty: 180 1RF methadone 10 mg/5 mL Solution 20 mg PO BEDTIME acetaminophen [Athenol] 325 mg tablet 650 mg PO Q6H PRN (Reason: headache) Qty: 10 0RF amlodipine 10 mg Tablet 10 mg PO DAILY 90 Days Qty: 90 0RF Protocol: Hold for SBP< HOLD for SBP < : 90 methadone 10 mg/5 mL solution 90 mg PO DAILY Patient Comments: Habit-OPCO epinephrine [EpiPen 2-Arthur] 0.3 mg/0.3 mL auto-injector 0.3 mg IM Q4H PRN (Reason: anaphylaxis) Qty: 2 0RF (DME) NEBULIZER and all related supplies See Rx Instructions .Route .MEDSUPPLY Qty: 1 0RF Rx Instructions: As directed up to 4 times a day as needed Incruse Ellipta 62.5 mcg/actuation blister with device 1 inh inhalation DAILY 30 Days Qty: 30 5RF polyethylene glycol 3350 [Miralax] 17 gram powder in packet 17 g PO DAILY PRN (Reason: Constipation) fluticasone propion-salmeterol [Advair HFA] 115-21 mcg/actuation HFA aerosol inhaler 2 puff inhalation BID 30 Days Qty: 12 5RF albuterol sulfate 2.5 mg /3 mL (0.083 %) solution for nebulization 2.5 mg continuous nebulization QID PRN (Reason: shortness of breath or wheezing) 30 Days Qty: 180 3RF azithromycin 250 mg tablet See Rx Instructions PO .COMPLEX Qty: 6 0RF Rx Instructions: take 500 mg today (day 1), then 250 mg for 4 days (days 2-5) PO Print Language: Cambodian
--- NOTE | 2024-12-09 13:12 | ECG_ITS ---
Test Reason : SOB/CHEST PAIN Blood Pressure : */* mmHG Vent. Rate : 71 BPM Atrial Rate : 71 BPM P-R Int : 136 ms QRS Dur : 72 ms QT Int : 430 ms P-R-T Axes : 44 16 43 degrees QTcB Int : 467 ms Normal sinus rhythm Low voltage QRS Septal infarct , age undetermined Abnormal ECG When compared with ECG of 26-Dec-2023 17:47, Septal infarct is now Present Referred By: Lindsey Olmos Electronically Signed By: Khanh Delgado
[2024-12-09 13:39] LABS: MANUAL DIFF FLAG NO
[2024-12-09 13:40] LABS: Basophils Absolute Auto 0.1 X10*3/uL (0.0-0.2); Basophils Percent Auto 0.6 % (0-2); Eosinophils Absolute Auto 0.1 X10*3/uL (0.0-0.4); Eosinophils Percent Auto 0.9 % (0-4); Hematocrit 40.4 % (37.0-47.0); Hemoglobin 13.7 g/dl (12.0-16.0); Imm Gran Abs Auto 0.03 X10*3/uL (0.00-0.03); Imm Gran Pct Auto 0.3 % (0.0-0.4); Lymphocytes Absolute Auto 1.3 X10*3/uL (1.2-4.9); Lymphocytes Percent Auto 15.3 % (20-40); Mean Corpuscular HGB Conc 33.9 g/dl (31.0-35.0); Mean Corpuscular Hemoglobin 29.7 pg (27.0-33.0); Mean Corpuscular Volume 87.4 fL (80.0-98.0); Mean Platelet Volume 10.2 fL (9.4-12.3); Monocytes Absolute Auto 0.4 X10*3/uL (0.1-1.2); Monocytes Percent Auto 4.4 % (2-11); Neutrophils Absolute Auto 6.8 x10*3/uL (2.0-8.3); Neutrophils Percent Auto 78.5 % (45-73); Platelet Count 283 X10*3/uL (160-400); Red Blood Count 4.62 X10*6/uL (4.20-5.50); Red Cell Distribution Width 13.3 % (11.0-16.0); White Blood Count 8.7 X10*3/uL (4.8-10.8)
[2024-12-09] MEDS: Albuterol Sulfate 5 MG, Albuterol/Iprat 2.5/0.5MG 3 ML 3 ML INHALE (13:42)
[2024-12-09 13:43] VITALS: PULSE 77; RESP 22; O2SAT 94
[2024-12-09 13:56] LABS: Alanine Aminotransferase 19 U/L (0-31); Albumin Level 4.5 g/dL (3.5-5.0); Alkaline Phosphatase 133 U/L (39-117); Anion Gap 14 (12-20); Aspartate Amino Transferase 27 U/L (5-31); Bilirubin Direct 0.1 mg/dL (0.0-0.5); Bilirubin Total 0.4 mg/dL (0.0-1.0); Blood Urea Nitrogen 15 mg/dL (9-16); Calcium 9.7 mg/dL (8.4-10.2); Carbon Dioxide 26 mmol/L (22-29); Chloride 102 mmol/L (96-108); Estimated Glomerular Filt Rate > 60; Glucose Random 102 mg/dL (60-115); Magnesium 1.8 mg/dL (1.6-2.6); Potassium 4.3 mmol/L (3.3-5.1); Sodium 138 mmol/L (135-145); Total Protein 8.6 g/dL (6.5-8.0)
[2024-12-09 14:02] LABS: B Type Natriuretic Peptide 89 pg/mL (<100)
[2024-12-09 14:04] LABS: Troponin-I High Sensitivity < 2.7 ng/L (<3.5-17.0)
[2024-12-09] MEDS: methylPREDNISolone Sod Succ 125 MG/2 ML VIAL 60 MG IVPUSH (14:08)
[2024-12-09] MEDS: Magnesium Sulfate/H2O 2 GM/50 ML PIGGYBACK IV (14:08)
[2024-12-09 14:27] LABS: Influenza A PCR NEGATIVE (Negative); Influenza B PCR NEGATIVE (Negative); Resp Syncy Virus RNA Qual PCR NEGATIVE (Negative); SARS COV2 PCR INHOUSE NEGATIVE (Negative)
[2024-12-09] MEDS: iohexoL 350 MG/ML 100 ML INFUS..BTL IV (14:50)
[2024-12-09] MEDS: cefTRIAXone sodium 1 GM VIAL IVPUSH (14:57)
[2024-12-09 16:00] VITALS: BP 130/56; PULSE 85; RESP 20; O2SAT 94
[2024-12-09 16:23] VITALS: PULSE 73; RESP 25; O2SAT 93
[2024-12-09] MEDS: Albuterol Sulfate 5 MG, Albuterol Sulfate (0.083%) 2.5 MG 7.5 MG INHALE (16:26)
[2024-12-09] MEDS: Doxycycline Hyclate 100 MG in 0.9 % Sodium Chloride 250 ML 166.67 MG IV (16:30)
--- NOTE | 2024-12-09 17:13 | P.HPHOSP_ITS ---
History of Present Illness Date of Service: 12/09/24 Attending physician on admission: Hans Jack Chief Complaint: sob, cough 64-year-old female with history of COPD not on home oxygen, history of drug abuse stable on methadone, history of hepatitis-C, osteopenia, urinary incontinence, GERD, and hyperlipidemia presented to the ED earlier today for evaluation of productive cough, shortness of breath, and wheezing that started last night. She reports that she has been using rescue inhalers/nebulizers every 4-6 hours without any relief. Reports compliance with maintenance inhalers. No fevers, chills, sore throat, nausea, vomiting, diarrhea, urinary symptoms, chest pain. She is reporting pain in the left upper quadrant that worsens with coughing. Denies any known sick contacts or recent travel. Since arrival, has been intermittently tachypneic and was hypertensive on arrival to , question accuracy given repeat blood pressure was 130/56. No fevers or hypoxia. There is no leukocytosis. Renal function electrolyte levels are normal. Troponin is undetectable. BNP 89. Negative for COVID-19, flu, RSV. Chest x-ray shows probable pneumonia of the right lower lobe. CT abdomen pelvis disorder due to left upper quadrant pain which was negative for any acute intra abdominal abnormality but does show large colonic stool burden. In the ED she has received IV ceftriaxone, IV doxycycline, magnesium, 60 mg methylprednisolone, and multiple nebulizer treatments without much improvement. Review of Systems 2 Review of Systems: Yes all other systems are reviewed and are negative [facility] Medical History GERD (gastroesophageal reflux disease) History of substance abuse Ex-smoker Overweight (BMI 25.0-29.9) COPD (chronic obstructive pulmonary disease) Influenza A Pneumonitis COPD (chronic obstructive pulmonary disease) Dyspnea on exertion Mixed incontinence urge and stress Obesity (BMI 30-39.9) Constipation Osteopenia Vitamin D deficiency History of hepatitis C COPD (chronic obstructive pulmonary disease) Smoker Bronchitis Family History Father Stroke Hypertension Diabetes Heart problem Mother Diabetes Brother Diabetes Sister In good health Surgical History History of tubal ligation Social History Household Members: Family Household Members Other:: niece Housing: House Do you presently have visiting nurse or other home services: No Alcohol intake: former Patient Tobacco Use Status: Former Tobacco user Tobacco use type: Cigarette Cigarettes Per Day: 6 Smoked in Last 30 Days: No e-Cigarette/Vaping Use: Never Used Second Hand Smoke Exposure: No Use of substances other than those prescribed or required for medical reasons: No Substance Use Type: Marijuana Advance Directives: No Advance Directives Information Provided: No service: No Current occupational status: employed Cognitive needs: No Hearing needs: No Vision needs: Yes Meds Allergies Allergy/AdvReac Type Severity Reaction Status Date / Time bee pollen [BEE STINGS] Allergy Unknown SWELLING - Verified 12/09/24 13:11 BLOTCHES nitrofurantoin AdvReac Intermediate Vomiting Verified 12/09/24 13:11 [From Macrobid] Active Medications: Current Medications Acetaminophen (Acetaminophen 325 Mg Tablet) 650 mg PO Q6H PRN PRN Reason: Pain, Mild 1-3,fever,headache Albuterol/Ipratropium (Albuterol/Iprat 2.5/0.5mg 3 Ml Ampul.Neb) 3 ml INHALE Q4H PRN PRN Reason: Shortness of Breath/Wheezing Albuterol/Ipratropium (Albuterol/Iprat 2.5/0.5mg 3 Ml Ampul.Neb) 3 ml INHALE RQ4H WHILE AWAKE BRIAN Benzonatate (Benzonatate 100 Mg Capsule) 100 mg PO TID PRN PRN Reason: Cough Calcium Carbonate (Calcium Carbonate 750 Mg Tab.Chew) 750 mg PO Q4H PRN PRN Reason: Heartburn Ceftriaxone Sodium (Ceftriaxone Sodium 1 Gm Vial) 1 gm IVPUSH Q24H BRIAN Enoxaparin Sodium (Enoxaparin Sodium 40 Mg/0.4 Ml Syringe) 40 mg SUBCUT Q24H BRIAN Doxycycline Hyclate 100 mg/ (Sodium Chloride) 250 mls @ 166.67 mls/hr IV ONCE ONE Stop: 12/09/24 17:52 Last Admin: 12/09/24 16:30 Dose: 166.67 mls/hr Doxycycline Hyclate 100 mg/ (Sodium Chloride) 250 mls @ 166.67 mls/hr IV Q12H BRIAN Magnesium Hydroxide (Milk Of Magnesia 30 Ml Oral.Susp) 30 ml PO DAILY PRN PRN Reason: Constipation Melatonin (Melatonin 3 Mg Tablet) 6 mg PO BEDTIME PRN PRN Reason: Insomnia Methylprednisolone Sodium Succinate (Methylprednisolone Sod Succ 40 Mg/Ml Vial) 40 mg IVPUSH Q12H BRIAN Sodium Chloride (0.9 % Sodium Chloride Flush 3 Ml Syringe) 3 ml IVFLUSH QSHIFT BRIAN Home Medications ?Medication ?Instructions ?Recorded ?Confirmed ?Last Taken ?Type methadone 10 mg/5 mL oral solution 90 mg PO DAILY 07/01/22 10/30/24 12/24/23 History polyethylene glycol 3350 17 gram 17 g PO DAILY PRN Constipation 11/24/22 10/30/24 12/13/23 History oral powder packet (Miralax) methadone 10 mg/5 mL oral solution 20 mg PO BEDTIME 12/14/23 10/30/24 12/24/23 History Physical Exam 2 Vital Signs and Narrative: Vital Signs: Last Vital Signs Temp 97.9 F 12/09/24 13:08 Pulse 73 12/09/24 16:23 Resp 25 H 12/09/24 16:23 BP 130/56 L 12/09/24 16:00 Pulse Ox 94 12/09/24 16:00 O2 Del Method Room Air 12/09/24 16:00 BMI result Body Mass Index 30.6 Constitutional - Awake and Alert, No apparent distress Eyes - PERRLA, EOMI Cardiovascular - S1S2, RRR, No edema Respiratory - Normal lung expansion, Normal respiratory effort, No respiratory distress, coarse lung sounds with diffuse inspiratory and expiratory wheezing Gastrointestinal - NT / ND; +BS; No rebound or guarding Extremities - no calf tenderness bilaterally, no swelling Skin - Warm/Dry Neurological - Alert & oriented x3 Psychological - Appropriate affect Results Labs 12/09/24 13:31 12/09/24 13:31 Labs: Laboratory Results - last 24 hr 12/09/24 13:31 MCV 87.4 MCH 29.7 MCHC 33.9 RDW 13.3 Plt Count 283 MPV 10.2 Immature Gran % (Auto) 0.3 Neut % (Auto) 78.5 H Lymph % (Auto) 15.3 L [place] % (Auto) 4.4 Eos % (Auto) 0.9 Baso % (Auto) 0.6 Lymph # (Auto) 1.3 [place] # (Auto) 0.4 Eos # (Auto) 0.1 Baso # (Auto) 0.1 Abs Immat Gran (auto) 0.03 Absolute Neuts (auto) 6.8 Absolute Nucleated RBC 0.000 Nucleated RBC % (auto) 0.0 Anion Gap 14 Estim Creat Clear Calc 64.0 Estimated GFR > 60 Random Glucose 102 Calcium 9.7 Magnesium 1.8 Total Bilirubin 0.4 Direct Bilirubin 0.1 AST 27 ALT 19 Alkaline Phosphatase 133 H B-Natriuretic Peptide 89 Total Protein 8.6 H Albumin 4.5 Influenza Type A (PCR) NEGATIVE Influenza Type B (PCR) NEGATIVE RSV RNA Qual (PCR) NEGATIVE SARS-CoV-2 RNA (RT-PCR) NEGATIVE Assessment and Plan (1) Right lower lobe pneumonia: Status: Acute (2) COPD exacerbation: Status: Acute Plan 64-year-old female with history of COPD not on home oxygen, history of drug abuse stable on methadone, history of hepatitis-C, osteopenia, urinary incontinence, GERD, and hyperlipidemia admitted for further management of COPD exacerbation and pneumonia # acute COPD exacerbation in the setting of community-acquired pneumonia -CXR shows probable right lower lobe pneumonia. Tachypneic but no other SIRS criteria. There is no sepsis/severe sepsis -IV ceftriaxone and doxycycline (initiated 12/09) -IV methylprednisolone 40 mg b.i.d. -DuoNebs q.4h while awake and p.r.n. -symptomatic management -strep pneumo antigen, Legionella antigen, MRSA nasal swab, and sputum culture pending -Continue maintenance inhalers -follow CBC, cultures #OUD -continue methadone # chronic constipation -add scheduled Colace. Continue p.r.n. MiraLax and senna # GERD -continue PPI # hypertension -continue amlodipine DVT prophylaxis-Lovenox Full code Patient requires inpatient stay at least 2 midnights for management of COPD exacerbation and pneumonia requiring IV antibiotics, IV steroids, DuoNebs, and close monitoring of respiratory status to prevent decompensation Quality Stroke Does the patient have a stroke diagnosis?: No VTE Prior VTE?: No VTE Risk Level:: Medical - moderate - high VTE Device Contraindication: Treatment Not Indicated VTE Drug Contraindication: N/A - Med Ordered
--- NOTE | 2024-12-09 17:36 | PHA.MEDREC ---
Pharmacy Consult ? Medication Reconciliation Pharmacy has completed the medication reconciliation. Spoke with patient in ED who knew all medications.
[2024-12-09] MEDS: Albuterol/Iprat 2.5/0.5MG 3 ML AMPUL.NEB INHALE (19:14)
[2024-12-09 19:15] VITALS: PULSE 73; RESP 22; O2SAT 93
--- NOTE | 2024-12-09 19:23 | PC.NURSE ---
assumed care of patient at this time. report received from Carina MARCH. pt is resting comfortably, given sandwich and cheese stick. call pro within reach, plan of care continues.
[2024-12-09] MEDS: Acetaminophen 325 MG TABLET 650 MG PO (20:40)
[2024-12-09 20:41] VITALS: BP 149/69; PULSE 82; RESP 17; TEMP 36.2; O2SAT 92
[2024-12-09] MEDS: 0.9 % Sodium Chloride Flush 3 ML SYRINGE IVFLUSH (20:41)
[2024-12-10] VITALS (9 sets, daily range): BP systolic 145–189; BP diastolic 79–89; PULSE 68–104; RESP 18–19; TEMP 36.2–36.7; O2SAT 92–96
[2024-12-10] MEDS: Doxycycline Hyclate 100 MG in 0.9 % Sodium Chloride 250 ML 166.67 MG IV ×2 (05:26→17:15)
[2024-12-10] MEDS: methylPREDNISolone Sod Succ 40 MG/ML VIAL IVPUSH ×2 (05:26→17:14)
[2024-12-10 05:57] LABS: MANUAL DIFF FLAG NO
[2024-12-10 06:05] LABS: Basophils Percent Auto 0.2 % (0-2); Hematocrit 40.2 % (37.0-47.0); Hemoglobin 13.3 g/dl (12.0-16.0); Imm Gran Abs Auto 0.06 X10*3/uL (0.00-0.03); Imm Gran Pct Auto 0.6 % (0.0-0.4); Lymphocytes Absolute Auto 1.2 X10*3/uL (1.2-4.9); Lymphocytes Percent Auto 11.4 % (20-40); Mean Corpuscular HGB Conc 33.1 g/dl (31.0-35.0); Mean Corpuscular Hemoglobin 29.4 pg (27.0-33.0); Mean Corpuscular Volume 88.9 fL (80.0-98.0); Mean Platelet Volume 10.5 fL (9.4-12.3); Monocytes Absolute Auto 0.7 X10*3/uL (0.1-1.2); Monocytes Percent Auto 6.3 % (2-11); Neutrophils Absolute Auto 8.8 x10*3/uL (2.0-8.3); Neutrophils Percent Auto 81.5 % (45-73); Platelet Count 308 X10*3/uL (160-400); Red Blood Count 4.52 X10*6/uL (4.20-5.50); Red Cell Distribution Width 13.6 % (11.0-16.0); White Blood Count 10.8 X10*3/uL (4.8-10.8)
[2024-12-10 06:22] LABS: Sodium 138 mmol/L (135-145)
[2024-12-10 06:23] LABS: Anion Gap 14 (12-20); Blood Urea Nitrogen 23 mg/dL (9-16); Calcium 9.7 mg/dL (8.4-10.2); Carbon Dioxide 24 mmol/L (22-29); Chloride 105 mmol/L (96-108); Creatinine Clr Calc Pharmacy 64.9; Estimated Glomerular Filt Rate > 60; Glucose Random 98 mg/dL (60-115); Potassium 4.6 mmol/L (3.3-5.1)
[2024-12-10] MEDS: Acetaminophen 325 MG TABLET 650 MG PO (08:07)
[2024-12-10] MEDS: 0.9 % Sodium Chloride Flush 3 ML SYRINGE IVFLUSH ×2 (08:12→17:24)
[2024-12-10] MEDS: Albuterol/Iprat 2.5/0.5MG 3 ML AMPUL.NEB INHALE ×4 (08:38→19:24)
--- NOTE | 2024-12-10 09:26 | HO.PM.IMPN ---
Subjective Subjective Date of Service: 12/10/24 Interval History: has sob, and wheezing Physical Exam Vital Signs: Vital Signs: Last Vital Signs Temp 97.9 F 12/10/24 07:49 Pulse 102 H 12/10/24 08:38 Resp 18 12/10/24 08:38 BP 177/79 H 12/10/24 08:11 Pulse Ox 92 12/10/24 07:49 O2 Del Method Room Air 12/10/24 07:49 BMI result Body Mass Index 30.6 General: AO X 3, no acute distress Resp: bilateral wheezing CVS: S1,S2,RRR GI: +BS, NT, no distention Skin: No rash Neuro: motor grossly intact Psych: appropriate affect Objective Data Active Medications Acetaminophen (Acetaminophen 325 Mg Tablet) 650 mg PO Q6H PRN PRN Reason: Pain, Mild 1-3,fever,headache Last Admin: 12/10/24 08:07 Dose: 650 mg Documented By: MANSOOR Albuterol/Ipratropium (Albuterol/Iprat 2.5/0.5mg 3 Ml Ampul.Neb) 3 ml INHALE RQ4H PRN PRN Reason: Shortness of Breath/Wheezing Albuterol/Ipratropium (Albuterol/Iprat 2.5/0.5mg 3 Ml Ampul.Neb) 3 ml INHALE RQ4H WHILE AWAKE [facility] Last Admin: 12/10/24 08:38 Dose: 3 ml Documented By: FELICITAS Benzonatate (Benzonatate 100 Mg Capsule) 100 mg PO TID PRN PRN Reason: Cough Calcium Carbonate (Calcium Carbonate 750 Mg Tab.Chew) 750 mg PO Q4H PRN PRN Reason: Heartburn Ceftriaxone Sodium (Ceftriaxone Sodium 1 Gm Vial) 1 gm IVPUSH Q24H [facility] Enoxaparin Sodium (Enoxaparin Sodium 40 Mg/0.4 Ml Syringe) 40 mg SUBCUT Q24H [facility] Last Admin: 12/09/24 17:41 Dose: Not Given Documented By: GUSTABO Non-Admin Reason: Patient Refused Doxycycline Hyclate 100 mg/ (Sodium Chloride) 250 mls @ 166.67 mls/hr IV Q12H [facility] Last Infusion: 12/10/24 08:03 Dose: Infused Documented By: MANSOOR Magnesium Hydroxide (Milk Of Magnesia 30 Ml Oral.Susp) 30 ml PO DAILY PRN PRN Reason: Constipation Melatonin (Melatonin 3 Mg Tablet) 6 mg PO BEDTIME PRN PRN Reason: Insomnia Methylprednisolone Sodium Succinate (Methylprednisolone Sod Succ 40 Mg/Ml Vial) 40 mg IVPUSH Q12H [facility] Last Admin: 12/10/24 05:26 Dose: 40 mg Documented By: JUAN ANTONIOOIC Sodium Chloride (0.9 % Sodium Chloride Flush 3 Ml Syringe) 3 ml IVFLUSH QSHIFT [facility] Last Admin: 12/10/24 08:12 Dose: 3 ml Documented By: MANSOOR Labs 12/10/24 05:34 12/10/24 05:34 Labs: Laboratory Results - last 24 hr 12/09/24 12/10/24 13:31 05:34 MCV 87.4 88.9 MCH 29.7 29.4 MCHC 33.9 33.1 RDW 13.3 13.6 Plt Count 283 308 MPV 10.2 10.5 Immature Gran % (Auto) 0.3 0.6 H Neut % (Auto) 78.5 H 81.5 H Lymph % (Auto) 15.3 L 11.4 L Craven % (Auto) 4.4 6.3 Eos % (Auto) 0.9 0.0 Baso % (Auto) 0.6 0.2 Lymph # (Auto) 1.3 1.2 Craven # (Auto) 0.4 0.7 Eos # (Auto) 0.1 0.0 Baso # (Auto) 0.1 0.0 Abs Immat Gran (auto) 0.03 0.06 H Absolute Neuts (auto) 6.8 8.8 H Absolute Nucleated RBC 0.000 0.000 Nucleated RBC % (auto) 0.0 0.0 Anion Gap 14 14 Estim Creat Clear Calc 64.0 64.9 Estimated GFR > 60 > 60 Random Glucose 102 98 Calcium 9.7 9.7 Magnesium 1.8 Total Bilirubin 0.4 Direct Bilirubin 0.1 AST 27 ALT 19 Alkaline Phosphatase 133 H B-Natriuretic Peptide 89 Total Protein 8.6 H Albumin 4.5 Influenza Type A (PCR) NEGATIVE Influenza Type B (PCR) NEGATIVE RSV RNA Qual (PCR) NEGATIVE SARS-CoV-2 RNA (RT-PCR) NEGATIVE Assessment and Plan (1) Acute exacerbation of COPD with asthma: Status: Acute Plan 64-year-old female with history of COPD not on home oxygen, history of drug abuse stable on methadone, history of hepatitis-C, osteopenia, urinary incontinence, GERD, and hyperlipidemia admitted for further management of COPD exacerbation and pneumonia acute COPD exacerbation in the setting of community-acquired pneumonia -CXR shows probable right lower lobe pneumonia. Tachypneic but no other SIRS criteria. There is no sepsis/severe sepsis -IV ceftriaxone and doxycycline (initiated 12/09) -IV methylprednisolone 40 mg b.i.d., change to PO tomorrow -DuoNebs q.4h while awake and p.r.n. -symptomatic management -strep pneumo antigen, Legionella antigen, MRSA nasal swab, and sputum culture pending -Continue maintenance inhalers -follow CBC, cultures OUD -continue methadone Chronic constipation -add scheduled Colace. Continue p.r.n. MiraLax and senna GERD -continue PPI hypertension -continue amlodipine DVT prophylaxis-Lovenox Full code Patient requires inpatient stay at least 2 midnights for management of COPD exacerbation and pneumonia requiring IV antibiotics, IV steroids, DuoNebs, and close monitoring of respiratory status to prevent decompensation Quality Stroke Does the patient have a stroke diagnosis?: No VTE Prior VTE?: No VTE Risk Level:: Medical - moderate - high VTE Device Contraindication: Treatment Not Indicated VTE Drug Contraindication: N/A - Med Ordered
--- NOTE | 2024-12-10 09:56 | HE.PHANOTE ---
Methadone Spoke with Rickey at [facility] ( [phone]). Patient received take home bottles on 12/07/24 through 12/20/24. Patients dose is 80 mg in the morning and 30 mg in the evening.
[2024-12-10] MEDS: Omeprazole 20 MG CAPSULE.DR PO (10:16)
[2024-12-10] MEDS: Cholecalciferol (Vitamin D3) 25 MCG TABLET 50 MCG PO (10:16)
[2024-12-10] MEDS: methADONE HCl 20 MG/2 ML ORAL.CONC 80 MG PO (10:17)
[2024-12-10 11:23] LABS: MRSA Nasal PCR NEGATIVE (Negative); SA Nasal PCR NEGATIVE (Negative)
[2024-12-10] MEDS: Fluticasone/Vilanterol 100/25 BLST.W.DEV 1 PUFF INHALE (11:38)
--- NOTE | 2024-12-10 12:25 | MHC.CM.PN ---
PT L/W NIECE DOES NOT RECEIVE SERVICES USES NEBULIZER HCP- MERA JAMA, , ON FILE PCP- INNA SHAY [facility] DELIVERED DCP- HOME, NO SERVICES PRIVATE TRANSPORT.
[2024-12-10] MEDS: cefTRIAXone sodium 1 GM VIAL IVPUSH (15:33)
[2024-12-10] MEDS: Enoxaparin Sodium 40 MG/0.4 ML SYRINGE SUBCUT (17:15)
[2024-12-10] MEDS: methADONE HCl 20 MG/2 ML ORAL.CONC 30 MG PO (19:40)
[2024-12-10] MEDS: Benzonatate 100 MG CAPSULE PO (19:43)
[2024-12-11] VITALS (8 sets, daily range): BP systolic 138–179; BP diastolic 65–91; PULSE 60–86; RESP 17–19; TEMP 36–36.4; O2SAT 89–96
[2024-12-11] MEDS: Omeprazole 20 MG CAPSULE.DR PO (04:48)
[2024-12-11] MEDS: methylPREDNISolone Sod Succ 40 MG/ML VIAL IVPUSH ×2 (04:48→17:55)
[2024-12-11] MEDS: Doxycycline Hyclate 100 MG in 0.9 % Sodium Chloride 250 ML 166.7 MG IV (04:51)
[2024-12-11] MEDS: Fluticasone/Vilanterol 100/25 BLST.W.DEV 1 PUFF INHALE (07:54)
[2024-12-11] MEDS: Albuterol/Iprat 2.5/0.5MG 3 ML AMPUL.NEB INHALE ×4 (07:54→19:24)
[2024-12-11] MEDS: methADONE HCl 20 MG/2 ML ORAL.CONC 80 MG PO (08:05)
[2024-12-11] MEDS: Cholecalciferol (Vitamin D3) 25 MCG TABLET 50 MCG PO (08:05)
[2024-12-11] MEDS: 0.9 % Sodium Chloride Flush 3 ML SYRINGE IVFLUSH ×3 (08:07→23:18)
--- NOTE | 2024-12-11 09:41 | P.PNIM_ITS ---
Subjective Subjective Date of Service: 12/11/24 Interval History: She feeling better, still wheezing Physical Exam 2 Vital Signs: Vital Signs: Last Vital Signs Temp 96.9 F 12/11/24 08:06 Pulse 64 12/11/24 08:06 Resp 18 12/11/24 08:06 BP 179/77 H 12/11/24 08:06 Pulse Ox 91 L 12/11/24 08:06 O2 Del Method Room Air 12/11/24 08:06 BMI result Body Mass Index 30.6 General: AO X 3, no acute distress Resp: bilateral wheezing CVS: S1,S2,RRR GI: +BS, NT, no distention Skin: No rash Neuro: motor grossly intact Psych: appropriate affect Objective Data Active Medications Acetaminophen (Acetaminophen 325 Mg Tablet) 650 mg PO Q6H PRN PRN Reason: Pain, Mild 1-3,fever,headache Last Admin: 12/10/24 08:07 Dose: 650 mg Documented By: MANSOOR Albuterol Sulfate (Albuterol Sulfate (0.083%) 2.5 Mg/3 Ml Vial.Neb) 2.5 mg INHALE QID PRN PRN Reason: shortness of breath or wheezing Albuterol Sulfate (Albuterol Sulfate 90 Mcg 8 Gm Inhaler) 2 puff INHALE Q4H PRN PRN Reason: shortness of breath or wheezing Albuterol/Ipratropium (Albuterol/Iprat 2.5/0.5mg 3 Ml Ampul.Neb) 3 ml INHALE RQ4H PRN PRN Reason: Shortness of Breath/Wheezing Albuterol/Ipratropium (Albuterol/Iprat 2.5/0.5mg 3 Ml Ampul.Neb) 3 ml INHALE RQ4H WHILE AWAKE [facility] Last Admin: 12/11/24 07:54 Dose: 3 ml Documented By: FELICITAS Benzonatate (Benzonatate 100 Mg Capsule) 100 mg PO TID PRN PRN Reason: Cough Last Admin: 12/10/24 19:43 Dose: 100 mg Documented By: DAVID Calcium Carbonate (Calcium Carbonate 750 Mg Tab.Chew) 750 mg PO Q4H PRN PRN Reason: Heartburn Ceftriaxone Sodium (Ceftriaxone Sodium 1 Gm Vial) 1 gm IVPUSH Q24H [facility] Last Admin: 12/10/24 15:33 Dose: 1 gm Documented By: MANSOOR Enoxaparin Sodium (Enoxaparin Sodium 40 Mg/0.4 Ml Syringe) 40 mg SUBCUT Q24H [facility] Last Admin: 12/10/24 17:15 Dose: 40 mg Documented By: MANSOOR Fluticasone/Vilanterol (Fluticasone/Vilanterol 100/25 Blst.W.Dev) 1 puff INHALE RDAILY [facility] Last Admin: 12/11/24 07:54 Dose: 1 puff Documented By: FELICITAS Doxycycline Hyclate 100 mg/ (Sodium Chloride) 250 mls @ 166.67 mls/hr IV Q12H [facility] Last Infusion: 12/11/24 06:35 Dose: Infused Documented By: DAVID Magnesium Hydroxide (Milk Of Magnesia 30 Ml Oral.Susp) 30 ml PO DAILY PRN PRN Reason: Constipation Melatonin (Melatonin 3 Mg Tablet) 6 mg PO BEDTIME PRN PRN Reason: Insomnia Methadone HCl (Methadone Hcl 20 Mg/2 Ml Oral.Conc) 30 mg PO BEDTIME [facility] Last Admin: 12/10/24 19:40 Dose: 30 mg Documented By: DAVID Co-signed By: TARAS Methadone HCl (Methadone Hcl 20 Mg/2 Ml Oral.Conc) 80 mg PO DAILY [facility] Last Admin: 12/11/24 08:05 Dose: 80 mg Documented By: JONNY Co-signed By: LUCA Methylprednisolone Sodium Succinate (Methylprednisolone Sod Succ 40 Mg/Ml Vial) 40 mg IVPUSH Q12H [facility] Last Admin: 12/11/24 04:48 Dose: 40 mg Documented By: DAVID Omeprazole (Omeprazole 20 Mg Capsule.Dr) 20 mg PO DAILY@0630 [facility] Last Admin: 12/11/24 04:48 Dose: 20 mg Documented By: DAVID Senna (Sennosides 8.6 Mg Tablet) 17.2 mg PO BEDTIME PRN PRN Reason: for constipation Sodium Chloride (0.9 % Sodium Chloride Flush 3 Ml Syringe) 3 ml IVFLUSH QSHIFT [facility] Last Admin: 12/11/24 08:07 Dose: 3 ml Documented By: JONNY Vitamin D (Cholecalciferol (Vitamin D3) 25 Mcg Tablet) 50 mcg PO DAILY [facility] Last Admin: 12/11/24 08:05 Dose: 50 mcg Documented By: JONNY Labs 12/10/24 05:34 12/10/24 05:34 Labs: Laboratory Results - last 24 hr 12/09/24 18:50 Nasal Screen MRSA (PCR) NEGATIVE Nasal S. aureus Screen NEGATIVE Nasal MRSA/S.aureus Interp SEE NOTE Assessment and Plan (1) Acute exacerbation of COPD with asthma: Status: Acute Plan 64-year-old female with history of COPD not on home oxygen, history of drug abuse stable on methadone, history of hepatitis-C, osteopenia, urinary incontinence, GERD, and hyperlipidemia admitted for further management of COPD exacerbation and pneumonia acute COPD exacerbation in the setting of community-acquired pneumonia -CXR shows probable right lower lobe pneumonia. Tachypneic but no other SIRS criteria. There is no sepsis/severe sepsis -IV ceftriaxone and doxycycline (initiated 12/09) -IV methylprednisolone 40 mg b.i.d., -DuoNebs q.4h while awake and p.r.n. -symptomatic management -strep pneumo antigen, Legionella antigen, MRSA nasal swab, and sputum culture pending -Continue maintenance inhalers -follow CBC, cultures OUD -continue methadone Chronic constipation -add scheduled Colace. Continue p.r.n. MiraLax and senna GERD -continue PPI hypertension -continue amlodipine DVT prophylaxis-Lovenox Full code Patient requires inpatient stay at least 2 midnights for management of COPD exacerbation and pneumonia requiring IV antibiotics, IV steroids, DuoNebs, and close monitoring of respiratory status to prevent decompensation Quality Stroke Does the patient have a stroke diagnosis?: No VTE Prior VTE?: No VTE Risk Level:: Medical - moderate - high VTE Device Contraindication: Treatment Not Indicated VTE Drug Contraindication: N/A - Med Ordered
[2024-12-11] MEDS: Benzonatate 100 MG CAPSULE PO (10:20)
[2024-12-11] MEDS: Acetaminophen 325 MG TABLET 650 MG PO (10:21)
[2024-12-11] MEDS: cefTRIAXone sodium 1 GM VIAL IVPUSH (16:09)
[2024-12-11] MEDS: Doxycycline Hyclate 100 MG in 0.9 % Sodium Chloride 250 ML 166.67 MG IV (16:09)
[2024-12-11] MEDS: Enoxaparin Sodium 40 MG/0.4 ML SYRINGE SUBCUT (16:09)
[2024-12-11] MEDS: methADONE HCl 20 MG/2 ML ORAL.CONC 30 MG PO (20:48)
[2024-12-11] MEDS: Melatonin 3 MG TABLET 6 MG PO (23:21)
--- NOTE | 2024-12-11 23:58 | PC.NURSE ---
Store Person assumed care of patient at 19:00. Handoff report given at 23:30 to RN assuming care. Please see filing writer's shift assessment, tasks in worklist, and MAR for full details.
[2024-12-12 05:30] VITALS: BP 145/80; PULSE 71; RESP 17; TEMP 36.1; O2SAT 91
[2024-12-12] MEDS: Doxycycline Hyclate 100 MG in 0.9 % Sodium Chloride 250 ML 166.67 MG IV (06:05)
[2024-12-12] MEDS: methylPREDNISolone Sod Succ 40 MG/ML VIAL IVPUSH (06:06)
[2024-12-12] MEDS: Omeprazole 20 MG CAPSULE.DR PO (06:06)
[2024-12-12] MEDS: Albuterol/Iprat 2.5/0.5MG 3 ML AMPUL.NEB INHALE (06:24)
[2024-12-12 06:27] VITALS: PULSE 84; RESP 20; O2SAT 95
[2024-12-12 08:06] VITALS: PULSE 70; RESP 18; O2SAT 92
[2024-12-12] MEDS: Fluticasone/Vilanterol 100/25 BLST.W.DEV 1 PUFF INHALE (08:06)
[2024-12-12] MEDS: Albuterol Sulfate (0.083%) 2.5 MG/3 ML VIAL.NEB INHALE (08:10)
[2024-12-12] MEDS: methADONE HCl 20 MG/2 ML ORAL.CONC 80 MG PO (09:06)
[2024-12-12] MEDS: Cholecalciferol (Vitamin D3) 25 MCG TABLET 50 MCG PO (09:06)
[2024-12-12] MEDS: 0.9 % Sodium Chloride Flush 3 ML SYRINGE IVFLUSH (09:11)
--- NOTE | 2024-12-12 10:25 | PM.DS ---
DS: Providers Provider Date of Service: 12/12/24 Date of admission: 12/09/24 17:06 Date of discharge: 12/12/24 Primary care physician: Vitor Cox MD DS: Diagnosis Discharge Diagnosis (1) Acute exacerbation of COPD with asthma: Status: Acute DS: Summary Hospital Course Hospital Course: Chief Complaint: sob, cough 64-year-old female with history of COPD not on home oxygen, history of drug abuse stable on methadone, history of hepatitis-C, osteopenia, urinary incontinence, GERD, and hyperlipidemia presented to the ED earlier today for evaluation of productive cough, shortness of breath, and wheezing that started last night. She reports that she has been using rescue inhalers/nebulizers every 4-6 hours without any relief. Reports compliance with maintenance inhalers. No fevers, chills, sore throat, nausea, vomiting, diarrhea, urinary symptoms, chest pain. She is reporting pain in the left upper quadrant that worsens with coughing. Denies any known sick contacts or recent travel. Since arrival, has been intermittently tachypneic and was hypertensive on arrival to , question accuracy given repeat blood pressure was 130/56. No fevers or hypoxia. There is no leukocytosis. Renal function electrolyte levels are normal. Troponin is undetectable. BNP 89. Negative for COVID-19, flu, RSV. Chest x-ray shows probable pneumonia of the right lower lobe. CT abdomen pelvis disorder due to left upper quadrant pain which was negative for any acute intra abdominal abnormality but does show large colonic stool burden. In the ED she has received IV ceftriaxone, IV doxycycline, magnesium, 60 mg methylprednisolone, and multiple nebulizer treatments without much improvement. Hospital course: A 64-year-old female with a history of COPD/asthma (not on home oxygen), history of drug abuse stable on methadone, history of hepatitis C, osteopenia, urinary incontinence, GERD, and hyperlipidemia was admitted for further management of COPD/asthma exacerbation and pneumonia. The pneumonia was treated with intravenous ceftriaxone and doxycycline with good effect. She is presently afebrile, and her white blood cell (WBC) count has normalized. Cultures are negative. I will transition to oral cefuroxime (Ceftin) and doxycycline for a total of 7 days of antibiotics. The COPD/asthma exacerbation was treated with intravenous steroids, now being transitioned to oral prednisone 40 mg daily for 2 more days, for a total of 5 days of steroids. She was treated with bronchodilators by nebulizer. Her lungs are clear of wheezes, and she is breathing comfortably. OUD -continue methadone Chronic constipation -add scheduled Colace. Continue p.r.n. MiraLax and senna GERD -continue PPI hypertension -continue amlodipine Time Attestation Discharge Coordination Time (in mins): 40 Quality: Safe Use of Opioids Does Pt have an Active Cancer Diagnosis on the Problem List?: No Quality: Stroke Does the patient have a stroke diagnosis?: No Physical Exam Vital Signs: Vital Signs: Last Vital Signs Temp 97.0 F 12/12/24 05:30 Pulse 70 12/12/24 08:06 Resp 18 12/12/24 08:06 BP 145/80 H 12/12/24 05:30 Pulse Ox 91 L 12/12/24 05:30 O2 Del Method Room Air 12/12/24 05:30 BMI result Body Mass Index 30.6 General: AO X 3, no acute distress Resp: normal effort, clear and no wheezing CVS: S1,S2,RRR GI: +BS, NT, no distention Skin: No rash Neuro: motor grossly intact Psych: appropriate affect Discharge Plan Discharge Anticipated Discharge Date/Time: 12/12/24 10:17 Patient Disposition: Home, Self-Care Discharge Diagnosis: Anemia, COPD/asthma exacerbation Referrals: Vitor Cox MD [Primary Care Provider] - 1 Week Discharge Medications: New doxycycline monohydrate 100 mg Capsule 100 mg PO Q12H Qty: 8 0RF Rx Instructions: next dose evening of 12/12/24 prednisone 20 mg tablet 40 mg PO DAILY Qty: 4 0RF Rx Instructions: next dose tomorrow morning cefuroxime axetil 500 mg Tablet 500 mg PO Q12H Qty: 7 0RF Rx Instructions: next dose this evening 12/12/24 Continued cholecalciferol (vitamin D3) 50 mcg (2,000 unit) capsule 50 mcg PO DAILY 90 Days Qty: 90 3RF fluticasone propion-salmeterol [Wixela Inhub] 250-50 mcg/dose blister with device 1 inh inhalation BID Qty: 60 4RF albuterol sulfate 90 mcg/actuation HFA aerosol inhaler 2 puff inhalation Q4-6H PRN (Reason: shortness of breath or wheezing) 30 Days Qty: 8.5 3RF omeprazole 20 mg capsule,delayed release(DR/EC) 20 mg PO DAILY@0630 90 Days Qty: 90 1RF sennosides [senna] 8.6 mg tablet 17.2 mg PO BEDTIME PRN (Reason: for constipation) Qty: 180 1RF methadone 10 mg/mL Concentrate 80 mg PO DAILY methadone 10 mg/mL Concentrate 30 mg PO BEDTIME albuterol sulfate 2.5 mg /3 mL (0.083 %) solution for nebulization 2.5 mg inhalation QID PRN (Reason: shortness of breath or wheezing) (DME) NEBULIZER and all related supplies See Rx Instructions .Route .MEDSUPPLY Qty: 1 0RF Rx Instructions: As directed up to 4 times a day as needed Discharge Orders: Discharge Order (Routine); Ordered 12/12/24 Ordered By: Per Johns Diet: Advance to usual diet Activity on Discharge: As tolerated Stand Alone Forms: Patient Portal Discharge page Print Language: Trinidadian Care Plan Goals: recovery from pneumonia, asthma/copd exacerbation Health Concerns: asthma and copd exacerbation, and pneumonina Plan of Treatment: take doxycyline and ceftin for pneumonia take Prednisone 40 more for 2 more days and use your inhalers as beforee, follow up with your doctor in a week, call for appointment Assessment: see above
[2024-12-12] MEDS: cefuroxime axetiL 500 MG TABLET PO (10:41)
--- NOTE | 2024-12-12 11:06 | MHC.CM.PN ---
Per MD rounds patient medically cleared for dc home self care. [facility] will provide transport. RN aware.
[2024-12-12 11:17] VITALS: BP 160/90; PULSE 98; TEMP 36.6; O2SAT 92
[2024-12-13 05:28] LABS: Strep Pneumo Ag urine Not Detected (Not Detected)
[2024-12-14 06:52] LABS: Legionella Ag Urine Not Detected (Not Detected)
== END 2024-12-12 11:19 | disposition home or self-care (01) | DRG 190 ==
LOC: HO.ED 16:29 → HO.EDOVER 17:29 → HO.S3 19:55
PROVIDERS: Physician Assistant; Admitting Provider Physician Assistant; Emergency Provider Emergency Medicine; PCP Internal Medicine; Visit Provider Internal Medicine
DX: J44.0 Chronic obstructive pulmonary disease with (acute) lower respiratory infection (principal); J18.9 Pneumonia, unspecified organism; F11.20 Opioid dependence, uncomplicated; J45.901 Unspecified asthma with (acute) exacerbation; J44.1 Chronic obstructive pulmonary disease with (acute) exacerbation; E78.5 Hyperlipidemia, unspecified; K21.9 Gastro-esophageal reflux disease without esophagitis; K59.09 Other constipation; Z20.822 Contact with and (suspected) exposure to COVID-19; Z87.891 Personal history of nicotine dependence; Z86.19 Personal history of other infectious and parasitic diseases; Z79.51 Long term (current) use of inhaled steroids; Z79.899 Other long term (current) drug therapy
CPT/HCPCS: 0241U; 36415; 71046; 74177; 80048; 80076; 83735; 83880; 84484; 85025; 87449; 87640; 87641; 87899; 93005; 94640; 99221; 99285; J0696; J1650; J2919; J3475; Q9967

== ENCOUNTER → 2024-12-09 13:12 | Outpatient (BNV) | payer MEDICARE, MEDICAID, SELFPAY | PROVIDERS: Admitting Provider Physician Assistant; Emergency Provider Emergency Medicine; PCP Internal Medicine; Visit Provider Internal Medicine Cardiovascular Disease | DX: R94.31 Abnormal electrocardiogram [ECG] [EKG] (principal) | CPT/HCPCS: 93010 ==

== ENCOUNTER → 2024-12-09 13:12 | Outpatient (BNV) | payer MEDICARE, MEDICAID, SELFPAY | PROVIDERS: Emergency Provider Emergency Medicine; PCP Internal Medicine; Visit Provider Radiology Diagnostic Radiology | DX: J98.11 Atelectasis (principal); K59.00 Constipation, unspecified | CPT/HCPCS: 71046; 74177 ==

== ENCOUNTER → 2024-12-09 13:33 | Outpatient (BNV) | payer MEDICARE, MEDICAID, SELFPAY | PROVIDERS: Emergency Provider Emergency Medicine; PCP Internal Medicine; Visit Provider Physician Assistant | DX: J44.1 Chronic obstructive pulmonary disease with (acute) exacerbation (principal); J45.901 Unspecified asthma with (acute) exacerbation | CPT/HCPCS: 99222; 99232 ==

== ENCOUNTER 2024-12-14 14:46 | Outpatient (AMB) | payer MEDICARE, MEDICAID, SELFPAY ==
[2024-12-14 14:48] VITALS: BP 140/78; PULSE 72; TEMP 36.2; O2SAT 96; BMI 30.9
--- NOTE | 2024-12-14 14:48 | A.OFFPC_ITS ---
Vital Signs 12/14/24 14:48 Height 5 ft Weight 158 lb BMI 30.9 BP 140/78 H Blood Pressure Location Lt brachial Position Sitting Pulse 72 Pulse Source Pulse Oximeter Temp 97.1 F Temp Source Temporal Artery Scan Pulse Oximetry (%) 96 Oxygen Delivery Method Room Air Intake Visit Reasons: TCM [facility] COPD 12/12 Principal Technical Specialist Required: No Accompanied by: Self / Same As Patient Allergies bee pollen [BEE STINGS] Allergy (Unknown, Verified 12/14/24 14:50) SWELLING - BLOTCHES nitrofurantoin [From Macrobid] Adverse Reaction (Intermediate, Verified 12/14/24 14:50) Vomiting Tobacco use date assessed: 12/14/24 Fall risk assessment: 1 Fall in past year Last assessed Fall Risk: 12/14/24 Dental Screening Dental Screen Date: 12/14/24 Did you have a dental visit in the last 12 months?: No Did you have a dental problem in the last 6 months where you did not have access to dental care?: No HPI HPI Comments History of Present Illness Details 64 y/o female patient who presents to [facility] for TCM. Pmhx significant for drug abuse stable on methadone, history of hepatitis-C, osteopenia, urinary incontinence, GERD, and hyperlipidemia. She presented to the [facility] on 12/09 for evaluation of productive cough, shortness of breath, and wheezing. She was admitted 12/09 - 12/12 due to Acute exacerbation of COPD with Asthma. Negative for COVID-19, flu, RSV. Chest x-ray showed probable pneumonia of the right lower lobe. CT abdomen pelvis ordered due to left upper quadrant pain which was negative for any acute intra abdominal abnormality. [facility] Medical History GERD (gastroesophageal reflux disease) History of substance abuse Ex-smoker Overweight (BMI 25.0-29.9) COPD (chronic obstructive pulmonary disease) Influenza A Pneumonitis COPD (chronic obstructive pulmonary disease) Dyspnea on exertion Mixed incontinence urge and stress Obesity (BMI 30-39.9) Constipation Osteopenia Vitamin D deficiency History of hepatitis C COPD (chronic obstructive pulmonary disease) Smoker Bronchitis Surgical History History of tubal ligation Family History Father Stroke Hypertension Diabetes Heart problem Mother Diabetes Brother Diabetes Sister In good health Social History Household Members: Family Household Members Other:: Niece Housing: House Do you presently have visiting nurse or other home services: No Alcohol intake: former Patient Tobacco Use Status: Former Tobacco user Tobacco use type: Cigarette Cigarettes Per Day: 6 e-Cigarette/Vaping Use: Never Used Second Hand Smoke Exposure: No Substance Use Type: Marijuana service: No Current occupational status: employed Cognitive needs: No Hearing needs: No Vision needs: Yes (Glasses) Questionnaire Thrive Questionnaire Date Thrive assessed: 12/14/24 I am a: Patient What is your living situation today?: I have a steady place to live Within the past 12 months, did the food you bought not last and you didn't have the money to get more?: Never true Within the past 12 months, did you worry whether your food would run out before you got money to buy more?: Never true Do you have trouble paying for medicines?: No Do you have trouble getting transportation to medical appointments?: No Do you have trouble paying your heating and electricity bill?: No Do you have trouble taking care of your child, family member or friend?: No Do you have trouble with day-to-day activities such as bathing, preparing meals, shopping, managing finances, etc.?: No Are you currently unemployed and looking for a job?: No Are you interested in more education?: No Please select the resources that you would like help with: None Currently or been in a relationship where the following occur: No concerns reported THRIVE Score: 0 AUDIT C Alcohol Use Questionnaire (AUDIT-C) 1. How often do you have a drink containing alcohol?: Never 3. How often do you have six or more drinks on one occasion?: Never Total Score: 0 Score Reviewed/Action Taken: Yes LEEANN-7 AMB Questionnaire LEEANN-7 Date LEEANN - 7 assessed: 10/30/24 Source: Developed by Drs. Marcus Jackson, Vannesa Gongora, Alex Chong and colleagues, with an educational miles from [employer]. Review of Systems Const All systems reviewed & are unremarkable except as noted in HPI and below Physical exam (Primary Care) Vital Signs: Last Vital Signs Temp 97.1 F 12/14/24 14:48 Pulse 72 12/14/24 14:48 BP 140/78 H 12/14/24 14:48 Pulse Ox 96 12/14/24 14:48 Oxygen Delivery Method Room Air 12/14/24 14:48 BMI result Body Mass Index 30.9 Tobacco/Smoking Status: Tobacco use Status Tobacco use date assessed 12/14/24 12/14/24 14:59 Patient Tobacco Use Status Former Tobacco user 12/14/24 14:59 Tobacco use type Cigarette 12/14/24 14:59 e-Cigarette/Vaping Use Never Used 12/14/24 14:59 Thrive Assessment: Date of Thrive Assessment Date Thrive assessed 12/14/24 12/14/24 14:59 Currently or been in a relationship where the following occur: No concerns reported Const General: cooperative and no acute distress Orientation/consciousness: patient oriented x3 Resp Effort & Inspection: normal respiratory effort and able to speak in complete sentences Auscultation: no crackles, no rales, no rhonchi and wheezes Cardio Heart sounds: S1 normal heart sound present and S2 normal heart sound present Neuro General: patient oriented x3 Coding Level of Care Code TCM Mod MDM <= 7 Days Diagnoses Pneumonia of right lower lobe due to infectious organism J18.9 Pneumonia type: due to unspecified organism COPD exacerbation J44.1 Other insomnia G47.09 Insomnia type: other insomnia Time Spent (min) 20 Assessment & Plan Assessment & Plan (1) Right lower lobe pneumonia: Code(s): J18.9 - Pneumonia, unspecified organism Category: Medical Qualifiers: Pneumonia type: due to unspecified organism Qualified Code(s): J18.9 - Pneumonia, unspecified organism Plan: Recovering, completed Abx. (2) COPD exacerbation: Code(s): J44.1 - Chronic obstructive pulmonary disease with (acute) exacerbation Category: Medical Plan: Ordered Prednisone. Refilled Inhalers. (3) Insomnia: Code(s): G47.00 - Insomnia, unspecified Category: Medical Qualifiers: Insomnia type: other insomnia Qualified Code(s): G47.09 - Other insomnia Plan: Ordered Melatonin as requested. Medications: New melatonin 10 mg PO BEDTIME PRN 20 caps 0RF sleep G47.00 - Insomnia, unspecified Changed From prednisone next dose tomorrow morning 40 mg (2 x 20 mg) PO DAILY 4 tabs 0RF J44.1 - Chronic obstructive pulmonary disease with (acute) exacerbation To prednisone 20 mg PO DAILY 10 tabs 0RF J44.1 - Chronic obstructive pulmonary disease with (acute) exacerbation Refilled albuterol sulfate 90 mcg/actuation 2 puffs inhalation Q4-6H 30 days PRN 8.5 gr ams 0RF shortness of breath or wheezing J44.1 - Chronic obstructive pulmonary disease with (acute) exacerbation fluticasone propion-salmeterol 250-50 mcg/dose (Wixela Inhub) 1 inh inhalation BID 60 ea 0RF copd J44.1 - Chronic obstructive pulmonary disease with (acute) exacerbation
== END 2024-12-14 15:49 | disposition home or self-care (01) ==
LOC: HO.HMCH 14:46
PROVIDERS: PCP Internal Medicine; Visit Provider Nurse Practitioner Family
DX: J18.9 Pneumonia, unspecified organism (principal); J44.1 Chronic obstructive pulmonary disease with (acute) exacerbation; G47.09 Other insomnia

== ENCOUNTER → 2024-12-14 14:46 | Outpatient (BNVA) | payer MEDICARE, MEDICAID, SELFPAY | PROVIDERS: PCP Internal Medicine; Visit Provider Nurse Practitioner Family | DX: J18.9 Pneumonia, unspecified organism (principal); J44.1 Chronic obstructive pulmonary disease with (acute) exacerbation; G47.09 Other insomnia | CPT/HCPCS: 99495 ==

== ENCOUNTER 2025-01-02 10:02 | Emergency (ER) | payer MEDICARE, MEDICAID, SELFPAY ==
--- NOTE | ~2025-01-02 | XR_ITS ---
EXAMINATION: XR CHEST CLINICAL INFORMATION: sob ? pna COMPARISON: 12/09/2024 TECHNIQUE: 2 views of the chest were obtained. FINDINGS: The cardiac, hilar, and mediastinal contours are normal. Prominent epicardial fat pad. Lungs demonstrate mildly increased retrocardiac markings, suspicious for subtle pneumonia. Lungs otherwise clear. There is no pneumothorax or pleural effusion. There is no focal osseous or soft tissue abnormality. XR/XR chest 2V IMPRESSION: Subtly increased retrocardiac markings, for which a subtle pneumonia is possible in the appropriate clinical setting. No effusions. Electronically signed by: Neeraj Klein MD 01/02/2025 10:59 AM EDT
[2025-01-02 10:04] VITALS: BP 126/98; PULSE 84; RESP 18; TEMP 36.6; O2SAT 96; BMI 31.6
--- NOTE | 2025-01-02 10:08 | ECG_ITS ---
Test Reason : chest pain Blood Pressure : */* mmHG Vent. Rate : 73 BPM Atrial Rate : 72 BPM P-R Int : 114 ms QRS Dur : 82 ms QT Int : 424 ms P-R-T Axes : 67 11 27 degrees QTcB Int : 467 ms Undetermined rhythm Low voltage QRS Cannot rule out Anterior infarct (cited on or before 09-Dec-2024) Abnormal ECG When compared with ECG of 09-Dec-2024 13:24, Current undetermined rhythm precludes rhythm comparison, needs review Questionable change in initial forces of Septal leads Referred By: Generic ED Physician Electronically Signed By: Khanh Delgado
[2025-01-02 10:31] LABS: MANUAL DIFF FLAG NO
[2025-01-02 10:43] LABS: Basophils Percent Auto 0.4 % (0-2); Eosinophils Absolute Auto 0.2 X10*3/uL (0.0-0.4); Eosinophils Percent Auto 1.7 % (0-4); Hematocrit 37.3 % (37.0-47.0); Hemoglobin 12.3 g/dl (12.0-16.0); Imm Gran Abs Auto 0.04 X10*3/uL (0.00-0.03); Imm Gran Pct Auto 0.4 % (0.0-0.4); Lymphocytes Absolute Auto 1.1 X10*3/uL (1.2-4.9); Lymphocytes Percent Auto 12.2 % (20-40); Mean Corpuscular Hemoglobin 29.2 pg (27.0-33.0); Mean Corpuscular Volume 88.6 fL (80.0-98.0); Mean Platelet Volume 10.5 fL (9.4-12.3); Monocytes Absolute Auto 0.6 X10*3/uL (0.1-1.2); Monocytes Percent Auto 6.1 % (2-11); Neutrophils Absolute Auto 7.2 x10*3/uL (2.0-8.3); Neutrophils Percent Auto 79.2 % (45-73); Platelet Count 274 X10*3/uL (160-400); Red Blood Count 4.21 X10*6/uL (4.20-5.50); Red Cell Distribution Width 13.2 % (11.0-16.0); White Blood Count 9.1 X10*3/uL (4.8-10.8)
[2025-01-02 10:58] LABS: Alanine Aminotransferase 18 U/L (0-31); Albumin Level 4.1 g/dL (3.5-5.0); Alkaline Phosphatase 109 U/L (39-117); Anion Gap 9 (12-20); Aspartate Amino Transferase 26 U/L (5-31); Bilirubin Total 0.3 mg/dL (0.0-1.0); Blood Urea Nitrogen 15 mg/dL (9-16); Calcium 9.6 mg/dL (8.4-10.2); Carbon Dioxide 29 mmol/L (22-29); Chloride 105 mmol/L (96-108); Creatinine Clr Calc Pharmacy 73.7; Estimated Glomerular Filt Rate > 60; Glucose Random 118 mg/dL (60-115); Magnesium 1.7 mg/dL (1.6-2.6); Sodium 139 mmol/L (135-145); Total Protein 7.5 g/dL (6.5-8.0)
[2025-01-02 11:26] LABS: Troponin-I High Sensitivity < 2.7 ng/L (<3.5-17.0)
--- NOTE | 2025-01-02 11:26 | ED_ITS ---
HPI - SOB/Dyspnea General Chief Complaint: Dyspnea Stated Complaint: SOB Time Seen by Provider: 01/02/25 10:56 Source: patient Mode of arrival: ambulatory Limitations: no limitations History of Present Illness ED Provider: Chava Gonzales DO HPI Narrative: 64-year-old female with past medical history of COPD and recent diagnosis of COPD exacerbation with right lower lobe pneumonia, discharge from the hospital on 12/12/2024 on a course of antibiotics and steroids (last took steroid orally yesterday) presents to the ED due to shortness of breath that has not improved since discharge from the hospital despite multiple rounds of nebulizers and rescue inhalers at home every couple of hours as well as maintenance inhaler. Patient reports chest pain only with her cough which is nonproductive. She denies fevers, chills, nausea, vomiting, diarrhea, abdominal pain or any additional symptoms today. Related Data Home Medications ?Medication ?Instructions ?Recorded ?Confirmed albuterol sulfate 2.5 mg/3 mL 2.5 mg inhalation QID PRN 12/09/24 12/13/24 (0.083 %) solution for nebulization shortness of breath or wheezing methadone 10 mg/mL oral concentrate 30 mg PO BEDTIME 12/09/24 12/13/24 methadone 10 mg/mL oral concentrate 80 mg PO DAILY 12/09/24 12/13/24 Previous Rx's ?Medication ?Instructions ?Recorded NEBULIZER and all related supplies #1 ea 01/11/24 cholecalciferol (vitamin D3) 50 50 mcg PO DAILY 90 days #90 caps 08/21/24 mcg (2,000 unit) capsule omeprazole 20 mg capsule,delayed 20 mg PO DAILY@0630 90 days #90 10/06/24 release caps sennosides 8.6 mg tablet (senna) 17.2 mg (2 x 8.6 mg) PO BEDTIME 12/01/24 PRN for constipation #180 tabs cefuroxime axetil 500 mg tablet 500 mg PO Q12H #7 tabs 12/12/24 doxycycline monohydrate 100 mg 100 mg PO Q12H #8 caps 12/12/24 capsule melatonin 10 mg capsule 10 mg PO BEDTIME PRN sleep #20 caps 12/14/24 prednisone 20 mg tablet 20 mg PO DAILY #10 tabs 12/14/24 albuterol sulfate 90 mcg/actuation 2 puff inhalation Q4-6H PRN 12/19/24 aerosol inhaler shortness of breath or wheezing 30 days #8.5 grams fluticasone 250 mcg-salmeterol 50 1 inh inhalation BID copd #60 ea 12/19/24 mcg/dose blistr powdr for inhalation (Wixela Inhub) Allergies Allergy/AdvReac Type Severity Reaction Status Date / Time bee pollen [BEE STINGS] Allergy Unknown SWELLING - Verified 01/02/25 10:07 BLOTCHES nitrofurantoin AdvReac Intermediate Vomiting Verified 01/02/25 10:07 [From Macrobid] Review of Systems 2 Review of Systems: Yes all other systems are reviewed and are negative [facility] Past Medical History Medical History (Updated 01/02/25 @ 15:08 by Chava Gonzales DO) Insomnia GERD (gastroesophageal reflux disease) History of substance abuse Ex-smoker Overweight (BMI 25.0-29.9) COPD (chronic obstructive pulmonary disease) Influenza A Pneumonitis COPD (chronic obstructive pulmonary disease) Dyspnea on exertion Mixed incontinence urge and stress Obesity (BMI 30-39.9) Constipation Osteopenia Vitamin D deficiency History of hepatitis C COPD (chronic obstructive pulmonary disease) Smoker Bronchitis Surgical History History of tubal ligation Family History Family History Father Stroke Hypertension Diabetes Heart problem Mother Diabetes Brother Diabetes Sister In good health Social History Social History Household Members: Family Household Members Other:: Niece Housing: House Do you presently have visiting nurse or other home services: No Alcohol intake: former Patient Tobacco Use Status: Former Tobacco user Tobacco use type: Cigarette Cigarettes Per Day: 6 e-Cigarette/Vaping Use: Never Used Second Hand Smoke Exposure: No Substance Use Type: Marijuana Advance Directives: No Advance Directives Information Provided: Yes service: No Current occupational status: employed Cognitive needs: No Hearing needs: No Vision needs: Yes (Glasses) Physical Exam 2 Vital Signs: Vital Signs: Last Vital Signs Temp 97.5 F 01/02/25 12:21 Pulse 77 01/02/25 13:33 Resp 20 01/02/25 13:33 BP 160/77 H 01/02/25 12:21 Pulse Ox 97 01/02/25 12:21 O2 Del Method Room Air 01/02/25 12:21 BMI result Body Mass Index 31.6 Constitutional: ?Alert, oriented, speaking in full sentences HEENT: ?Normocephalic, atraumatic. ?Moist mucous membranes Eyes: ?PERRL, EOMI Neck: ?Supple, nontender Chest: ?No chest wall tenderness Respiratory: ?Significant increased work of breathing or tachypnea but there is wheezing throughout all lung [place] with prolonged expiratory phase. Cardio: ?Regular rate and rhythm, no murmur, 2+ radial and DP pulses symmetrically GI: ?Soft, nondistended, nontender Back: ?Normal range of motion, nontender Skin: ?No rash, no lesions Neuro: ?Alert and oriented to person, place and time, moves all 4 extremities, no focal deficits Extremities: ?No swelling or tenderness, full range of motion Psych: ?Calm, alert and cooperative, appropriate behavior Medications Administered Discontinued Medications Generic Name Dose Route Start Last Admin Trade Name Ranjeetq PRN Reason Stop Dose Admin Albuterol Sulfate 2.5 mg/ 0 mg 01/02/25 12:16 01/02/25 12:23 Albuterol/Ipratropium 3 ml INHALE 01/02/25 12:17 1 dose ONCE ONE Administration Albuterol Sulfate 5 mg/ 0 mg 01/02/25 13:29 01/02/25 13:33 Albuterol/Ipratropium 3 ml INHALE 01/02/25 13:30 1 each ONCE ONE Administration Prednisone 60 mg 01/02/25 11:48 01/02/25 12:01 Prednisone 20 Mg Tablet PO 01/02/25 11:49 60 mg ONCE ONE Administration Medical Decision Making Medical Decision Making [facility] Narrative: Patient presenting with shortness of breath at home. She has no productive cough or fevers. Her x-ray shows persistent infiltrate consistent with previous pneumonia which has not worsened. There are no signs of ACS and her initial troponin is negative. Her lab work is grossly unremarkable. She has no hypoxia and I observed her ambulate with no drop in oxygen below 94%. She received a total of 2 DuoNebs and a dose of steroids. She continues to have mild wheezing but feels comfortable managing this at home. The spacer at home. We provided return precautions and encouraged follow up with pulmonology. She has an appointment on 01/08. Admission/Observation Consideration of admission/observation: Escalation of care including admission/observation considered Lab Data MDM Lab Attestation statement: I reviewed the patient's lab results. 01/02/25 10:20 01/02/25 10:20 Labs: Lab Results 01/02/25 Range/Units 10:20 WBC 9.1 (4.8-10.8) X10*3/uL RBC 4.21 (4.20-5.50) X10*6/uL Hgb 12.3 (12.0-16.0) g/dl Hct 37.3 (37.0-47.0) % MCV 88.6 (80.0-98.0) fL MCH 29.2 (27.0-33.0) pg MCHC 33.0 (31.0-35.0) g/dl RDW 13.2 (11.0-16.0) % Plt Count 274 (160-400) X10*3/uL MPV 10.5 (9.4-12.3) fL Immature Gran % (Auto) 0.4 (0.0-0.4) % Neut % (Auto) 79.2 H (45-73) % Lymph % (Auto) 12.2 L (20-40) % [place] % (Auto) 6.1 (2-11) % Eos % (Auto) 1.7 (0-4) % Baso % (Auto) 0.4 (0-2) % Lymph # (Auto) 1.1 L (1.2-4.9) X10*3/uL [place] # (Auto) 0.6 (0.1-1.2) X10*3/uL Eos # (Auto) 0.2 (0.0-0.4) X10*3/uL Baso # (Auto) 0.0 (0.0-0.2) X10*3/uL Abs Immat Gran (auto) 0.04 H (0.00-0.03) X10*3/uL Absolute Neuts (auto) 7.2 (2.0-8.3) x10*3/uL Absolute Nucleated RBC 0.000 (0.0-0.012) X10*3/uL Nucleated RBC % (auto) 0.0 (0.0-0.2) /100WBC Sodium 139 (135-145) mmol/L Potassium 4.0 (3.3-5.1) mmol/L Chloride 105 (96-108) mmol/L Carbon Dioxide 29 (22-29) mmol/L Anion Gap 9 L (12-20) BUN 15 (9-16) mg/dL Creatinine 0.68 (0.5-1.4) mg/dL Estim Creat Clear Calc 73.7 Estimated GFR > 60 Random Glucose 118 H (60-115) mg/dL Calcium 9.6 (8.4-10.2) mg/dL Magnesium 1.7 (1.6-2.6) mg/dL Total Bilirubin 0.3 (0.0-1.0) mg/dL AST 26 (5-31) U/L ALT 18 (0-31) U/L Alkaline Phosphatase 109 (39-117) U/L Troponin I High Sens < 2.7 (<3.5-17.0) ng/L Total Protein 7.5 (6.5-8.0) g/dL Albumin 4.1 (3.5-5.0) g/dL Independent Interpretation I performed an independent interpretation of an: EKG Interpretation: Normal sinus rhythm at 73 beats per minute, normal access, unremarkable intervals, no diagnostic ST or T-wave abnormalities dated 12/09/2024, there are no significant changes. Discharge Plan Discharge Clinical Impression: Acute exacerbation of chronic obstructive pulmonary disease (COPD) Patient Disposition: Home, Self-Care Instructions: COPD (Chronic Obstructive Pulmonary Disease) (ED) Additional Instructions: Please return if you have any worsening difficulty breathing, develop fevers, productive cough with sputum or any other changes. Please continue your albuterol with spacer at home every 4 hours for the next 24 hours and follow up with her lung doctor as scheduled. Prescriptions: No Action cholecalciferol (vitamin D3) 50 mcg (2,000 unit) capsule 50 mcg PO DAILY 90 Days Qty: 90 3RF omeprazole 20 mg capsule,delayed release(DR/EC) 20 mg PO DAILY@0630 90 Days Qty: 90 1RF sennosides [senna] 8.6 mg tablet 17.2 mg PO BEDTIME PRN (Reason: for constipation) Qty: 180 1RF albuterol sulfate 90 mcg/actuation HFA aerosol inhaler 2 puff inhalation Q4-6H PRN (Reason: shortness of breath or wheezing) 30 Days Qty: 8.5 0RF fluticasone propion-salmeterol [Wixela Inhub] 250-50 mcg/dose blister with device 1 inh inhalation BID Qty: 60 0RF methadone 10 mg/mL Concentrate 80 mg PO DAILY methadone 10 mg/mL Concentrate 30 mg PO BEDTIME albuterol sulfate 2.5 mg /3 mL (0.083 %) solution for nebulization 2.5 mg inhalation QID PRN (Reason: shortness of breath or wheezing) doxycycline monohydrate 100 mg Capsule 100 mg PO Q12H Qty: 8 0RF Rx Instructions: next dose evening of 12/12/24 cefuroxime axetil 500 mg Tablet 500 mg PO Q12H Qty: 7 0RF Rx Instructions: next dose this evening 12/12/24 (DME) NEBULIZER and all related supplies See Rx Instructions .Route .MEDSUPPLY Qty: 1 0RF Rx Instructions: As directed up to 4 times a day as needed prednisone 20 mg tablet 20 mg PO DAILY Qty: 10 0RF melatonin 10 mg capsule 10 mg PO BEDTIME PRN (Reason: sleep) Qty: 20 0RF Print Language: Divehi
[2025-01-02] MEDS: predniSONE 20 MG TABLET 60 MG PO (12:01)
[2025-01-02 12:21] VITALS: BP 160/77; PULSE 62; RESP 16; TEMP 36.4; O2SAT 97
[2025-01-02 12:23] VITALS: PULSE 92; RESP 20; O2SAT 94
[2025-01-02] MEDS: Albuterol Sulfate 2.5 MG, Albuterol/Iprat 2.5/0.5MG 3 ML 3 ML INHALE (12:23)
[2025-01-02 13:33] VITALS: PULSE 77; RESP 20; O2SAT 96
[2025-01-02] MEDS: Albuterol Sulfate 5 MG, Albuterol/Iprat 2.5/0.5MG 3 ML 3 ML INHALE (13:33)
[2025-01-02 15:21] VITALS: BP 160/77; PULSE 77; RESP 20; TEMP 36.4; O2SAT 97
== END 2025-01-02 15:21 | disposition home or self-care (01) ==
PROVIDERS: Emergency Provider Emergency Medicine; PCP Internal Medicine
DX: J44.1 Chronic obstructive pulmonary disease with (acute) exacerbation (principal); R06.02 Shortness of breath; R07.89 Other chest pain; Z87.891 Personal history of nicotine dependence; Z79.899 Other long term (current) drug therapy
CPT/HCPCS: 36415; 71046; 80053; 83735; 84484; 85025; 93005; 94640; 99284

== ENCOUNTER → 2025-01-02 10:08 | Outpatient (BNV) | payer MEDICARE, MEDICAID, SELFPAY | PROVIDERS: Emergency Provider Emergency Medicine; PCP Internal Medicine; Visit Provider Internal Medicine Cardiovascular Disease | DX: R94.31 Abnormal electrocardiogram [ECG] [EKG] (principal); R07.9 Chest pain, unspecified | CPT/HCPCS: 93010 ==

== ENCOUNTER → 2025-01-02 10:09 | Outpatient (BNV) | payer MEDICARE, MEDICAID, SELFPAY | PROVIDERS: Emergency Provider Emergency Medicine; PCP Internal Medicine; Visit Provider Radiology Diagnostic Radiology | DX: R06.02 Shortness of breath (principal) | CPT/HCPCS: 71046 ==

== ENCOUNTER 2025-01-08 13:56 | Outpatient (AMB) | payer MEDICARE, MEDICAID, SELFPAY ==
--- NOTE | 2025-01-08 13:58 | A.OFFVIS_ITS ---
Vital Signs 01/08/25 13:59 Height 5 ft Weight 162 lb 0.636 oz BMI 31.6 BP 138/86 Blood Pressure Location Rt brachial Position Sitting Pulse 75 Pulse Source Pulse Oximeter Pulse Oximetry (%) 94 Oxygen Delivery Method Room Air Intake Visit Reasons: COPD Intake Note: pt says her chest hurts from coughing and says she is coughing up phlegm. was in [facility] [place] [place] [facility] 01/02/25 Allergies bee pollen [BEE STINGS] Allergy (Unknown, Verified 01/08/25 14:30) SWELLING - BLOTCHES nitrofurantoin [From Macrobid] Adverse Reaction (Intermediate, Verified 01/08/25 14:30) Vomiting Medication List - Last Reconciled 01/08/25 by Elver Arredondo MD albuterol sulfate 2.5 mg inhalation QID PRN albuterol sulfate 90 mcg/actuation 2 puffs inhalation Q4-6H PRN 30 days cholecalciferol (vitamin D3) 50 mcg PO DAILY 90 days fluticasone propion-salmeterol 250-50 mcg/dose (Wixela Inhub) 1 inh inhalation BID melatonin 10 mg PO BEDTIME PRN methadone 80 mg PO DAILY methadone 30 mg PO BEDTIME [NEBULIZER and all related supplies As directed up to 4 times a day as needed] omeprazole 20 mg PO DAILY@0630 90 days sennosides (senna) 17.2 mg (2 x 8.6 mg) PO BEDTIME PRN Do you need a note to return to daycare/school/sports/work: No HPI HPI COPD: Details: 65 years old female, known case of chronic obstructive pulmonary disease and past history of opioids addiction now patient on methadone, 80 mg in a.m. 30 mg in p.m., She has been using Wixela 250-51 inhalation b.i.d. and albuterol solution in the nebulizer or albuterol HFA q.4 hours p.r.n.. In November she was admitted to [facility] with an acute exacerbation due to pneumonia right lower lobe. She was treated with steroids as well as course of doxycycline and cefuroxime. After discharge she was seen in the emergency room once again on 01/02, and this time again with a short course of prednisone but no more antibiotics. Patient comes for follow-up and complains of ongoing cough and congested feeling, and she gets short of breath on walking. She is afraid that she may end up back in the hospital. SHE IS SMOKING ABOUT 6 CIGARETTES A DAY [facility] Medical History Insomnia GERD (gastroesophageal reflux disease) History of substance abuse Ex-smoker Overweight (BMI 25.0-29.9) COPD (chronic obstructive pulmonary disease) Influenza A Pneumonitis COPD (chronic obstructive pulmonary disease) Dyspnea on exertion Mixed incontinence urge and stress Obesity (BMI 30-39.9) Constipation Osteopenia Vitamin D deficiency History of hepatitis C COPD (chronic obstructive pulmonary disease) Smoker Bronchitis Surgical History History of tubal ligation Family History Father Stroke Hypertension Diabetes Heart problem Mother Diabetes Brother Diabetes Sister In good health Social History Household Members: Family Household Members Other:: Niece Housing: House Do you presently have visiting nurse or other home services: No Alcohol intake: former Patient Tobacco Use Status: Former Tobacco user Tobacco use type: Cigarette Cigarettes Per Day: 6 e-Cigarette/Vaping Use: Never Used Second Hand Smoke Exposure: No Substance Use Type: Marijuana service: No Current occupational status: employed Cognitive needs: No Hearing needs: No Vision needs: Yes (Glasses) Review of Systems Const All systems reviewed & are unremarkable except as noted in HPI and below Eyes Reports no additional complaints ENT Reports no additional complaints Card Denies chest pain, Denies irregular heart rhythm and Denies leg edema Resp Reports as per HPI and Reports cough GI Reports no additional complaints Reports no additional complaints Musc Reports back pain Skin/Breast Reports system reviewed and no additional complaints, except as documented Neuro Reports no additional complaints Psych Reports no additional complaints Physical Exam Vital Signs: Last Vital Signs Pulse 75 01/08/25 13:59 BP 138/86 01/08/25 13:59 Pulse Ox 94 01/08/25 13:59 Oxygen Delivery Method Room Air 01/08/25 13:59 BMI result Body Mass Index 31.6 Const General: comfortable, no acute distress, alert and awake Orientation/consciousness: patient oriented x3 HEENT Head: Yes normal to inspection General nose exam: No nasal polyps present and No nasal discharge present Face and sinus: Yes sinuses nontender Mouth: oropharynx normal Throat: Yes posterior oropharynx normal Eyes General: appearance normal, both eyes and all related structures Neck Neck: Yes normal visual inspection, Yes no lymphadenopathy, Yes trachea midline and Yes no JVD Thyroid: Thyroid normal Chest Chest palpation & inspection: normal inspection of the chest, normal palpation of entire chest wall and no tenderness Resp Other: Percussion note is resonant, breath sounds are moderately distant with prolonged expiratory phase. No wheezes or rhonchi are heard. Cardio Palpation: normal PMI Rate: regular rate Rhythm: regular rhythm Heart sounds: no gallops and no murmurs Peripheral pulses: Peripheral pulses 2+ throughout GI Palpation (GI): Soft to palpation, nontender, No hepatosplenomegaly present and no masses Auscultation: normal bowel sounds Back/Spine/Pelvis Thoracic/Lumbar Spine: thoracic and lumbar spine normal to inspection Skin General skin exam: no rashes or lesions noted Neuro General: patient oriented x3 and no focal motor deficits Cranial nerves: Yes CN's II-XII intact bilaterally Extrem General: Yes normal to inspection, Yes no clubbing, cyanosis or edema and Yes no calf tenderness Psych Appearance: grossly normal and well kempt Speech and movement: Normal speech and movement present Assessment & Plan Assessment & Plan (1) COPD (chronic obstructive pulmonary disease): Comment: Patient does have chronic obstructive pulmonary disease probably moderately severe. RECENTLY ADMITTED TO [facility], TREATED FOR POSSIBLE ACUTE RIGHT LOWER LOBE PNEUMONIA. SUBSEQUENTLY SEEN IN THE EMERGENCY ROOM ON 01/02, FOR ONGOING COUGH AND CHEST CONGESTION. IT SEEMS THAT THE SYMPTOMS FROM ACUTE EXACERBATION OR STAY LINGERING ON. Code(s): J44.9 - Chronic obstructive pulmonary disease, unspecified Category: Medical Qualifiers: COPD type: COPD with acute exacerbation Qualified Code(s): J44.1 - Chronic obstructive pulmonary disease with (acute) exacerbation Plan: CONTINUE WIXELA 250-51 INHALATION B.I.D. USE ALBUTEROL HFA 2 PUFFS Q 6 HOURS P.R.N. OR WHEN AT HOME USE ALBUTEROL IN THE NEBULIZER Q 6 HOURS P.R.N.. PREDNISONE TAPER. 10 MG DAILY FOR 1 WEEK THEN 5 MG DAILY FOR 1 WEEK. ADD MUCINEX 600 MG B.I.D.. (2) Smoker: Comment: History of smoking for many years. Quit smoking when she was discharged from the hospital, but again resumed smoking , and claims that she is smoking only 4-6 CIGARETTES A DAY. Code(s): F17.200 - Nicotine dependence, unspecified, uncomplicated Category: Social Hx Plan: I RECOMMENDED THAT SHE SHOULD TRY TO QUIT SMOKING COMPLETELY. I DOUBT SHE WOULD DO THAT. (3) Right lower lobe pneumonia: Comment: RECENTLY TREATED FOR POSSIBLE PNEUMONIA OF THE RIGHT LOWER LOBE, SHE HAS COMPLETED THE COURSE OF 2 ANTIBIOTICS INCLUDING DOXYCYCLINE AND CEFUROXIME. ON AUSCULTATION THERE IS NO EVIDENCE OF ANY RESIDUAL PNEUMONIA. Code(s): J18.9 - Pneumonia, unspecified organism Category: Medical Qualifiers: Pneumonia type: due to unspecified organism Qualified Code(s): J18.9 - Pneumonia, unspecified organism Plan: NO NEED OF ANY MORE ANTIBIOTICS Medications: New prednisone PREDNISONE 5 MG 2 TABS /DAY X 1WEEK THEN 1 RENALDO PODAILY 5 mg PO BID 2 weeks 28 tabs 0RF COPD Coding Level of Care Code Est Pt Level 4 (07841) Diagnoses Chronic obstructive pulmonary disease with acute exacerbation J44.1 COPD type: COPD with acute exacerbation Smoker F17.200 Pneumonia of right lower lobe due to infectious organism J18.9 Pneumonia type: due to unspecified organism
[2025-01-08 13:59] VITALS: BP 138/86; PULSE 75; O2SAT 94; BMI 31.6
== END 2025-01-08 14:31 | disposition home or self-care (01) ==
LOC: HO.HPS 13:56
PROVIDERS: PCP Internal Medicine; Visit Provider Internal Medicine
DX: J44.1 Chronic obstructive pulmonary disease with (acute) exacerbation (principal); F17.200 Nicotine dependence, unspecified, uncomplicated; J18.9 Pneumonia, unspecified organism
CPT/HCPCS: 99214

== ENCOUNTER → 2025-01-08 13:56 | Outpatient (BNVA) | payer MEDICARE, MEDICAID, SELFPAY | PROVIDERS: PCP Internal Medicine; Visit Provider Internal Medicine | DX: J44.1 Chronic obstructive pulmonary disease with (acute) exacerbation (principal); J18.9 Pneumonia, unspecified organism; F17.210 Nicotine dependence, cigarettes, uncomplicated | CPT/HCPCS: 99212 ==

== ENCOUNTER 2025-02-14 12:47 | Outpatient (AMB) | payer MEDICARE, MEDICAID, SELFPAY ==
--- NOTE | 2025-02-14 13:46 | MHC.OFFVIS ---
Intake Visit Reasons: UDS Allergies bee pollen [BEE STINGS] Allergy (Unknown, Verified 01/08/25 14:30) SWELLING - BLOTCHES ciprofloxacin Allergy (Verified 02/14/25 14:06) Nausea and Vomiting nitrofurantoin [From Macrobid] Adverse Reaction (Intermediate, Verified 01/08/25 14:30) Vomiting [facility] Medical History Insomnia GERD (gastroesophageal reflux disease) History of substance abuse Ex-smoker Overweight (BMI 25.0-29.9) COPD (chronic obstructive pulmonary disease) Influenza A Pneumonitis COPD (chronic obstructive pulmonary disease) Dyspnea on exertion Mixed incontinence urge and stress Obesity (BMI 30-39.9) Constipation Osteopenia Vitamin D deficiency History of hepatitis C COPD (chronic obstructive pulmonary disease) Smoker Bronchitis Surgical History History of tubal ligation Family History Father Stroke Hypertension Diabetes Heart problem Mother Diabetes Brother Diabetes Sister In good health Social History Household Members: Family Household Members Other:: Niece Housing: House Do you presently have visiting nurse or other home services: No Alcohol intake: former Patient Tobacco Use Status: Former Tobacco user Tobacco use type: Cigarette Cigarettes Per Day: 6 e-Cigarette/Vaping Use: Never Used Second Hand Smoke Exposure: No Substance Use Type: Marijuana service: No Current occupational status: employed Cognitive needs: No Hearing needs: No Vision needs: Yes (Glasses) Office Procedures Urodynamic Studies Consent Discussed risk and benefit or proposed procedure with the patient. Information consent for procedure given to the patient. Discussed technical aspects, risks, benefits and alternatives in full. Addressed all of the patient's questions and concerns regarding the procedure. The patient demonstrated knowledge and understanding. They wish to proceed with this procedure. Preparation The patient was prepped in the usual manner. A shipyard supervisor was present and in the room. Genitalia was prepped with betadine solution in a sterile manner. Procedure Complex Uroflow Complex uroflow performed by: Josselyn Mills Maximum urinary flow rate (mL/second): 10 Voiding time (seconds): 1 min 30 secs Voided volume (mL): 56ml Residual urine (mL): 5ml Cystometrogram ? Vaginal/rectal catheter type: Vaginal First sensation at (mL): 31 mL First desire at (mL): 89 mL Strong desire to void occurred at (mL): 124 mL Strong desire detrusor pressure (cm H2O): 0.2 Maximum Capacity (mL): 203 mL Voiding Summary Voided with max detrusor pressure of (cm H2O): 10 Maximum flow rate (mL/second): 6.3 mL/s Voided volume (mL): ? 201 Calculated PVR: 0 mL Stress Testing Stress Test at 126 mL: Present leak with Valsalva. DO Dry: Absent DO Wet: Absent Shortly after test was completed, patient felt nauseous and had one episode of vomiting and states she vomited up the antibiotic tablet. She states she is very sensitive to antibiotics. Patient given water. Denies any itchiness or shortness of breath and felt she was okay to drive home. Patient left and will reschedule a telehealth with Dr. Reynolds to discuss the results and plan of care. Ciprofloxacin added to her allergy list. Prep: The patient was prepped in the usual manner. A shipyard supervisor was present and in the room. Genitalia was prepped with betadine solution in a sterile manner. 38526-Ijmclmdsmgicxi w/ PLAYER SERVICES REPRESENTATIVE 80199-Vrkyjer-Tdakcjyzzglv 37595-Kcla/Urinary Muscle Study 25606-Wwenp-Wcziqqpmr Pressure Test Procedure code (CPT) selection complete Office Meds lidocaine HCl 2 % mucosal jelly in applicator Performing Provider: Josselyn Mills MD Performing Location: [facility] [place] [facility] Administered by: Mamie Mccain RN on 02/14/25 13:46 Dose Route Admin Location Dispensed Lot Number Expiration Date [facility] Program Management Manager 10 mL intra-urethral 10 mL ciprofloxacin HCl 500 mg tablet Performing Provider: Josselyn Mills MD Performing Location: [facility] [place] [facility] Administered by: Mamie Mccain RN on 02/14/25 13:46 Dose Route Admin Location Dispensed Lot Number Expiration Date [facility] Program Management Manager 500 mg PO 1 tab Results AMB Urinalysis, Automated UA Leukoctes 0 Alfonso/uL Last Edit by Mamie Mccain RN on 02/14/25 13:53 UA Nitrite Negative Last Edit by Mamie Mccain RN on 02/14/25 13:53 UA Urobilinogen 3.5 mg/dL Last Edit by Mamie Mccain RN on 02/14/25 13:53 UA Protein 0 mg/dL Last Edit by Mamie Mccain RN on 02/14/25 13:53 UA pH 6.0 Last Edit by Mamie Mccain RN on 02/14/25 13:53 UA Blood 0 Bob/uL Last Edit by Mamie Mccain RN on 02/14/25 13:53 UA Specific [place] 1.0 Last Edit by Mamie Mccain RN on 02/14/25 13:53 UA Ketone Negative Last Edit by Mamie Mccain RN on 02/14/25 13:53 UA Bilirubin 0 mg/dL Last Edit by Mamie Mccain RN on 02/14/25 13:53 UA Glucose 0 mg/dL Last Edit by Mamie Mccain RN on 02/14/25 13:53 Results Reviewed Results Reviewed: Laboratory Last Values Urine pH (Auto) 6.0 02/14/25 13:52 Specific [place] (Auto) 1.0 02/14/25 13:52 Urine Protein (Auto) 0 mg/dL 02/14/25 13:52 Glucose (UA)(Auto) 0 mg/dL 02/14/25 13:52 Urine Ketones (Auto) Negative 02/14/25 13:52 Urine Blood (Auto) 0 Bob/uL 02/14/25 13:52 Urine Nitrite (Auto) Negative 02/14/25 13:52 Urine Bilirubin (Auto) 0 mg/dL 02/14/25 13:52 Urine Urobilinogen (Auto) 3.5 mg/dL 02/14/25 13:52 Leukocyte Esterase (Auto) 0 Alfonso/uL 02/14/25 13:52 Assessment & Plan Assessment & Plan Orders: Orders AMB Urodynamics Studies Today N39.3 - Stress incontinence (female) (male) AMB Urinalysis Automated Today Z13.9 - Encounter for screening, unspecified Coding CPT Codes Urodynamic Studies - CPT: 61755-Utainsuysbqiye w/ PLAYER SERVICES REPRESENTATIVE ([id number]) Urodynamic Studies - CPT: 36215-Snnywmw-Gdqczchjxejj ([id number]) Urodynamic Studies - CPT: 57701-Oepn/Urinary Muscle Study ([id number]) Urodynamic Studies - CPT: 90168-Ltiit-Xgejwcdsz Pressure Test ([id number])
== END 2025-02-14 16:00 | disposition home or self-care (01) ==
LOC: HO.HUSH 12:48
PROVIDERS: PCP Internal Medicine; Visit Provider Urology
DX: N39.3 Stress incontinence (female) (male) (principal); Z13.9 Encounter for screening, unspecified
CPT/HCPCS: 51728; 51741; 51784; 51797

== ENCOUNTER → 2025-02-14 12:47 | Outpatient (BNVA) | payer MEDICARE, MEDICAID, SELFPAY | PROVIDERS: PCP Internal Medicine; Visit Provider Urology | DX: N32.81 Overactive bladder (principal); N36.42 Intrinsic sphincter deficiency (ISD); R39.15 Urgency of urination | CPT/HCPCS: 51728; 51741; 51784; 51797; 81003 ==

== ENCOUNTER 2025-02-22 07:32 | Outpatient (REF) | payer MEDICARE, MEDICAID, SELFPAY ==
[2025-02-22 08:31] LABS: Alanine Aminotransferase 14 U/L (0-31); Albumin Level 4.3 g/dL (3.5-5.0); Alkaline Phosphatase 94 U/L (39-117); Anion Gap 14 (12-20); Aspartate Amino Transferase 20 U/L (5-31); Bilirubin Total 0.4 mg/dL (0.0-1.0); Blood Urea Nitrogen 18 mg/dL (9-16); Calcium 9.7 mg/dL (8.4-10.2); Carbon Dioxide 30 mmol/L (22-29); Chloride 101 mmol/L (96-108); Cholesterol 218 mg/dL (<200); Estimated Glomerular Filt Rate > 60; Glucose Fasting 112 mg/dL (60-99); HDL Cholesterol 49 mg/dL (>40); LDL Cholesterol Calculated 129 mg/dL (<100); Potassium 4.2 mmol/L (3.3-5.1); Sodium 141 mmol/L (135-145); Total Protein 7.4 g/dL (6.5-8.0); Triglycerides 200 mg/dL (<150)
== END 2025-02-22 07:33 | disposition home or self-care (01) ==
LOC: HO.LAB 07:32
PROVIDERS: PCP Internal Medicine; Visit Provider Internal Medicine
DX: E78.00 Pure hypercholesterolemia, unspecified (principal)
CPT/HCPCS: 36415; 80053; 80061

== ENCOUNTER 2025-02-25 13:35 | Outpatient (AMB) | payer MEDICARE, MEDICAID, SELFPAY ==
--- NOTE | 2025-02-25 13:36 | A.OFFVIS_ITS ---
Intake Visit Reasons: UDS follow up Intake Note: Patient is present for a urodynamics follow up Urology Medication:none Antibiotic Allergy:none Blood Thinner:none Line Tender Flakeboard Required: No Allergies bee pollen [BEE STINGS] Allergy (Unknown, Verified 02/25/25 13:37) SWELLING - BLOTCHES ciprofloxacin Allergy (Verified 02/25/25 13:37) Nausea and Vomiting nitrofurantoin [From Macrobid] Adverse Reaction (Intermediate, Verified 02/25/25 13:37) Vomiting Medication List - Last Reconciled 02/25/25 by Josselyn Mills MD albuterol sulfate 2.5 mg inhalation QID PRN albuterol sulfate 90 mcg/actuation 2 puffs inhalation Q4-6H PRN 30 days cholecalciferol (vitamin D3) 50 mcg PO DAILY 90 days fluticasone propion-salmeterol 250-50 mcg/dose (Wixela Inhub) 1 inh inhalation BID melatonin 10 mg PO BEDTIME PRN methadone 80 mg PO DAILY methadone 30 mg PO BEDTIME [NEBULIZER and all related supplies As directed up to 4 times a day as needed] omeprazole 20 mg PO DAILY@0630 90 days prednisone 5 mg PO BID 2 weeks sennosides (senna) 17.2 mg (2 x 8.6 mg) PO BEDTIME PRN HPI Comments Details: 02/25/25--Mayra Moreno is followed for urinary incontinence she had urodynamics on 02/14/2025 findings consistent with less than average functional bladder capacity intrinsic sphincter deficiency may also play a a component in her urinary symptoms. Sensory urgency was noted. She has failed oxybutynin VESIcare in the past for overactive bladder symptoms. Telehealth-Video attempted. History of Present Illness The patient is a 64-year-old female presenting with urinary incontinence. She was previously evaluated for urinary incontinence and overactive bladder, where reduced bladder capacity and findings suggestive of intrinsic sphincter deficiency were identified. UDS conducted on 02/14/2025 showed a bladder volume capacity of approximately 203 mL, prompting concerns about functional capacity and bladder compliance. We discussed the procedure?s associated risks, including the possibility of transient blood in the urine and urinary tract infections, and the necessity for prophylactic antibiotics. Other therapies will be discussed if needed for pelvic floor weakness. I informed her about the requirement for insurance authorization before scheduling the procedure. 02/14/25--Mayra is here for urodynamics. The patient has complaints of urinary incontinence. Interpretation: During the filling phase there was sensory urgency was noted, strong desire was noted at 129 mL. Bladder capacity was less than average, the patient felt that they were at capacity at 203 mL. Leakage was observed during valsalva at 126 mL. Findings consistent with less than average functional bladder capacity. ISD may also play a component in urinary symptoms. Uninhibited detrusor contractions were not evident on this study. EMG- Appropriate changes in the waveforms were noted through out the study. 06/18/2024--Leslie was last seen a year ago. She has had lower urinary tract symptoms urgency and mixed urinary incontinence. The patient has history of nicotine use, she was evaluated for microscopic hematuria, which included office cystoscopy, findings at that time no suspicious lesions, mild cystitis. The patient states that her urinary leakage is worsening she is wearing a pad and it is wet all the time. Urinalysis is negative. She denies recent UTI. She states the VESIcare did not help and she is not using that right now. Will schedule urodynamics. Mayra is a 63-year-old female who presents today to the office for a 3-month follow-up. 06/02/2023?Mayra is followed today with c/o's of lower back pain and urgency. She was last seen by me on 02/25/2023 for cystitis. The patient was advised to continue using estradiol cream at that time. Vesicare 10 mg QD was ordered, and urodynamic testing was discussed to be scheduled during that time. Patient states that she is wearing diaper at night. She states that she had developed vomiting secondary to taking Macrobid. c/o's of leakage with cough. 02/25/23--The patient is being evaluated for microscopic hematuria.? Urinalysis today shows no infection.? She took oxybutynin 10 mg QD for bladder symptoms and reports leaking episodes when off from the medication.? The patient reports leaking while coughing.? The patient adhered to Macrobid 100 mg BID therapy for 10 days.? The patient is using estradiol cream.? CTAP?10/18/22-- Kidneys: WNL, No renal calculi visualized. Urine cytology--09/08/22-- Negative for malignant cells. Evaluation today-- Blood: negative, leukocytes: negative.? Cystoscopy findings-- no suspicious bladder lesions visualized. Mild cystitis.? Plan:?Continue using estradiol cream.? Vesicare 10 mg QD was ordered.?Urodynamic testing discussed to be scheduled. [facility] Medical History Insomnia GERD (gastroesophageal reflux disease) History of substance abuse Ex-smoker Overweight (BMI 25.0-29.9) COPD (chronic obstructive pulmonary disease) Influenza A Pneumonitis COPD (chronic obstructive pulmonary disease) Dyspnea on exertion Mixed incontinence urge and stress Obesity (BMI 30-39.9) Constipation Osteopenia Vitamin D deficiency History of hepatitis C COPD (chronic obstructive pulmonary disease) Smoker Bronchitis Surgical History History of tubal ligation Family History Father Stroke Hypertension Diabetes Heart problem Mother Diabetes Brother Diabetes Sister In good health Social History Household Members: Family Household Members Other:: Niece Housing: House Do you presently have visiting nurse or other home services: No Alcohol intake: former Patient Tobacco Use Status: Former Tobacco user Tobacco use type: Cigarette Cigarettes Per Day: 6 e-Cigarette/Vaping Use: Never Used Second Hand Smoke Exposure: No Substance Use Type: Marijuana service: No Current occupational status: employed Cognitive needs: No Hearing needs: No Vision needs: Yes (Glasses) Review of Systems Const All systems reviewed & are unremarkable except as noted in HPI and below Reports no additional complaints Eyes Reports no additional complaints ENT Reports no additional complaints Card Reports no additional complaints Resp Reports no additional complaints GI Reports no additional complaints Reports as per HPI Musc Reports no additional complaints Skin/Breast Reports system reviewed and no additional complaints, except as documented Neuro Reports no additional complaints Psych Reports no additional complaints Endo Reports no additional complaints Constantino/Lymph Reports no additional complaints Aller/Immun Reports no additional complaints Telehealth Telehealth Telehealth Platform: [facility] Location of provider rendering services: practice address Location of patient: address on file Patient Identification confirmed using: Name, : Yes Telehealth method: voice only Patient verbally consented to treatment: Yes Patient verbally consented to billing insurance company: Yes Patient informed of any privacy concerns related to visit: Yes Minutes spent on Phone/Video with Pt.: 16 Assessment & Plan Assessment & Plan (1) OAB (overactive bladder): Code(s): N32.81 - Overactive bladder Category: Medical (2) Intrinsic sphincter deficiency (ISD): Code(s): N36.42 - Intrinsic sphincter deficiency (ISD) Category: Medical (3) Urinary urgency: Code(s): R39.15 - Urgency of urination Category: Medical Plan Schedule outpatient cystoscopy bladder Botox injection 100 units Patient Instructions: The patient had an opportunity to ask questions regarding treatment plan. The patient expressed understanding and agreement with the above treatment plan. The patient is aware they should contact our office by phone for worsening of their current condition or the appearance of new symptoms. Compliance is encouraged with any medications and followup testing that is ordered. It is a privilege to be allowed the opportunity to participate in the urologic c are of your patient. If you have any questions or concerns regarding treatment for the above conditions please do not hesitate to contact me. The office telephone contact is [phone]. This note is constructed in part using voice recognition software. While every effort has been made to ensure accuracy supervisor inspection and testing errors may have been included. Yours sincerely, Josselyn Mills MD Scribe Plan - Not visible on output: Patient was informed and verbally consented to the use of an ambient scribe for clinic note documentation during this visit. Coding Level of Care Code Tele New Pt Level 4 (23178) Diagnoses OAB (overactive bladder) N32.81 Intrinsic sphincter deficiency (ISD) N36.42 Urinary urgency R39.15
== END 2025-02-25 14:34 | disposition home or self-care (01) ==
LOC: HO.HUSH 13:35
PROVIDERS: PCP Internal Medicine; Visit Provider Urology
DX: N32.81 Overactive bladder (principal); N36.42 Intrinsic sphincter deficiency (ISD); R39.15 Urgency of urination
CPT/HCPCS: 99214

== ENCOUNTER → 2025-02-25 13:35 | Outpatient (BNVA) | payer MEDICARE, MEDICAID, SELFPAY | PROVIDERS: PCP Internal Medicine; Visit Provider Urology | DX: N32.81 Overactive bladder (principal); N36.42 Intrinsic sphincter deficiency (ISD); N39.46 Mixed incontinence; E78.5 Hyperlipidemia, unspecified; J44.1 Chronic obstructive pulmonary disease with (acute) exacerbation; E78.2 Mixed hyperlipidemia; K21.9 Gastro-esophageal reflux disease without esophagitis; R79.89 Other specified abnormal findings of blood chemistry; E55.9 Vitamin D deficiency, unspecified; M85.80 Other specified disorders of bone density and structure, unspecified site; K59.03 Drug induced constipation; F19.11 Other psychoactive substance abuse, in remission; E66.9 Obesity, unspecified; Z86.19 Personal history of other infectious and parasitic diseases; Z68.32 Body mass index [BMI] 32.0-32.9, adult; Z87.891 Personal history of nicotine dependence | CPT/HCPCS: 96127; 99212 ==

== ENCOUNTER 2025-02-25 15:24 | Outpatient (AMB) | payer MEDICARE, MEDICAID, SELFPAY ==
[2025-02-25 15:27] VITALS: BP 120/80; PULSE 77; O2SAT 93; BMI 32.7
--- NOTE | 2025-02-25 15:27 | MHC.PC.OV ---
Vital Signs 02/25/25 15:27 Height 5 ft Weight 167 lb 4 oz BMI 32.7 BP 120/80 Blood Pressure Location Lt brachial Position Sitting Pulse 77 Pulse Source Pulse Oximeter Pulse Oximetry (%) 93 Oxygen Delivery Method Room Air Intake Visit Reasons: hyperlipidemia E Mail System Administrator Required: No Accompanied by: Self / Same As Patient Allergies bee pollen [BEE STINGS] Allergy (Unknown, Verified 02/26/25 05:08) SWELLING - BLOTCHES ciprofloxacin Allergy (Verified 02/26/25 05:08) Nausea and Vomiting nitrofurantoin [From Macrobid] Adverse Reaction (Intermediate, Verified 02/26/25 05:08) Vomiting Medication List - Last Reconciled 02/26/25 by Vitor Cox MD albuterol sulfate 2.5 mg inhalation QID PRN albuterol sulfate 90 mcg/actuation 2 puffs inhalation Q4-6H PRN 30 days cholecalciferol (vitamin D3) 50 mcg PO DAILY 90 days fluticasone propion-salmeterol 250-50 mcg/dose (Wixela Inhub) 1 inh inhalation BID methadone 80 mg PO DAILY methadone 30 mg PO BEDTIME [NEBULIZER and all related supplies As directed up to 4 times a day as needed] omeprazole 20 mg PO DAILY@0630 90 days prednisone 5 mg PO BID 2 weeks sennosides (senna) 17.2 mg (2 x 8.6 mg) PO BEDTIME PRN Tobacco use date assessed: 02/25/25 Fall risk assessment: No Falls in past year Last assessed Fall Risk: 02/25/25 Dental Screening Dental Screen Date: 02/25/25 Did you have a dental visit in the last 12 months?: No Did you have a dental problem in the last 6 months where you did not have access to dental care?: No Was dental information given to patient?: No HPI hyperlipidemia HPI Details Patient comes in today for her follow up visit She continues to experience frequent/recurrent chest congestion and coughing - states that she coughs up thick whitish phlegm at times She completed her oral Prednisone a few weeks ago but states that she has been on Prednisone several times over the past year She was admitted to the hospital in November 2024 for RLL pneumonia She also went to the ER a few weeks ago on 01/02/25 for COPD exacerbation She was seen by Dr. Arredondo for pulmonary follow up about 1 to 2 weeks later and was advised to continue on her current inhaler(s), which include Wixela and Albuterol HFA; she also has a nebulizer to use at home when needed Patient was seen by urology earlier today and will be scheduled for cystoscopy and bladder botox injection for her overactive bladder She denies any headaches or dizziness; denies any fever or sore throat Denies any exertional chest pains; still has frequent REYES due to her COPD No nausea/vomiting, no abdominal pain No change in bowel habits noted She had her follow up labs done a few days ago - to discuss her results [facility] Medical History Insomnia GERD (gastroesophageal reflux disease) History of substance abuse Ex-smoker Overweight (BMI 25.0-29.9) COPD (chronic obstructive pulmonary disease) Influenza A Pneumonitis COPD (chronic obstructive pulmonary disease) Dyspnea on exertion Mixed incontinence urge and stress Obesity (BMI 30-39.9) Constipation Osteopenia Vitamin D deficiency History of hepatitis C COPD (chronic obstructive pulmonary disease) Smoker Bronchitis Surgical History History of tubal ligation Family History Father Stroke Hypertension Diabetes Heart problem Mother Diabetes Brother Diabetes Sister In good health Social History Household Members: Family Household Members Other:: Niece Housing: House Do you presently have visiting nurse or other home services: No Alcohol intake: former Patient Tobacco Use Status: Former Tobacco user Tobacco use type: Cigarette Cigarettes Per Day: 6 e-Cigarette/Vaping Use: Never Used Second Hand Smoke Exposure: No Substance Use Type: Marijuana service: No Current occupational status: employed Cognitive needs: No Hearing needs: No Vision needs: Yes (Glasses) Questionnaire PHQ-9 Over the last 2 weeks, how often have you been bothered by any of the following problems? 1. Little interest or pleasure in doing things: not at all 2. Feeling down, depressed, or hopeless: not at all 3. Trouble falling or staying asleep, or sleeping too much: nearly every day 4. Feeling tired or having little energy: nearly every day 5. Poor appetite or overeating: nearly every day 6. Feeling bad about yourself - or that you are a failure or have let yourself or your family down: not at all 7. Trouble concentrating on things, such as reading the newspaper or watching television: not at all 8. Moving or speaking so slowly that other people could have noticed. Or the opposite - being so fidgety or restless that you have been moving around a lot more than usual: several days 9. Thoughts that you would be better off or of hurting yourself in some way: not at all Total score: 10 Depression Screening Interpretation: Positive Depression Screening Follow-up: Follow-up Visit Requested Depression Screening Done: Yes [id number] - PHQ-9 Billing: Yes Source: Developed by Drs. Marcus Jackson, Vannesa Gongora, Alex Chong and colleagues, with an educational miles from [employer]. Thrive Questionnaire Date Thrive assessed: 02/25/25 I am a: Patient What is your living situation today?: I have a steady place to live Within the past 12 months, did the food you bought not last and you didn't have the money to get more?: Often true Within the past 12 months, did you worry whether your food would run out before you got money to buy more?: Often true Do you have trouble paying for medicines?: No Do you have trouble getting transportation to medical appointments?: No Do you have trouble paying your heating and electricity bill?: No Do you have trouble taking care of your child, family member or friend?: No Do you have trouble with day-to-day activities such as bathing, preparing meals, shopping, managing finances, etc.?: No Are you currently unemployed and looking for a job?: Yes Are you interested in more education?: No Please select the resources that you would like help with: None Currently or been in a relationship where the following occur: No concerns reported THRIVE Score: 2 AUDIT C Alcohol Use Questionnaire (AUDIT-C) 1. How often do you have a drink containing alcohol?: Never 3. How often do you have six or more drinks on one occasion?: Never Total Score: 0 Score Reviewed/Action Taken: Yes LEEANN-7 AMB Questionnaire LEEANN-7 Date LEEANN - 7 assessed: 02/25/25 Feeling nervous, anxious, or on edge: 1 = Several days Not being able to stop or control worryin = Several days Worrying too much about different things: 3 = Nearly every day Trouble relaxin = Nearly every day Being so restless that it is hard to sit still: 2 = More than half the days Becoming easily annoyed or irritable: 0 = Not at all Feeling afraid as if something awful might happen: 2 = More than half the days Total LEEANN-7 score (0-4 normal; 5-9 mild; 10-14 moderate; 15-21 severe): 12 Source: Developed by Drs. Marcus Jackson, Vannesa Gongora, Alex Chong and colleagues, with an educational miles from [employer]. Review of Systems Const Denies chills, Reports difficulty sleeping (chronic), Reports fatigue, Denies fever(s) and Denies headache(s) ENT Denies dysphagia, Denies dizziness, Denies otalgia, Denies headache(s), Denies neck pain, Denies odynophagia and Denies sore throat Card Denies chest pain, Denies rapid heart rate, Denies irregular heart rhythm, Denies palpitations and Reports dyspnea on exertion (chronic) Resp Reports chest congestion (chest feels tight at times), Reports cough (on and off), Denies hemoptysis, Reports dyspnea on exertion (chronic) and Reports wheezing (occasionally) GI Denies abdominal pain, Reports constipation (chronic), Denies dysphagia, Denies heartburn, Denies diarrhea, Denies nausea, Denies odynophagia and Denies vomiting Denies difficulty voiding, Reports nocturia, Denies dysuria and Reports urinary incontinence (at times) Musc Denies back pain, Denies arthralgias and Denies neck pain Skin/Breast Denies rash Neuro Denies dizziness and Denies headache(s) Endo Reports fatigue and Denies palpitations Aller/Immun Reports wheezing (occasionally) Physical exam (Primary Care) Vital Signs: Last Vital Signs Pulse 77 02/25/25 15:27 BP 120/80 02/25/25 15:27 Pulse Ox 93 02/25/25 15:27 Oxygen Delivery Method Room Air 02/25/25 15:27 BMI result Body Mass Index 32.7 Tobacco/Smoking Status: Tobacco use Status Tobacco use date assessed 02/25/25 02/25/25 15:37 Patient Tobacco Use Status Former Tobacco user 02/25/25 15:37 Tobacco use type Cigarette 02/25/25 15:37 e-Cigarette/Vaping Use Never Used 02/25/25 15:37 PHQ-9: PHQ-9 Score PHQ-9: Total score 10 02/25/25 15:54 Depression Screening Interpretation: Positive Depression Screening Follow-up: Follow-up Visit Requested Thrive Assessment: Date of Thrive Assessment Date Thrive assessed 02/25/25 02/25/25 15:37 Currently or been in a relationship where the following occur: No concerns reported Const General: no acute distress and alert HENMT Ears: TM's normal bilaterally and EAC's normal Throat: Yes posterior oropharynx normal and Yes tonsils normal (no TP congestion) Neck Neck: Yes supple and No lymphadenopathy Thyroid: Thyroid normal Resp Auscultation: no crackles, no rales, rhonchi (scattered bilaterally), no wheezes and diminished lung sounds bilateral Cardio Rate: regular rate Rhythm: regular rhythm Heart sounds: no murmurs GI Palpation (GI): Soft to palpation and nontender Auscultation: normal bowel sounds General: Yes no CVA tenderness Back/Spine/Pelvis Back: no CVA tenderness Thoracic/Lumbar Spine: No lumbar spinal tenderness Skin Rashes: no rashes Extrem General: Yes no clubbing, cyanosis or edema Left upper extremity: elbow/forearm Details: tenderness Location: of the medial epicondyle; no swelling Results Reviewed Results Reviewed: Laboratory Tests 02/22/25 07:45 Sodium 141 Potassium 4.2 Creatinine 0.84 Estimated GFR > 60 Fasting Glucose 112 H Calcium 9.7 AST 20 ALT 14 Triglycerides 200 H Cholesterol 218 H LDL Cholesterol, Calc 129 H HDL Cholesterol 49 Coding Level of Care Code Est Pt Level 4 (35625) Complex EM visit Add On G2211 Diagnoses Chronic obstructive pulmonary disease with acute exacerbation J44.1 COPD type: COPD with acute exacerbation Mixed dyslipidemia E78.2 Gastroesophageal reflux disease without esophagitis K21.9 Esophagitis presence: without esophagitis History of hepatitis C Z86.19 Elevated LFTs R79.89 Vitamin D deficiency E55.9 Osteopenia, unspecified location M85.80 Osteopenia location: unspecified Drug-induced constipation K59.03 Constipation type: drug induced constipation Mixed incontinence urge and stress N39.46 History of substance abuse F19.11 Obesity (BMI 30-39.9) E66.9 Additional Codes PHQ-9 - 84679 - PHQ-9 Billing: Yes ([id number]) Assessment & Plan Assessment & Plan (1) COPD (chronic obstructive pulmonary disease): Comment: Patient does have chronic obstructive pulmonary disease probably moderately severe. RECENTLY ADMITTED TO [facility], TREATED FOR POSSIBLE ACUTE RIGHT LOWER LOBE PNEUMONIA. SUBSEQUENTLY SEEN IN THE EMERGENCY ROOM ON 01/02, FOR ONGOING COUGH AND CHEST CONGESTION. IT SEEMS THAT THE SYMPTOMS FROM ACUTE EXACERBATION OR STAY LINGERING ON. Code(s): J44.9 - Chronic obstructive pulmonary disease, unspecified Category: Medical Qualifiers: COPD type: COPD with acute exacerbation Qualified Code(s): J44.1 - Chronic obstructive pulmonary disease with (acute) exacerbation Plan: Continue Wixela Inhub 250-50 mcg 1 inhalation BID and Albuterol HFA 1 to 2 inhalations Q 6 hours PRN although her COPD is still not well-controlled Patient uses her nebulizer at home when needed Follow up with pulmonary as scheduled (2) Mixed dyslipidemia: Code(s): E78.2 - Mixed hyperlipidemia Category: Medical Plan: Results of her labs done a few days ago reviewed and discussed with patient - she is cautioned that her cholesterol levels have all increased slightly from previous Reinforced low cholesterol diet Will have patient recheck her labs and fasting lipids in 4 months for follow up and if her cholesterol levels do not improve significantly over the next few months, then we may need to consider starting her on cholesterol-lowering medications (3) GERD (gastroesophageal reflux disease): Code(s): K21.9 - Gastro-esophageal reflux disease without esophagitis Category: Medical Qualifiers: Esophagitis presence: without esophagitis Qualified Code(s): K21.9 - Gastro-esophageal reflux disease without esophagitis Plan: Reinforced dietary restrictions in GERD Continue Omeprazole 20 mg QD (4) History of hepatitis C: Code(s): Z86.19 - Personal history of other infectious and parasitic diseases Category: Medical Plan: Patient recalls being treated for hepatitis C many years ago Patient requested to have this retested couple of years ago after the methadone clinic noticed a positive hepatitis-C antibody test in early 2019 but she was not able to complete this after it was ordered Her LFTs are completely normal on her recent labs We had her recheck these with her other labs a few months ago and her viral load has remained undetectable (5) Elevated LFTs: Code(s): R79.89 - Other specified abnormal findings of blood chemistry Category: Medical Plan: Her LFTs were elevated on her recent labs, likely in relation to her recent weight gain but this may also partly be due to her high cholesterol levels and should improve with weight loss Will continue to monitor her LFTs regulary (6) Vitamin D deficiency: Code(s): E55.9 - Vitamin D deficiency, unspecified Category: Medical Plan: Continue Vitamin D3 2000 units QD (7) Osteopenia: Code(s): M85.80 - Other specified disorders of bone density and structure, unspecified site Category: Medical Qualifiers: Osteopenia location: unspecified Qualified Code(s): M85.80 - Other specified disorders of bone density and structure, unspecified site Plan: Her repeat BMD done in November 2022 revealed (+) osteopenia based on the lowest T-score value of -1.8 in the femoral neck Her BMD has declined by 7.7% in the AP spine from her previous BMD done on 03/16/2019; no significant decline was noted in the femoral neck Patient is reminded to continue to stay active and exercise regularly and also to take her daily calcium and vitamin-D supplements (8) Constipation: Code(s): K59.00 - Constipation, unspecified Category: Medical Qualifiers: Constipation type: drug induced constipation Qualified Code(s): K59.03 - Drug induced constipation Plan: This is mostly related to her Methadone Continue MiraLax powder 17 gm QD or Senna 8.6 mg QD PRN - states that the Rx helps but she can only take 1 or the other and not both (had diarrhea in the past when she took both MiraLax and Senna together); Rx for Senna was sent in to pharmacy previously per her request She is again encouraged to continue to increase her oral fluids and dietary fiber intake (9) Mixed incontinence urge and stress: Code(s): N39.46 - Mixed incontinence Category: Medical Plan: Abdominal and pelvic CT done last year came out negative She was on Oxybutynin ER 10 mg QD previously but this did not help much and was discontinued She is currently being scheduled for cystoscopy and bladder Botox injection Follow up with urology as scheduled (10) History of substance abuse: Code(s): F19.11 - Other psychoactive substance abuse, in remission Category: Medical Plan: Continue Methadone 80 mg QD and 30 mg Q HS Follow up with the [facility] ([facility]) as scheduled (11) Obesity (BMI 30-39.9): Code(s): E66.9 - Obesity, unspecified Category: Medical Plan: Reinforced diet/exercise as tolerated/lose weight - she has gained a lot of weight lately due to oral prednisone, which she has had to take a lot of over the past few months because of her pulmonary/respiratory symptoms Plan Follow up in 4 months Orders: Orders Vitamin D 25-OH Total 4 Months E55.9 - Vitamin D deficiency, unspecified TSH reflex Free T4 4 Months E78.00 - Pure hypercholesterolemia, unspecified UA CC w/rflx Micro + Cult 4 Months R30.0 - Dysuria Complete Blood Count Auto Diff 4 Months D64.9 - Anemia, unspecified Comprehensive [place]. Panel Fast 4 Months E78.00 - Pure hypercholesterolemia, unspecified Lipid Panel 4 Months E78.00 - Pure hypercholesterolemia, unspecified Hemoglobin A1c 4 Months R73.9 - Hyperglycemia, unspecified Medications: Refilled albuterol sulfate 90 mcg/actuation 2 puffs inhalation Q4-6H 30 days PRN 8.5 grams 0RF shortness of breath or wheezing J44.1 - Chronic obstructive pulmonary disease with (acute) exacerbation
== END 2025-02-25 16:05 | disposition home or self-care (01) ==
LOC: HO.HMCH 15:25
PROVIDERS: PCP Internal Medicine; Visit Provider Internal Medicine
DX: J44.1 Chronic obstructive pulmonary disease with (acute) exacerbation (principal); E78.2 Mixed hyperlipidemia; F19.11 Other psychoactive substance abuse, in remission; K21.9 Gastro-esophageal reflux disease without esophagitis; Z86.19 Personal history of other infectious and parasitic diseases; R79.89 Other specified abnormal findings of blood chemistry; E55.9 Vitamin D deficiency, unspecified; M85.80 Other specified disorders of bone density and structure, unspecified site; K59.03 Drug induced constipation; N39.46 Mixed incontinence; E66.9 Obesity, unspecified

== ENCOUNTER 2025-02-28 14:21 | Outpatient (AMB) | payer MEDICARE, MEDICAID, SELFPAY ==
[2025-02-28 14:30] VITALS: BP 150/90; PULSE 77; O2SAT 94; BMI 32.7
--- NOTE | 2025-02-28 14:30 | MHC.OFFVIS ---
Vital Signs 02/28/25 14:30 Height 5 ft Weight 167 lb 8.821 oz BMI 32.7 BP 150/90 H Blood Pressure Location Lt brachial Position Sitting Pulse 77 Pulse Source Pulse Oximeter Pulse Oximetry (%) 94 Oxygen Delivery Method Room Air Intake Visit Reasons: COPD Intake Note: pt is here for follow up and states she is feeling good Immigration Consultant Required: No Allergies bee pollen [BEE STINGS] Allergy (Unknown, Verified 02/28/25 14:52) SWELLING - BLOTCHES ciprofloxacin Allergy (Verified 02/28/25 14:52) Nausea and Vomiting nitrofurantoin [From Macrobid] Adverse Reaction (Intermediate, Verified 02/28/25 14:52) Vomiting Medication List - Last Reconciled 02/28/25 by Elver Arredondo MD albuterol sulfate 2.5 mg inhalation QID PRN albuterol sulfate 90 mcg/actuation 2 puffs inhalation Q4-6H PRN 30 days cholecalciferol (vitamin D3) 50 mcg PO DAILY 90 days fluticasone propion-salmeterol 250-50 mcg/dose (Wixela Inhub) 1 inh inhalation BID methadone 80 mg PO DAILY methadone 30 mg PO BEDTIME [NEBULIZER and all related supplies As directed up to 4 times a day as needed] omeprazole 20 mg PO DAILY@0630 90 days sennosides (senna) 17.2 mg (2 x 8.6 mg) PO BEDTIME PRN Do you need a note to return to daycare/school/sports/work: No HPI HPI COPD: Details: This 64 years old very pleasant female is here for follow-up after 6 months. Breathing dunham has been doing okay. She uses WIXELA 250-51 inhalation b.i.d. regularly, and uses the albuterol inhaler only once in a while. Has occasional cough which is mostly nonproductive. Denies any shortness of breath on exertion. She is nonsmoker but does smoke marijuana at night. She is still on methadone 80 mg p.o. daily [facility] Medical History Insomnia GERD (gastroesophageal reflux disease) History of substance abuse Ex-smoker Overweight (BMI 25.0-29.9) COPD (chronic obstructive pulmonary disease) Influenza A Pneumonitis COPD (chronic obstructive pulmonary disease) Dyspnea on exertion Mixed incontinence urge and stress Obesity (BMI 30-39.9) Constipation Osteopenia Vitamin D deficiency History of hepatitis C COPD (chronic obstructive pulmonary disease) Smoker Bronchitis Surgical History History of tubal ligation Family History Father Stroke Hypertension Diabetes Heart problem Mother Diabetes Brother Diabetes Sister In good health Social History Household Members: Family Household Members Other:: Niece Housing: House Do you presently have visiting nurse or other home services: No Alcohol intake: former Patient Tobacco Use Status: Former Tobacco user Tobacco use type: Cigarette Cigarettes Per Day: 6 e-Cigarette/Vaping Use: Never Used Second Hand Smoke Exposure: No Substance Use Type: Marijuana service: No Current occupational status: employed Cognitive needs: No Hearing needs: No Vision needs: Yes (Glasses) Review of Systems Const All systems reviewed & are unremarkable except as noted in HPI and below Eyes Reports no additional complaints ENT Reports no additional complaints Card Denies chest pain, Denies irregular heart rhythm and Denies leg edema Resp Reports as per HPI and Reports cough GI Reports no additional complaints Reports no additional complaints Musc Reports back pain Skin/Breast Reports system reviewed and no additional complaints, except as documented Neuro Reports no additional complaints Psych Reports no additional complaints Physical Exam Vital Signs: Last Vital Signs Pulse 77 02/28/25 14:30 BP 150/90 H 02/28/25 14:30 Pulse Ox 94 02/28/25 14:30 Oxygen Delivery Method Room Air 02/28/25 14:30 BMI result Body Mass Index 32.7 Const General: comfortable, no acute distress, alert and awake Orientation/consciousness: patient oriented x3 HEENT Head: Yes normal to inspection General nose exam: No nasal polyps present and No nasal discharge present Face and sinus: Yes sinuses nontender Mouth: oropharynx normal Throat: Yes posterior oropharynx normal Eyes General: appearance normal, both eyes and all related structures Neck Neck: Yes normal visual inspection, Yes no lymphadenopathy, Yes trachea midline and Yes no JVD Thyroid: Thyroid normal Chest Chest palpation & inspection: normal inspection of the chest, normal palpation of entire chest wall and no tenderness Resp Other: Percussion note is resonant, breath sounds are moderately distant with prolonged expiratory phase. No wheezes or rhonchi are heard. Cardio Palpation: normal PMI Rate: regular rate Rhythm: regular rhythm Heart sounds: no gallops and no murmurs Peripheral pulses: Peripheral pulses 2+ throughout GI Palpation (GI): Soft to palpation, nontender, No hepatosplenomegaly present and no masses Auscultation: normal bowel sounds Back/Spine/Pelvis Thoracic/Lumbar Spine: thoracic and lumbar spine normal to inspection Skin General skin exam: no rashes or lesions noted Neuro General: patient oriented x3 and no focal motor deficits Cranial nerves: Yes CN's II-XII intact bilaterally Extrem General: Yes normal to inspection, Yes no clubbing, cyanosis or edema and Yes no calf tenderness Psych Appearance: grossly normal and well kempt Speech and movement: Normal speech and movement present Assessment & Plan Assessment & Plan (1) COPD (chronic obstructive pulmonary disease): Comment: Patient does have chronic obstructive pulmonary disease moderately severe. She was treated in [facility] in December of this year, for pneumonia right lung and subsequent bronchitis for a while. It has all resolved to baseline. . Code(s): J44.9 - Chronic obstructive pulmonary disease, unspecified Category: Medical Qualifiers: COPD type: COPD with acute exacerbation Qualified Code(s): J44.1 - Chronic obstructive pulmonary disease with (acute) exacerbation Plan: Continue to use Wixela 250-51 inhalation b.i.d. Albuterol HFA 2 puffs Q 4-6 hours p.r.n. or alternatively albuterol solution in the nebulizer Q 4-6 hours p.r.n.. (2) Smoker: Comment: Up until recently she has been smoking 4-6 cigarettes a day. But claims that after recent admission to the hospital she has quit completely. She smokes marijuana once a day only at night. Code(s): F17.200 - Nicotine dependence, unspecified, uncomplicated Category: Social Hx Plan: Again I talked to her in detail and stressed that she should not go back to smoking cigarettes. Coding Level of Care Code Est Pt Level 3 (07290) Diagnoses Chronic obstructive pulmonary disease with acute exacerbation J44.1 COPD type: COPD with acute exacerbation Smoker F17.200
== END 2025-02-28 14:52 | disposition home or self-care (01) ==
LOC: HO.HPS 14:22
PROVIDERS: PCP Internal Medicine; Visit Provider Internal Medicine
DX: J44.1 Chronic obstructive pulmonary disease with (acute) exacerbation (principal); F17.200 Nicotine dependence, unspecified, uncomplicated
CPT/HCPCS: 99213

== ENCOUNTER → 2025-02-28 14:21 | Outpatient (BNVA) | payer MEDICARE, MEDICAID, SELFPAY | PROVIDERS: PCP Internal Medicine; Visit Provider Internal Medicine | DX: J44.1 Chronic obstructive pulmonary disease with (acute) exacerbation (principal); Z87.891 Personal history of nicotine dependence | CPT/HCPCS: 99212 ==

== ENCOUNTER 2025-03-19 11:31 | Day surgery (SDC) | payer MEDICARE, MEDICAID, SELFPAY ==
[2025-03-15 14:01] VITALS: BMI 32.6
--- NOTE | 2025-03-18 12:05 | HO.ANESPROP2 ---
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 Stable at 02/28/25 office visit PMF Active Problems Active Problems: All Active Problems Elevated LFTs (Acute) Urinary urgency (Acute) Intrinsic sphincter deficiency (ISD) (Acute) Right lower lobe pneumonia (Acute) COPD exacerbation (Acute) Left elbow pain (Acute) Impaired vision in both eyes (Acute) History of nicotine use (Acute) COPD exacerbation (Acute) Acute exacerbation of COPD with asthma (Acute) Hyponatremia (Acute) COVID-19 (Acute) Cystitis (Acute) Urinary, incontinence, stress female (Acute) Recurrent UTI (Acute) UTI (urinary tract infection) (Acute) OAB (overactive bladder) (Acute) Cervical cancer screening (Acute) Mixed dyslipidemia (Acute) Breast cancer screening by mammogram (Acute) Colon cancer screening (Acute) Microscopic hematuria (Acute) Annual physical exam (Acute) Urinary incontinence (Acute) Insomnia (Acute) History of substance abuse (Acute) GERD (gastroesophageal reflux disease) (Acute) Ex-smoker (Acute) Overweight (BMI 25.0-29.9) (Acute) Pneumonitis (Acute) Dyspnea on exertion (Acute) Mixed incontinence urge and stress (Acute) Obesity (BMI 30-39.9) (Acute) Constipation (Acute) Osteopenia (Acute) Vitamin D deficiency (Acute) History of hepatitis C (Acute) COPD (chronic obstructive pulmonary disease) (Acute) Smoker (Acute) Past Medical History Medical History High cholesterol Insomnia GERD (gastroesophageal reflux disease) History of substance abuse Ex-smoker Overweight (BMI 25.0-29.9) Influenza A Pneumonitis Dyspnea on exertion Mixed incontinence urge and stress Obesity (BMI 30-39.9) Constipation Osteopenia Vitamin D deficiency History of hepatitis C COPD (chronic obstructive pulmonary disease) Smoker Bronchitis Family History Family History Father Stroke Hypertension Diabetes Heart problem Mother Diabetes Brother Diabetes Sister In good health Surgical History Surgical History History of tubal ligation Social History Social History Household Members: Family Household Members Other:: Niece Housing: House Do you presently have visiting nurse or other home services: No Alcohol intake: former Patient Tobacco Use Status: Former Tobacco user Tobacco use type: Cigarette Cigarettes Per Day: 6 e-Cigarette/Vaping Use: Never Used Second Hand Smoke Exposure: No Use of substances other than those prescribed or required for medical reasons: No Substance Use Type: Marijuana Substance Use Type Other:: last used about 1 yr ago Are you DNR?: No Advance Directives: No Advance Directives Information Provided: Yes Patient : No service: No Current occupational status: employed Cognitive needs: No Hearing needs: No Vision needs: Yes (Glasses) Meds Allergies Allergy/AdvReac Type Severity Reaction Status Date / Time bee pollen (BEE STINGS) Allergy Unknown SWELLING - Verified 03/19/25 11:46 BLOTCHES ciprofloxacin Allergy Nausea and Verified 03/19/25 11:46 Vomiting nitrofurantoin (From AdvReac Intermediate Vomiting Verified 03/19/25 11:46 Macrobid) Home Medications ?Medication ?Instructions ?Recorded ?Confirmed ?Last Taken ?Type albuterol sulfate 2.5 mg/3 mL 2.5 mg inhalation QID PRN 12/09/24 03/19/25 Unknown History (0.083 %) solution for nebulization shortness of breath or wheezing methadone 10 mg/mL oral concentrate 30 mg PO BEDTIME 12/09/24 03/19/25 12/08/24 History methadone 10 mg/mL oral concentrate 80 mg PO DAILY 12/09/24 03/19/25 12/09/24 History Exam Height,Weight and Vital Signs: Height 5 ft Weight 75.75 kg Assessment and Plan Assessment Anesthesia Assessment: Chart Reviewed
[2025-03-19] VITALS (8 sets, daily range): BP systolic 110–147; BP diastolic 52–79; PULSE 66–79; RESP 12–20; TEMP 36.1–36.4; O2SAT 93–94; BMI 32.0
[2025-03-19] MEDS: Lactated Ringers 1,000 ML 100 ML IVCONT (12:06)
[2025-03-19 12:11] LABS: Amphetamine Screen Urine Not Detected (Not Detect); Barbiturates, Urine Not Detected (Not Detect); Benzodiazepines Screen Urine Not Detected (Not Detect); Buprenorphine Scr Not Detected (Not Detect); Cannabinoid Screen Urine POSITIVE (Not Detect); Cocaine Screen Urine Not Detected (Not Detect); Fentanyl, urine Not Detected (Not Detect); Methadone Screen, Urine Positive (Not Detect); Opiate Screen Urine Not Detected (Not Detect); Oxycodone Screen Urine Not Detected (Not Detect); Phencyclidine Screen Urine Not Detected (Not Detect)
--- NOTE | 2025-03-19 12:32 | HO.ANESPROP2 ---
[facility] Active Problems Active Problems: All Active Problems (Updated 03/15/25 @ 13:51 by Laurita Mckinley RN) Elevated LFTs (Acute) Urinary urgency (Acute) Intrinsic sphincter deficiency (ISD) (Acute) Right lower lobe pneumonia (Acute) COPD exacerbation (Acute) Left elbow pain (Acute) Impaired vision in both eyes (Acute) History of nicotine use (Acute) COPD exacerbation (Acute) Acute exacerbation of COPD with asthma (Acute) Hyponatremia (Acute) COVID-19 (Acute) Cystitis (Acute) Urinary, incontinence, stress female (Acute) Recurrent UTI (Acute) UTI (urinary tract infection) (Acute) OAB (overactive bladder) (Acute) Cervical cancer screening (Acute) Mixed dyslipidemia (Acute) Breast cancer screening by mammogram (Acute) Colon cancer screening (Acute) Microscopic hematuria (Acute) Annual physical exam (Acute) Urinary incontinence (Acute) Insomnia (Acute) History of substance abuse (Acute) GERD (gastroesophageal reflux disease) (Acute) Ex-smoker (Acute) Overweight (BMI 25.0-29.9) (Acute) Pneumonitis (Acute) Dyspnea on exertion (Acute) Mixed incontinence urge and stress (Acute) Obesity (BMI 30-39.9) (Acute) Constipation (Acute) Osteopenia (Acute) Vitamin D deficiency (Acute) History of hepatitis C (Acute) COPD (chronic obstructive pulmonary disease) (Acute) Smoker (Acute) Past Medical History Medical History High cholesterol Insomnia GERD (gastroesophageal reflux disease) History of substance abuse Ex-smoker Overweight (BMI 25.0-29.9) Influenza A Pneumonitis Dyspnea on exertion Mixed incontinence urge and stress Obesity (BMI 30-39.9) Constipation Osteopenia Vitamin D deficiency History of hepatitis C COPD (chronic obstructive pulmonary disease) Smoker Bronchitis Functional capacity: independent ambulation Patient : No Family History Family History Father Stroke Hypertension Diabetes Heart problem Mother Diabetes Brother Diabetes Sister In good health Family history of problems with anesthesia: No Surgical History Surgical History History of tubal ligation History of Problems with Anesthesia: No Social History Social History Household Members: Family Household Members Other:: Niece Housing: House Do you presently have visiting nurse or other home services: No Alcohol intake: former Patient Tobacco Use Status: Former Tobacco user Tobacco use type: Cigarette Cigarettes Per Day: 6 e-Cigarette/Vaping Use: Never Used Second Hand Smoke Exposure: No Substance Use Type: Marijuana service: No Current occupational status: employed Cognitive needs: No Hearing needs: No Vision needs: Yes (Glasses) Meds Allergies Allergy/AdvReac Type Severity Reaction Status Date / Time bee pollen (BEE STINGS) Allergy Unknown SWELLING - Verified 03/19/25 11:46 BLOTCHES ciprofloxacin Allergy Nausea and Verified 03/19/25 11:46 Vomiting nitrofurantoin (From AdvReac Intermediate Vomiting Verified 03/19/25 11:46 Macrobid) Active Medications: Current Medications Albuterol Sulfate (Albuterol Sulfate (0.083%) 2.5 Mg/3 Ml Vial.Neb) 2.5 mg INHALE ONCE PRN PRN Reason: Shortness of Breath/Wheezing Lactated Ringer's (Lr) 1,000 mls @ 100 mls/hr IVCONT .Q10H BRIAN Last Admin: 03/19/25 12:06 Dose: 100 mls/hr Home Medications ?Medication ?Instructions ?Recorded ?Confirmed ?Last Taken ?Type albuterol sulfate 2.5 mg/3 mL 2.5 mg inhalation QID PRN 12/09/24 03/19/25 Unknown History (0.083 %) solution for nebulization shortness of breath or wheezing methadone 10 mg/mL oral concentrate 30 mg PO BEDTIME 12/09/24 03/19/25 12/08/24 History methadone 10 mg/mL oral concentrate 80 mg PO DAILY 12/09/24 03/19/25 12/09/24 History Exam Height,Weight and Vital Signs: Height 5 ft Weight 74.3 kg Last Vital Signs Temp 97.2 F 03/19/25 11:57 Pulse 70 03/19/25 11:57 Resp 16 03/19/25 11:57 BP 147/59 H 03/19/25 11:57 Pulse Ox 93 03/19/25 11:57 O2 Del Method Room Air 03/19/25 11:57 Pertinent Lab Results Pertinent Lab Results: Laboratory Tests 03/19/25 11:40 Urine Opiates Screen Not Detected Ur Buprenorphine Scrn Not Detected Ur Oxycodone Screen Not Detected Urine Methadone Screen Positive H Urine Fentanyl Screen Not Detected Ur Barbiturates Screen Not Detected Ur Phencyclidine Scrn Not Detected Ur Amphetamines Screen Not Detected U Benzodiazepines Scrn Not Detected Urine Cocaine Screen Not Detected U Marijuana (THC) Screen POSITIVE H Airway Mallampati Class: II TM Dist: >3cm Neck ROM: Full Heart: RRR Lungs: CTA Assessment and Plan Assessment Anesthesia Assessment: Anesthesia Plan Discussed and Smoking Cess. Discussed Final Anesthetic Review Family History of Problems with Anesthesia: No History of Problems with Anesthesia: No NPO: Yes ASA Class: II Final Preanesthetic Review: Meds/Allgs Chart Reviewed, Consent Obtained/Reviewed and Anes Risks/Benef Reviewed Patient Risk: Intermediate Procedure Risk: Low Anesthetic Plan Anesthetic Plan: GA Disposition: Standard PACU
--- NOTE | 2025-03-19 13:12 | P.OP_ITS ---
Operative Note Operative Note Date of Service: 03/19/25 Narrative: PREOP DIAGNOSIS: Overactive bladder POSTOP DIAGNOSIS: Overactive bladder PROCEDURE: CYSTOSCOPY, BLADDER BOTOX INJECTION 100 UNITS SURGEON: Josselyn Mills MD ANESTHESIA: General Details of procedure: The patient was brought into the operating room placed on the OR table in supine position. Antibiotics confirmed. General anesthesia was administered. The patient was repositioned into lithotomy position, prepped and draped in the usual sterile fashion. Time-out was done per protocol. A 22 fr cystoscope was placed transurethrally into the bladder. Urine was sent for cult ure. The right and left ureteral orifices were visualized. There were mild trabeculations noted. There were no suspicious bladder lesions seen. The Botox 100 units was mixed with 10 cc of normal saline and transurethral injections were placed into the posterior wall of the bladder. 0.5cc placed at each injection site. Injections were placed in a grid 5 across and 4 longitudinally. Injections were placed from the inferior to superior position. 2% lidocaine urojet was passed transurethrally into the bladder. The patient was brought out of anesthesia and taken to recovery in stable condition. Complications: None EBL: minimal (<5 mL) Drains: none
--- NOTE | 2025-03-19 13:12 | MHC.SHP ---
Pre-Procedural Eval Section A - 24 Hr Update-Section A only Date of Service: 03/19/25 The patient is an INPATIENT: No The patient has been examined within 24 hours of the surgical procedure. The History & Physical has been completed within 30 days and I have reviewed it.: Yes Section B - Complete if H&P > 30 days Chief Complaint: Overactive bladder Allergies: Allergies Allergy/AdvReac Type Severity Reaction Status Date / Time bee pollen (BEE STINGS) Allergy Unknown SWELLING - Verified 03/19/25 11:46 BLOTCHES ciprofloxacin Allergy Nausea and Verified 03/19/25 11:46 Vomiting nitrofurantoin (From AdvReac Intermediate Vomiting Verified 03/19/25 11:46 Macrobid) Plan Diagnosis/Plan: Unchanged I have reviewed the history and physical and performed a pertinent physical examination on my patient. No changes have occurred unless specified. Cystoscopy, bladder Botox injection 100 units. I have discussed risks to include hematuria, UTI, urinary retention, need to repeat procedure for sustained efficacy. Time Spent With Patient Time: Total time managing care of this patient today ____ minutes.
[2025-03-19] MEDS: ceFAZolin Sodium/Dextrose,Iso 2 GM/50 ML PIGGYBACK IV (13:30)
== END 2025-03-19 15:17 | disposition home or self-care (01) ==
PROVIDERS: Nurse Practitioner; PCP Internal Medicine; Visit Provider Urology
PROC: 3E0K8GC Introduction of Other Therapeutic Substance into Genitourinary Tract, Via Natural or Artificial Opening Endoscopic (ICD-10-PCS; CPT 52287; principal; 2025-03-19 13:50)
DX: N32.81 Overactive bladder (principal); N32.89 Other specified disorders of bladder; N39.46 Mixed incontinence; N36.42 Intrinsic sphincter deficiency (ISD); J44.9 Chronic obstructive pulmonary disease, unspecified; E55.9 Vitamin D deficiency, unspecified; K21.9 Gastro-esophageal reflux disease without esophagitis; Z79.51 Long term (current) use of inhaled steroids; Z79.899 Other long term (current) drug therapy; Z88.1 Allergy status to other antibiotic agents; Z86.19 Personal history of other infectious and parasitic diseases; Z98.51 Tubal ligation status; F11.90 Opioid use, unspecified, uncomplicated; F12.90 Cannabis use, unspecified, uncomplicated; Z87.891 Personal history of nicotine dependence
CPT/HCPCS: 52287; 80307; 87086; J0585; J0690; J1100; J2003; J2250; J2405; J2704; J3010

== ENCOUNTER → 2025-03-19 11:31 | Outpatient (BNV) | payer MEDICARE, MEDICAID, SELFPAY | PROVIDERS: PCP Internal Medicine; Visit Provider Urology | DX: N32.81 Overactive bladder (principal) | CPT/HCPCS: 52287 ==

== ENCOUNTER → 2025-04-01 10:49 | Outpatient (BNVA) | payer MEDICARE, MEDICAID, SELFPAY | PROVIDERS: PCP Internal Medicine; Visit Provider Urology | DX: N32.81 Overactive bladder (principal) | CPT/HCPCS: 51798 ==

== ENCOUNTER 2025-07-03 14:05 | Outpatient (AMB) | payer MEDICARE, MEDICAID, SELFPAY ==
--- NOTE | 2025-07-03 14:09 | MHC.PC.OV ---
Vital Signs 07/03/25 14:10 Height 5 ft Weight 166 lb 2 oz BMI 32.4 BP 146/86 H Blood Pressure Location Lt brachial Position Sitting Pulse 71 Pulse Source Pulse Oximeter Pulse Oximetry (%) 95 Oxygen Delivery Method Room Air Intake Visit Reasons: 4 Months Coutierier Required: No Accompanied by: Self / Same As Patient Allergies bee pollen (BEE STINGS) Allergy (Unknown, Verified 07/03/25 14:48) SWELLING - BLOTCHES ciprofloxacin Allergy (Verified 07/03/25 14:48) Nausea and Vomiting nitrofurantoin (From Macrobid) Adverse Reaction (Intermediate, Verified 07/03/25 14:48) Vomiting Medication List - Last Reconciled 07/03/25 by Vitor Cox MD albuterol sulfate 2.5 mg inhalation QID PRN albuterol sulfate 90 mcg/actuation 2 puffs inhalation Q4-6H PRN 30 days cholecalciferol (vitamin D3) 50 mcg PO DAILY 90 days fluticasone propion-salmeterol 250-50 mcg/dose (Wixela Inhub) 1 inh inhalation BID 30 days methadone 80 mg PO DAILY methadone 30 mg PO BEDTIME [NEBULIZER and all related supplies As directed up to 4 times a day as needed] omeprazole 20 mg PO DAILY@0630 90 days phenazopyridine (Pyridium) 100 mg PO BID sennosides (senna) 17.2 mg (2 x 8.6 mg) PO BEDTIME PRN sulfamethoxazole-trimethoprim 800-160 mg (Bactrim DS) 1 tab PO BID Tobacco use date assessed: 02/25/25 Fall risk assessment: No Falls in past year Dental Screening Dental Screen Date: 02/25/25 Did you have a dental visit in the last 12 months?: No Did you have a dental problem in the last 6 months where you did not have access to dental care?: No Was dental information given to patient?: No HPI 4 Months HPI Details Patient comes in today for her follow up visit States that she has been experiencing recurrent episodes of chest tightness/congestion and on and off dyspnea for the past couple of weeks - states that she has heard herself wheezing frequently lately and coughs up some whitish phlegm at times Notes that she is now out of her Albuterol inhaler as she's had to use it more often than usual lately She denies any fever or sore throat; denies any headaches or dizziness Denies any exertional chest pains No nausea/vomiting, no abdominal pain No change in bowel habits noted Needs a few of her Rx refilled She was not able to get her follow up labs done prior to her appointment today [facility] Medical History High cholesterol Insomnia GERD (gastroesophageal reflux disease) History of substance abuse Ex-smoker Overweight (BMI 25.0-29.9) Influenza A Pneumonitis Dyspnea on exertion Mixed incontinence urge and stress Obesity (BMI 30-39.9) Constipation Osteopenia Vitamin D deficiency History of hepatitis C COPD (chronic obstructive pulmonary disease) Smoker Bronchitis Surgical History History of tubal ligation Family History Father Stroke Hypertension Diabetes Heart problem Mother Diabetes Brother Diabetes Sister In good health Social History Household Members: Family Household Members Other:: Niece Housing: House Do you presently have visiting nurse or other home services: No Alcohol intake: former Patient Tobacco Use Status: Former Tobacco user Tobacco use type: Cigarette Cigarettes Per Day: 6 e-Cigarette/Vaping Use: Never Used Second Hand Smoke Exposure: No Substance Use Type: Marijuana service: No Current occupational status: employed Cognitive needs: No Hearing needs: No Vision needs: Yes (Glasses) Questionnaire Thrive Questionnaire Date Thrive assessed: 02/25/25 I am a: Patient What is your living situation today?: I have a steady place to live Within the past 12 months, did the food you bought not last and you didn't have the money to get more?: Often true Within the past 12 months, did you worry whether your food would run out before you got money to buy more?: Often true Do you have trouble paying for medicines?: No Do you have trouble getting transportation to medical appointments?: No Do you have trouble paying your heating and electricity bill?: No Do you have trouble taking care of your child, family member or friend?: No Do you have trouble with day-to-day activities such as bathing, preparing meals, shopping, managing finances, etc.?: No Are you currently unemployed and looking for a job?: Yes Are you interested in more education?: No Please select the resources that you would like help with: None Currently or been in a relationship where the following occur: No concerns reported THRIVE Score: 2 LEEANN-7 AMB Questionnaire LEEANN-7 Date LEEANN - 7 assessed: 02/25/25 Source: Developed by Drs. Marcus Jackson, Vannesa Gongora, Alex Chong and colleagues, with an educational miles from [employer]. Review of Systems Const Denies chills, Reports difficulty sleeping (chronic), Reports fatigue, Denies fever(s) and Denies headache(s) ENT Denies dysphagia, Denies dizziness, Denies otalgia, Denies headache(s), Denies neck pain, Denies odynophagia and Denies sore throat Card Denies chest pain, Denies rapid heart rate, Denies irregular heart rhythm, Denies palpitations and Reports dyspnea on exertion (chronic - increased lately) Resp Reports chest congestion (chest feels tight at times), Reports cough (on and off - coughs up thick whitish phlegm at times), Denies hemoptysis, Reports dyspnea on exertion (chronic - increased lately) and Reports wheezing (occasionally) GI Denies abdominal pain, Reports constipation (chronic), Denies dysphagia, Denies heartburn, Denies diarrhea, Denies nausea, Denies odynophagia and Denies vomiting Denies difficulty voiding, Reports nocturia, Denies dysuria and Reports urinary incontinence (at times) Musc Denies back pain, Denies arthralgias and Denies neck pain Skin/Breast Denies rash Neuro Denies dizziness and Denies headache(s) Endo Reports fatigue and Denies palpitations Aller/Immun Reports wheezing (occasionally) Physical exam (Primary Care) Vital Signs: Last Vital Signs Pulse 71 07/03/25 14:10 BP 146/86 H 07/03/25 14:10 Pulse Ox 95 07/03/25 14:10 Oxygen Delivery Method Room Air 07/03/25 14:10 BMI result Body Mass Index 32.4 Tobacco/Smoking Status: Tobacco use Status Tobacco use date assessed 02/25/25 07/03/25 14:11 Patient Tobacco Use Status Former Tobacco user 07/03/25 14:11 Tobacco use type Cigarette 07/03/25 14:11 e-Cigarette/Vaping Use Never Used 07/03/25 14:11 Thrive Assessment: Date of Thrive Assessment Date Thrive assessed 02/25/25 07/03/25 14:11 Currently or been in a relationship where the following occur: No concerns reported Const General: no acute distress and alert HENMT Ears: TM's normal bilaterally and EAC's normal Throat: Yes posterior oropharynx normal and Yes tonsils normal (no TP congestion) Neck Neck: Yes supple and No lymphadenopathy Thyroid: Thyroid normal Resp Auscultation: no crackles, no rales, rhonchi (scattered bilaterally), wheezes (occasional) expiratory wheezes and diminished lung sounds bilateral Cardio Rate: regular rate Rhythm: regular rhythm Heart sounds: no murmurs GI Palpation (GI): Soft to palpation and nontender Auscultation: normal bowel sounds General: Yes no CVA tenderness Back/Spine/Pelvis Back: no CVA tenderness Thoracic/Lumbar Spine: No lumbar spinal tenderness Skin Rashes: no rashes Extrem General: Yes no clubbing, cyanosis or edema Left upper extremity: elbow/forearm Details: tenderness Location: of the medial epicondyle; no swelling Coding Level of Care Code Est Pt Level 4 (71535) Diagnoses COPD exacerbation J44.1 Mixed dyslipidemia E78.2 Gastroesophageal reflux disease without esophagitis K21.9 Esophagitis presence: without esophagitis History of hepatitis C Z86.19 Elevated LFTs R79.89 Vitamin D deficiency E55.9 Osteopenia, unspecified location M85.80 Osteopenia location: unspecified Drug-induced constipation K59.03 Constipation type: drug induced constipation Mixed incontinence urge and stress N39.46 History of substance abuse F19.11 Obesity (BMI 30-39.9) E66.9 Assessment & Plan Assessment & Plan (1) COPD exacerbation: Comment: She does have chronic obstructive pulmonary disease and she is an ongoing smoker. Code(s): J44.1 - Chronic obstructive pulmonary disease with (acute) exacerbation Category: Medical Plan: Will start patient on Azithromycin QD x 5 days and oral Prednisone taper Continue Wixela Inhub 250-50 mcg 1 inhalation BID and Albuterol HFA 1 to 2 inhalations Q 6 hours PRN although her COPD is still not well-controlled Will start patient additionally on Incruse Ellipta 62.5 mcg 1 inhalation QD Patient uses her nebulizer at home when needed Follow up with pulmonary as scheduled (2) Mixed dyslipidemia: Code(s): E78.2 - Mixed hyperlipidemia Category: Medical Plan: She was not able to get her follow up labs done prior to her appointment today Reinforced low cholesterol diet Will have patient recheck her labs and fasting lipids in 4 months for follow up - will just have her use her current orders (updated) for her next lab draw (3) GERD (gastroesophageal reflux disease): Code(s): K21.9 - Gastro-esophageal reflux disease without esophagitis Category: Medical Qualifiers: Esophagitis presence: without esophagitis Qualified Code(s): K21.9 - Gastro-esophageal reflux disease without esophagitis Plan: Reinforced dietary restrictions in GERD Continue Omeprazole 20 mg QD (4) History of hepatitis C: Comment: gwendolyn'd Code(s): Z86.19 - Personal history of other infectious and parasitic diseases Category: Medical Plan: Patient recalls being treated for hepatitis C many years ago Patient requested to have this retested couple of years ago after the methadone clinic noticed a positive hepatitis-C antibody test in early 2019 but she was not able to complete this after it was ordered Her LFTs are completely normal on her recent labs We had her recheck these with her other labs a few months ago and her viral load has remained undetectable (5) Elevated LFTs: Code(s): R79.89 - Other specified abnormal findings of blood chemistry Category: Medical Plan: Her LFTs were elevated on her recent labs, likely in relation to her recent weight gain but this may also partly be due to her high cholesterol levels and should improve with weight loss Will continue to monitor her LFTs regulary (6) Vitamin D deficiency: Code(s): E55.9 - Vitamin D deficiency, unspecified Category: Medical Plan: Continue Vitamin D3 2000 units QD (7) Osteopenia: Code(s): M85.80 - Other specified disorders of bone density and structure, unspecified site Category: Medical Qualifiers: Osteopenia location: unspecified Qualified Code(s): M85.80 - Other specified disorders of bone density and structure, unspecified site Plan: Her repeat BMD done in November 2022 revealed (+) osteopenia based on the lowest T-score value of -1.8 in the femoral neck Her BMD has declined by 7.7% in the AP spine from her previous BMD done on 03/16/2019; no significant decline was noted in the femoral neck Patient is reminded to continue to stay active and exercise regularly and also to take her daily calcium and vitamin-D supplements (8) Constipation: Code(s): K59.00 - Constipation, unspecified Category: Medical Qualifiers: Constipation type: drug induced constipation Qualified Code(s): K59.03 - Drug induced constipation Plan: This is mostly related to her Methadone Continue MiraLax powder 17 gm QD or Senna 8.6 mg QD PRN - states that the Rx helps but she can only take 1 or the other and not both (had diarrhea in the past when she took both MiraLax and Senna together); Rx for Senna was sent in to pharmacy previously per her request She is again encouraged to continue to increase her oral fluids and dietary fiber intake (9) Mixed incontinence urge and stress: Code(s): N39.46 - Mixed incontinence Category: Medical Plan: Abdominal and pelvic CT done last year came out negative She was on Oxybutynin ER 10 mg QD previously but this did not help much and was discontinued She is currently being scheduled for cystoscopy and bladder Botox injection Follow up with urology as scheduled (10) History of substance abuse: Code(s): F19.11 - Other psychoactive substance abuse, in remission Category: Medical Plan: Continue Methadone 80 mg QD and 30 mg Q HS Follow up with the [facility] ([facility]) as scheduled (11) Obesity (BMI 30-39.9): Code(s): E66.9 - Obesity, unspecified Category: Medical Plan: Reinforced diet/exercise as tolerated/lose weight - she has gained a lot of weight lately due to oral prednisone, which she has had to take a lot of over the past few months because of her pulmonary/respiratory symptoms Plan Follow up in 4 months Medications: New albuterol sulfate 2.5 mg (3 mL) continuous nebulization QID PRN 180 mL 3RF shortness of breath or wheezing 30 days J44.9 - Chronic obstructive pulmonary disease, unspecified prednisone 20 mg PO DAILY 3 tabs 0RF 3 days azithromycin take 500 mg today (day 1), then 250 mg for 4 days (days 2-5) PO 6 tabs 0RF umeclidinium 62.5 mcg/actuation (Incruse Ellipta) 1 inh inhalation DAILY 30 ea 3RF 30 days Refilled fluticasone propion-salmeterol 250-50 mcg/dose (Wixela Inhub) 1 inh inhalation BID 60 ea 5RF copd 30 days J44.1 - Chronic obstructive pulmonary disease with (acute) exacerbation albuterol sulfate 90 mcg/actuation 2 puffs inhalation Q4-6H PRN 8.5 grams 3RF shortness of breath or wheezing 30 days J44.1 - Chronic obstructive pulmonary disease with (acute) exacerbation
[2025-07-03 14:10] VITALS: BP 146/86; PULSE 71; O2SAT 95; BMI 32.4
== END 2025-07-03 14:59 | disposition home or self-care (01) ==
LOC: HO.HMCH 14:06
PROVIDERS: PCP Internal Medicine; Visit Provider Internal Medicine
DX: J44.1 Chronic obstructive pulmonary disease with (acute) exacerbation (principal); E78.2 Mixed hyperlipidemia; K21.9 Gastro-esophageal reflux disease without esophagitis; Z86.19 Personal history of other infectious and parasitic diseases; R79.89 Other specified abnormal findings of blood chemistry; E55.9 Vitamin D deficiency, unspecified; M85.80 Other specified disorders of bone density and structure, unspecified site; K59.03 Drug induced constipation; N39.46 Mixed incontinence; F19.11 Other psychoactive substance abuse, in remission; E66.9 Obesity, unspecified

== ENCOUNTER → 2025-07-03 14:05 | Outpatient (BNVA) | payer MEDICARE, MEDICAID, SELFPAY | PROVIDERS: PCP Internal Medicine; Visit Provider Internal Medicine | DX: J44.1 Chronic obstructive pulmonary disease with (acute) exacerbation (principal); R07.89 Other chest pain; R06.00 Dyspnea, unspecified; R06.2 Wheezing; E78.2 Mixed hyperlipidemia; K21.9 Gastro-esophageal reflux disease without esophagitis; Z86.19 Personal history of other infectious and parasitic diseases; R79.89 Other specified abnormal findings of blood chemistry; E55.9 Vitamin D deficiency, unspecified; M85.80 Other specified disorders of bone density and structure, unspecified site; K59.03 Drug induced constipation; N39.46 Mixed incontinence; F19.11 Other psychoactive substance abuse, in remission; E66.9 Obesity, unspecified; R05.9 Cough, unspecified; Z68.32 Body mass index [BMI] 32.0-32.9, adult | CPT/HCPCS: 99212 ==

== ENCOUNTER 2025-08-07 22:03 | Inpatient (IN) | payer MEDICARE, MEDICAID, SELFPAY ==
--- NOTE | 2025-08-07 | ECG_ITS ---
Test Reason : CP Blood Pressure : */* mmHG Vent. Rate : 79 BPM Atrial Rate : 79 BPM P-R Int : 142 ms QRS Dur : 82 ms QT Int : 386 ms P-R-T Axes : 27 18 48 degrees QTcB Int : 442 ms Normal sinus rhythm Normal ECG When compared with ECG of 02-Jan-2025 10:12, Previous ECG has undetermined rhythm, needs review Referred By: Generic ED Physician Electronically Signed By: BROCK TAVAREZ MD
--- NOTE | ~2025-08-07 | XR_ITS ---
CLINICAL HISTORY: sob 1 view chest x-ray Comparison: CR/SR - XR CHEST 2 VIEWS - 01/02/25 10:50 EDT Findings: The lungs are clear. Normal size heart. No acute fracture. IMPRESSION: 1. No acute findings. This document has been electronically signed by: Earnest Moody MD on 08/07/2025 23:53:34
[2025-08-07 22:09] VITALS: BP 196/96; PULSE 76; RESP 26; TEMP 36.8; O2SAT 94; BMI 31.2
[2025-08-07 22:23] LABS: MANUAL DIFF FLAG NO
[2025-08-07 22:28] LABS: Hematocrit 39.5 % (37.0-47.0); Hemoglobin 13.2 g/dl (12.0-16.0); Imm Gran Abs Auto 0.02 X10*3/uL (0.00-0.03); Imm Gran Pct Auto 0.3 % (0.0-0.4); Lymphocytes Absolute Auto 1.7 X10*3/uL (1.2-4.9); Mean Corpuscular HGB Conc 33.4 g/dl (31.0-35.0); Mean Corpuscular Hemoglobin 29.3 pg (27.0-33.0); Mean Corpuscular Volume 87.8 fL (80.0-98.0); NRBC Abs Auto 0.000 X10*3/uL (0.0-0.012); NRBC Pct Auto 0.0 /100WBC (0.0-0.2); Platelet Count 258 X10*3/uL (160-400); Red Blood Count 4.50 X10*6/uL (4.20-5.50); White Blood Count 7.3 X10*3/uL (4.8-10.8)
--- NOTE | 2025-08-07 22:30 | ED.CHESTPAIN ---
HPI - Chest Pain General Chief Complaint: Chest Pain Stated Complaint: SOB, Chest Congestion Time Seen by Provider: 08/07/25 22:19 Source: patient Limitations: no limitations History of Present Illness ED Provider: Mamie Franklin PA-C HPI narrative: 65-year-old female with a history of COPD, prior tobacco abuse, obesity, prior polysubstance abuse on methadone, hepatitis-C, who presents with cough and cold symptoms x2 days. Associated chest tightness. Patient states she has a chronic cough, expelling mucus, it has worsened over the past 2 days. Denies viral related symptoms or fever. No sick contacts with such symptoms. Patient states she has been using her home nebulizer without relief of symptoms. Related Data Home Medications ?Medication ?Instructions ?Recorded ?Confirmed albuterol sulfate 2.5 mg/3 mL 2.5 mg inhalation QID PRN 12/09/24 07/03/25 (0.083 %) solution for nebulization shortness of breath or wheezing methadone 10 mg/mL oral concentrate 30 mg PO BEDTIME 12/09/24 07/03/25 methadone 10 mg/mL oral concentrate 80 mg PO DAILY 12/09/24 07/03/25 Previous Rx's ?Medication ?Instructions ?Recorded NEBULIZER and all related supplies #1 ea 01/11/24 cholecalciferol (vitamin D3) 50 50 mcg PO DAILY 90 days #90 caps 08/21/24 mcg (2,000 unit) capsule sennosides 8.6 mg tablet (senna) 17.2 mg (2 x 8.6 mg) PO BEDTIME 12/01/24 PRN for constipation #180 tabs phenazopyridine 100 mg tablet 100 mg PO BID #6 tabs 03/19/25 (Pyridium) sulfamethoxazole 800 1 tab PO BID #6 tabs 03/19/25 mg-trimethoprim 160 mg tablet (Bactrim DS) omeprazole 20 mg capsule,delayed 20 mg PO DAILY@0630 90 days #90 04/07/25 release caps albuterol sulfate 2.5 mg/3 mL 2.5 mg (3 mL) continuous 07/03/25 (0.083 %) solution for nebulization nebulization QID PRN shortness of breath or wheezing 30 days #180 mL albuterol sulfate 90 mcg/actuation 2 puff inhalation Q4-6H PRN 07/03/25 aerosol inhaler shortness of breath or wheezing 30 days #8.5 grams azithromycin 250 mg tablet See Rx Instructions PO .COMPLEX #6 07/03/25 tabs fluticasone 250 mcg-salmeterol 50 1 inh inhalation BID copd 30 days 07/03/25 mcg/dose blistr powdr for #60 ea inhalation (Wixela Inhub) prednisone 20 mg tablet 20 mg PO DAILY 3 days #3 tabs 07/03/25 umeclidinium 62.5 mcg/actuation 1 inh inhalation DAILY 30 days #30 07/03/25 blister powder for inhalation ea (Incruse Ellipta) Allergies Allergy/AdvReac Type Severity Reaction Status Date / Time bee pollen (BEE STINGS) Allergy Unknown SWELLING - Verified 08/07/25 22:10 BLOTCHES ciprofloxacin Allergy Nausea and Verified 08/07/25 22:10 Vomiting nitrofurantoin (From AdvReac Intermediate Vomiting Verified 08/07/25 22:10 Macrobid) Review of Systems Review of Systems: Yes all other systems are reviewed and are negative Constitutional: Constitutional: Denies fatigue and Denies fever(s) Cardiovascular: Cardiovascular: Reports chest pain and Reports dyspnea Respiratory: Respiratory: Reports chest congestion, Reports cough, Reports dyspnea and Reports wheezing Gastrointestinal: Gastrointestinal: Denies abdominal pain, Denies nausea and Denies vomiting Endocrine: Endocrine: Denies fatigue Allergic/Immunologic: Allergic/Immunologic: Reports wheezing PMFSH Past Medical History Attestation statement: The following information was validated with the patient. Medical History High cholesterol Insomnia GERD (gastroesophageal reflux disease) History of substance abuse Ex-smoker Overweight (BMI 25.0-29.9) Influenza A Pneumonitis Dyspnea on exertion Mixed incontinence urge and stress Obesity (BMI 30-39.9) Constipation Osteopenia Vitamin D deficiency History of hepatitis C COPD (chronic obstructive pulmonary disease) Smoker Bronchitis Surgical History History of tubal ligation Family History Family History Father Stroke Hypertension Diabetes Heart problem Mother Diabetes Brother Diabetes Sister In good health Social History Social History Household Members: Family Household Members Other:: Niece Housing: House Do you presently have visiting nurse or other home services: No Alcohol intake: former Patient Tobacco Use Status: Former Tobacco user Tobacco use type: Cigarette Cigarettes Per Day: 6 Smoked in Last 30 Days: No e-Cigarette/Vaping Use: Never Used Second Hand Smoke Exposure: No Use of substances other than those prescribed or required for medical reasons: Yes Substance Use Type: Marijuana Substance Use Frequency: Occasionally Substance Use Frequency Other:: 3 Last Used Substance: Days (ago) Advance Directives: No Advance Directives Information Provided: No Do you have a plan to hurt others: No Plan service: No Current occupational status: employed Cognitive needs: No Hearing needs: No Vision needs: Yes (Glasses) Physical Exam Vital Signs: Vital Signs: Last Vital Signs Temp 98.3 F 08/07/25 22:09 Pulse 91 08/08/25 00:11 Resp 18 08/08/25 00:11 BP 196/96 H 08/07/25 22:09 Pulse Ox 93 08/08/25 00:11 O2 Del Method Room Air 08/08/25 00:11 BMI result Body Mass Index 31.2 Const: Other: Alert Orientation/consciousness: patient oriented x3 Resp: Other: Tachypneic, diffuse expiratory wheezes with rhonchi, active cough Cardio: Other: Normal peripheral perfusion Skin: Other: Warm dry no rash Neuro: General: patient oriented x3, gait normal, no focal motor deficits and CN's II-XI intact bilaterally Psych: Other: Cooperative Course Reevaluation(s) Reevaluation #1: The patient is still has a audible wheezes, she is extremely tachypneic, we ambulated the patient, her tachypnea increased, she could not walk from her room more than 10 ft, her oxygen dropped to 91, Admitting the patient. Time: 00:08 Medications Administered Generic Name Dose Route Start Last Admin Trade Name Freq PRN Reason Stop Dose Admin Azithromycin 500 mg/ Sodium 250 mls @ 125 mls/hr 08/07/25 22:58 08/08/25 00:07 Chloride IV 08/08/25 00:57 125 mls/hr ONCE ONE Administration Discontinued Medications Generic Name Dose Route Start Last Admin Trade Name Freq PRN Reason Stop Dose Admin Albuterol Sulfate 2.5 mg/ 5 mg 08/07/25 22:43 08/07/25 22:46 Albuterol Sulfate 2.5 mg INHALE 08/07/25 22:44 5 mg ONCE ONE Administration Albuterol Sulfate 2.5 mg/ 5 mg 08/07/25 23:18 08/07/25 23:23 Albuterol Sulfate 2.5 mg INHALE 08/07/25 23:19 5 mg ONCE ONE Administration Albuterol Sulfate 2.5 mg/ 0 mg 08/07/25 22:30 08/07/25 22:35 Albuterol/Ipratropium 3 ml INHALE 08/07/25 22:31 2 dose ONCE ONE Administration Guaifenesin/Codeine Phosphate 10 ml 08/07/25 23:55 08/08/25 00:07 Guaifen/Codeine Sf 200/20/10ml 10 Ml Liquid PO 08/07/25 23:56 10 ml ONCE ONE Administration Magnesium Sulfate 2 gm in 50 mls @ 150 mls/hr 08/07/25 22:20 08/07/25 23:15 Magnesium Sulfate/H2o IV 08/07/25 22:39 Infused ONCE ONE Infusion Ceftriaxone Sodium 2 gm/ 50 mls @ 100 mls/hr 08/07/25 22:58 08/07/25 23:47 Sodium Chloride IV 08/07/25 23:27 Infused ONCE ONE Infusion Methylprednisolone Sodium Succinate 60 mg 08/07/25 22:20 08/07/25 22:38 Methylprednisolone Sod Succ 125 Mg/2 Ml Vial IVPUSH 08/07/25 22:21 60 mg ONCE ONE Administration Medical Decision Making Medical Decision Making MDM Narrative: 65-year-old female with a history of COPD, prior tobacco abuse, obesity, prior polysubstance abuse on methadone, hepatitis-C, who presents with cough and cold symptoms x2 days. Associated chest tightness. Patient states she has a chronic cough, expelling mucus, it has worsened over the past 2 days. Denies viral related symptoms or fever. No sick contacts with such symptoms. Patient states she has been using her home nebulizer without relief of symptoms. Problem: COPD History: Per patient I have considered the following differential diagnoses: Exacerbation of chronic respiratory condition, sepsis, bronchitis, pneumonia, viral syndrome, ACS Plan: Patient here with Exacerbation of chronic respiratory condition, she likely has bronchitis, we will obtain blood cultures and lactic with the screening labs. At this point, the patient is not showing evidence of sepsis, she is not tachycardic, she is not newly hypoxic, she is afebrile. Viral panel we will be obtained and a chest x-ray. Giving Combivent, Solu-Medrol and magnesium. Giving empiric antibiotics. ACS considered, she does complain of chest pain, although her discomfort is chest tightness, related to her active Exacerbation of chronic respiratory condition, regardless troponin and EKG we will be obtained. I have independently reviewed the following tests: Labs: No leukocytosis, not anemic, no electrolyte abnormality, troponin less than 2.7, BNP 174.9, viral panel negative, lactic 0.8 EKG: Normal sinus rhythm, rate of 79, no ischemic changes no ectopy, QTC 442 Chest x-ray:Findings: The lungs are clear. Normal size heart. No acute fracture. IMPRESSION: 1. No acute findings. Differential Diagnosis Differential Diagnoses: The differential diagnosis associated with the presentation includes See medical decision-making Admission/Observation Consideration of admission/observation: Escalation of care including admission/observation considered Lab Data MDM Lab Attestation statement: I reviewed the patient's lab results. 08/07/25 22:17 08/07/25 22:18 Labs: Lab Results 08/07/25 08/07/25 08/07/25 Range/Units 22:17 22:18 22:31 WBC 7.3 (4.8-10.8) X10*3/uL RBC 4.50 (4.20-5.50) X10*6/uL Hgb 13.2 (12.0-16.0) g/dl Hct 39.5 (37.0-47.0) % MCV 87.8 (80.0-98.0) fL MCH 29.3 (27.0-33.0) pg MCHC 33.4 (31.0-35.0) g/dl RDW 13.4 (11.0-16.0) % Plt Count 258 (160-400) X10*3/uL MPV 10.4 (9.4-12.3) fL Immature Gran % (Auto) 0.3 (0.0-0.4) % Neut % (Auto) 60.5 (45-73) % Lymph % (Auto) 23.3 (20-40) % [place] % (Auto) 7.8 (2-11) % Eos % (Auto) 7.3 H (0-4) % Baso % (Auto) 0.8 (0-2) % Lymph # (Auto) 1.7 (1.2-4.9) X10*3/uL [place] # (Auto) 0.6 (0.1-1.2) X10*3/uL Eos # (Auto) 0.5 H (0.0-0.4) X10*3/uL Baso # (Auto) 0.1 (0.0-0.2) X10*3/uL Abs Immat Gran (auto) 0.02 (0.00-0.03) X10*3/uL Absolute Neuts (auto) 4.4 (2.0-8.3) x10*3/uL Absolute Nucleated RBC 0.000 (0.0-0.012) X10*3/uL Nucleated RBC % (auto) 0.0 (0.0-0.2) /100WBC Sodium 139 (135-145) mmol/L Potassium 4.5 (3.3-5.1) mmol/L Chloride 102 (96-108) mmol/L Carbon Dioxide 26 (22-29) mmol/L Anion Gap 16 (12-20) BUN 20 H (9-16) mg/dL Creatinine 0.89 (0.5-1.4) mg/dL Estim Creat Clear Calc 55.3 Estimated GFR > 60 Random Glucose 91 (60-115) mg/dL Lactic Acid 0.8 (0.5-2.0) mmol/L Calcium 9.7 (8.4-10.2) mg/dL Magnesium 1.9 (1.6-2.6) mg/dL Total Bilirubin 0.3 (0.0-1.0) mg/dL AST 32 H (5-31) U/L ALT 20 (0-31) U/L Alkaline Phosphatase 124 H (39-117) U/L Troponin I High Sens < 2.7 (<3.5-17.0) ng/L NT-Pro-B Natriuret Pep 174.9 (<300) pg/mL Total Protein 8.3 H (6.5-8.0) g/dL Albumin 4.6 (3.5-5.0) g/dL Influenza Type A (PCR) NEGATIVE (Negative) Influenza Type B (PCR) NEGATIVE (Negative) RSV RNA Qual (PCR) NEGATIVE (Negative) SARS-CoV-2 RNA (RT-PCR) NEGATIVE (Negative) Independent Interpretation I performed an independent interpretation of an: EKG Radiology Impression Discussion of test interpretation with radiology: I have reviewed the radiologist's reading. Discharge Plan Discharge Clinical Impression: Bronchitis Patient Disposition: Admitted As Inpatient Print Language: Romanian
[2025-08-07] MEDS: Albuterol Sulfate 2.5 MG, Albuterol/Iprat 2.5/0.5MG 3 ML 3 ML INHALE (22:35)
[2025-08-07 22:36] VITALS: PULSE 99; RESP 20; O2SAT 96
[2025-08-07] MEDS: Magnesium Sulfate/H2O 2 GM/50 ML PIGGYBACK IV (22:38)
[2025-08-07 22:41] LABS: Alanine Aminotransferase 20 U/L (0-31); Albumin Level 4.6 g/dL (3.5-5.0); Alkaline Phosphatase 124 U/L (39-117); Anion Gap 16 (12-20); Aspartate Amino Transferase 32 U/L (5-31); Blood Urea Nitrogen 20 mg/dL (9-16); Calcium 9.7 mg/dL (8.4-10.2); Carbon Dioxide 26 mmol/L (22-29); Chloride 102 mmol/L (96-108); Creatinine Clr Calc Pharmacy 55.3; Estimated Glomerular Filt Rate > 60; Magnesium 1.9 mg/dL (1.6-2.6); Potassium 4.5 mmol/L (3.3-5.1); Sodium 139 mmol/L (135-145); Total Protein 8.3 g/dL (6.5-8.0)
[2025-08-07 22:45] LABS: NT Pro B Type Natriuretic Pept 174.9 pg/mL (<300)
[2025-08-07 22:46] VITALS: PULSE 98; RESP 20; O2SAT 94
[2025-08-07 22:46] LABS: Troponin-I High Sensitivity < 2.7 ng/L (<3.5-17.0)
[2025-08-07] MEDS: Albuterol Sulfate 2.5 MG, Albuterol Sulfate (0.083%) 2.5 MG 5 MG INHALE ×2 (22:46→23:23)
[2025-08-07 23:01] VITALS: PULSE 80; RESP 18; O2SAT 92
--- NOTE | 2025-08-07 23:05 | PC.NURSE ---
pt from home reports SOB w/ PMH of COPD. PT was found wheezing in her bed with a room air saturation of 93%. pt reported SOB and respiratory therapist at bedside administered duoneb, pt stated improvement. bilateral 20g PIV placed in each FA w/ cultures and labs obtained. NSR on bedside tele.
[2025-08-07 23:14] LABS: Resp Syncy Virus RNA Qual PCR NEGATIVE (Negative); SARS COV2 PCR INHOUSE NEGATIVE (Negative)
[2025-08-07 23:24] VITALS: PULSE 92; RESP 20; O2SAT 93
[2025-08-08] VITALS (15 sets, daily range): BP systolic 106–187; BP diastolic 70–96; PULSE 80–108; RESP 18–25; TEMP 36.1–36.8; O2SAT 91–98; BMI 33.0
[2025-08-08] MEDS: guaiFEN/Codeine SF 200/20/10ML 10 ML LIQUID PO (00:07)
--- NOTE | 2025-08-08 00:10 | PC.NURSE ---
pt taken for ambulation trial, sat of 93 and heart rate of 105. pt had increased shortness of breath and wheezing, ambulated approx. 5 feet.
--- NOTE | 2025-08-08 00:50 | P.HPHOSP_ITS ---
History of Present Illness Date of Service: 08/08/25 Attending physician on admission: Vera Warren Chief Complaint: cough, SOB Patient is a 65-year-old female with a past medical history significant for moderate to severe COPD/asthma, history of tobacco use, obesity, substance use disorder on methadone and history of hepatitis-C, who presented to the ED due to shortness of breath and cough starting yesterday. Patient reports a productive cough worse than baseline, no fever or sick contacts. No abdominal pain, nausea, vomiting or urinary symptoms. She has been using her nebulizer at home without any improvement. Review of Systems 2 Constitutional: Constitutional: Denies body ache(s), Denies chills, Denies fatigue, Denies fever(s) and Denies headache(s) Eyes: Eyes: Denies change in vision ENT: Denies headache(s), Denies nasal congestion, Denies nasal discharge and Denies sore throat Cardiovascular: Cardiovascular: Denies chest pain, Denies rapid heart rate, Denies leg edema, Denies lightheadedness and Reports dyspnea Respiratory: Respiratory: Reports chest congestion, Reports cough, Reports dyspnea and Reports wheezing Gastrointestinal: Gastrointestinal: Denies abdominal pain, Denies diarrhea, Denies nausea and Denies vomiting Genitourinary: Genitourinary: Denies dysuria and Denies urinary urgency Musculoskeletal: Musculoskeletal: Denies back pain and Denies myalgias Integumentary/Breasts: Skin/Breast: Denies rash Neurologic: Denies confusion and Denies headache(s) Psychiatric: Psychiatric: Denies confusion Endocrine: Endocrine: Denies fatigue Hematologic/Lymphatic: Hematologic/Lymphatic: Denies easy bleeding Allergic/Immunologic: Allergic/Immunologic: Reports wheezing [facility] Medical History High cholesterol Insomnia GERD (gastroesophageal reflux disease) History of substance abuse Ex-smoker Overweight (BMI 25.0-29.9) Influenza A Pneumonitis Dyspnea on exertion Mixed incontinence urge and stress Obesity (BMI 30-39.9) Constipation Osteopenia Vitamin D deficiency History of hepatitis C COPD (chronic obstructive pulmonary disease) Smoker Bronchitis Family History Father Stroke Hypertension Diabetes Heart problem Mother Diabetes Brother Diabetes Sister In good health Surgical History History of tubal ligation Social History Household Members: Family Household Members Other:: Niece Housing: House Do you presently have visiting nurse or other home services: No Alcohol intake: former Patient Tobacco Use Status: Former Tobacco user Tobacco use type: Cigarette Cigarettes Per Day: 6 Smoked in Last 30 Days: No e-Cigarette/Vaping Use: Never Used Second Hand Smoke Exposure: No Use of substances other than those prescribed or required for medical reasons: Yes Substance Use Type: Marijuana Substance Use Frequency: Occasionally Substance Use Frequency Other:: 3 Last Used Substance: Days (ago) Advance Directives: No Advance Directives Information Provided: No Do you have a plan to hurt others: No Plan service: No Current occupational status: employed Cognitive needs: No Hearing needs: No Vision needs: Yes (Glasses) Meds Allergies Allergy/AdvReac Type Severity Reaction Status Date / Time bee pollen (BEE STINGS) Allergy Unknown SWELLING - Verified 08/07/25 22:10 BLOTCHES ciprofloxacin Allergy Nausea and Verified 08/07/25 22:10 Vomiting nitrofurantoin (From AdvReac Intermediate Vomiting Verified 08/07/25 22:10 Macrobid) Active Medications: Current Medications Azithromycin 500 mg/ Sodium (Chloride) 250 mls @ 125 mls/hr IV ONCE ONE Stop: 08/08/25 00:57 Last Admin: 08/08/25 00:07 Dose: 125 mls/hr Home Medications ?Medication ?Instructions ?Recorded ?Confirmed ?Last Taken ?Type albuterol sulfate 2.5 mg/3 mL 2.5 mg inhalation QID MO N 12/09/24 07/03/25 Unknown History (0.083 %) solution for nebulization shortness of breat h or wheezing methadone 10 mg/mL oral concentrate 30 mg PO BEDTIME 0 12/09/24 07/03/25 12/08/24 History methadone 10 mg/mL oral concentrate 80 mg PO DAILY 07/03/25 12/09/24 History Physical Exam 2 Vital Signs and Narrative: Vital Signs: Last Vital Signs Temp 98.3 F 08/07/25 22:09 Pulse 91 08/08/25 00:11 Resp 18 08/08/25 00:11 BP 196/96 H 08/07/25 22:09 Pulse Ox 93 08/08/25 00:11 O2 Del Method Room Air 08/08/25 00:11 BMI result Body Mass Index 31.2 General: AOx3, no acute distress Resp: Significant expiratory wheezing, no crackles or rhonchi CVS: S1, S2, mild tachycardia GI: +BS, NT, no distention Skin: Warm, dry Neuro: Cranial nerves II-XII grossly intact bilaterally. Motor grossly intact bilaterally Extremities: No pitting edema Psych: Appropriate affect Const: General: No confusion Orientation/consciousness: No confusion Neuro: General: No confusion Results Labs 08/07/25 22:17 08/07/25 22:18 Labs: Laboratory Results - last 24 hr 08/07/25 08/07/25 08/07/25 22:17 22:18 22:31 MCV 87.8 MCH 29.3 MCHC 33.4 RDW 13.4 Plt Count 258 MPV 10.4 Immature Gran % (Auto) 0.3 Neut % (Auto) 60.5 Lymph % (Auto) 23.3 [place] % (Auto) 7.8 Eos % (Auto) 7.3 H Baso % (Auto) 0.8 Lymph # (Auto) 1.7 [place] # (Auto) 0.6 Eos # (Auto) 0.5 H Baso # (Auto) 0.1 Abs Immat Gran (auto) 0.02 Absolute Neuts (auto) 4.4 Absolute Nucleated RBC 0.000 Nucleated RBC % (auto) 0.0 Anion Gap 16 Estim Creat Clear Calc 55.3 Estimated GFR > 60 Random Glucose 91 Lactic Acid 0.8 Calcium 9.7 Magnesium 1.9 Total Bilirubin 0.3 AST 32 H ALT 20 Alkaline Phosphatase 124 H Troponin I High Sens < 2.7 NT-Pro-B Natriuret Pep 174.9 Total Protein 8.3 H Albumin 4.6 Influenza Type A (PCR) NEGATIVE Influenza Type B (PCR) NEGATIVE RSV RNA Qual (PCR) NEGATIVE SARS-CoV-2 RNA (RT-PCR) NEGATIVE Assessment and Plan (1) Acute respiratory failure with hypoxia: Status: Acute (2) Acute exacerbation of COPD with asthma: Status: Acute (3) Bronchitis: Status: Acute (4) Class 1 obesity: Status: Acute Plan Patient is a 65-year-old female with a past medical history significant for moderate to severe COPD/asthma, history of tobacco use, obesity, substance use disorder on methadone and history of hepatitis-C, who presented to the ED due to shortness of breath and cough starting yesterday. Acute hypoxic respiratory failure secondary to acute COPD/asthma exacerbation with bronchitis - tachycardia due to albuterol - duonebs Q4H while awake - solumedrol 60mg BID - titrate O2 as appropriate, not currently needing O2 but desaturates with ambulation - doxycycine for bronchitis - monitor CBC and BMP PATRICIO - methadone, will need dose confirmed in AM class 1 obesity - BMI 31.2 - weight loss encouraged med rec pending full code VTE prophy: loveonx Patient with acute hypoxic respiratory failure secondary to acute COPD/asthma exacerbation with bronchitis, requiring admission for at least 2 midnight stay for steroids and breathing treatments. Quality Stroke Does the patient have a stroke diagnosis?: No VTE Prior VTE?: No VTE Risk Level:: Medical - moderate - high VTE Device Contraindication: Treatment Not Indicated VTE Drug Contraindication: N/A - Med Ordered
[2025-08-08] MEDS: Albuterol/Iprat 2.5/0.5MG 3 ML AMPUL.NEB INHALE ×4 (05:16→19:44)
--- NOTE | 2025-08-08 06:21 | PC.ADMIT ---
Patient has diffuse expiratory wheezing throughout and gets tachypneic upon exertion. Sats remain >92% on room air. Patient c/o sob once last night and albuterol updraft administered with ease of breathing. Patient having leg cramps upon admission and states she gets them at home as well. She attempted to get up at 0400 to go to the bathroom to urinate and started yelling in pain d/t a cramp in her right calf and wanted RN to help her and to massage it. Patient states she never had one that bad. She was limping on right leg. Bedside commode placed next to bed because patients right knee was weak and giving out after that. Patient declined pain medication at that time. Patient currently resting comfortably in bed, call pro in reach and safety measures in place.
[2025-08-08 06:32] LABS: Hematocrit 38.9 % (37.0-47.0); Hemoglobin 12.6 g/dl (12.0-16.0); Imm Gran Abs Auto 0.03 X10*3/uL (0.00-0.03); Imm Gran Pct Auto 0.4 % (0.0-0.4); Lymphocytes Absolute Auto 0.3 X10*3/uL (1.2-4.9); MANUAL DIFF FLAG SCAN; Mean Corpuscular HGB Conc 32.4 g/dl (31.0-35.0); Mean Corpuscular Hemoglobin 28.7 pg (27.0-33.0); Mean Corpuscular Volume 88.6 fL (80.0-98.0); NRBC Abs Auto 0.000 X10*3/uL (0.0-0.012); NRBC Pct Auto 0.0 /100WBC (0.0-0.2); Platelet Count 249 X10*3/uL (160-400); Red Blood Count 4.39 X10*6/uL (4.20-5.50); SCAN SMEAR FLAG 1; White Blood Count 7.0 X10*3/uL (4.8-10.8)
[2025-08-08 06:33] LABS: Anion Gap 16 (12-20); Blood Urea Nitrogen 18 mg/dL (9-16); Calcium 9.4 mg/dL (8.4-10.2); Carbon Dioxide 24 mmol/L (22-29); Chloride 103 mmol/L (96-108); Creatinine Clr Calc Pharmacy 63.2; Estimated Glomerular Filt Rate > 60; Potassium 3.9 mmol/L (3.3-5.1); Sodium 139 mmol/L (135-145)
--- NOTE | 2025-08-08 07:13 | HO.PM.IMPN ---
Subjective Subjective Date of Service: 08/08/25 Interval History: Patient continues to be dyspneic, we will continue steroids and trial PE steroids We will try home O2 tomorrow Home meds resumed as appropriate methadone Review of Systems Review of Systems: Yes all other systems are reviewed and are negative Physical Exam Vital Signs: Vital Signs: Last Vital Signs Temp 97.7 F 08/08/25 01:51 Pulse 108 H 08/08/25 06:00 Resp 18 08/08/25 03:13 BP 159/76 H 08/08/25 01:51 Pulse Ox 98 08/08/25 06:00 O2 Del Method Room Air 08/08/25 06:00 BMI result Body Mass Index 33.0 Const: Other: Alert Orientation/consciousness: patient oriented x3 Resp: Other: Tachypneic, diffuse expiratory wheezes with rhonchi, active cough Cardio: Other: Normal peripheral perfusion Skin: Other: Warm dry no rash Neuro: General: patient oriented x3, gait normal, no focal motor deficits and CN's II-XI intact bilaterally Psych: Other: Cooperative Objective Data Active Medications Acetaminophen (Acetaminophen 325 Mg Tablet) 975 mg PO Q6H PRN PRN Reason: Pain, Mild 1-3,fever,headache Last Admin: 08/08/25 02:10 Dose: 975 mg Documented By: ARVIN Albuterol/Ipratropium (Albuterol/Iprat 2.5/0.5mg 3 Ml Ampul.Neb) 3 ml INHALE RQ4H WHILE AWAKE [facility] Last Admin: 08/08/25 05:16 Dose: 3 ml Documented By: ARVIN Benzonatate (Benzonatate 100 Mg Capsule) 200 mg PO TID PRN PRN Reason: Cough Calcium Carbonate (Calcium Carbonate 750 Mg Tab.Chew) 750 mg PO Q4H PRN PRN Reason: Heartburn Enoxaparin Sodium (Enoxaparin Sodium 40 Mg/0.4 Ml Syringe) 40 mg SUBCUT Q24H [facility] Last Admin: 08/08/25 02:10 Dose: 40 mg Documented By: ARVIN Doxycycline Hyclate 100 mg/ (Sodium Chloride) 250 mls @ 166.67 mls/hr IV BID [facility] Magnesium Hydroxide (Milk Of Magnesia 30 Ml Oral.Susp) 30 ml PO DAILY PRN PRN Reason: Constipation Melatonin (Melatonin 3 Mg Tablet) 6 mg PO BEDTIME PRN PRN Reason: Insomnia Methylprednisolone Sodium Succinate (Methylprednisolone Sod Succ 125 Mg/2 Ml Vial) 60 mg IVPUSH BID [facility] Ondansetron HCl (Ondansetron Hcl 4 Mg/2 Ml Vial) 4 mg IVPUSH Q8H PRN PRN Reason: Nausea and Vomiting Sodium Chloride (0.9 % Sodium Chloride Flush 3 Ml Syringe) 3 ml IVFLUSH QSHIFT [facility] Labs 08/08/25 05:40 08/08/25 05:40 Labs: Laboratory Results - last 24 hr 08/07/25 08/07/25 08/07/25 22:17 22:18 22:31 MCV 87.8 MCH 29.3 MCHC 33.4 RDW 13.4 Plt Count 258 MPV 10.4 Immature Gran % (Auto) 0.3 Neut % (Auto) 60.5 Lymph % (Auto) 23.3 [place] % (Auto) 7.8 Eos % (Auto) 7.3 H Baso % (Auto) 0.8 Lymph # (Auto) 1.7 [place] # (Auto) 0.6 Eos # (Auto) 0.5 H Baso # (Auto) 0.1 Abs Immat Gran (auto) 0.02 Absolute Neuts (auto) 4.4 Absolute Nucleated RBC 0.000 Nucleated RBC % (auto) 0.0 Smear Tech's Comments Anion Gap 16 Estim Creat Clear Calc 55.3 Estimated GFR > 60 Random Glucose 91 Lactic Acid 0.8 Calcium 9.7 Magnesium 1.9 Total Bilirubin 0.3 AST 32 H ALT 20 Alkaline Phosphatase 124 H Troponin I High Sens < 2.7 NT-Pro-B Natriuret Pep 174.9 Total Protein 8.3 H Albumin 4.6 Influenza Type A (PCR) NEGATIVE Influenza Type B (PCR) NEGATIVE RSV RNA Qual (PCR) NEGATIVE SARS-CoV-2 RNA (RT-PCR) NEGATIVE 08/08/25 05:40 MCV 88.6 MCH 28.7 MCHC 32.4 RDW 13.3 Plt Count 249 MPV 10.8 Immature Gran % (Auto) 0.4 Neut % (Auto) 93.3 H Lymph % (Auto) 4.9 L [place] % (Auto) 1.0 L Eos % (Auto) 0.3 Baso % (Auto) 0.1 Lymph # (Auto) 0.3 L [place] # (Auto) 0.1 Eos # (Auto) 0.0 Baso # (Auto) 0.0 Abs Immat Gran (auto) 0.03 Absolute Neuts (auto) 6.5 Absolute Nucleated RBC 0.000 Nucleated RBC % (auto) 0.0 Smear Tech's Comments VERIFIED Anion Gap 16 Estim Creat Clear Calc 63.2 Estimated GFR > 60 Random Glucose 201 H Lactic Acid Calcium 9.4 Magnesium Total Bilirubin AST ALT Alkaline Phosphatase Troponin I High Sens NT-Pro-B Natriuret Pep Total Protein Albumin Influenza Type A (PCR) Influenza Type B (PCR) RSV RNA Qual (PCR) SARS-CoV-2 RNA (RT-PCR) Assessment and Plan (1) COPD (chronic obstructive pulmonary disease): Status: Acute Plan Patient is a 65-year-old female with a past medical history significant for moderate to severe COPD/asthma, history of tobacco use, obesity, substance use disorder on methadone and history of hepatitis-C, who presented to the ED due to shortness of breath and cough starting yesterday was noted to have COPD exacerbation Acute hypoxic respiratory failure secondary to acute COPD/asthma exacerbation with bronchitis secondary to current smoking Likely secondary to COPD exacerbation, respiratory panel unremarkable Nebulization scheduled and p.r.n. - we will switch to p.o. prednisone from tomorrow - titrate O2 as appropriate, not currently needing O2 but desaturates with ambulation - doxycycine p.o. for bronchitis - monitor CBC and BMP PATRICIO Nicotine dependence-nicotine replacement - methadone, resumed Addiction med consulted class 1 obesity - BMI 31.2 - weight loss encouraged med rec pending full code VTE prophy: loveonx Patient with acute hypoxic respiratory failure secondary to acute COPD/asthma exacerbation with bronchitis, if she responds well, we will discharge her tomorrow. Quality Stroke Does the patient have a stroke diagnosis?: No VTE Prior VTE?: No VTE Risk Level:: Medical - moderate - high VTE Device Contraindication: Treatment Not Indicated VTE Drug Contraindication: N/A - Med Ordered
--- NOTE | 2025-08-08 08:29 | PHA.MEDREC ---
Addendum entered by Wolfgang New PharmD 08/08/25 08:50: reviewed Original Note: Pharmacy Consult ? Medication Reconciliation Pharmacy has completed the medication reconciliation. Patient was able to name all of her medications. Patient states she is no longer taking Wixela and Vitamin D3 50 mcg. Patient confirmed she takes Methadone 80 mg daily and Methadone 30 mg at bedtime from [facility] in [place], last does was last night. Patient last had all her medications last night.
[2025-08-08] MEDS: 0.9 % Sodium Chloride Flush 3 ML SYRINGE IVFLUSH ×3 (10:23→20:53)
--- NOTE | 2025-08-08 12:07 | MHC.CM.PN ---
IMM DELIVERED. PT LIVES WITH NIECE AND IS FUNCTIONALLY INDEPENDENT, + DRIVES. NO SERVICES OR DME. PT ATTENDS [facility] FOR METHADONE DOSING. + HCP ON FILE AND VERIFIED. PCP DR. SHAY DP: HOME, NO SERVICES IS ANTICIPATED. PT HAS OWN RIDE HOME. CM WILL CONTINUE TO FOLLOW FOR ANY CHANGE TO DC PLAN/NEEDS.
--- NOTE | 2025-08-08 13:08 | HE.PHANOTE ---
METHADONE CONFIRMATION SHEET PATIENT TAKES 80MG IN AM AND 30 MG AT BEDTIME. pATIENT LAST GOT DOSE FROM CLINIC ON 08/02 WITH A 2 WEEK SUPPLY OF TAKE HOME
[2025-08-08] MEDS: methADONE HCl 20 MG/2 ML ORAL.CONC 80 MG PO (18:04)
[2025-08-09] VITALS (19 sets, daily range): BP systolic 134–188; BP diastolic 63–89; PULSE 64–104; RESP 15–20; TEMP 36–36.7; O2SAT 91–94
--- NOTE | 2025-08-09 | ECG_ITS ---
Test Reason : TACHYCARDIA Blood Pressure : */* mmHG Vent. Rate : 82 BPM Atrial Rate : 82 BPM P-R Int : 132 ms QRS Dur : 76 ms QT Int : 354 ms P-R-T Axes : 38 4 25 degrees QTcB Int : 413 ms Normal sinus rhythm Nonspecific ST abnormality Abnormal ECG When compared with ECG of 07-Aug-2025 22:09, No significant change was found Referred By: Sarah Rizo Electronically Signed By: BROCK TAVAREZ MD
[2025-08-09] MEDS: Albuterol Sulfate (0.083%) 2.5 MG/3 ML VIAL.NEB INHALE (02:55)
[2025-08-09 05:59] LABS: MANUAL DIFF FLAG NO
[2025-08-09 06:01] LABS: Hematocrit 39.9 % (37.0-47.0); Hemoglobin 13.2 g/dl (12.0-16.0); Imm Gran Abs Auto 0.04 X10*3/uL (0.00-0.03); Imm Gran Pct Auto 0.4 % (0.0-0.4); Lymphocytes Absolute Auto 1.7 X10*3/uL (1.2-4.9); Mean Corpuscular HGB Conc 33.1 g/dl (31.0-35.0); Mean Corpuscular Hemoglobin 29.0 pg (27.0-33.0); Mean Corpuscular Volume 87.7 fL (80.0-98.0); NRBC Abs Auto 0.000 X10*3/uL (0.0-0.012); NRBC Pct Auto 0.0 /100WBC (0.0-0.2); Platelet Count 287 X10*3/uL (160-400); Red Blood Count 4.55 X10*6/uL (4.20-5.50); White Blood Count 10.9 X10*3/uL (4.8-10.8)
[2025-08-09 06:17] LABS: Anion Gap 12 (12-20); Blood Urea Nitrogen 27 mg/dL (9-16); Calcium 9.6 mg/dL (8.4-10.2); Carbon Dioxide 26 mmol/L (22-29); Chloride 105 mmol/L (96-108); Creatinine Clr Calc Pharmacy 64.9; Estimated Glomerular Filt Rate > 60; Potassium 4.2 mmol/L (3.3-5.1); Sodium 139 mmol/L (135-145)
--- NOTE | 2025-08-09 07:12 | HO.PM.IMPN ---
Subjective Subjective Date of Service: 08/09/25 Physical Exam Vital Signs: Vital Signs: Last Vital Signs Temp 97.8 F 08/09/25 03:17 Pulse 92 08/09/25 03:17 Resp 18 08/09/25 03:17 BP 168/63 H 08/09/25 03:17 Pulse Ox 93 08/08/25 23:49 O2 Del Method Room Air 08/08/25 19:21 BMI result Body Mass Index 33.0 Objective Data Active Medications Acetaminophen (Acetaminophen 325 Mg Tablet) 975 mg PO Q6H PRN PRN Reason: Pain, Mild 1-3,fever,headache Last Admin: 08/09/25 05:59 Dose: 975 mg Documented By: TARAS Albuterol Sulfate (Albuterol Sulfate (0.083%) 2.5 Mg/3 Ml Vial.Neb) 2.5 mg INHALE QID PRN PRN Reason: shortness of breath or wheezing Last Admin: 08/09/25 02:55 Dose: 2.5 mg Documented By: PARISH Albuterol Sulfate (Albuterol Sulfate 90 Mcg 8 Gm Inhaler) 2 puff INHALE Q4H PRN PRN Reason: shortness of breath or wheezin Albuterol/Ipratropium (Albuterol/Iprat 2.5/0.5mg 3 Ml Ampul.Neb) 3 ml INHALE RQ4H WHILE AWAKE [facility] Last Admin: 08/08/25 19:44 Dose: 3 ml Documented By: PARISH Benzonatate (Benzonatate 100 Mg Capsule) 200 mg PO TID PRN PRN Reason: Cough Last Admin: 08/09/25 03:54 Dose: 200 mg Documented By: TARAS Calcium Carbonate (Calcium Carbonate 750 Mg Tab.Chew) 750 mg PO Q4H PRN PRN Reason: Heartburn Doxycycline Monohydrate (Doxycycline Monohydrate 100 Mg Capsule) 100 mg PO Q12H [facility] Stop: 08/12/25 17:59 Last Admin: 08/08/25 20:53 Dose: 100 mg Documented By: TARAS Enoxaparin Sodium (Enoxaparin Sodium 40 Mg/0.4 Ml Syringe) 40 mg SUBCUT Q24H [facility] Last Admin: 08/08/25 22:41 Dose: 40 mg Documented By: TARAS Comments: given per pt request - pt want to sleep Fluticasone/Vilanterol (Fluticasone/Vilanterol 100/25 Blst.W.Dev) 1 puff INHALE RDAILY [facility] Magnesium Hydroxide (Milk Of Magnesia 30 Ml Oral.Susp) 30 ml PO DAILY PRN PRN Reason: Constipation Melatonin (Melatonin 3 Mg Tablet) 6 mg PO BEDTIME PRN PRN Reason: Insomnia Methadone HCl (Methadone Hcl 20 Mg/2 Ml Oral.Conc) 80 mg PO DAILY [facility] Last Admin: 08/08/25 18:04 Dose: 80 mg Documented By: DAVID Co-signed By: DEEPTHI Methadone HCl (Methadone Hcl 20 Mg/2 Ml Oral.Conc) 30 mg PO BEDTIME [facility] Last Admin: 08/08/25 20:50 Dose: Not Given Documented By: TARAS Non-Admin Reason: Patient Refused Comments: pt just got morning dose methadone by previous rn - pt wants to hold off on night dose Nicotine (Nicotine 21 Mg Patch.Td24) 21 mg TRANSDERMA DAILY [facility] Nicotine Polacrilex (Nicotine Polacrilex Lozenge 2 Mg Lozenge) 2 mg BUCCAL Q2H PRN PRN Reason: Nicotine Cravings Omeprazole (Omeprazole 20 Mg Capsule.Dr) 20 mg PO DAILY@0630 [facility] Last Admin: 08/09/25 05:59 Dose: 20 mg Documented By: TARAS Ondansetron HCl (Ondansetron Hcl 4 Mg/2 Ml Vial) 4 mg IVPUSH Q8H PRN PRN Reason: Nausea and Vomiting Prednisone (Prednisone 20 Mg Tablet) 40 mg PO DAILY [facility] Senna (Sennosides 8.6 Mg Tablet) 17.2 mg PO BEDTIME PRN PRN Reason: for constipation Sodium Chloride (0.9 % Sodium Chloride Flush 3 Ml Syringe) 3 ml IVFLUSH QSHIFT [facility] Last Admin: 08/08/25 20:53 Dose: 3 ml Documented By: TARAS Labs 08/09/25 05:40 08/09/25 05:40 Labs: Laboratory Results - last 24 hr 08/09/25 05:40 MCV 87.7 MCH 29.0 MCHC 33.1 RDW 13.9 Plt Count 287 MPV 10.4 Immature Gran % (Auto) 0.4 Neut % (Auto) 75.8 H Lymph % (Auto) 15.1 L [place] % (Auto) 8.2 Eos % (Auto) 0.1 Baso % (Auto) 0.4 Lymph # (Auto) 1.7 [place] # (Auto) 0.9 Eos # (Auto) 0.0 Baso # (Auto) 0.0 Abs Immat Gran (auto) 0.04 H Absolute Neuts (auto) 8.3 Absolute Nucleated RBC 0.000 Nucleated RBC % (auto) 0.0 Anion Gap 12 Estim Creat Clear Calc 64.9 Estimated GFR > 60 Random Glucose 99 Calcium 9.6 Microbiology Microbiology Results: Microbiology 08/07/25 22:40 Blood Culture - Preliminary Blood - Venous No growth after 24 hours. 08/07/25 22:31 Blood Culture - Preliminary Blood - Venous No growth after 24 hours. Quality Stroke Does the patient have a stroke diagnosis?: No VTE Prior VTE?: No VTE Risk Level:: Medical - moderate - high VTE Device Contraindication: Treatment Not Indicated VTE Drug Contraindication: N/A - Med Ordered
[2025-08-09] MEDS: Albuterol/Iprat 2.5/0.5MG 3 ML AMPUL.NEB INHALE ×3 (07:49→20:59)
[2025-08-09] MEDS: methADONE HCl 20 MG/2 ML ORAL.CONC 80 MG PO (08:16)
[2025-08-09] MEDS: 0.9 % Sodium Chloride Flush 3 ML SYRINGE IVFLUSH ×3 (09:14→19:55)
--- NOTE | 2025-08-09 10:33 | MHC.CM.PN ---
CM MET WITH PT TO DISCUSS DCP PT REPORTS SHE IS NOT INTERESTED IN STR, BUT IS UNSURE WHAT THE THERAPIST RECOMMENDED SHE SAYS SHE CARRIES LAUNDRY UP AND DOWN THE STAIRS AT HOME AND FEELS AT HER FUNCTIONAL BASELINE SHE IS AGREEABLE TO [facility], SHE REPORTS SHE DOES NOT NEED METHADONE DELIVERY FROM THE [facility] THOUGH BECAUSE SHE HAS TAKE HOMES AND [facility] WILL MANAGE DELIVERY IF NEEDED
--- NOTE | 2025-08-09 10:34 | PC.NURSE ---
Pt is steady with ambulation with walker, is refusing bed alarm and high fall socks. Will continue to monitor and frequent checks.
--- NOTE | 2025-08-09 11:31 | PC.RT ---
Pt has thick secretions difficult to clear. Pt given flutter valve and taught how to use. Pt able to use efficiently and able to cough up thick, clear secretions. Pt instructed to use every hour.
--- NOTE | 2025-08-09 13:21 | MHC.CM.PN ---
Addendum entered by June Castillo 08/09/25 14:39: PT'S DC HAS BEEN CX, [facility] UPDATED. Original Note: DP: PT HAS BEEN MEDICALLY CLEARED FOR DC WITH NEW [facility] FOR SN SERVICES. PT HAS OWN RIDE HOME.
--- NOTE | 2025-08-09 13:47 | P.DS_ITS ---
DS: Providers Provider Date of admission: 08/08/25 00:16 Primary care physician: Vitor Cox MD DS: Diagnosis Discharge Diagnosis (1) COPD (chronic obstructive pulmonary disease): Status: Acute DS: Summary Hospital Course Hospital Course: #Acute hypoxic respiratory failure secondary to acute COPD/asthma exacerbation with bronchitis Patient is a 65-year-old female with a past medical history significant for moderate to severe COPD/asthma, history of tobacco use, obesity, substance use disorder on methadone and history of hepatitis-C, who presented to the ED due to shortness of breath and cough worse and presented to the ED on 08/08/25 was noted to have COPD exacerbation. Likely secondary to COPD exacerbation, respiratory panel unremarkable, she responded well to steroid and overnight was able to wean off oxygen. Patient had a remarkable recovery to steroids, likely is now slightly advanced COPD. She needs to follow with outpatient shaft headman. We also had her on doxycycline for anti-inflammatory properties. We checked her home O2 and she does not require it at the moment. PATRICIO on methadone, we resumed her home dose Nicotine dependence-nicotine replacement ordered - methadone, resumed class 1 obesity - BMI 31.2 - weight loss encouraged med rec pending full code VTE prophy: loveonx Patient with acute hypoxic respiratory failure secondary to acute COPD/asthma exacerbation with bronchitis, if she responds well, we will discharge her tomorrow. Time spent discussing smoking cessation with patient: more than 10 minutes Physical Exam Vital Signs: Vital Signs: Last Vital Signs Temp 96.8 F 08/09/25 07:38 Pulse 104 H 08/09/25 13:46 Resp 17 08/09/25 11:20 BP 177/84 H 08/09/25 13:46 Pulse Ox 93 08/09/25 07:38 O2 Del Method Room Air 08/09/25 07:38 BMI result Body Mass Index 33.0 DS: Data Data Completed and Pending Labs on day of discharge: Laboratory Results - last 24 hr 08/09/25 05:40 WBC 10.9 H RBC 4.55 Hgb 13.2 Hct 39.9 MCV 87.7 MCH 29.0 MCHC 33.1 RDW 13.9 Plt Count 287 MPV 10.4 Immature Gran % (Auto) 0.4 Neut % (Auto) 75.8 H Lymph % (Auto) 15.1 L [place] % (Auto) 8.2 Eos % (Auto) 0.1 Baso % (Auto) 0.4 Lymph # (Auto) 1.7 [place] # (Auto) 0.9 Eos # (Auto) 0.0 Baso # (Auto) 0.0 Abs Immat Gran (auto) 0.04 H Absolute Neuts (auto) 8.3 Absolute Nucleated RBC 0.000 Nucleated RBC % (auto) 0.0 Sodium 139 Potassium 4.2 Chloride 105 Carbon Dioxide 26 Anion Gap 12 BUN 27 H Creatinine 0.78 Estim Creat Clear Calc 64.9 Estimated GFR > 60 Random Glucose 99 Calcium 9.6 Preliminary micro results at discharge 08/07/25 22:40 Blood Culture - Preliminary Blood - Venous No growth after 24 hours. 08/07/25 22:31 Blood Culture - Preliminary Blood - Venous No growth after 24 hours. Discharge Plan Discharge Anticipated Discharge Date/Time: 08/09/25 12:32 Patient Disposition: Home Health Service Discharge Diagnosis: Acute hypoxic respiratory failure secondary to acute COPD/asthma exacerbation with bronchitis secondary to current smoking Referrals: [facility] [Outside] - 1 Week Referral Note: HOME SERVICES FOR NURSING HOME- A NURSE WILL CALL YOU TO SET UP FIRST VISIT Vitor Cox MD [Primary Care Provider, Internal Medicine] - 1 Week Discharge Medications: New doxycycline monohydrate 100 mg Capsule 100 mg PO Q12H 4 Days Qty: 8 0RF naloxone [Narcan] 4 mg/actuation spray,non-aerosol 4 mg intranasal Q3M PRN (Reason: opioid overdose) Qty: 2 0RF Rx Instructions: spray 1 dose into ONE nostril; alternate nostrils w each dose until help arrives Continued sennosides [senna] 8.6 mg tablet 17.2 mg PO BEDTIME PRN (Reason: for constipation) Qty: 180 1RF omeprazole 20 mg capsule,delayed release(DR/EC) 20 mg PO DAILY@0630 90 Days Qty: 90 1RF Incruse Ellipta 62.5 mcg/actuation blister with device 1 inh INHALATION DAILY methadone 10 mg/mL Concentrate 80 mg PO DAILY methadone 10 mg/mL Concentrate 30 mg PO BEDTIME (DME) NEBULIZER and all related supplies See Rx Instructions .Route .MEDSUPPLY Qty: 1 0RF Rx Instructions: As directed up to 4 times a day as needed albuterol sulfate 90 mcg/actuation HFA aerosol inhaler 2 puff inhalation Q4-6H PRN (Reason: shortness of breath or wheezing) 30 Days Qty: 8.5 3RF albuterol sulfate 2.5 mg /3 mL (0.083 %) solution for nebulization 2.5 mg continuous nebulization QID PRN (Reason: shortness of breath or wheezing) 30 Days Qty: 180 3RF Diet: Low salt diet Activity on Discharge: As tolerated Stand Alone Forms: Patient Portal Discharge page Print Language: Scottish Care Plan Goals: Patient to continue nebulizer treatment as prescribed by her PCP Patient does not require home O2 as done by home O2 eval Patient is being given prednisone taper 40 mg 5 week course Patient deferred short-term rehab, going home with services Patient has a wound methadone script from addiction Medicine outpatient, we will follow up with methadone Clinic Other than adding prednisone, patient does not have any new meds Health Concerns: See above Plan of Treatment: See above Assessment: See above Patient Instructions: COPD (Chronic Obstructive Pulmonary Disease) (DC), Chronic Lung Disease and Infection Prevention (DC)
--- NOTE | 2025-08-09 14:42 | P.PNIM_ITS ---
Subjective Subjective Date of Service: 08/09/25 Interval History: Patient was otherwise medically optimized She continued to be hypertensive-I am initiating p.o. meds in trialing different classes Hence discontinued discharge planning Patient does not require any short-term rehab for PT eval Physical Exam 2 Exam: Exam: General: AOx3, no acute distress Resp: Mild bilateral rhonchi and wheezes CVS: S1, S2, RRR GI: +BS, NT, no distention Motor grossly intact bilaterally Psych: anxious affect Vital Signs: Vital Signs: Last Vital Signs Temp 98.0 F 08/09/25 14:00 Pulse 93 08/09/25 14:00 Resp 19 08/09/25 14:00 BP 177/84 H 08/09/25 13:46 Pulse Ox 91 L 08/09/25 14:00 O2 Del Method Room Air 08/09/25 14:00 BMI result Body Mass Index 33.0 Objective Data Active Medications Acetaminophen (Acetaminophen 325 Mg Tablet) 975 mg PO Q6H PRN PRN Reason: Pain, Mild 1-3,fever,headache Last Admin: 08/09/25 05:59 Dose: 975 mg Documented By: TARAS Albuterol Sulfate (Albuterol Sulfate (0.083%) 2.5 Mg/3 Ml Vial.Neb) 2.5 mg INHALE QID PRN PRN Reason: shortness of breath or wheezing Last Admin: 08/09/25 02:55 Dose: 2.5 mg Documented By: PARISH Albuterol Sulfate (Albuterol Sulfate 90 Mcg 8 Gm Inhaler) 2 puff INHALE Q4H PRN PRN Reason: shortness of breath or wheezin Albuterol/Ipratropium (Albuterol/Iprat 2.5/0.5mg 3 Ml Ampul.Neb) 3 ml INHALE RQ4H WHILE AWAKE [facility] Last Admin: 08/09/25 11:19 Dose: 3 ml Documented By: LYNNETTE Amlodipine Besylate (Amlodipine Besylate 10 Mg Tablet) 10 mg PO DAILY [facility]; Protocol Last Admin: 08/09/25 11:06 Dose: 10 mg Documented By: JEROME Benzonatate (Benzonatate 100 Mg Capsule) 200 mg PO TID PRN PRN Reason: Cough Last Admin: 08/09/25 03:54 Dose: 200 mg Documented By: TARAS Calcium Carbonate (Calcium Carbonate 750 Mg Tab.Chew) 750 mg PO Q4H PRN PRN Reason: Heartburn Doxycycline Monohydrate (Doxycycline Monohydrate 100 Mg Capsule) 100 mg PO Q12H [facility] Stop: 08/12/25 17:59 Last Admin: 08/09/25 08:14 Dose: 100 mg Documented By: JEROME Enoxaparin Sodium (Enoxaparin Sodium 40 Mg/0.4 Ml Syringe) 40 mg SUBCUT Q24H [facility] Last Admin: 08/08/25 22:41 Dose: 40 mg Documented By: TARAS Comments: given per pt request - pt want to sleep Fluticasone/Vilanterol (Fluticasone/Vilanterol Blst.W.Dev) 1 puff INHALE RDAILY [facility] Last Admin: 08/09/25 07:52 Dose: Not Given Documented By: LYNNETTE Non-Admin Reason: pharmacy called for med Furosemide (Furosemide 40 Mg Tablet) 40 mg PO DAILY BRIAN; Protocol Hydralazine HCl (Hydralazine Hcl 20 Mg/Ml Vial) 5 mg IVPUSH Q6H PRN; Protocol PRN Reason: SBP > 160 Hydralazine HCl (Hydralazine Hcl 10 Mg Tablet) 10 mg PO TID BRIAN; Protocol Hydroxyzine HCl (Hydroxyzine Hcl 25 Mg Tablet) 25 mg PO Q6H BRIAN Losartan Potassium (Losartan Potassium 25 Mg Tablet) 25 mg PO DAILY BRIAN; Protocol Last Admin: 08/09/25 09:14 Dose: 25 mg Documented By: JEROME Magnesium Hydroxide (Milk Of Magnesia 30 Ml Oral.Susp) 30 ml PO DAILY PRN PRN Reason: Constipation Melatonin (Melatonin 3 Mg Tablet) 6 mg PO BEDTIME PRN PRN Reason: Insomnia Methadone HCl (Methadone Hcl 20 Mg/2 Ml Oral.Conc) 80 mg PO DAILY [facility] Last Admin: 08/09/25 08:16 Dose: 80 mg Documented By: JEROME Co-signed By: CHINA Methadone HCl (Methadone Hcl 20 Mg/2 Ml Oral.Conc) 30 mg PO BEDTIME [facility] Last Admin: 08/08/25 20:50 Dose: Not Given Documented By: TARAS Non-Admin Reason: Patient Refused Comments: pt just got morning dose methadone by previous rn - pt wants to hold off on night dose Nicotine (Nicotine 21 Mg Patch.Td24) 21 mg TRANSDERMA DAILY [facility] Last Admin: 08/09/25 08:13 Dose: Not Given Documented By: JEROME Non-Admin Reason: Patient Refused Nicotine Polacrilex (Nicotine Polacrilex Lozenge 2 Mg Lozenge) 2 mg BUCCAL Q2H PRN PRN Reason: Nicotine Cravings Omeprazole (Omeprazole 20 Mg Capsule.Dr) 20 mg PO DAILY@0630 [facility] Last Admin: 08/09/25 05:59 Dose: 20 mg Documented By: TARAS Ondansetron HCl (Ondansetron Hcl 4 Mg/2 Ml Vial) 4 mg IVPUSH Q8H PRN PRN Reason: Nausea and Vomiting Prednisone (Prednisone 20 Mg Tablet) 40 mg PO DAILY [facility] Last Admin: 08/09/25 08:14 Dose: 40 mg Documented By: JEROME Senna (Sennosides 8.6 Mg Tablet) 17.2 mg PO BEDTIME PRN PRN Reason: for constipation Sodium Chloride (0.9 % Sodium Chloride Flush 3 Ml Syringe) 3 ml IVFLUSH QSHIFT [facility] Last Admin: 08/09/25 09:14 Dose: 3 ml Documented By: JEROME Labs 08/09/25 05:40 08/09/25 05:40 Labs: Laboratory Results - last 24 hr 08/09/25 05:40 MCV 87.7 MCH 29.0 MCHC 33.1 RDW 13.9 Plt Count 287 MPV 10.4 Immature Gran % (Auto) 0.4 Neut % (Auto) 75.8 H Lymph % (Auto) 15.1 L [place] % (Auto) 8.2 Eos % (Auto) 0.1 Baso % (Auto) 0.4 Lymph # (Auto) 1.7 [place] # (Auto) 0.9 Eos # (Auto) 0.0 Baso # (Auto) 0.0 Abs Immat Gran (auto) 0.04 H Absolute Neuts (auto) 8.3 Absolute Nucleated RBC 0.000 Nucleated RBC % (auto) 0.0 Anion Gap 12 Estim Creat Clear Calc 64.9 Estimated GFR > 60 Random Glucose 99 Calcium 9.6 Microbiology Microbiology Results: Microbiology 08/07/25 22:40 Blood Culture - Preliminary Blood - Venous No growth after 24 hours. 08/07/25 22:31 Blood Culture - Preliminary Blood - Venous No growth after 24 hours. Assessment and Plan (1) COPD (chronic obstructive pulmonary disease): Status: Acute Plan Patient is a 65-year-old female with a past medical history significant for moderate to severe COPD/asthma, history of tobacco use, obesity, substance use disorder on methadone and history of hepatitis-C, who presented to the ED due to shortness of breath and cough starting yesterday was noted to have COPD exacerbation Treatment resistant hypertension Patient was otherwise optimized for her COPD exacerbation but was noted to have new onset hypertension hence discharge was deferred until we can optimize her blood pressure Multifactorial as the patient does not appear to be on any home antihypertensive meds Could be in the setting of anxiety, steroids, nicotine withdrawal, opioid withdrawal, YAS, COPD For anxiety-initiated her on schedule Atarax Steroids need to be continued we will be tapered Nicotine withdrawal-nicotine replacement ordered Opioid withdrawal-resumed her home methadone and we will likely need outpatient follow-up with the clinic for further medical management Patient was significantly hypertensive with a SBP in the 170s and 180s I have initiated her on p.o. meds amlodipine 10 mg, Lasix 40 mg, hydralazine 20 mg p.o. t.i.d. (to be given prior to IV ), losartan 25 mg daily She was given a dose of IV hydralazine for him her p.r.n. meds, blood pressure dropped significantly to 130s and quickly went back up per bedside RN-likely labile blood pressure She has hydralazine IV 5 mg q.6 p.r.n. for SBP greater than 160 if not yet responding to p.o. meds as she seems to be very sensitive to the IV meds We will check electrolytes and replete to goal given that we have initiated meds If she does not respond to all these meds we will check renin angiotensin aldosterone system to look for Acute hypoxic respiratory failure secondary to acute COPD/asthma exacerbation with bronchitis secondary to current smoking Likely secondary to COPD exacerbation, respiratory panel unremarkable Nebulization scheduled and p.r.n. - continue p.o. prednisone Not requiring home O2 per home O2 eval -continue doxycycine p.o. for bronchitis - monitor CBC and BMP PATRICIO Nicotine dependence-nicotine replacement - methadone, resumed Addiction med consulted class 1 obesity - BMI 31.2 - weight loss encouraged med rec pending full code VTE prophy: neftaly PT evaluated the patient and deemed her safe for home without any services Patient was otherwise optimized for her presenting concern, however she has severe treatment resistant hypertension now requiring different classes of p.o. antihypertensive initiation and also p.r.n. IV antihypertensive medication with labile blood pressures. Needs to be monitored inpatient to optimize given that she is at high-risk of stroke given these blood pressures in the SBP is 180s. Quality Stroke Does the patient have a stroke diagnosis?: No VTE Prior VTE?: No VTE Risk Level:: Medical - moderate - high VTE Device Contraindication: Treatment Not Indicated VTE Drug Contraindication: N/A - Med Ordered
[2025-08-09 16:51] LABS: PH 7.5 (5.0-9.0)
[2025-08-09 16:58] LABS: Cannabinoid Screen Urine POSITIVE (Not Detect)
--- NOTE | 2025-08-09 18:08 | PC.NURSE ---
Pt elevated Bp t/o the morning addressed by MD with Shelia, and later Teto which made no noted improvement in BP. 1345 BP 177/84 IV hydralazine per MD with short improvement. MD scheduled PO hydralazine - current BP improving at 158/74 at 1733. Will continue to monitor.
[2025-08-09] MEDS: methADONE HCl 20 MG/2 ML ORAL.CONC 30 MG PO (19:54)
[2025-08-10 03:09] VITALS: BP 139/68; PULSE 79; RESP 18; TEMP 36.7; O2SAT 94
[2025-08-10 06:14] LABS: MANUAL DIFF FLAG NO
[2025-08-10 06:17] LABS: Hematocrit 42.4 % (37.0-47.0); Hemoglobin 13.8 g/dl (12.0-16.0); Imm Gran Abs Auto 0.04 X10*3/uL (0.00-0.03); Imm Gran Pct Auto 0.4 % (0.0-0.4); Lymphocytes Absolute Auto 2.7 X10*3/uL (1.2-4.9); Mean Corpuscular HGB Conc 32.5 g/dl (31.0-35.0); Mean Corpuscular Hemoglobin 28.9 pg (27.0-33.0); Mean Corpuscular Volume 88.9 fL (80.0-98.0); NRBC Abs Auto 0.000 X10*3/uL (0.0-0.012); NRBC Pct Auto 0.0 /100WBC (0.0-0.2); Platelet Count 329 X10*3/uL (160-400); Red Blood Count 4.77 X10*6/uL (4.20-5.50); White Blood Count 10.0 X10*3/uL (4.8-10.8)
[2025-08-10 06:36] LABS: Alanine Aminotransferase 24 U/L (0-31); Albumin Level 4.7 g/dL (3.5-5.0); Alkaline Phosphatase 112 U/L (39-117); Anion Gap 12 (12-20); Aspartate Amino Transferase 38 U/L (5-31); Blood Urea Nitrogen 31 mg/dL (9-16); Calcium 9.9 mg/dL (8.4-10.2); Carbon Dioxide 27 mmol/L (22-29); Chloride 104 mmol/L (96-108); Creatinine Clr Calc Pharmacy 56.2; Estimated Glomerular Filt Rate > 60; Magnesium 2.2 mg/dL (1.6-2.6); Potassium 4.3 mmol/L (3.3-5.1); Sodium 139 mmol/L (135-145); Total Protein 8.0 g/dL (6.5-8.0)
--- NOTE | 2025-08-10 07:25 | P.PNIM_ITS ---
Subjective Subjective Date of Service: 08/10/25 Physical Exam 2 Vital Signs: Vital Signs: Last Vital Signs Temp 98.0 F 08/10/25 03:09 Pulse 79 08/10/25 03:09 Resp 18 08/10/25 03:09 BP 139/68 08/10/25 03:09 Pulse Ox 94 08/10/25 03:09 O2 Del Method Room Air 08/10/25 03:09 BMI result Body Mass Index 33.0 Objective Data Active Medications Acetaminophen (Acetaminophen 325 Mg Tablet) 975 mg PO Q6H PRN PRN Reason: Pain, Mild 1-3,fever,headache Last Admin: 08/09/25 19:53 Dose: 975 mg Documented By: TARAS Albuterol Sulfate (Albuterol Sulfate (0.083%) 2.5 Mg/3 Ml Vial.Neb) 2.5 mg INHALE QID PRN PRN Reason: shortness of breath or wheezing Last Admin: 08/09/25 02:55 Dose: 2.5 mg Documented By: PARISH Albuterol Sulfate (Albuterol Sulfate 90 Mcg 8 Gm Inhaler) 2 puff INHALE Q4H PRN PRN Reason: shortness of breath or wheezin Albuterol/Ipratropium (Albuterol/Iprat 2.5/0.5mg 3 Ml Ampul.Neb) 3 ml INHALE RQ4H WHILE AWAKE [facility] Last Admin: 08/09/25 20:59 Dose: 3 ml Documented By: SHANTAL Amlodipine Besylate (Amlodipine Besylate 10 Mg Tablet) 10 mg PO DAILY [facility]; Protocol Last Admin: 08/09/25 11:06 Dose: 10 mg Documented By: JEROME Benzonatate (Benzonatate 100 Mg Capsule) 200 mg PO TID PRN PRN Reason: Cough Last Admin: 08/09/25 19:53 Dose: 200 mg Documented By: TARAS Calcium Carbonate (Calcium Carbonate 750 Mg Tab.Chew) 750 mg PO Q4H PRN PRN Reason: Heartburn Doxycycline Monohydrate (Doxycycline Monohydrate 100 Mg Capsule) 100 mg PO Q12H [facility] Stop: 08/12/25 17:59 Last Admin: 08/09/25 19:52 Dose: 100 mg Documented By: TARAS Enoxaparin Sodium (Enoxaparin Sodium 40 Mg/0.4 Ml Syringe) 40 mg SUBCUT Q24H [facility] Last Admin: 08/10/25 03:07 Dose: 40 mg Documented By: TARAS Fluticasone/Vilanterol (Fluticasone/Vilanterol 100/25 Blst.W.Dev) 1 puff INHALE RDAILY [facility] Last Admin: 08/09/25 07:52 Dose: Not Given Documented By: LYNNETTE Non-Admin Reason: pharmacy called for med Furosemide (Furosemide 40 Mg Tablet) 40 mg PO DAILY [facility]; Protocol Hydralazine HCl (Hydralazine Hcl 20 Mg/Ml Vial) 5 mg IVPUSH Q6H PRN; Protocol PRN Reason: SBP > 160 Last Admin: 08/09/25 15:02 Dose: 5 mg Documented By: JEROME Hydralazine HCl (Hydralazine Hcl 10 Mg Tablet) 20 mg PO TID [facility]; Protocol Last Admin: 08/09/25 19:51 Dose: 20 mg Documented By: TARAS Hydroxyzine HCl (Hydroxyzine Hcl 25 Mg Tablet) 25 mg PO Q6H [facility] Last Admin: 08/10/25 03:07 Dose: 25 mg Documented By: TARAS Losartan Potassium (Losartan Potassium 25 Mg Tablet) 25 mg PO DAILY [facility]; Protocol Last Admin: 08/09/25 09:14 Dose: 25 mg Documented By: JEROME Magnesium Hydroxide (Milk Of Magnesia 30 Ml Oral.Susp) 30 ml PO DAILY PRN PRN Reason: Constipation Melatonin (Melatonin 3 Mg Tablet) 6 mg PO BEDTIME PRN PRN Reason: Insomnia Methadone HCl (Methadone Hcl 20 Mg/2 Ml Oral.Conc) 80 mg PO DAILY [facility] Last Admin: 08/09/25 08:16 Dose: 80 mg Documented By: JEROME Co-signed By: CHINA Methadone HCl (Methadone Hcl 20 Mg/2 Ml Oral.Conc) 30 mg PO BEDTIME [facility] Last Admin: 08/09/25 19:54 Dose: 30 mg Documented By: TARAS Co-signed By: ALEENA Nicotine (Nicotine 21 Mg Patch.Td24) 21 mg TRANSDERMA DAILY [facility] Last Admin: 08/09/25 08:13 Dose: Not Given Documented By: JEROME Non-Admin Reason: Patient Refused Nicotine Polacrilex (Nicotine Polacrilex Lozenge 2 Mg Lozenge) 2 mg BUCCAL Q2H PRN PRN Reason: Nicotine Cravings Omeprazole (Omeprazole 20 Mg Capsule.Dr) 20 mg PO DAILY@0630 [facility] Last Admin: 08/10/25 06:33 Dose: 20 mg Documented By: TARAS Ondansetron HCl (Ondansetron Hcl 4 Mg/2 Ml Vial) 4 mg IVPUSH Q8H PRN PRN Reason: Nausea and Vomiting Prednisone (Prednisone 20 Mg Tablet) 40 mg PO DAILY [facility] Last Admin: 08/09/25 08:14 Dose: 40 mg Documented By: JEROME Senna (Sennosides 8.6 Mg Tablet) 17.2 mg PO BEDTIME PRN PRN Reason: for constipation Sodium Chloride (0.9 % Sodium Chloride Flush 3 Ml Syringe) 3 ml IVFLUSH QSHIFT [facility] Last Admin: 08/09/25 19:55 Dose: 3 ml Documented By: TARAS Labs 08/10/25 05:56 08/10/25 05:56 Labs: Laboratory Results - last 24 hr 08/09/25 08/10/25 16:25 05:56 MCV 88.9 MCH 28.9 MCHC 32.5 RDW 13.9 Plt Count 329 MPV 10.1 Immature Gran % (Auto) 0.4 Neut % (Auto) 62.9 Lymph % (Auto) 27.2 [place] % (Auto) 8.3 Eos % (Auto) 0.7 Baso % (Auto) 0.5 Lymph # (Auto) 2.7 [place] # (Auto) 0.8 Eos # (Auto) 0.1 Baso # (Auto) 0.1 Abs Immat Gran (auto) 0.04 H Absolute Neuts (auto) 6.3 Absolute Nucleated RBC 0.000 Nucleated RBC % (auto) 0.0 Anion Gap 12 Estim Creat Clear Calc 56.2 Estimated GFR > 60 Random Glucose 96 Calcium 9.9 Magnesium 2.2 Total Bilirubin 0.4 AST 38 H ALT 24 Alkaline Phosphatase 112 Total Protein 8.0 Albumin 4.7 Urine pH 7.5 Urine Osmolality 762 Ur Random Sodium 175.0 Ur Random Chloride 162.0 Urine Opiates Screen POSITIVE H Ur Buprenorphine Scrn Not Detected Ur Oxycodone Screen Not Detected Urine Methadone Screen Positive H Urine Fentanyl Screen Not Detected Ur Barbiturates Screen Not Detected Ur Phencyclidine Scrn Not Detected Ur Amphetamines Screen Not Detected U Benzodiazepines Scrn Not Detected Urine Cocaine Screen Not Detected U Marijuana (THC) Screen POSITIVE H Microbiology Microbiology Results: Microbiology 08/07/25 22:40 Blood Culture - Preliminary Blood - Venous No growth after 48 hours. 08/07/25 22:31 Blood Culture - Preliminary Blood - Venous No growth after 48 hours. Quality Stroke Does the patient have a stroke diagnosis?: No VTE Prior VTE?: No VTE Risk Level:: Medical - moderate - high VTE Device Contraindication: Treatment Not Indicated VTE Drug Contraindication: N/A - Med Ordered
[2025-08-10 07:52] VITALS: BP 149/83; PULSE 74; RESP 16; TEMP 36.3; O2SAT 92
[2025-08-10] MEDS: 0.9 % Sodium Chloride Flush 3 ML SYRINGE IVFLUSH (08:05)
[2025-08-10] MEDS: methADONE HCl 20 MG/2 ML ORAL.CONC 80 MG PO (08:06)
[2025-08-10 08:38] VITALS: PULSE 73; RESP 15; O2SAT 93
[2025-08-10] MEDS: Albuterol/Iprat 2.5/0.5MG 3 ML AMPUL.NEB INHALE ×2 (08:38→11:10)
[2025-08-10] MEDS: Fluticasone/Vilanterol 100/25 BLST.W.DEV 1 PUFF INHALE (08:38)
--- NOTE | 2025-08-10 08:55 | MHC.RECOVRN ---
late entry, pt was seen 08/09/25 at approximately 10:45am Consult received by Addiction Medicine for PATRICIO.? Chart review completed. Pt is currently receiving 80mg of Methadone, no tox screen performed, or note of active use.? TW met with pt who reports she has been at her [facility]TP clinic for several years for Methadone dosing.? She denies current use of any illicit substances. Pt reports she is given 2wks of take home doses due to her compliance with her OTP. She identified strong recovery support and expressed she has no desire to return to use.?Provider notified and consult requested to be canceled as pt is not actively using substances and denies need for recovery support or resources.? Pt provided with TW contact information should questions or concerns arise. ACS team available as needed for support or resources.
--- NOTE | 2025-08-10 09:25 | PM.DS ---
DS: Providers Provider Date of Service: 08/10/25 Date of admission: 08/08/25 00:16 Date of discharge: 08/10/25 Primary care physician: Vitor Cox MD DS: Diagnosis Discharge Diagnosis (1) COPD (chronic obstructive pulmonary disease): Status: Acute DS: Summary Hospital Course Hospital Course: #Acute hypoxic respiratory failure secondary to acute COPD/asthma exacerbation with bronchitis Patient is a 65-year-old female with a past medical history significant for moderate to severe COPD/asthma, history of tobacco use, obesity, substance use disorder on methadone and history of hepatitis-C, who presented to the ED due to shortness of breath and cough worse and presented to the ED on 08/08/25 was noted to have COPD exacerbation. Likely secondary to COPD exacerbation, respiratory panel unremarkable, she responded well to steroid and overnight was able to wean off oxygen. Patient had a remarkable recovery to steroids, likely is now slightly advanced COPD. She needs to follow with outpatient beauty director. We also had her on doxycycline for anti-inflammatory properties. We checked her home O2 and she does not require it at the moment. Treatment resistant hypertension Patient was otherwise optimized for her COPD exacerbation but was noted to have new onset hypertension hence discharge was deferred until we can optimize her blood pressure Multifactorial as the patient does not appear to be on any home antihypertensive meds Could be in the setting of anxiety, steroids, nicotine withdrawal, opioid withdrawal, YSA, COPD For anxiety-initiated her on schedule Atarax Steroids need to be continued will be tapered Nicotine withdrawal-nicotine replacement ordered Opioid withdrawal-resumed her home methadone and we will likely need outpatient follow-up with the clinic for further medical management Patient was significantly hypertensive with a SBP in the 170s and 180s She was initiated her p.o. meds amlodipine 10 mg, Lasix 40 mg, hydralazine 20 mg p.o. t.i.d. , losartan 25 mg daily She was given a dose of IV hydralazine for him her p.r.n. meds, blood pressure dropped significantly to 130s and quickly went back up per bedside RN-likely labile blood pressure She has hydralazine IV 5 mg q.6 p.r.n. for SBP greater than 160 if not yet responding to p.o. meds as she seems to be very sensitive to the IV meds We will check electrolytes and replete to goal given that we have initiated meds PATRICIO on methadone, we resumed her home dose Nicotine dependence-nicotine replacement ordered - methadone, resumed class 1 obesity - BMI 31.2 - weight loss encouraged full code VTE prophy: loveonx Patient with acute hypoxic respiratory failure secondary to acute COPD/asthma exacerbation with bronchitis, better controlled BP - will have OP optimization with pcp Time Attestation Discharge Coordination Time (in mins): 55 Quality: Safe Use of Opioids Does Pt have an Active Cancer Diagnosis on the Problem List?: No Quality: Stroke Does the patient have a stroke diagnosis?: No Physical Exam Vital Signs: Vital Signs: Last Vital Signs Temp 97.3 F 08/10/25 07:52 Pulse 73 08/10/25 08:38 Resp 15 08/10/25 08:38 BP 149/83 H 08/10/25 07:52 Pulse Ox 92 08/10/25 07:52 O2 Del Method Room Air 08/10/25 07:52 BMI result Body Mass Index 33.0 DS: Data Data Completed and Pending Labs on day of discharge: Laboratory Results - last 24 hr 08/09/25 08/10/25 16:25 05:56 WBC 10.0 RBC 4.77 Hgb 13.8 Hct 42.4 MCV 88.9 MCH 28.9 MCHC 32.5 RDW 13.9 Plt Count 329 MPV 10.1 Immature Gran % (Auto) 0.4 Neut % (Auto) 62.9 Lymph % (Auto) 27.2 [place] % (Auto) 8.3 Eos % (Auto) 0.7 Baso % (Auto) 0.5 Lymph # (Auto) 2.7 [place] # (Auto) 0.8 Eos # (Auto) 0.1 Baso # (Auto) 0.1 Abs Immat Gran (auto) 0.04 H Absolute Neuts (auto) 6.3 Absolute Nucleated RBC 0.000 Nucleated RBC % (auto) 0.0 Sodium 139 Potassium 4.3 Chloride 104 Carbon Dioxide 27 Anion Gap 12 BUN 31 H Creatinine 0.90 Estim Creat Clear Calc 56.2 Estimated GFR > 60 Random Glucose 96 Calcium 9.9 Magnesium 2.2 Total Bilirubin 0.4 AST 38 H ALT 24 Alkaline Phosphatase 112 Total Protein 8.0 Albumin 4.7 Urine pH 7.5 Urine Osmolality 762 Ur Random Sodium 175.0 Ur Random Chloride 162.0 Urine Opiates Screen POSITIVE H Ur Buprenorphine Scrn Not Detected Ur Oxycodone Screen Not Detected Urine Methadone Screen Positive H Urine Fentanyl Screen Not Detected Ur Barbiturates Screen Not Detected Ur Phencyclidine Scrn Not Detected Ur Amphetamines Screen Not Detected U Benzodiazepines Scrn Not Detected Urine Cocaine Screen Not Detected U Marijuana (THC) Screen POSITIVE H Preliminary micro results at discharge 08/07/25 22:40 Blood Culture - Preliminary Blood - Venous No growth after 48 hours. 08/07/25 22:31 Blood Culture - Preliminary Blood - Venous No growth after 48 hours. Discharge Plan Discharge Anticipated Discharge Date/Time: 08/09/25 12:32 Patient Disposition: Home Health Service Discharge Diagnosis: Acute hypoxic respiratory failure secondary to acute COPD/asthma exacerbation with bronchitis secondary to current smoking Referrals: B[facility]bara HAMPTON [Outside] - 1 Week Referral Note: [facility]- A NURSE WILL CALL YOU TO SET UP FIRST VISIT Vitor Cox MD [Primary Care Provider, Internal Medicine] - 1 Week Discharge Medications: New doxycycline monohydrate 100 mg Capsule 100 mg PO Q12H 4 Days Qty: 8 0RF naloxone [Narcan] 4 mg/actuation spray,non-aerosol 4 mg intranasal Q3M PRN (Reason: opioid overdose) Qty: 2 0RF Rx Instructions: spray 1 dose into ONE nostril; alternate nostrils w each dose until help arrives furosemide 40 mg Tablet 40 mg PO DAILY 30 Days Qty: 30 3RF Protocol: Hold for SBP< HOLD for SBP < : 90 hydralazine 10 mg Tablet 20 mg PO TID 30 Days Qty: 180 3RF Protocol: Hold for SBP< HOLD for SBP < : 90 amlodipine 10 mg Tablet 10 mg PO DAILY 30 Days Qty: 30 3RF Protocol: Hold for SBP< HOLD for SBP < : 90 losartan 25 mg Tablet 25 mg PO DAILY 30 Days Qty: 30 3RF Protocol: Hold for SBP< HOLD for SBP < : 90 hydroxyzine HCl 25 mg Tablet 25 mg PO Q6H 30 Days Qty: 120 3RF Continued sennosides [senna] 8.6 mg tablet 17.2 mg PO BEDTIME PRN (Reason: for constipation) Qty: 180 1RF omeprazole 20 mg capsule,delayed release(DR/EC) 20 mg PO DAILY@0630 90 Days Qty: 90 1RF Incruse Ellipta 62.5 mcg/actuation blister with device 1 inh INHALATION DAILY methadone 10 mg/mL Concentrate 80 mg PO DAILY methadone 10 mg/mL Concentrate 30 mg PO BEDTIME (DME) NEBULIZER and all related supplies See Rx Instructions .Route .MEDSUPPLY Qty: 1 0RF Rx Instructions: As directed up to 4 times a day as needed albuterol sulfate 90 mcg/actuation HFA aerosol inhaler 2 puff inhalation Q4-6H PRN (Reason: shortness of breath or wheezing) 30 Days Qty: 8.5 3RF albuterol sulfate 2.5 mg /3 mL (0.083 %) solution for nebulization 2.5 mg continuous nebulization QID PRN (Reason: shortness of breath or wheezing) 30 Days Qty: 180 3RF Discharge Orders: Discharge Order (Routine); Ordered 08/10/25 Ordered By: Sarah Rizo Diet: Low salt diet Activity on Discharge: As tolerated Stand Alone Forms: Patient Portal Discharge page Print Language: Faroese Care Plan Goals: For HTN - new meds - amlodipine, losartan, hydralazine, lasix and needs BP monitor cuff(OTC) and PCP f/up Patient to continue nebulizer treatment as prescribed by her PCP Patient does not require home O2 as done by home O2 eval Patient is being given prednisone taper 40 mg 5 week course Patient deferred short-term rehab, going home with services Patient has a wound methadone script from addiction Medicine outpatient, we will follow up with methadone Clinic Other than adding prednisone, patient does not have any new meds Health Concerns: See above Plan of Treatment: See above Assessment: See above Patient Instructions: COPD (Chronic Obstructive Pulmonary Disease) (DC), Chronic Lung Disease and Infection Prevention (DC)
--- NOTE | 2025-08-10 09:40 | W.MHC.F2F ---
Service Date Service Date: 08/10/25 Encounter Date of encounter: 08/10/25 Reasons for Services Signs and symptoms assessed: as detailed below Reason for retirement: medication management and medication treatment Reason for physical therapy: home safety and mobility and ADL training Reason for occupational therapy: ADL training Homebound: Leaving the home is medically contraindicated at this time without the asist of a device and/or another person due th the listed conditions above and below. Reason homebound: unsteady gait / fall risk, shortness of breath with minimal effort and shortness of breath at rest Certification: Based on the above findings, I certify that this patient is confined to the home and needs intermittent retirement care, physical therapy and/or speech therapy, or continues to need occupational therapy. The patient is under my care, and I have initiated the establishment of the plan of care. The patient will be followed by a physician who will periodically review the plan of care. Time Spent With Patient Time: Total time managing care of this patient today ____ minutes.
--- NOTE | 2025-08-10 09:41 | MHC.CM.PN ---
Patient medically cleared for dc home w/ new [facility] services. Private transport.
[2025-08-10 11:12] VITALS: PULSE 74; RESP 18
[2025-08-10 11:32] VITALS: BP 148/66; PULSE 104; RESP 14; TEMP 36.1; O2SAT 92
--- NOTE | 2025-08-10 11:55 | PC.NURSE ---
Per Dr Rizo, pt good to be discharged without completing 24 hour urine
--- NOTE | 2025-08-10 17:21 | P.CDIM_ITS ---
PROVIDER RESPONSE TEXT: To clarify, the appropriate diagnosis supported by the clinical indicators: Acute QUERY TEXT: PHYSICIAN'S DOCUMENTATION REQUEST Date of Query: 08/09/2025 07:33 AM EST Patient Name: Mayra Moreno I Admit Date: 08/08/2025 Dear Sarah Rizo MD, A review of the medical record indicates additional documentation may be needed. Please review below and update the documentation accordingly. Clinical Indicators: Progress note dated 08/08/25 - Acute hypoxic respiratory failure secondary to acute COPD/asthma exacerbation with Bronchitis secondary to current smoking. Nebulization scheduled and p.r.n. Doxycycline p.o. for Bronchitis. Clarify which of the following accurately represents the acuity of the Bronchitis: Possible options might include: Acute Chronic Chronic stable condition Other (explain) Clinically unable to determine (explain) Thank you, Monica Gary, CCS, CDIS Use of terms such as suspected, likely, concern for, or probable (associated with a specific diagnosis that is being evaluated, monitored, or treated as if it exists) are acceptable and can be coded in the inpatient setting, when documented at the time of discharge. Please use your independent medical judgment in providing your response. THIS QUERY IS PART OF THE PERMANENT MEDICAL RECORD
== END 2025-08-10 11:58 | disposition home health service (06) | DRG 190 ==
LOC: HO.ED 08-08 00:03 → HO.EDOVER 08-08 00:23 → HO.S3 08-08 00:53
PROVIDERS: Physician Assistant; Physician Assistant Medical; Admitting Provider Internal Medicine; Emergency Provider Emergency Medicine; PCP Internal Medicine; Visit Provider Student in an Organized Health Care Education/Training Program
DX: J44.1 Chronic obstructive pulmonary disease with (acute) exacerbation (principal); J96.01 Acute respiratory failure with hypoxia; F11.20 Opioid dependence, uncomplicated; J45.901 Unspecified asthma with (acute) exacerbation; E66.811 Obesity, class 1; J44.0 Chronic obstructive pulmonary disease with (acute) lower respiratory infection; J20.9 Acute bronchitis, unspecified; I10 Essential (primary) hypertension; I1A.0 Resistant hypertension; Z71.3 Dietary counseling and surveillance; Z68.31 Body mass index [BMI] 31.0-31.9, adult; F17.210 Nicotine dependence, cigarettes, uncomplicated; Z20.822 Contact with and (suspected) exposure to COVID-19; Z71.6 Tobacco abuse counseling; Z79.51 Long term (current) use of inhaled steroids; Z79.899 Other long term (current) drug therapy
CPT/HCPCS: 36415; 71045; 80048; 80053; 80307; 82436; 83605; 83735; 83880; 83935; 84300; 84484; 85025; 87040; 87637; 93005; 94640; 97162; 99285; J0360; J0456; J0696; J1271; J1650; J2919; J3475

== ENCOUNTER → 2025-08-07 22:09 | Outpatient (BNV) | payer MEDICARE, MEDICAID, SELFPAY | PROVIDERS: Admitting Provider Internal Medicine; Emergency Provider Emergency Medicine; PCP Internal Medicine; Visit Provider Internal Medicine Cardiovascular Disease | DX: R07.9 Chest pain, unspecified (principal) | CPT/HCPCS: 93010 ==

== ENCOUNTER → 2025-08-07 22:43 | Outpatient (BNV) | payer MEDICARE, MEDICAID, SELFPAY | PROVIDERS: Admitting Provider Internal Medicine; Emergency Provider Emergency Medicine; PCP Internal Medicine; Visit Provider Radiology Diagnostic Radiology | DX: R06.02 Shortness of breath (principal) | CPT/HCPCS: 71045 ==

== ENCOUNTER 2025-08-08 00:16 | Outpatient (BNV) | payer MEDICARE, MEDICAID, SELFPAY | END 2025-08-09 14:03 | PROVIDERS: Admitting Provider Internal Medicine; Emergency Provider Emergency Medicine; PCP Internal Medicine; Visit Provider Internal Medicine Cardiovascular Disease | DX: R94.31 Abnormal electrocardiogram [ECG] [EKG] (principal); R00.0 Tachycardia, unspecified | CPT/HCPCS: 93010 ==

== ENCOUNTER → 2025-08-08 00:16 | Outpatient (BNV) | payer MEDICARE, MEDICAID, SELFPAY | PROVIDERS: Admitting Provider Internal Medicine; Emergency Provider Emergency Medicine; PCP Internal Medicine; Visit Provider Physician Assistant | DX: J44.1 Chronic obstructive pulmonary disease with (acute) exacerbation (principal) | CPT/HCPCS: 99233; 99239; G0180 ==

== ENCOUNTER 2025-08-31 12:54 | Observation (INO) | payer MEDICARE, MEDICAID, SELFPAY ==
--- NOTE | ~2025-08-31 | US_ITS ---
CLINICAL HISTORY: LLE Pain, sob Venous duplex ultrasound left lower extremity Comparison: None provided Findings: The visualized deep veins are fully compressible with normal Doppler color flow and spectral tracings. Patient was unable to tolerate compression of the profunda and distal superficial femoral vein but both veins appear patent. No popliteal cyst. IMPRESSION: 1. Negative for left lower extremity deep vein thrombosis. This document has been electronically signed by: Zena Felix MD on 08/31/2025 16:17:52
--- NOTE | ~2025-08-31 | XR_ITS ---
CLINICAL HISTORY: difficulty breathing 2 view chest x-ray Comparison: CR - XR CHEST 1V - 08/07/25 22:43 EST Findings: Normal size heart. No consolidation, pleural effusion or pneumothorax. No acute fracture. IMPRESSION: 1. No acute findings. This document has been electronically signed by: Zena Felix MD on 08/31/2025 16:39:58
[2025-08-31 12:58] VITALS: BP 122/76; PULSE 90; RESP 20; TEMP 36.4; O2SAT 91; BMI 30.6
--- NOTE | 2025-08-31 12:59 | ED.GENADULT ---
HPI - General Adult General Chief complaint: Upper Respiratory Symptoms Stated complaint: diff breathing Time Seen by Provider: 08/31/25 13:41 Source: patient, RN notes reviewed and old records reviewed Mode of arrival: ambulatory History of Present Illness ED Provider: Bernie Kendall PA-C HPI narrative: 65-year-old female with a past medical history HLD, GERD, COPD, smoker, prior polysubstance use on methadone, hepatitis-C, presenting to the ED complaining of dry cough, SOB, and chest discomfort with coughing since yesterday. Also reports LLE pain. Admits to using machine at home without relief. Patient was recently discharged from our facility on 08/10/2025 for COPD/asthma exacerbation. Denies current steroids. Denies fever, chills, travel, abdominal pain, LE swelling Related Data Home Medications ?Medication ?Instructions ?Recorded ?Confirmed methadone 10 mg/mL oral concentrate 30 mg PO BEDTIME 12/09/24 08/12/25 methadone 10 mg/mL oral concentrate 80 mg PO DAILY 12/09/24 08/12/25 umeclidinium 62.5 mcg/actuation 1 inh inhalation DAILY 08/08/25 08/12/25 blister powder for inhalation (Incruse Ellipta) Previous Rx's ?Medication ?Instructions ?Recorded NEBULIZER and all related supplies #1 ea 01/11/24 sennosides 8.6 mg tablet (senna) 17.2 mg (2 x 8.6 mg) PO BEDTIME 12/01/24 PRN for constipation #180 tabs omeprazole 20 mg capsule,delayed 20 mg PO DAILY@0630 90 days #90 04/07/25 release caps albuterol sulfate 2.5 mg/3 mL 2.5 mg (3 mL) continuous 07/03/25 (0.083 %) solution for nebulization nebulization QID PRN shortness of breath or wheezing 30 days #180 mL albuterol sulfate 90 mcg/actuation 2 puff inhalation Q4-6H PRN 07/03/25 aerosol inhaler shortness of breath or wheezing 30 days #8.5 grams doxycycline monohydrate 100 mg 100 mg PO Q12H 4 days #8 caps 08/09/25 capsule naloxone 4 mg/actuation nasal 4 mg intranasal Q3M PRN opioid 08/09/25 spray (Narcan) overdose #2 ea amlodipine 10 mg tablet 10 mg PO DAILY 30 days #30 tabs 08/10/25 furosemide 40 mg tablet 40 mg PO DAILY 30 days #30 tabs 08/10/25 hydralazine 10 mg tablet 20 mg PO TID 30 days #180 tabs 08/10/25 hydroxyzine HCl 25 mg tablet 25 mg PO Q6H 30 days #120 tabs 08/10/25 losartan 25 mg tablet 25 mg PO DAILY 30 days #30 tabs 08/10/25 Allergies Allergy/AdvReac Type Severity Reaction Status Date / Time bee pollen (BEE STINGS) Allergy Unknown SWELLING - Verified 08/31/25 13:01 BLOTCHES ciprofloxacin Allergy Nausea and Verified 08/31/25 13:01 Vomiting nitrofurantoin (From AdvReac Intermediate Vomiting Verified 08/31/25 13:01 Macrobid) Review of Systems Review of Systems: Yes all other systems are reviewed and are negative Constitutional: Constitutional: Reports as per [facility] Past Medical History Attestation statement: The following information was validated with the patient. Source: old records reviewed Medical History High cholesterol Insomnia GERD (gastroesophageal reflux disease) History of substance abuse Ex-smoker Overweight (BMI 25.0-29.9) Influenza A Pneumonitis Dyspnea on exertion Mixed incontinence urge and stress Obesity (BMI 30-39.9) Constipation Osteopenia Vitamin D deficiency History of hepatitis C COPD (chronic obstructive pulmonary disease) Smoker Bronchitis Surgical History History of tubal ligation Family History Family History Father Stroke Hypertension Diabetes Heart problem Mother Diabetes Brother Diabetes Sister In good health Social History Social History Household Members: Family Household Members Other:: Niece Housing: House Do you presently have visiting nurse or other home services: No Alcohol intake: former Patient Tobacco Use Status: Current everyday Tobacco user Tobacco use type: Cigarette Cigarettes Per Day: 6 e-Cigarette/Vaping Use: Never Used Second Hand Smoke Exposure: No Substance Use Type: Marijuana Advance Directives: Yes Advance Directives on File: Yes Advance Directives Date on File: 12/22/23 Do you have a plan to hurt others: No Plan service: No Current occupational status: employed Cognitive needs: No Hearing needs: No Vision needs: Yes (Glasses) Physical Exam ED Vital Signs: Vital Signs - 24 hr 08/31/25 12:58 08/31/25 13:42 08/31/25 15:11 Temperature 97.6 F 97.6 F Pulse Rate 90 62 83 Respiratory Rate 20 18 18 Blood Pressure 122/76 124/74 Pulse Oximetry 91 L 95 Oxygen Delivery Method Room Air Nasal Cannula Oxygen Flow Rate 1.5 BMI result Body Mass Index 30.6 Const General: cooperative, healthy appearing and no acute distress Orientation/consciousness: patient oriented x3 Limitations: no limitations HENMT Head: Yes normal to inspection and Yes atraumatic Ears: hearing grossly normal bilaterally General nose exam: Normal external nose present Face and sinus: Yes normal facial exam Eyes General: appearance normal, both eyes and all related structures EOM: EOMs intact bilaterally Neck Neck: Yes normal visual inspection and Yes no meningeal signs Resp Effort & Inspection: normal respiratory effort and no respiratory distress Auscultation: wheezes expiratory wheezes and inspiratory wheezes Cardio Rate: regular rate Heart sounds: S1 normal heart sound present and S2 normal heart sound present GI Inspection: Yes normal to inspection Palpation (GI): Soft to palpation, nontender, no guarding and not rigid General: Yes no CVA tenderness Back/Spine/Pelvis Back: no CVA tenderness Skin Rashes: no rashes Wounds: no wounds Neuro General: patient oriented x3, tone normal and no meningeal signs Cranial nerves: Yes CN's II-XII intact bilaterally Gait exam (Neuro): Normal gait present Extrem General: Yes normal to inspection, Yes no pedal edema and Yes no calf tenderness Course Course Course Narrative: This is a Rapid Medical Examination (RME) performed by Shi Mcmullen PA-C in triage. Full HPI, ROS, assessment and treatment plan per primary provider in the Main ED. Hx: 65 yo F hx COPD, prior tobacco abuse, obesity, prior polysubstance abuse on methadone, hepatitis-C, HTN here for eval of difficulty breathing, chest discomfort and b/l leg pain. using home breathing treatments without improvement, last tx 2 hours ago. recent admission for COPD axacerbation - not currently on steroids. no thinners. reports b/l LE swelling at baseline. no fever, chills, cough. PE/vitals: satting 90% on RA. lungs w/ diffuse inspiratory and expiratory wheezes and rhonchi. Plan: labs, viral swabs, cxr, ekg -1609--labs reassuring. Viral testing negative -CXR unremarkable. Venous duplex ultrasound without DVT -On re-evaluation patient is still with diffuse expiratory wheeze. Plan to admit for further management. Case discussed with hospitalist at 16:45 Medications Administered Discontinued Medications Generic Name Dose Route Start Last Admin Trade Name Freq PRN Reason Stop Dose Admin Albuterol Sulfate 2.5 mg/ 0 mg 08/31/25 13:34 08/31/25 13:43 Albuterol/Ipratropium 3 ml INHALE 08/31/25 13:35 5.5 dose ONCE ONE Administration Magnesium Sulfate 2 gm in 50 mls @ 25 mls/hr 08/31/25 13:46 08/31/25 15:41 Magnesium Sulfate/H2o IV 08/31/25 15:45 Infused ONCE ONE Infusion Methylprednisolone Sodium Succinate 60 mg 08/31/25 13:46 08/31/25 14:01 Methylprednisolone Sod Succ 125 Mg/2 Ml Vial IVPUSH 08/31/25 13:47 60 mg ONCE ONE Administration Medical Decision Making Medical Decision Making [facility] Narrative: 65-year-old female with a past medical history HLD, GERD, COPD, smoker, prior polysubstance use on methadone, hepatitis-C, presenting to the ED complaining of dry cough, SOB, and chest discomfort with coughing since yesterday. Also reports LLE pain. On exam satting 91% on RA, diffuse inspiratory/expiratory wheezes noted. No appreciable pedal edema or reproducible calf tenderness. Concern for COPD exacerbation vs viral illness vs pneumonia. PE/DVT on differential. Lower suspicion for dissection or CHF Plan: EKG, labs, CXR, viral testing, ultrasound, ED bronch protocol, IV Solu-Medrol/magnesium, anticipated admission Please refer to course for remaining clinical decision making, interpretation of labs/imaging results, and discussions with consultants and/or family members. Differential Diagnosis Differential Diagnoses: The differential diagnosis associated with the presentation includes As above Admission/Observation Consideration of admission/observation: Escalation of care including admission/observation considered Consult Healthcare Provider Management of the patient was discussed with: Hospitalist Lab Data [facility] Lab Attestation statement: I reviewed the patient's lab results. 08/31/25 13:26 08/31/25 13:26 Labs: Lab Results 08/31/25 Range/Units 13:26 WBC 8.2 (4.8-10.8) X10*3/uL RBC 4.70 (4.20-5.50) X10*6/uL Hgb 13.6 (12.0-16.0) g/dl Hct 40.8 (37.0-47.0) % MCV 86.8 (80.0-98.0) fL MCH 28.9 (27.0-33.0) pg MCHC 33.3 (31.0-35.0) g/dl RDW 13.2 (11.0-16.0) % Plt Count 354 (160-400) X10*3/uL MPV 9.8 (9.4-12.3) fL Immature Gran % (Auto) 0.4 (0.0-0.4) % Neut % (Auto) 71.1 (45-73) % Lymph % (Auto) 15.1 L (20-40) % [place] % (Auto) 6.6 (2-11) % Eos % (Auto) 6.2 H (0-4) % Baso % (Auto) 0.6 (0-2) % Lymph # (Auto) 1.2 (1.2-4.9) X10*3/uL [place] # (Auto) 0.5 (0.1-1.2) X10*3/uL Eos # (Auto) 0.5 H (0.0-0.4) X10*3/uL Baso # (Auto) 0.1 (0.0-0.2) X10*3/uL Abs Immat Gran (auto) 0.03 (0.00-0.03) X10*3/uL Absolute Neuts (auto) 5.8 (2.0-8.3) x10*3/uL Absolute Nucleated RBC 0.000 (0.0-0.012) X10*3/uL Nucleated RBC % (auto) 0.0 (0.0-0.2) /100WBC Sodium 138 (135-145) mmol/L Potassium 4.0 (3.3-5.1) mmol/L Chloride 102 (96-108) mmol/L Carbon Dioxide 27 (22-29) mmol/L Anion Gap 13 (12-20) BUN 16 (9-16) mg/dL Creatinine 0.78 (0.5-1.4) mg/dL Estim Creat Clear Calc 62.3 Estimated GFR > 60 Random Glucose 123 H (60-115) mg/dL Calcium 10.0 (8.4-10.2) mg/dL Magnesium 1.8 (1.6-2.6) mg/dL Total Bilirubin 0.4 (0.0-1.0) mg/dL AST 27 (5-31) U/L ALT 22 (0-31) U/L Alkaline Phosphatase 121 H (39-117) U/L Troponin I High Sens 4.1 D (<3.5-17.0) ng/L NT-Pro-B Natriuret Pep 461.5 H (<300) pg/mL Total Protein 8.5 H (6.5-8.0) g/dL Albumin 4.9 (3.5-5.0) g/dL Influenza Type A (PCR) NEGATIVE (Negative) Influenza Type B (PCR) NEGATIVE (Negative) RSV RNA Qual (PCR) NEGATIVE (Negative) SARS-CoV-2 RNA (RT-PCR) NEGATIVE (Negative) Independent Interpretation I performed an independent interpretation of an: EKG, Plain X-Ray and Ultrasound Radiology Impression Discussion of test interpretation with radiology: I have reviewed the radiologist's reading. External Record Review External record reviewed: Inpatient record, Office record, Outpatient record, Prior outpatient labs, Prior outpatient radiology, Primary care record and Outside ED record Tests considered The following testing was considered but not selected: As above Prescription Management I considered prescription management with: Other Chronic Conditions Patient?s care impacted by: Other Social Determinants Patient?s care significantly limited by Social Determinants of Health including: Other Social Determinant of Health Critical Care Time Critical Care Time Critical Care Time: Yes Total Critical Care Time: 40 Attestation: I have personally provided critical care time exclusive of time spent on separately billable procedures. Time includes review of lab data, radiology results, discussion with consultants, and monitoring for potential decompensation. Intervention performed as documented. Discharge Plan Discharge Clinical Impression: COPD with acute exacerbation Patient Disposition: Admitted As Inpatient Print Language: Bruneian
--- NOTE | 2025-08-31 13:01 | ECG_ITS ---
Test Reason : SOB Blood Pressure : */* mmHG Vent. Rate : 84 BPM Atrial Rate : 84 BPM P-R Int : 144 ms QRS Dur : 74 ms QT Int : 374 ms P-R-T Axes : 21 -1 34 degrees QTcB Int : 441 ms Normal sinus rhythm Nonspecific ST abnormality Abnormal ECG When compared with ECG of 09-Aug-2025 14:03, No significant change was found Referred By: Devora Mcmullen Electronically Signed By: JUAN MIGUEL ROSA
[2025-08-31 13:30] LABS: MANUAL DIFF FLAG NO
--- NOTE | 2025-08-31 13:30 | PC.NURSE ---
Patient presents to ED with shortness of breath. History of COPD and recent admission, discharged last month for Pneumonia. Patient sounds very wheezy, saturating 97% on 2L NC. Denies wearing oxygen BSL. Reports being former smoker, not current. Reports taking all of her inhalers this morning with no effect. Patient on bedside monitor. VSS.
[2025-08-31 13:32] LABS: Hematocrit 40.8 % (37.0-47.0); Hemoglobin 13.6 g/dl (12.0-16.0); Imm Gran Abs Auto 0.03 X10*3/uL (0.00-0.03); Imm Gran Pct Auto 0.4 % (0.0-0.4); Lymphocytes Absolute Auto 1.2 X10*3/uL (1.2-4.9); Mean Corpuscular HGB Conc 33.3 g/dl (31.0-35.0); Mean Corpuscular Hemoglobin 28.9 pg (27.0-33.0); Mean Corpuscular Volume 86.8 fL (80.0-98.0); NRBC Abs Auto 0.000 X10*3/uL (0.0-0.012); NRBC Pct Auto 0.0 /100WBC (0.0-0.2); Platelet Count 354 X10*3/uL (160-400); Red Blood Count 4.70 X10*6/uL (4.20-5.50); White Blood Count 8.2 X10*3/uL (4.8-10.8)
[2025-08-31 13:42] VITALS: PULSE 62; RESP 18; O2SAT 97
[2025-08-31] MEDS: Albuterol Sulfate 2.5 MG, Albuterol/Iprat 2.5/0.5MG 3 ML 3 ML INHALE (13:43)
[2025-08-31 13:48] LABS: Alanine Aminotransferase 22 U/L (0-31); Albumin Level 4.9 g/dL (3.5-5.0); Alkaline Phosphatase 121 U/L (39-117); Anion Gap 13 (12-20); Aspartate Amino Transferase 27 U/L (5-31); Blood Urea Nitrogen 16 mg/dL (9-16); Calcium 10.0 mg/dL (8.4-10.2); Carbon Dioxide 27 mmol/L (22-29); Chloride 102 mmol/L (96-108); Creatinine Clr Calc Pharmacy 62.3; Estimated Glomerular Filt Rate > 60; Magnesium 1.8 mg/dL (1.6-2.6); Potassium 4.0 mmol/L (3.3-5.1); Sodium 138 mmol/L (135-145); Total Protein 8.5 g/dL (6.5-8.0)
[2025-08-31 13:55] LABS: Troponin-I High Sensitivity 4.1 ng/L (<3.5-17.0)
[2025-08-31] MEDS: Magnesium Sulfate/H2O 2 GM/50 ML PIGGYBACK IV (14:01)
[2025-08-31 14:08] LABS: NT Pro B Type Natriuretic Pept 461.5 pg/mL (<300)
[2025-08-31 14:15] LABS: Resp Syncy Virus RNA Qual PCR NEGATIVE (Negative); SARS COV2 PCR INHOUSE NEGATIVE (Negative)
[2025-08-31 15:11] VITALS: BP 124/74; PULSE 83; RESP 18; TEMP 36.4; O2SAT 95
--- NOTE | 2025-08-31 16:53 | PM.IMHP ---
History of Present Illness Date of Service: 08/31/25 Chief Complaint: sob 65F PMH COPD, HCV, opiate dependence on methadone, hypertension presented with shortness of breath. Patient states symptoms began about 2 days prior to presentation. Has had cough with productive yellow sputum, denies sick contacts. Denies fever or chills. Has been having worsening shortness of breath worse on exertion. In ED found to be in respiratory distress tachypneic wheezing bilaterally, saturation 91% on room air. Chest x-ray unremarkable. Viral swab negative. Review of Systems Review of Systems: Yes all other systems are reviewed and are negative [facility] Medical History High cholesterol Insomnia GERD (gastroesophageal reflux disease) History of substance abuse Ex-smoker Overweight (BMI 25.0-29.9) Influenza A Pneumonitis Dyspnea on exertion Mixed incontinence urge and stress Obesity (BMI 30-39.9) Constipation Osteopenia Vitamin D deficiency History of hepatitis C COPD (chronic obstructive pulmonary disease) Smoker Bronchitis Family History Father Stroke Hypertension Diabetes Heart problem Mother Diabetes Brother Diabetes Sister In good health Surgical History History of tubal ligation Social History Household Members: Family Household Members Other:: Niece Housing: House Do you presently have visiting nurse or other home services: No Alcohol intake: former Patient Tobacco Use Status: Current everyday Tobacco user Tobacco use type: Cigarette Cigarettes Per Day: 6 e-Cigarette/Vaping Use: Never Used Second Hand Smoke Exposure: No Substance Use Type: Marijuana Advance Directives: Yes Advance Directives on File: Yes Advance Directives Date on File: 12/22/23 Do you have a plan to hurt others: No Plan service: No Current occupational status: employed Cognitive needs: No Hearing needs: No Vision needs: Yes (Glasses) Meds Allergies Allergy/AdvReac Type Severity Reaction Status Date / Time bee pollen (BEE STINGS) Allergy Unknown SWELLING - Verified 08/31/25 13:01 BLOTCHES ciprofloxacin Allergy Nausea and Verified 08/31/25 13:01 Vomiting nitrofurantoin (From AdvReac Intermediate Vomiting Verified 08/31/25 13:01 Macrobid) Active Medications: Current Medications Acetaminophen (Acetaminophen 325 Mg Tablet) 650 mg PO Q6H PRN PRN Reason: Pain, Mild 1-3,fever,headache Albuterol/Ipratropium (Albuterol/Iprat 2.5/0.5mg 3 Ml Ampul.Neb) 3 ml INHALE RQ4H WHILE AWAKE PRN PRN Reason: sob Azithromycin (Azithromycin 500 Mg Tablet) 500 mg PO Q24H BRIAN Calcium Carbonate (Calcium Carbonate 750 Mg Tab.Chew) 750 mg PO Q4H PRN PRN Reason: Heartburn Enoxaparin Sodium (Enoxaparin Sodium 40 Mg/0.4 Ml Syringe) 40 mg SUBCUT Q24H BRIAN Magnesium Hydroxide (Milk Of Magnesia 30 Ml Oral.Susp) 30 ml PO DAILY PRN PRN Reason: Constipation Melatonin (Melatonin 3 Mg Tablet) 6 mg PO BEDTIME PRN PRN Reason: Insomnia Methylprednisolone Sodium Succinate (Methylprednisolone Sod Succ 40 Mg/Ml Vial) 40 mg IVPUSH Q12H BRIAN Sodium Chloride (0.9 % Sodium Chloride Flush 3 Ml Syringe) 3 ml IVFLUSH QSHIFT BRIAN Home Medications ?Medication ?Instructions ?Recorded ?Confirmed ?Last Taken ?Type methadone 10 mg/mL oral concentrate 30 mg PO BEDTIME 12/09/24 08/12/25 08/07/25 History methadone 10 mg/mL oral concentrate 80 mg PO DAILY 12/09/24 08/12/25 08/07/25 History umeclidinium 62.5 mcg/actuation 1 inh inhalation DAILY 08/08/25 08/12/25 08/07/25 History blister powder for inhalation (Incruse Ellipta) Physical Exam Vital Signs and Narrative: Vital Signs: Last Vital Signs Temp 97.6 F 08/31/25 15:11 Pulse 83 08/31/25 15:11 Resp 18 08/31/25 15:11 BP 124/74 08/31/25 15:11 Pulse Ox 95 08/31/25 15:11 O2 Del Method Nasal Cannula 08/31/25 15:11 O2 Flow Rate 1.5 08/31/25 15:11 BMI result Body Mass Index 30.6 General: AO X 3, dyspneic, talking in short sentences Resp: Poor entry and wheezing bilateral, accessory muscles used CVS: S1,S2,RRR GI: soft, non tender, non distended Neuro: motor grossly intact, alert Psych: appropriate affect, appropriate insight Results Labs 08/31/25 13:26 08/31/25 13:26 Labs: Laboratory Results - last 24 hr 08/31/25 13:26 MCV 86.8 MCH 28.9 MCHC 33.3 RDW 13.2 Plt Count 354 MPV 9.8 Immature Gran % (Auto) 0.4 Neut % (Auto) 71.1 Lymph % (Auto) 15.1 L [place] % (Auto) 6.6 Eos % (Auto) 6.2 H Baso % (Auto) 0.6 Lymph # (Auto) 1.2 [place] # (Auto) 0.5 Eos # (Auto) 0.5 H Baso # (Auto) 0.1 Abs Immat Gran (auto) 0.03 Absolute Neuts (auto) 5.8 Absolute Nucleated RBC 0.000 Nucleated RBC % (auto) 0.0 Anion Gap 13 Estim Creat Clear Calc 62.3 Estimated GFR > 60 Random Glucose 123 H Calcium 10.0 Magnesium 1.8 Total Bilirubin 0.4 AST 27 ALT 22 Alkaline Phosphatase 121 H Troponin I High Sens 4.1 D NT-Pro-B Natriuret Pep 461.5 H Total Protein 8.5 H Albumin 4.9 Influenza Type A (PCR) NEGATIVE Influenza Type B (PCR) NEGATIVE RSV RNA Qual (PCR) NEGATIVE SARS-CoV-2 RNA (RT-PCR) NEGATIVE Assessment and Plan (1) History of substance abuse: Status: Acute Plan 65F PMH COPD, HCV, opiate dependence on methadone, hypertension presented with shortness of breath COPD with acute decompensation IV Solu-Medrol, DuoNebs, doxycycline Opiate dependence Continue methadone Hypertension Continue amlodipine and hydralazine DVT prophylaxis with Lovenox Full code Quality Stroke Does the patient have a stroke diagnosis?: No VTE Prior VTE?: No VTE Risk Level:: Medical - moderate - high VTE Device Contraindication: Treatment Not Indicated VTE Drug Contraindication: N/A - Med Ordered
--- NOTE | 2025-08-31 17:18 | PC.NURSE ---
Patient is a 65 year old female presenting with SOB for 2 days. Patient has a history of COPD with no oxygen requirements BSL. Patient was discharged last month for PNA. Noted to have productive cough and expiratory wheezes here. Received nebulizer treatment and SoluMedrol. Viral swab and CXR came back negative. Patient on 1L NC saturations >91%. Patient AOx4 and ambulatory to bathroom. 22g IV in left Fa.
[2025-08-31 17:20] VITALS: BP 121/72; PULSE 83; RESP 19; TEMP 36.9; O2SAT 93
[2025-08-31 18:29] VITALS: BP 116/78; PULSE 94; RESP 15; TEMP 36.8; O2SAT 93
--- NOTE | 2025-08-31 18:54 | PHA.MEDREC ---
Pharmacy Consult ? Medication Reconciliation Pharmacy has completed the medication reconciliation.VERIFIED MEDS WITH [facility], AND COMPARED WITH PHARMACY CLAIMS
[2025-08-31 19:06] VITALS: BP 121/78; PULSE 83; RESP 18; TEMP 36.6; O2SAT 93
[2025-08-31] MEDS: 0.9 % Sodium Chloride Flush 3 ML SYRINGE IVFLUSH (19:24)
[2025-08-31 20:13] VITALS: BMI 31.8
--- NOTE | 2025-08-31 21:35 | PC.NURSE ---
Pt on tele. Per [employer] representative on IMC: NSR with HR in low 60s.
[2025-09-01] VITALS: BP 134/72; PULSE 69; RESP 19; TEMP 36.2; O2SAT 93
[2025-09-01 03:56] VITALS: BP 134/76; PULSE 78; RESP 19; TEMP 36.2; O2SAT 93
[2025-09-01] MEDS: Albuterol/Iprat 2.5/0.5MG 3 ML AMPUL.NEB INHALE (04:18)
[2025-09-01 04:19] VITALS: PULSE 71; RESP 19; O2SAT 91
[2025-09-01 06:31] LABS: Hematocrit 39.5 % (37.0-47.0); Hemoglobin 13.2 g/dl (12.0-16.0); Mean Corpuscular HGB Conc 33.4 g/dl (31.0-35.0); Mean Corpuscular Hemoglobin 29.3 pg (27.0-33.0); Mean Corpuscular Volume 87.6 fL (80.0-98.0); NRBC Abs Auto 0.000 X10*3/uL (0.0-0.012); NRBC Pct Auto 0.0 /100WBC (0.0-0.2); Platelet Count 371 X10*3/uL (160-400); Red Blood Count 4.51 X10*6/uL (4.20-5.50); White Blood Count 8.3 X10*3/uL (4.8-10.8)
[2025-09-01 06:42] LABS: Anion Gap 13 (12-20); Blood Urea Nitrogen 30 mg/dL (9-16); Calcium 9.8 mg/dL (8.4-10.2); Carbon Dioxide 25 mmol/L (22-29); Chloride 102 mmol/L (96-108); Creatinine Clr Calc Pharmacy 54.5; Estimated Glomerular Filt Rate > 60; Magnesium 2.6 mg/dL (1.6-2.6); Potassium 4.4 mmol/L (3.3-5.1); Sodium 136 mmol/L (135-145)
[2025-09-01 07:41] VITALS: BP 135/66; PULSE 74; RESP 18; TEMP 37; O2SAT 92
[2025-09-01] MEDS: 0.9 % Sodium Chloride Flush 3 ML SYRINGE IVFLUSH (08:20)
--- NOTE | 2025-09-01 09:23 | HE.PHANOTE ---
re methadone pharmacy has received patients methadone confirmation form, patient receives methadone from [facility]. patient takes 80 mg in the morning and 30 mg of methadone in the evening. patient was given take home bottles through 09/12/25. last taken take home bottle was 08/31/25
--- NOTE | 2025-09-01 09:45 | P.DS_ITS ---
DS: Providers Provider Date of Service: 09/01/25 Date of admission: 08/31/25 16:48 Date of discharge: 09/01/25 Primary care physician: Vitor Cox MD DS: Diagnosis Discharge Diagnosis (1) History of substance abuse: Status: Acute DS: Summary Hospital Course Hospital Course: from initial hpi: 65F PMH COPD, HCV, opiate dependence on methadone, hypertension presented with shortness of breath. Patient states symptoms began about 2 days prior to presentation. Has had cough with productive yellow sputum, denies sick contacts. Denies fever or chills. Has been having worsening shortness of breath worse on exertion. In ED found to be in respiratory distress tachypneic wheezing bilaterally, saturation 91% on room air. Chest x-ray unremarkable. Viral swab negative. hospital course: Patient was admitted for COPD with acute decompensation. Was treated with IV steroids, DuoNebs, doxycycline had significant improvement on discharge we will continue 5 more days of prednisone and doxycycline. For opiate dependence was continued on methadone. For hypertension continued on amlodipine and hydralazine. Time Attestation Discharge Coordination Time (in mins): 33 Quality: Safe Use of Opioids Does Pt have an Active Cancer Diagnosis on the Problem List?: No Quality: Stroke Does the patient have a stroke diagnosis?: No Physical Exam Exam: Exam: General: AO X 3, no acute distress Resp: mild wheezing bilateral, no accessory muscles used CVS: S1,S2,RRR GI: soft, non tender, non distended Neuro: motor grossly intact, alert Psych: appropriate affect, appropriate insight Vital Signs: Vital Signs: Last Vital Signs Temp 98.6 F 09/01/25 07:41 Pulse 74 09/01/25 07:41 Resp 18 09/01/25 07:41 BP 135/66 09/01/25 07:41 Pulse Ox 92 09/01/25 07:41 O2 Del Method Room Air 09/01/25 07:41 O2 Flow Rate 2 09/01/25 03:56 BMI result Body Mass Index 31.8 DS: Data Data Completed and Pending Labs on day of discharge: Laboratory Results - last 24 hr 08/31/25 09/01/25 13:26 06:12 WBC 8.2 8.3 RBC 4.70 4.51 Hgb 13.6 13.2 Hct 40.8 39.5 MCV 86.8 87.6 MCH 28.9 29.3 MCHC 33.3 33.4 RDW 13.2 13.3 Plt Count 354 371 MPV 9.8 10.3 Immature Gran % (Auto) 0.4 Neut % (Auto) 71.1 Lymph % (Auto) 15.1 L Scott % (Auto) 6.6 Eos % (Auto) 6.2 H Baso % (Auto) 0.6 Lymph # (Auto) 1.2 Scott # (Auto) 0.5 Eos # (Auto) 0.5 H Baso # (Auto) 0.1 Abs Immat Gran (auto) 0.03 Absolute Neuts (auto) 5.8 Absolute Nucleated RBC 0.000 0.000 Nucleated RBC % (auto) 0.0 0.0 Sodium 138 136 Potassium 4.0 4.4 Chloride 102 102 Carbon Dioxide 27 25 Anion Gap 13 13 BUN 16 30 H Creatinine 0.78 0.91 Estim Creat Clear Calc 62.3 54.5 Estimated GFR > 60 > 60 Random Glucose 123 H 152 H Calcium 10.0 9.8 Magnesium 1.8 2.6 Total Bilirubin 0.4 AST 27 ALT 22 Alkaline Phosphatase 121 H Troponin I High Sens 4.1 D NT-Pro-B Natriuret Pep 461.5 H Total Protein 8.5 H Albumin 4.9 Influenza Type A (PCR) NEGATIVE Influenza Type B (PCR) NEGATIVE RSV RNA Qual (PCR) NEGATIVE SARS-CoV-2 RNA (RT-PCR) NEGATIVE Discharge Plan Discharge Anticipated Discharge Date/Time: 09/01/25 09:43 Patient Disposition: Home Health Service Discharge Diagnosis: copd Referrals: Vitor Cox MD [Primary Care Provider, Internal Medicine] - 1 Week Discharge Medications: New doxycycline monohydrate 100 mg Capsule 100 mg PO Q12H Qty: 10 0RF prednisone 20 mg tablet 40 mg PO DAILY Qty: 10 0RF Continued omeprazole 20 mg capsule,delayed release(DR/EC) 20 mg PO DAILY@0630 90 Days Qty: 90 1RF naloxone [Narcan] 4 mg/actuation spray,non-aerosol 4 mg intranasal Q3M PRN (Reason: opioid overdose) Qty: 2 0RF Rx Instructions: spray 1 dose into ONE nostril; alternate nostrils w each dose until help arrives furosemide 40 mg Tablet 40 mg PO DAILY 30 Days Qty: 30 3RF Protocol: Hold for SBP< HOLD for SBP < : 90 hydralazine 10 mg Tablet 20 mg PO TID 30 Days Qty: 180 3RF Protocol: Hold for SBP< HOLD for SBP < : 90 amlodipine 10 mg Tablet 10 mg PO DAILY 30 Days Qty: 30 3RF Protocol: Hold for SBP< HOLD for SBP < : 90 losartan 25 mg Tablet 25 mg PO DAILY 30 Days Qty: 30 3RF Protocol: Hold for SBP< HOLD for SBP < : 90 hydroxyzine HCl 25 mg Tablet 25 mg PO Q6H 30 Days Qty: 120 3RF Incruse Ellipta 62.5 mcg/actuation Blister With Device 1 inh INHALATION DAILY sennosides [senna] 8.6 mg tablet 8.6 mg PO BEDTIME methadone 10 mg/mL Concentrate 80 mg PO DAILY methadone 10 mg/mL Concentrate 30 mg PO BEDTIME (DME) NEBULIZER and all related supplies See Rx Instructions .Route .MEDSUPPLY Qty: 1 0RF Rx Instructions: As directed up to 4 times a day as needed albuterol sulfate 90 mcg/actuation HFA aerosol inhaler 2 puff inhalation Q4-6H PRN (Reason: shortness of breath or wheezing) 30 Days Qty: 8.5 3RF albuterol sulfate 2.5 mg /3 mL (0.083 %) solution for nebulization 2.5 mg continuous nebulization QID PRN (Reason: shortness of breath or wheezing) 30 Days Qty: 180 3RF Discharge Orders: Discharge Order (Routine); Ordered 09/01/25 Ordered By: Hans Jack Diet: Advance to usual diet Activity on Discharge: As tolerated Stand Alone Forms: Patient Portal Discharge page Print Language: Panamanian Care Plan Goals: Recovery Health Concerns: COPD Plan of Treatment: Five days of prednisone and doxycycline Assessment: See above
[2025-09-01 10:18] VITALS: BP 131/75; PULSE 98; RESP 18; TEMP 36.7; O2SAT 92
--- NOTE | 2025-09-01 10:33 | MHC.CM.PN ---
PT DISCHARGED PRIOR TO BEING SEEN BY CM, [place] [employer] COMPLETED FROM RECENT ADMISSION PT LIVES WITH NIECE AND IS FUNCTIONALLY INDEPENDENT PT DRIVES AND NO SERVICES OR DME. PT ATTENDS [facility] FOR MAT HCP ON FILE AND VERIFIED. PCP DR. SHAY DP: DISCHARGED HOME, NO SERVICES VIA SELF ARRANGED TRANSPORT
== END 2025-09-01 10:41 | disposition home health service (06) ==
LOC: HO.ED 16:47 → HO.EDOVER 17:00 → HO.S3 17:56
PROVIDERS: Physician Assistant Medical; Admitting Provider Internal Medicine; Emergency Provider Emergency Medicine; PCP Internal Medicine; Visit Provider Internal Medicine
DX: F19.11 Other psychoactive substance abuse, in remission (principal); F11.20 Opioid dependence, uncomplicated; R06.02 Shortness of breath; J44.9 Chronic obstructive pulmonary disease, unspecified; M79.605 Pain in left leg; R05.9 Cough, unspecified; R94.31 Abnormal electrocardiogram [ECG] [EKG]; Z03.818 Encounter for observation for suspected exposure to other biological agents ruled out; I10 Essential (primary) hypertension; E78.00 Pure hypercholesterolemia, unspecified; K21.9 Gastro-esophageal reflux disease without esophagitis; F17.200 Nicotine dependence, unspecified, uncomplicated; Z71.6 Tobacco abuse counseling
CPT/HCPCS: 36415; 71046; 80048; 80053; 83735; 83880; 84484; 85025; 85027; 87637; 93005; 93971; 94640; 96365; 96366; 96372; 96375; 96376; 99221; 99285; J1650; J2919; J3475

== ENCOUNTER → 2025-08-31 13:01 | Outpatient (BNV) | payer MEDICARE, MEDICAID, SELFPAY | PROVIDERS: Admitting Provider Internal Medicine; Emergency Provider Emergency Medicine; PCP Internal Medicine; Visit Provider Internal Medicine | DX: R94.31 Abnormal electrocardiogram [ECG] [EKG] (principal); R06.02 Shortness of breath | CPT/HCPCS: 93010 ==

== ENCOUNTER → 2025-08-31 13:02 | Outpatient (BNV) | payer MEDICARE, MEDICAID, SELFPAY | PROVIDERS: Admitting Provider Internal Medicine; Emergency Provider Emergency Medicine; PCP Internal Medicine; Visit Provider Specialist | DX: M79.662 Pain in left lower leg (principal); R06.02 Shortness of breath | CPT/HCPCS: 71046; 93971 ==

== ENCOUNTER → 2025-08-31 13:49 | Outpatient (BNV) | payer MEDICARE, MEDICAID, SELFPAY | PROVIDERS: Emergency Provider Emergency Medicine; PCP Internal Medicine; Visit Provider Internal Medicine | DX: J44.1 Chronic obstructive pulmonary disease with (acute) exacerbation (principal); F19.11 Other psychoactive substance abuse, in remission | CPT/HCPCS: 99223; 99239 ==

== ENCOUNTER 2025-09-04 11:01 | Outpatient (AMB) | payer MEDICARE, MEDICAID, SELFPAY ==
[2025-09-04 11:06] VITALS: BP 120/60; PULSE 74; O2SAT 93; BMI 31.9
--- NOTE | 2025-09-04 11:06 | MHC.OFFVIS ---
Vital Signs 09/04/25 11:06 Height 5 ft Weight 163 lb 2.273 oz BMI 31.9 BP 120/60 Blood Pressure Location Lt brachial Position Sitting Pulse 74 Pulse Source Pulse Oximeter Pulse Oximetry (%) 93 Oxygen Delivery Method Room Air Intake Visit Reasons: COPD Intake Note: pt is here for follow up and states she was in the hospital x2, she is wheezing and still not feeling well. Security Police Officer Required: No Security Police Officer Services: Security Police Officer Offered & Declined Allergies bee pollen (BEE STINGS) Allergy (Unknown, Verified 09/04/25 11:25) SWELLING - BLOTCHES ciprofloxacin Allergy (Verified 09/04/25 11:25) Nausea and Vomiting nitrofurantoin (From Macrobid) Adverse Reaction (Intermediate, Verified 09/04/25 11:25) Vomiting Medication List - Last Reconciled 09/04/25 by Elver Arredondo MD albuterol sulfate 2.5 mg (3 mL) continuous nebulization QID PRN 30 days albuterol sulfate 90 mcg/actuation 2 puffs inhalation Q4-6H PRN 30 days amlodipine 10 mg See Protocol PO DAILY 30 days doxycycline monohydrate 100 mg PO Q12H furosemide 40 mg See Protocol PO DAILY 30 days hydralazine 20 mg See Protocol PO TID 30 days hydroxyzine HCl 25 mg PO Q6H 30 days losartan 25 mg See Protocol PO DAILY 30 days methadone 80 mg PO DAILY methadone 30 mg PO BEDTIME naloxone 4 mg/actuation (Narcan) 4 mg intranasal Q3M PRN [NEBULIZER and all related supplies As directed up to 4 times a day as needed] omeprazole 20 mg PO DAILY@0630 90 days prednisone 40 mg (2 x 20 mg) PO DAILY sennosides (senna) 8.6 mg PO BEDTIME umeclidinium 62.5 mcg/actuation (Incruse Ellipta) 1 inh inhalation DAILY Do you need a note to return to daycare/school/sports/work: No HPI HPI COPD: Details: Ada is 65 years old female, nonsmoker,, has history of intermittent cough and wheezing off and on for the past many years back in 2021 the pulmonary function test was essentially normal without any response to BDs She has had no repeat pulmonary function test since then. She denies smoking. Currently has been on Incruse Ellipta once a day and albuterol solution in the nebulizer Q 4-6 hours during the daytime. She had 2 recent brief hospitalization for acute exacerbation. Treated with course of prednisone and doxycycline. This time she was discharged a few days ago and has completed the prednisone and also almost done with doxycycline. Today she complains of residual cough with some wheezing, which has not gone away completely. She denies fever or chills. The CBC at the time of admission did not show any leukocytosis. Chest x-ray was negative. Patient does have past history of opioids abuse and now she remains on methadone currently taking 30 mg at bedtime and 80 mg in the morning. [facility] Medical History (Updated 09/04/25 @ 12:09 by Elver Arredondo MD) Asthma with COPD High cholesterol Insomnia GERD (gastroesophageal reflux disease) History of substance abuse Ex-smoker Overweight (BMI 25.0-29.9) Influenza A Pneumonitis Dyspnea on exertion Mixed incontinence urge and stress Obesity (BMI 30-39.9) Constipation Osteopenia Vitamin D deficiency History of hepatitis C COPD (chronic obstructive pulmonary disease) Smoker Bronchitis Surgical History History of tubal ligation Family History Father Stroke Hypertension Diabetes Heart problem Mother Diabetes Brother Diabetes Sister In good health Social History Household Members: Family Household Members Other:: Niece Housing: House Do you presently have visiting nurse or other home services: No Alcohol intake: former Patient Tobacco Use Status: Never used Tobacco Tobacco use type: Cigarette Cigarettes Per Day: 6 e-Cigarette/Vaping Use: Never Used Second Hand Smoke Exposure: No Substance Use Type: Marijuana Advance Directives Date on File: 12/22/23 service: No Current occupational status: employed Cognitive needs: No Hearing needs: No Vision needs: Yes (Glasses) Review of Systems Const All systems reviewed & are unremarkable except as noted in HPI and below Eyes Reports no additional complaints ENT Reports no additional complaints Card Denies chest pain, Denies irregular heart rhythm and Denies leg edema Resp Reports as per HPI and Reports cough GI Reports no additional complaints Reports no additional complaints Musc Reports back pain Skin/Breast Reports system reviewed and no additional complaints, except as documented Neuro Reports no additional complaints Psych Reports no additional complaints Physical Exam Vital Signs: Last Vital Signs Pulse 74 09/04/25 11:06 BP 120/60 09/04/25 11:06 Pulse Ox 93 09/04/25 11:06 Oxygen Delivery Method Room Air 09/04/25 11:06 BMI result Body Mass Index 31.9 Const General: comfortable, no acute distress, alert and awake Orientation/consciousness: patient oriented x3 HEENT Head: Yes normal to inspection General nose exam: No nasal polyps present and No nasal discharge present Face and sinus: Yes sinuses nontender Mouth: oropharynx normal Throat: Yes posterior oropharynx normal Eyes General: appearance normal, both eyes and all related structures Neck Neck: Yes normal visual inspection, Yes no lymphadenopathy, Yes trachea midline and Yes no JVD Thyroid: Thyroid normal Chest Chest palpation & inspection: normal inspection of the chest, normal palpation of entire chest wall and no tenderness Resp Other: Percussion note is resonant, breath sounds are moderately distant with prolonged expiratory phase. Today I do hear some scattered expiratory wheezes on both sides. Cardio Palpation: normal PMI Rate: regular rate Rhythm: regular rhythm Heart sounds: no gallops and no murmurs Peripheral pulses: Peripheral pulses 2+ throughout GI Palpation (GI): Soft to palpation, nontender, No hepatosplenomegaly present and no masses Auscultation: normal bowel sounds Back/Spine/Pelvis Thoracic/Lumbar Spine: thoracic and lumbar spine normal to inspection Skin General skin exam: no rashes or lesions noted Neuro General: patient oriented x3 and no focal motor deficits Cranial nerves: Yes CN's II-XII intact bilaterally Extrem General: Yes normal to inspection, Yes no clubbing, cyanosis or edema and Yes no calf tenderness Psych Appearance: grossly normal and well kempt Speech and movement: Normal speech and movement present Results Reviewed Results Reviewed: PULMONARY FUNCTION TEST ON 08/30/2022 REPORTED TO BE ESSENTIALLY NORMAL. SPIROMETRY TODAY BEFORE AND AFTER BDs FVC=79 % FEV1= 77 % FEF 25-75 = 71 % NO RESPONSE TO BDs WHEEZES CLEARED AFTER ALBUTEROL TREATMENT CHEST X-RAY IN THE HOSPITAL NORMAL. IMMUNOLOGY, IGE LEVEL IN 2023 WAS 1370 ELEVATED. CBC WITH DIFF 08/07/25 7.3 09/01 6.2 Assessment & Plan Assessment & Plan (1) Ex-smoker: Comment: Patient does have longstanding history of smoking but quit early this year . After her hospitalization and has not gone back to smoking. Code(s): Z87.891 - Personal history of nicotine dependence Category: Social Hx Plan: Commended for not smoking and advised that she should never go back to this addiction (2) Dyspnea on exertion: Comment: Dyspnea on exertion is mainly when she climbs stairs but not when walking on the level ground. She has a tendency to walk fast. She lives on the 2nd floor and complains of having shortness of breath each time she climbs stairs. Would like to get an apartment on the ground floor . Code(s): R06.09 - Other forms of dyspnea Category: Medical Plan: I have written for the housing authority and recommended that she should get an apartment on the 1st floor. (3) Asthma with COPD: Comment: At baseline her pulmonary function test is normal. But the fact that she has been repeatedly hospitalized with acute exacerbations, it seems that she does have some degree of COPD. Elevated eosinophil count and elevated IgE level suggest hypersensitivity syndrome / reactive airways. Code(s): J44.89 - Other specified chronic obstructive pulmonary disease Category: Medical Plan: I think she will do better with ICS/LABA preparation, than LAMA agent. I have ordered Advair HFA 2 puffs b.i.d. and use albuterol solution in the nebulizer Q 4-6 hours only p.r.n. ( she prefers to use albuterol solution in the nebulizer ) I have also added montelukast 10 mg once a day. Medications: New fluticasone propion-salmeterol 115-21 mcg/actuation (Advair HFA) administer with spacer 2 puffs inhalation BID 12 grams 4RF asthma/copd 30 days montelukast 10 mg PO DAILY 30 tabs 4RF allergic asthma 30 days Coding Level of Care Code Est Pt Level 4 (97340) Diagnoses Ex-smoker Z87.891 Dyspnea on exertion R06.09 Asthma with COPD J44.89
== END 2025-09-04 12:03 | disposition home or self-care (01) ==
LOC: HO.HPS 11:02
PROVIDERS: PCP Internal Medicine; Visit Provider Internal Medicine
DX: Z87.891 Personal history of nicotine dependence (principal); R06.09 Other forms of dyspnea; J44.89 Other specified chronic obstructive pulmonary disease; J44.1 Chronic obstructive pulmonary disease with (acute) exacerbation
CPT/HCPCS: 99214

== ENCOUNTER → 2025-09-04 11:01 | Outpatient (BNVA) | payer MEDICARE, MEDICAID, SELFPAY | PROVIDERS: PCP Internal Medicine; Visit Provider Internal Medicine | DX: R06.09 Other forms of dyspnea (principal); J44.89 Other specified chronic obstructive pulmonary disease; Z87.891 Personal history of nicotine dependence | CPT/HCPCS: 94010; 94640; 99212 ==

== ENCOUNTER 2025-09-05 15:27 | Outpatient (AMB) | payer MEDICARE, MEDICAID, SELFPAY ==
--- NOTE | 2025-09-05 15:35 | A.OFFVIS_ITS ---
Intake Visit Reasons: OAB/Botox follow up (set(UA+PVR) Intake Note: Patient is present for a botox follow up for OAB * 03/19 Botox Urology Medication:none Antibiotic Allergy:none Blood Thinner:none PVR:114ml Global Supply Chain Vice President Required: No Allergies bee pollen (BEE STINGS) Allergy (Unknown, Verified 09/05/25 15:36) SWELLING - BLOTCHES ciprofloxacin Allergy (Verified 09/05/25 15:36) Nausea and Vomiting nitrofurantoin (From Macrobid) Adverse Reaction (Intermediate, Verified 09/05/25 15:36) Vomiting HPI Comments Details: 02/25/25--Mayra Moreno is followed for urinary incontinence she had urodynamics on 02/14/2025 findings consistent with less than average functional bladder capacity intrinsic sphincter deficiency may also play a a component in her urinary symptoms. Sensory urgency was noted. She has failed oxybutynin VESIcare in the past for overactive bladder symptoms. Telehealth-Video attempted. History of Present Illness The patient is a 64-year-old female presenting with urinary incontinence. She was previously evaluated for urinary incontinence and overactive bladder, where reduced bladder capacity and findings suggestive of intrinsic sphincter deficiency were identified. UDS conducted on 02/14/2025 showed a bladder volume capacity of approximately 203 mL, prompting concerns about functional capacity and bladder compliance. We discussed the procedure?s associated risks, including the possibility of transient blood in the urine and urinary tract infections, and the necessity for prophylactic antibiotics. Other therapies will be discussed if needed for pelvic floor weakness. I informed her about the requirement for insurance authorization before scheduling the procedure. 02/14/25--Mayra is here for urodynamics. The patient has complaints of urinary incontinence. Interpretation: During the filling phase there was sensory urgency was noted, strong desire was noted at 129 mL. Bladder capacity was less than average, the patient felt that they were at capacity at 203 mL. Leakage was observed during valsalva at 126 mL. Findings consistent with less than average functional bladder capacity. ISD may also play a component in urinary symptoms. Uninhibited detrusor contractions were not evident on this study. EMG- Appropriate changes in the waveforms were noted through out the study. 06/18/2024--Leslie was last seen a year ago. She has had lower urinary tract symptoms urgency and mixed urinary incontinence. The patient has history of nicotine use, she was evaluated for microscopic hematuria, which included office cystoscopy, findings at that time no suspicious lesions, mild cystitis. The patient states that her urinary leakage is worsening she is wearing a pad and it is wet all the time. Urinalysis is negative. She denies recent UTI. She states the VESIcare did not help and she is not using that right now. Will schedule urodynamics. Mayra is a 63-year-old female who presents today to the office for a 3-month follow-up. 06/02/2023?Mayra is followed today with c/o's of lower back pain and urgency. She was last seen by me on 02/25/2023 for cystitis. The patient was advised to continue using estradiol cream at that time. Vesicare 10 mg QD was ordered, and urodynamic testing was discussed to be scheduled during that time. Patient states that she is wearing diaper at night. She states that she had developed vomiting secondary to taking Macrobid. c/o's of leakage with cough. 02/25/23--The patient is being evaluated for microscopic hematuria.? Urinalysis today shows no infection.? She took oxybutynin 10 mg QD for bladder symptoms and reports leaking episodes when off from the medication.? The patient reports leaking while coughing.? The patient adhered to Macrobid 100 mg BID therapy for 10 days.? The patient is using estradiol cream.? CTAP?10/18/22-- Kidneys: WNL, No renal calculi visualized. Urine cytology--09/08/22-- Negative for malignant cells. Evaluation today-- Blood: negative, leukocytes: negative.? Cystoscopy findings-- no suspicious bladder lesions visualized. Mild cystitis.? Plan:?Continue using estradiol cream.? Vesicare 10 mg QD was ordered.?Urodynamic testing discussed to be scheduled. [facility] Medical History Asthma with COPD High cholesterol Insomnia GERD (gastroesophageal reflux disease) History of substance abuse Ex-smoker Overweight (BMI 25.0-29.9) Influenza A Pneumonitis Dyspnea on exertion Mixed incontinence urge and stress Obesity (BMI 30-39.9) Constipation Osteopenia Vitamin D deficiency History of hepatitis C COPD (chronic obstructive pulmonary disease) Smoker Bronchitis Surgical History History of tubal ligation Family History Father Stroke Hypertension Diabetes Heart problem Mother Diabetes Brother Diabetes Sister In good health Social History Household Members: Family Household Members Other:: Niece Housing: House Do you presently have visiting nurse or other home services: No Alcohol intake: former Patient Tobacco Use Status: Never used Tobacco Tobacco use type: Cigarette Cigarettes Per Day: 6 e-Cigarette/Vaping Use: Never Used Second Hand Smoke Exposure: No Substance Use Type: Marijuana Advance Directives Date on File: 12/22/23 service: No Current occupational status: employed Cognitive needs: No Hearing needs: No Vision needs: Yes (Glasses) Office Procedures Post Void Residual Post Residual Void Post Void Residual (PVR): 114 [id number] Void Residual by ultrasound Results AMB Urinalysis, Automated UA Leukoctes 0 Alfonso/uL Last Edit by Rylee Bray on 09/05/25 16:41 UA Nitrite Negative Last Edit by Rylee Bray on 09/05/25 16:41 UA Urobilinogen 0.2 mg/dL Last Edit by Rylee Bray on 09/05/25 16:41 UA Protein mg/dL Last Edit by Rylee Bray on 09/05/25 16:41 UA pH Last Edit by Rylee Bray on 09/05/25 16:41 UA Blood Bob/uL Last Edit by Rylee Bray on 09/05/25 16:41 UA Specific Lagro Last Edit by Rylee Bray on 09/05/25 16:41 UA Ketone Last Edit by Rylee Bray on 09/05/25 16:41 UA Bilirubin mg/dL Last Edit by Rylee Bray on 09/05/25 16:41 UA Glucose mg/dL Last Edit by Rylee Bray on 09/05/25 16:41 Assessment & Plan Assessment & Plan Orders: Orders AMB Urinalysis Automated Today Z13.9 - Encounter for screening, unspecified AMB Post Void Residual by ultrasound Today R31.29 - Other microscopic hematuria, R32 - Unspecified urinary incontinence Medications: New vibegron (Gemtesa) take with dinner 75 mg PO DAILY 30 tabs 5RF Coding CPT Codes Post Residual Void - PVR CPT Code: 86728-[id number] Void Residual by ultrasound ([id number])
== END 2025-09-05 16:28 | disposition home or self-care (01) ==
LOC: HO.HUSH 15:28
PROVIDERS: PCP Internal Medicine; Visit Provider Urology
DX: Z13.9 Encounter for screening, unspecified (principal)

== ENCOUNTER 2025-09-17 16:52 | Outpatient (AMB) | payer MEDICARE, MEDICAID, SELFPAY ==
[2025-09-17 16:55] VITALS: BP 110/68; PULSE 85; O2SAT 91; BMI 32.6
--- NOTE | 2025-09-17 16:55 | MHC.PC.OV ---
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 Accompanied by: Self / Same As Patient Allergies bee pollen (BEE STINGS) Allergy (Unknown, Verified 09/17/25 18:49) SWELLING - BLOTCHES ciprofloxacin Allergy (Verified 09/17/25 18:49) Nausea and Vomiting nitrofurantoin (From Macrobid) Adverse Reaction (Intermediate, Verified 09/17/25 18:49) Vomiting Medication List - Last Reconciled 09/17/25 by Vitor Cox MD albuterol sulfate 2.5 mg (3 mL) continuous nebulization QID PRN 30 days albuterol sulfate 90 mcg/actuation 2 puffs inhalation Q4-6H PRN 30 days amlodipine 10 mg See Protocol PO DAILY 30 days doxycycline monohydrate 100 mg PO Q12H fluticasone propion-salmeterol 115-21 mcg/actuation (Advair HFA) 2 puffs inhalation BID 30 days furosemide 40 mg See Protocol PO DAILY 30 days hydralazine 20 mg See Protocol PO TID 30 days hydroxyzine HCl 25 mg PO Q6H 30 days losartan 25 mg See Protocol PO DAILY 30 days methadone 80 mg PO DAILY methadone 30 mg PO BEDTIME mometasone-formoterol 100-5 mcg/actuation (Dulera) 2 puffs inhalation BID 30 days montelukast 10 mg PO DAILY 30 days naloxone 4 mg/actuation (Narcan) 4 mg intranasal Q3M PRN [NEBULIZER and all related supplies As directed up to 4 times a day as needed] omeprazole 20 mg PO DAILY@0630 90 days prednisone 40 mg (2 x 20 mg) PO DAILY sennosides (senna) 8.6 mg PO BEDTIME umeclidinium 62.5 mcg/actuation (Incruse Ellipta) 1 inh inhalation DAILY vibegron (Gemtesa) 75 mg PO DAILY Tobacco use date assessed: 09/17/25 Fall risk assessment: No Falls in past year Last assessed Fall Risk: 09/17/25 Dental Screening Dental Screen Date: 09/17/25 Did you have a dental visit in the last 12 months?: No Did you have a dental problem in the last 6 months where you did not have access to dental care?: No Was dental information given to patient?: No HPI COPD follow up HPI Details Patient comes in today for her follow up visit She was admitted to [facility] briefly earlier this month for COPD exacerbation States that she was started on some additional blood pressure medications while she was in the hospital due to high blood pressure readings while she was in-patient and was advised to follow up with his PCP [facility]AL at the time of her discharge to determine whether she needs to continue on all of her current BP meds She is presently on Amlodipine 10 mg QD, Losartan 25 mg QD, Furosemide 40 mg QD and Hydralazine 20 mg TID States that she was seen by Dr. Arredondo for pulmonary follow up a few days ago and was started additionally on Advair HFA 115-21 mcg 2 inhalations BID as well as Montelukast 10 mg QD; she is still on Incruse Ellipta and has her nebulizer to use when needed Patient states that her respiratory symptoms have improved a lot since she was discharged from the hospital a couple of weeks ago, with only some mild lingering chest congestion at present She denies any headaches or dizziness Denies any chest pains; still has some REYES but states that this has improved from a couple of weeks ago No nausea/vomiting, no abdominal pain No change in bowel habits noted [facility] Medical History (Updated 09/23/25 @ 00:17 by Vitor Cox MD) Essential hypertension Asthma-COPD overlap syndrome Asthma with COPD High cholesterol Insomnia GERD (gastroesophageal reflux disease) History of substance abuse Ex-smoker Overweight (BMI 25.0-29.9) Influenza A Pneumonitis Dyspnea on exertion Mixed incontinence urge and stress Obesity (BMI 30-39.9) Constipation Osteopenia Vitamin D deficiency History of hepatitis C COPD (chronic obstructive pulmonary disease) Smoker Bronchitis Surgical History History of tubal ligation Family History Father Stroke Hypertension Diabetes Heart problem Mother Diabetes Brother Diabetes Sister In good health Social History Household Members: Family Household Members Other:: Niece Housing: House Do you presently have visiting nurse or other home services: No Alcohol intake: former Patient Tobacco Use Status: Never used Tobacco Tobacco use type: Cigarette Cigarettes Per Day: 6 e-Cigarette/Vaping Use: Never Used Second Hand Smoke Exposure: No Substance Use Type: Marijuana Advance Directives Date on File: 12/22/23 service: No Current occupational status: employed Cognitive needs: No Hearing needs: No Vision needs: Yes (Glasses) Questionnaire PHQ-9 Over the last 2 weeks, how often have you been bothered by any of the following problems? 1. Little interest or pleasure in doing things: not at all 2. Feeling down, depressed, or hopeless: not at all 3. Trouble falling or staying asleep, or sleeping too much: nearly every day 4. Feeling tired or having little energy: nearly every day 5. Poor appetite or overeating: nearly every day 6. Feeling bad about yourself - or that you are a failure or have let yourself or your family down: not at all 7. Trouble concentrating on things, such as reading the newspaper or watching television: not at all 8. Moving or speaking so slowly that other people could have noticed. Or the opposite - being so fidgety or restless that you have been moving around a lot more than usual: several days 9. Thoughts that you would be better off or of hurting yourself in some way: not at all Total score: 10 Depression Screening Interpretation: Positive Depression Screening Follow-up: Follow-up Visit Requested Depression Screening Done: Yes 15868 - PHQ-9 Billing: Yes Source: Developed by Drs. Marcus Jackson, Vannesa Gongora, Alex Chong and colleagues, with an educational miles from [employer]. Thrive Questionnaire Date Thrive assessed: 09/17/25 I am a: Patient What is your living situation today?: I have a steady place to live Within the past 12 months, did the food you bought not last and you didn't have the money to get more?: Often true Within the past 12 months, did you worry whether your food would run out before you got money to buy more?: Often true Do you have trouble paying for medicines?: No Do you have trouble getting transportation to medical appointments?: No Do you have trouble paying your heating and electricity bill?: No Do you have trouble taking care of your child, family member or friend?: No Do you have trouble with day-to-day activities such as bathing, preparing meals, shopping, managing finances, etc.?: No Are you currently unemployed and looking for a job?: Yes Are you interested in more education?: No Please select the resources that you would like help with: None Currently or been in a relationship where the following occur: No concerns reported THRIVE Score: 2 AUDIT C Alcohol Use Questionnaire (AUDIT-C) 1. How often do you have a drink containing alcohol?: Monthly or less 2. How many drinks containing alcohol do you have on a typical day when you are drinking?: 1 or 2 3. How often do you have six or more drinks on one occasion?: Never Total Score: 1 Score Reviewed/Action Taken: Yes LEEANN-7 AMB Questionnaire LEEANN-7 Date LEEANN - 7 assessed: 09/17/25 Feeling nervous, anxious, or on edge: 0 = Not at all Not being able to stop or control worryin = Not at all Worrying too much about different things: 0 = Not at all Trouble relaxin = Not at all Being so restless that it is hard to sit still: 0 = Not at all Becoming easily annoyed or irritable: 0 = Not at all Feeling afraid as if something awful might happen: 0 = Not at all Total LEEANN-7 score (0-4 normal; 5-9 mild; 10-14 moderate; 15-21 severe): 0 Source: Developed by Drs. Marcus Jackson, Vannesa Gongora, Alex Chong and colleagues, with an educational miles from [employer]. Review of Systems Const Denies chills, Reports difficulty sleeping (chronic), Reports fatigue, Denies fever(s), Denies headache(s) and Reports weakness (at times) ENT Denies dysphagia, Denies dizziness, Denies otalgia, Denies headache(s), Denies neck pain, Denies odynophagia and Denies sore throat Card Denies chest pain, Denies rapid heart rate, Denies irregular heart rhythm, Denies palpitations and Reports dyspnea on exertion (chronic - increased lately) Resp Reports chest congestion (chest still feels congested at times), Reports cough (on and off - coughs up thick whitish phlegm at times), Denies hemoptysis, Reports dyspnea on exertion (chronic - increased lately) and Denies wheezing GI Denies abdominal pain, Reports constipation (chronic), Denies dysphagia, Denies heartburn, Denies diarrhea, Denies nausea, Denies odynophagia and Denies vomiting Denies difficulty voiding, Reports nocturia, Denies dysuria and Reports urinary incontinence (at times) Musc Denies back pain, Denies arthralgias and Denies neck pain Skin/Breast Denies rash Neuro Denies dizziness, Denies headache(s) and Reports weakness (at times) Endo Reports fatigue and Denies palpitations Aller/Immun Denies wheezing Physical exam (Primary Care) Vital Signs: Last Vital Signs Pulse 85 09/17/25 16:55 BP 110/68 09/17/25 16:55 Pulse Ox 91 L 09/17/25 16:55 Oxygen Delivery Method Room Air 09/17/25 16:55 BMI result Body Mass Index 32.6 Tobacco/Smoking Status: Tobacco use Status Tobacco use date assessed 09/17/25 09/17/25 17:00 Patient Tobacco Use Status Never used Tobacco 09/17/25 17:00 Tobacco use type Cigarette 09/17/25 17:00 e-Cigarette/Vaping Use Never Used 09/17/25 17:00 PHQ-9: PHQ-9 Score PHQ-9: Total score 10 09/17/25 19:03 Depression Screening Interpretation: Positive Depression Screening Follow-up: Follow-up Visit Requested Thrive Assessment: Date of Thrive Assessment Date Thrive assessed 09/17/25 09/17/25 17:00 Currently or been in a relationship where the following occur: No concerns reported Const General: no acute distress and alert HENMT Ears: TM's normal bilaterally and EAC's normal Throat: Yes posterior oropharynx normal and Yes tonsils normal (no TP congestion) Neck Neck: Yes supple and No lymphadenopathy Thyroid: Thyroid normal Resp Auscultation: no crackles, no rales, rhonchi (occasional), no wheezes and diminished lung sounds bilateral Cardio Rate: regular rate Rhythm: regular rhythm Heart sounds: no murmurs GI Palpation (GI): Soft to palpation and nontender Auscultation: normal bowel sounds General: Yes no CVA tenderness Back/Spine/Pelvis Back: no CVA tenderness Thoracic/Lumbar Spine: No lumbar spinal tenderness Skin Rashes: no rashes Extrem General: Yes no clubbing, cyanosis or edema Left upper extremity: elbow/forearm Details: tenderness Location: of the medial epicondyle; no swelling Results Reviewed Results Reviewed: Laboratory Tests 09/01/25 06:12 WBC 8.3 Hgb 13.2 Hct 39.5 Plt Count 371 Sodium 136 Potassium 4.4 Creatinine 0.91 Estimated GFR > 60 Random Glucose 152 H Calcium 9.8 Magnesium 2.6 Coding Level of Care Code Est Pt Level 4 (39193) Diagnoses Asthma-COPD overlap syndrome J44.89 Essential hypertension I10 Mixed dyslipidemia E78.2 Gastroesophageal reflux disease without esophagitis K21.9 Esophagitis presence: without esophagitis History of hepatitis C Z86.19 Elevated LFTs R79.89 Vitamin D deficiency E55.9 Osteopenia, unspecified location M85.80 Osteopenia location: unspecified Drug-induced constipation K59.03 Constipation type: drug induced constipation Mixed incontinence urge and stress N39.46 History of substance abuse F19.11 Obesity (BMI 30-39.9) E66.9 Additional Codes PHQ-9 - 50219 - PHQ-9 Billing: Yes ([id number]) Assessment & Plan Assessment & Plan (1) Asthma-COPD overlap syndrome: Code(s): J44.89 - Other specified chronic obstructive pulmonary disease Category: Medical Plan: Patient was seen by Dr. Arredondo for pulmonary follow up a few days ago and was started additionally on Advair HFA 115-21 mcg 2 inhalations BID as well as Montelukast 10 mg QD; she is still on Incruse Ellipta and has her nebulizer to use when needed She also appears to have elevated eosinophil count and elevated IgE level that suggest the presence of hypersensitivity syndrome/reactive airways Follow up with pulmonary as scheduled (2) Essential hypertension: Code(s): I10 - Essential (primary) hypertension Category: Medical Plan: Reinforced low sodium diet - goal is systolic BP of at least 120 to 130 mm or less Continue Amlodipine 10 mg QD, Losartan 25 mg QD, Furosemide 40 mg QD and Hydralazine 20 mg TID Patient is reminded to continue monitoring her blood pressure regularly (3) Mixed dyslipidemia: Code(s): E78.2 - Mixed hyperlipidemia Category: Medical Plan: Reinforced low cholesterol diet Have reminded patient to recheck her labs and fasting lipids as scheduled in a couple of months for follow up (4) GERD (gastroesophageal reflux disease): Code(s): K21.9 - Gastro-esophageal reflux disease without esophagitis Category: Medical Qualifiers: Esophagitis presence: without esophagitis Qualified Code(s): K21.9 - Gastro-esophageal reflux disease without esophagitis Plan: Reinforced dietary restrictions in GERD Continue Omeprazole 20 mg QD (5) History of hepatitis C: Comment: tx'd Code(s): Z86.19 - Personal history of other infectious and parasitic diseases Category: Medical Plan: Patient recalls being treated for hepatitis C many years ago Patient requested to have this retested couple of years ago after the methadone clinic noticed a positive hepatitis-C antibody test in early 2019 but she was not able to complete this after it was ordered Her LFTs are completely normal on her recent labs We had her recheck these with her other labs a few months ago and her viral load has remained undetectable (6) Elevated LFTs: Code(s): R79.89 - Other specified abnormal findings of blood chemistry Category: Medical Plan: Her LFTs were elevated on her recent labs, likely in relation to her recent weight gain but this may also partly be due to her high cholesterol levels and should improve with weight loss Will continue to monitor her LFTs regulary (7) Vitamin D deficiency: Code(s): E55.9 - Vitamin D deficiency, unspecified Category: Medical Plan: Continue Vitamin D3 2000 units QD (8) Osteopenia: Code(s): M85.80 - Other specified disorders of bone density and structure, unspecified site Category: Medical Qualifiers: Osteopenia location: unspecified Qualified Code(s): M85.80 - Other specified disorders of bone density and structure, unspecified site Plan: Her repeat BMD done in November 2022 revealed (+) osteopenia based on the lowest T-score value of -1.8 in the femoral neck Her BMD has declined by 7.7% in the AP spine from her previous BMD done on 03/16/2019; no significant decline was noted in the femoral neck Patient is reminded to continue to stay active and exercise regularly and also to take her daily calcium and vitamin-D supplements (9) Constipation: Code(s): K59.00 - Constipation, unspecified Category: Medical Qualifiers: Constipation type: drug induced constipation Qualified Code(s): K59.03 - Drug induced constipation Plan: This is mostly related to her Methadone Continue MiraLax powder 17 gm QD or Senna 8.6 mg QD PRN - states that the Rx helps but she can only take 1 or the other and not both (had diarrhea in the past when she took both MiraLax and Senna together); Rx for Senna was sent in to pharmacy previously per her request She is again encouraged to continue to increase her oral fluids and dietary fiber intake (10) Mixed incontinence urge and stress: Code(s): N39.46 - Mixed incontinence Category: Medical Plan: Abdominal and pelvic CT done last year came out negative She was on Oxybutynin ER 10 mg QD previously but this did not help much and was discontinued She underwent cystoscopy and bladder Botox injection with urology and now appears to be on Gemtesa 75 mg QD Follow up with urology as scheduled (11) History of substance abuse: Code(s): F19.11 - Other psychoactive substance abuse, in remission Category: Medical Plan: Continue Methadone 80 mg QD and 30 mg Q HS Follow up with the [facility] ([facility]) as scheduled (12) Obesity (BMI 30-39.9): Code(s): E66.9 - Obesity, unspecified Category: Medical Plan: Reinforced diet; exercise and weight are not practical at present as she is still struggling to get her respiratory symptoms under control Plan Follow up as scheduled in October 2025
== END 2025-09-17 17:23 | disposition home or self-care (01) ==
LOC: HO.HMCH 16:53
PROVIDERS: PCP Internal Medicine; Visit Provider Internal Medicine
DX: J44.89 Other specified chronic obstructive pulmonary disease (principal); F19.11 Other psychoactive substance abuse, in remission; I10 Essential (primary) hypertension; E78.2 Mixed hyperlipidemia; K21.9 Gastro-esophageal reflux disease without esophagitis; Z86.19 Personal history of other infectious and parasitic diseases; R79.89 Other specified abnormal findings of blood chemistry; E55.9 Vitamin D deficiency, unspecified; M85.80 Other specified disorders of bone density and structure, unspecified site; K59.03 Drug induced constipation; N39.46 Mixed incontinence; E66.9 Obesity, unspecified

== ENCOUNTER → 2025-09-17 16:52 | Outpatient (BNVA) | payer MEDICARE, MEDICAID, SELFPAY | PROVIDERS: PCP Internal Medicine; Visit Provider Internal Medicine | DX: I10 Essential (primary) hypertension (principal); J44.89 Other specified chronic obstructive pulmonary disease; E78.2 Mixed hyperlipidemia; K21.9 Gastro-esophageal reflux disease without esophagitis; K59.03 Drug induced constipation; N39.46 Mixed incontinence; E66.9 Obesity, unspecified; M85.80 Other specified disorders of bone density and structure, unspecified site; Z86.19 Personal history of other infectious and parasitic diseases; Z13.31 Encounter for screening for depression; Z13.39 Encounter for screening examination for other mental health and behavioral disorders; Z79.899 Other long term (current) drug therapy; F19.11 Other psychoactive substance abuse, in remission | CPT/HCPCS: 96127; 99212 ==